=== PATIENT | female | born 1955 | race Caucasian/White ===

== ENCOUNTER → 2020-12-08 11:01 | Outpatient (BNVA) | payer MEDICARE, OTHER, SELFPAY | PROVIDERS: PCP Family Medicine Geriatric Medicine; Visit Provider Hospitalist | DX: J45.40 Moderate persistent asthma, uncomplicated (principal); J40 Bronchitis, not specified as acute or chronic; K21.00 Gastro-esophageal reflux disease with esophagitis, without bleeding | CPT/HCPCS: 99212 ==

== ENCOUNTER → 2021-02-15 15:36 | Outpatient (REF) | payer MEDICARE, SELFPAY | LOC: HO.SL 15:36 | PROVIDERS: Visit Provider Hospitalist | DX: G47.33 Obstructive sleep apnea (adult) (pediatric) (principal) | CPT/HCPCS: 95806 ==

== ENCOUNTER 2021-02-22 13:09 | Outpatient (REF) | payer MEDICARE, SELFPAY ==
--- NOTE | ~2021-02-22 | XR_ITS ---
EXAMINATION: XR CHEST CLINICAL INFORMATION: Bronchitis COMPARISON: None TECHNIQUE: 2 views of the chest were obtained. FINDINGS: The lungs are well expanded. There is no focal consolidation, edema, or effusion. No pneumothorax. The cardiomediastinal silhouette is within normal limits. No acute osseous abnormality. Mild degenerative changes in the spine. XR/XR chest 2V IMPRESSION: Clear lungs.
[2021-02-22 14:17] LABS: MANUAL DIFF FLAG NO
[2021-02-22 14:27] LABS: Basophils Absolute Auto 0.1 X10*3/uL (0.0-0.2); Basophils Percent Auto 0.7 % (0-2); Eosinophils Absolute Auto 0.4 X10*3/uL (0.0-0.4); Eosinophils Percent Auto 3.7 % (0-4); Hematocrit 39.5 % (37.0-47.0); Hemoglobin 12.9 g/dl (12.0-16.0); Imm Gran Abs Auto 0.02 X10*3/uL (0.00-0.03); Imm Gran Pct Auto 0.2 % (0.0-0.4); Lymphocytes Absolute Auto 2.6 X10*3/uL (1.2-4.9); Lymphocytes Percent Auto 25.9 % (20-40); Mean Corpuscular HGB Conc 32.7 g/dl (31.0-35.0); Mean Corpuscular Hemoglobin 30.6 pg (27.0-33.0); Mean Corpuscular Volume 93.8 fL (80.0-98.0); Mean Platelet Volume 9.2 fL (9.4-12.3); Monocytes Absolute Auto 0.8 X10*3/uL (0.1-1.2); Monocytes Percent Auto 7.6 % (2-11); Neutrophils Absolute Auto 6.24 x10*3/uL (2.0-8.3); Neutrophils Percent Auto 61.9 % (45-73); Platelet Count 356 X10*3/uL (160-400); Red Blood Count 4.21 X10*6/uL (4.20-5.50); Red Cell Distribution Width 13.7 % (11.0-16.0); White Blood Count 10.1 X10*3/uL (4.8-10.8)
[2021-02-22 14:38] LABS: D Dimer 308 NG/ML
[2021-02-22 15:00] LABS: Anion Gap 12 (12-20); Blood Urea Nitrogen 17 mg/dL (9-16); Calcium 9.2 mg/dL (8.4-10.2); Carbon Dioxide 27 mmol/L (22-29); Chloride 106 mmol/L (96-108); Estimated Glomerular Filt Rate 47; Glucose Random 114 mg/dL (60-115); Potassium 4.6 mmol/L (3.3-5.1); Sodium 140 mmol/L (135-145)
[2021-02-22 15:14] LABS: Erythrocyte Sedimentation Rate 33 MM/HR (0-20)
[2021-02-24 04:42] LABS: Cyclic Citrullinated Peptide 18 UNITS
[2021-02-24 23:21] LABS: Anti Nuclear Antibody Pattern Nuclear, Speckled; Anti Nuclear Antibody Screen POSITIVE (NEGATIVE)
== END 2021-02-22 13:10 | disposition home or self-care (01) ==
LOC: HO.XRAY 13:09
PROVIDERS: PCP Nurse Practitioner Family; Visit Provider Hospitalist
DX: J45.40 Moderate persistent asthma, uncomplicated (principal); J40 Bronchitis, not specified as acute or chronic; K21.00 Gastro-esophageal reflux disease with esophagitis, without bleeding; R07.9 Chest pain, unspecified; G47.33 Obstructive sleep apnea (adult) (pediatric)
CPT/HCPCS: 36415; 71046; 80048; 82785; 85025; 85379; 85652; 86003; 86038; 86039; 86200; 99212

== ENCOUNTER 2021-02-25 10:51 | Outpatient (REF) | payer MEDICARE, SELFPAY ==
--- NOTE | ~2021-02-25 | CT_ITS ---
EXAMINATION: CT ANGIOGRAM OF THE CHEST WITH AND WITHOUT CONTRAST (CT PULMONARY ANGIOGRAM FOR PE) CLINICAL INFORMATION: Reason for Exam R07.9 - Chest pain, unspecified COMPARISON: Radiograph 02/22/2021 TECHNIQUE: Prior to contrast administration, noncontrast localization images were obtained. Subsequently, multidetector volumetric imaging was performed from the thoracic inlet to below the diaphragms following the administration of 65 mL Omnipaque 350 intravenous contrast. No contrast reaction reported Sagittal, coronal, and MIP oblique sagittal reformatted images were obtained on the CT workstation, uploaded to PACS, and reviewed. This CT examination was performed using dose optimization techniques as appropriate, variously including the following: *Automated exposure control *Adjustment of mA and/or kV according to patient size (this includes techniques or standardized protocols for targeted exams where dose is matched to indication/reason for exam; i.e. extremities or head) *Use of iterative reconstruction technique Total exam dose-length product 178 mGy-cm FINDINGS: QUALITY OF STUDY/CONTRAST BOLUS: Satisfactory. PULMONARY ARTERIES: No central or segmental pulmonary emboli. THORACIC AORTA: No aneurysm or dissection. LUNG: The central airways are patent. There is mild bronchial wall thickening. No dense consolidation. Bilateral subsegmental lower lobe atelectasis. No pulmonary nodule. PLEURA: No pleural effusion or pneumothorax. MEDIASTINUM: Normal heart size. No pericardial effusion. No hilar or mediastinal lymphadenopathy. The right lobe of the thyroid gland appears to be absent. No evidence of septal bowing or right heart strain. CHEST WALL/AXILLA: No axillary or internal mammary lymphadenopathy. OSSEOUS STRUCTURES: No acute or suspicious osseous abnormality. Mild degenerative changes of the spine. UPPER ABDOMEN: Unremarkable. No reflux of contrast into the hepatic veins to suggest elevated right heart pressures. CT/CT angio chest PE protocol IMPRESSION: No pulmonary embolism. No consolidation. Bronchial wall thickening can be seen with a small airways process such as asthma or atypical/viral infection. VTE: negative
[2021-02-25] MEDS: iohexoL 350 MG/ML 100 ML INFUS..BTL 65 ML IV (12:27)
== END 2021-02-25 10:52 | disposition home or self-care (01) ==
LOC: HO.CT 10:51
PROVIDERS: PCP Nurse Practitioner Family; Visit Provider Hospitalist
DX: R07.9 Chest pain, unspecified (principal); R78.89 Finding of other specified substances, not normally found in blood
CPT/HCPCS: 71275; Q9967

== ENCOUNTER → 2021-05-02 12:50 | Outpatient (BNVA) | payer MEDICARE, SELFPAY | PROVIDERS: PCP Nurse Practitioner Family; Visit Provider Hospitalist | DX: J45.40 Moderate persistent asthma, uncomplicated (principal); K21.00 Gastro-esophageal reflux disease with esophagitis, without bleeding; G47.33 Obstructive sleep apnea (adult) (pediatric); R07.9 Chest pain, unspecified | CPT/HCPCS: 99212 ==

== ENCOUNTER 2021-10-03 11:16 | Outpatient (REF) | payer MEDICARE, OTHER, SELFPAY ==
--- NOTE | ~2021-10-03 | XR_ITS ---
EXAMINATION: XR CHEST CLINICAL INFORMATION: J45.40 - Moderate persistent asthma, uncomplicated COMPARISON: Chest radiographs 02/22/2021, CTA chest 02/25/2021 TECHNIQUE: 2 views of the chest were obtained. FINDINGS: The lungs are clear. No airspace consolidation or groundglass opacity or effusion. Heart size normal. The hilar and mediastinal contours and bony structures are similar to prior exam. XR/XR chest 2V IMPRESSION: Unremarkable examination.
[2021-10-03 12:56] LABS: Erythrocyte Sedimentation Rate 34 MM/HR (0-20)
[2021-10-04 22:12] LABS: Immunoglobulin E 1483 kU/L (<OR=114)
[2021-10-05 22:03] LABS: Anti Nuclear Antibody Screen POSITIVE (NEGATIVE)
[2021-10-09 11:15] LABS: Anti DNA DS Antibody 1 IU/mL; Antibody to SS-A Antigen >8.0 POS AI (<1.0 NEG); Antibody to SS-B Antigen <1.0 NEG AI (<1.0 NEG)
== END 2021-10-03 11:17 | disposition home or self-care (01) ==
LOC: HO.LAB 11:16
PROVIDERS: Visit Provider Hospitalist
DX: J45.40 Moderate persistent asthma, uncomplicated (principal); R07.9 Chest pain, unspecified; K21.00 Gastro-esophageal reflux disease with esophagitis, without bleeding; G47.33 Obstructive sleep apnea (adult) (pediatric); R76.8 Other specified abnormal immunological findings in serum; J30.9 Allergic rhinitis, unspecified
CPT/HCPCS: 36415; 71046; 82785; 85652; 86038; 86039; 86225; 86235; 99212

== ENCOUNTER 2021-12-01 11:54 | Outpatient (REF) | payer MEDICARE, OTHER, SELFPAY ==
--- NOTE | ~2021-12-01 | XR_ITS ---
EXAMINATION: XR CHEST 2 VIEWS CLINICAL INFORMATION: Covid-19. COMPARISON: Chest radiographs dated 10/03/2021. TECHNIQUE: Frontal and lateral views of the chest were obtained. FINDINGS: The heart, great vessels, pulmonary vasculature and mediastinum are normal. The lungs show no focal infiltrate, effusion or pneumothorax. There is mild elevation of the right hemidiaphragm. There is no acute osseous abnormality. A small rectangular density superior to the distal right clavicle is likely external to patient. There is multi-level thoracic spondylosis. XR/XR chest 2V IMPRESSION: No active cardiopulmonary disease.
== END 2021-12-01 11:55 | disposition home or self-care (01) ==
LOC: HO.XRAY 11:54
PROVIDERS: Visit Provider Hospitalist
DX: U07.1 COVID-19 (principal)
CPT/HCPCS: 71046

== ENCOUNTER → 2021-12-02 09:39 | Outpatient (BNVA) | payer MEDICARE, OTHER, SELFPAY | PROVIDERS: PCP Nurse Practitioner Family; Visit Provider Hospitalist | DX: M35.00 Sjogren syndrome, unspecified (principal); R76.8 Other specified abnormal immunological findings in serum; J44.9 Chronic obstructive pulmonary disease, unspecified; J45.40 Moderate persistent asthma, uncomplicated; K21.00 Gastro-esophageal reflux disease with esophagitis, without bleeding; R07.9 Chest pain, unspecified; G47.33 Obstructive sleep apnea (adult) (pediatric); J30.9 Allergic rhinitis, unspecified; U07.1 COVID-19 | CPT/HCPCS: 99212 ==

== ENCOUNTER 2022-02-16 11:05 | Outpatient (REF) | payer MEDICARE, OTHER, SELFPAY ==
--- NOTE | ~2022-02-16 | XR_ITS ---
EXAMINATION: XR CHEST CLINICAL INFORMATION: Bronchitis COMPARISON: Previous chest x-ray most recent November 2021 TECHNIQUE: 2 views of the chest were obtained. FINDINGS: No significant abnormality is noted involving the heart, lungs, mediastinum, or soft tissues. There are degenerative changes of the spine. XR/XR chest 2V IMPRESSION: No evidence for acute disease in the chest.
[2022-02-16 13:06] LABS: Basophils Percent Auto 0.2 % (0-2); Eosinophils Percent Auto 0.1 % (0-4); Hematocrit 31.1 % (37.0-47.0); Hemoglobin 9.9 g/dl (12.0-16.0); Imm Gran Abs Auto 0.16 X10*3/uL (0.00-0.03); Imm Gran Pct Auto 0.8 % (0.0-0.4); Lymphocytes Absolute Auto 0.9 X10*3/uL (1.2-4.9); Lymphocytes Percent Auto 4.9 % (20-40); MANUAL DIFF FLAG SCAN; Mean Corpuscular HGB Conc 31.8 g/dl (31.0-35.0); Mean Corpuscular Hemoglobin 30.5 pg (27.0-33.0); Mean Corpuscular Volume 95.7 fL (80.0-98.0); Mean Platelet Volume 9.1 fL (9.4-12.3); Monocytes Absolute Auto 0.7 X10*3/uL (0.1-1.2); Monocytes Percent Auto 3.7 % (2-11); Neutrophils Absolute Auto 17.2 x10*3/uL (2.0-8.3); Neutrophils Percent Auto 90.3 % (45-73); Platelet Count 374 X10*3/uL (160-400); Red Blood Count 3.25 X10*6/uL (4.20-5.50); Red Cell Distribution Width 17.5 % (11.0-16.0); SCAN SMEAR FLAG 1
[2022-02-16 13:14] LABS: D Dimer High Sensitivity 560 NG/ML
[2022-02-16 13:25] LABS: Estimated Average Glucose 126 mg/dL
[2022-02-16 13:40] LABS: SLIDE REVIEW VERIFIED
[2022-02-16 13:51] LABS: Alanine Aminotransferase 41 U/L (0-31); Albumin Level 3.6 g/dL (3.5-5.0); Alkaline Phosphatase 74 U/L (39-117); Anion Gap 18 (12-20); Aspartate Amino Transferase 23 U/L (5-31); Bilirubin Total 0.3 mg/dL (0.0-1.0); Blood Urea Nitrogen 21 mg/dL (9-16); C Reactive Protein 10.03 mg/dL (< or = 0.50); Calcium 9.1 mg/dL (8.4-10.2); Carbon Dioxide 19 mmol/L (22-29); Chloride 107 mmol/L (96-108); Estimated Glomerular Filt Rate 47; Glucose Random 112 mg/dL (60-115); Iron 25 mcg/dL (30-160); Lactate Dehydrogenase 292 U/L (122-220); Lipase 153 U/L (8-78); Percent Iron Saturation 9 % (15-50); Potassium 5.2 mmol/L (3.3-5.1); Sodium 139 mmol/L (135-145); Total Iron Binding Capacity 293 mcg/dL (228-428); Unsaturated Iron Binding 268 ug/dL
[2022-02-16 14:15] LABS: Ferritin 382 ng/mL (10-250); Thyroid Stimulating Hormone 0.44 uIU/mL (0.32-4.0)
[2022-02-16 14:18] LABS: Appearance Urine Cloudy; Color Urine Dark Yellow; Glucose Urine UA Negative (Negative); Leukocyte Esterase Urine Small (1+) (Negative); Nitrite Urine Negative (Negative); Specific Gravity - Urine 1.025 (1.005-1.025); UMIC TRIGGER UA YES; Urine Blood Negative (Negative); Urine Ketones Trace mg/dL (Negative); Urine Protein Trace mg/dL (Neg-Trace)
[2022-02-16 14:43] LABS: Bacteria Urine None Seen (None Seen); Calcium Oxalate Crystals Urine Present; Hyaline Casts Urine 0-2 /LPF (0-2); RBC Urine 0-2 /HPF (0-2); WBC Urine 0-5 /HPF (0-5)
[2022-02-16 15:19] LABS: Folate 8.8 ng/mL (> or = 4.0); Vitamin B12 517 pg/mL (200-900)
[2022-02-16 15:24] LABS: Creatinine Urine 218.83 mg/dL; Protein/Creatinine Ratio, Ur 0.18 (<0.2); Total Protein Urine Random 39 mg/dL (<12)
[2022-02-16 16:01] LABS: Erythrocyte Sedimentation Rate 98 MM/HR (0-20)
[2022-02-17 04:58] LABS: HBS Num1 0.74 mIU/mL (0-7.99); HBc Num1 0.12 S/CO (0.00-0.79); HIV AB/AG Nonreactive (Nonreactive); HIV Num 1 0.09 S/CO (0.00-0.99); Hepatitis B Core Antibody Nonreactive (Nonreactive); Hepatitis B Surface Antigen Negative (Negative); ~HepC Num1 0.07 S/CO (0.00-0.79); ~Hepatitis A Antibody IgM Nonreactive (Nonreactive); ~Hepatitis B Surface Antibody NONREACTIVE (Nonreactive); ~Hepatitis C Antibody Nonreactive (Nonreactive)
[2022-02-17 18:07] LABS: Complement C3 182 mg/dL (83-193)
[2022-02-18 14:33] LABS: Transferrin 216 mg/dL (188-341)
[2022-02-19 03:17] LABS: TS Negative Control Passed; TS Panel A 0; TS Panel B 0; TS Positive Control Passed; TSpotTB Negative (Negative)
[2022-02-20 14:23] LABS: Immunoglobulin G Subclass 1 958 mg/dL (382-929); Immunoglobulin G Subclass 2 240 mg/dL (241-700); Immunoglobulin G Subclass 3 17 mg/dL (22-178); Immunoglobulin G Subclass 4 76.6 mg/dL (4-86); Immunoglobulin G Total 1416 mg/dL (600-1540)
[2022-02-20 21:57] LABS: Myeloperoxidase Antibody <1.0 AI; Proteinase 3 PR3 Antibodies <1.0 AI; SM/Ribonucleoprotein Ab <1.0 NEG AI (<1.0 NEG); Scleroderma 70 Antibody <1.0 NEG AI (<1.0 NEG); Smith Protein <1.0 NEG AI (<1.0 NEG)
[2022-02-20 22:11] LABS: Anti-Centromere B Antibodies <1.0 NEG AI (<1.0 NEG); Cardiolipin IgG Ab <2.0 GPL-U/mL; Cardiolipin IgM Ab <2.0 MPL-U/mL
[2022-02-20 22:32] LABS: PTT (LAC) Screen 39 sec (<=40)
[2022-02-21 12:48] LABS: IgA 314 mg/dL (70-320); IgG 1414 mg/dL (600-1540); IgM 58 mg/dL (50-300)
[2022-02-21 14:02] LABS: Mitochondrial Antibodies NEGATIVE (NEGATIVE)
[2022-02-21 18:11] LABS: Prot Elec - Alpha1 0.5 g/dL (0.2-0.3); Prot Elec - Alpha2 1.1 g/dL (0.5-0.9); Prot Elec - Beta 1 0.5 g/dL (0.4-0.6); Prot Elec - Beta 2 0.4 g/dL (0.2-0.5); Prot Elec - Gamma 1.3 g/dL (0.8-1.7); Prot Elec - Total Protein 6.8 g/dL (6.1-8.1)
[2022-02-21 21:33] LABS: Beta-2 Glycoprotein IgA <2.0 U/mL (<20.0); Beta-2 Glycoprotein IgG <2.0 U/mL (<20.0); Beta-2 Glycoprotein IgM <2.0 U/mL (<20.0)
[2022-02-22 14:12] LABS: DNAds, Crithidia Antibody Negative (Negative)
[2022-02-23 04:36] LABS: Angiotensin Converting Enzyme 22 U/L (9-67)
[2022-02-23 16:21] LABS: Liver Kidney Microsomal Ab <=20.0 U (<=20.0)
[2022-02-23 16:55] LABS: Smooth Muscle Antibody <20 U (<20)
[2022-02-27 17:32] LABS: EJ Autoantibodies NOT DETECTED (NOT DETECTED); JO-1 Antibody <1.0 NEG AI (<1.0 NEGATIVE); MI 2 Autoantibodies NOT DETECTED (NOT DETECTED); OJ Autoantibodies NOT DETECTED (NOT DETECTED); PL 12 Autoantibodies NOT DETECTED (NOT DETECTED); PL 7 Autoantibodies NOT DETECTED (NOT DETECTED)
[2022-02-28 08:34] LABS: Cryoglobulin, Qual NONE DETECTED
== END 2022-02-16 11:06 | disposition home or self-care (01) ==
LOC: HO.XRAY 11:05
PROVIDERS: Absent Provider Hospitalist; Visit Provider Student in an Organized Health Care Education/Training Program
DX: Z11.7 Encounter for testing for latent tuberculosis infection (principal); Z11.59 Encounter for screening for other viral diseases; Z11.4 Encounter for screening for human immunodeficiency virus [HIV]; J84.9 Interstitial pulmonary disease, unspecified; R07.81 Pleurodynia; D64.9 Anemia, unspecified; G72.9 Myopathy, unspecified; M35.00 Sjogren syndrome, unspecified; R06.02 Shortness of breath; R76.8 Other specified abnormal immunological findings in serum; R73.9 Hyperglycemia, unspecified; K86.1 Other chronic pancreatitis; J40 Bronchitis, not specified as acute or chronic; J45.40 Moderate persistent asthma, uncomplicated; K21.00 Gastro-esophageal reflux disease with esophagitis, without bleeding; R07.9 Chest pain, unspecified; G47.33 Obstructive sleep apnea (adult) (pediatric); J30.9 Allergic rhinitis, unspecified; Z72.89 Other problems related to lifestyle
CPT/HCPCS: 36415; 71046; 80053; 81001; 82085; 82164; 82550; 82595; 82607; 82728; 82746; 82784; 83036; 83516; 83520; 83540; 83615; 83690; 84156; 84165; 84182; 84443; 84466; 85025; 85379; 85597; 85613; 85652; 85730; 86015; 86021; 86038; 86140; 86146; 86147; 86160; 86235; 86255; 86256; 86334; 86376; 86481; 86704; 86706; 86709; 86803; 87340; 87389; 94618; 99202; 99212

== ENCOUNTER 2022-02-17 11:01 | Outpatient (REF) | payer MEDICARE, OTHER, SELFPAY ==
--- NOTE | ~2022-02-17 | CT_ITS ---
EXAMINATION: CT ANGIOGRAM OF THE CHEST WITH AND WITHOUT CONTRAST (CT PULMONARY ANGIOGRAM FOR PE) CLINICAL INFORMATION: Reason for Exam R07.81 - Pleurodynia COMPARISON: Previous chest x-ray from yesterday and chest CTA February 2021 TECHNIQUE: Prior to contrast administration, noncontrast localization images were obtained. Subsequently, multidetector volumetric imaging was performed from the thoracic inlet to below the diaphragms following the administration of 65 mL Omnipaque 350 intravenous contrast. No contrast reaction reported Sagittal, coronal, and MIP oblique sagittal reformatted images were obtained on the CT workstation, uploaded to PACS, and reviewed. This CT examination was performed using dose optimization techniques as appropriate, variously including the following: *Automated exposure control *Adjustment of mA and/or kV according to patient size (this includes techniques or standardized protocols for targeted exams where dose is matched to indication/reason for exam; i.e. extremities or head) *Use of iterative reconstruction technique Total exam dose-length product 169 mGy-cm FINDINGS: QUALITY OF STUDY/CONTRAST BOLUS: Satisfactory. PULMONARY ARTERIES: No central or segmental pulmonary emboli. THORACIC AORTA: No aneurysm or dissection. LUNG: No focal consolidation, nodules or masses. PLEURA: No pleural effusion or pneumothorax. MEDIASTINUM: Normal heart size. No pericardial effusion. No hilar or mediastinal lymphadenopathy. No evidence of septal bowing or right heart strain. The right lobe of the thyroid gland is not seen and may been removed. CHEST WALL/AXILLA: No axillary or internal mammary lymphadenopathy. OSSEOUS STRUCTURES: No acute or suspicious osseous abnormality. Degenerative changes of the spine. UPPER ABDOMEN: Unremarkable. No reflux of contrast into the hepatic veins to suggest elevated right heart pressures. CT/CT angio chest PE protocol IMPRESSION: No evidence of pulmonary embolism VTE: negative
[2022-02-17] MEDS: iohexoL 350 MG/ML 100 ML INFUS..BTL IV (12:06)
== END 2022-02-17 11:02 | disposition home or self-care (01) ==
LOC: HO.CT 11:01
PROVIDERS: Visit Provider Hospitalist
DX: R07.81 Pleurodynia (principal)
CPT/HCPCS: 71275; Q9967

== ENCOUNTER → 2022-02-20 14:33 | Outpatient (REF) | payer MEDICARE, OTHER, SELFPAY ==
--- NOTE | 2022-02-20 14:36 | CA_ITS ---
Transthoracic Echocardiogram Patient (Last, First, Middle): Lisette Zepeda, Gender: Female Date of : 1955 Age: 66 Procedure Date: 02/20/2022 Procedure Type: Transthoracic Echocardiogram Location: OP Height: 162.56 cm Weight: 90.72 kg BSA: 1.96 m2 Heart Rate: 79 bpm BP: 108 / 64 mmHg Heat Transfer Technician: SB Referring MD: Ezio Carroll MD Symptoms: R06.02 - Shortness of breath Study Quality: Adequate ECG Rhythm: Sinus Conclusions: - The left ventricular systolic function is normal. The calculated ejection fraction is 62% by biplane method. - Possible rheumatic mitral appearance, but no significant stenosis or regurgitation. Findings Left Ventricle Normal left ventricular cavity size. There is normal left ventricular wall thickness. The left ventricular systolic function is normal. The calculated ejection fraction is 62% by biplane method. There is no evidence of regional wall motion abnormalities. LV peak GLS -18.7%. Right Ventricle Normal right ventricular cavity size and systolic function. Atria Both atria are normal in size. Aortic Valve There is a normal trileaflet aortic valve. There is no aortic valve stenosis. There is no aortic valve regurgitation. Mitral Valve There is mild anterior mitral leaflet thickening. There is trace mitral valve regurgitation. There is no mitral valve stenosis. Minimally increased gradients across mitral valve. Pulmonic Valve There is trace pulmonic valve regurgitation. Tricuspid Valve There is mild tricuspid valve regurgitation. There is no evidence of pulmonary hypertension. Great Vessels The asc aorta is normal in size. Venous The inferior vena cava is normal in size and collapses greater than 50% with inspiration. Pericardium/Pleural There is no evidence of pericardial effusion. Prior Study Comparison No prior study available for comparison. Measurements 2D Linear Measurements IVSd: 0.84 0.6-0.9/0.6-1.0 cm LVIDd: 4.75 3.9-5.3/4.2-5.9 cm LVIDd Index: 2.42 2.4-3.2/2.2-3.1 cm/m2 LVIDs: 3.07 2.0-3.6 cm LVPWd: 0.87 0.7-1.1 cm LA Diam: 3.60 2.7-3.8/3.0-4.0 cm LAIDs Index: 1.84 1.5-2.3 cm/m2 LV Mass: 169.30 67-162/88-224 g LV Mass Index: 86.38 43-95/49-115 g/m2 LVOT Diam: 2.10 3.0+(-)1.3 cm 2D Systolic Function EF 4C: 54.80 >55% EF 2C: 67.30 >55% EF BiP: 62.40 >55% Mitral Valve MV VTI: 0.34 MV Pk De: 1.37 MV Mn De: 0.76 MV Pk Grad: 8.00 MV Mn Grad: 3.00 MV Pk E: 0.96 MV PK A: 1.08 MV Decel Time: 234.00 E/A: 0.90 E'Lateral: 7.83 E'Medial: 8.49 E/E' Med: 11.30 E/E' Lat: 12.30 PHT: 69.00 MVA PHT: 3.19 MVA Continuity: 2.49 Decel Concho: 4.10 Aortic Valve AoV Pk De: 1.75 AoV Mn De: 1.14 AoV VTI: 0.34 AoV Pk Grad: 12.00 Aov Mn Grad: 6.00 WAYLON Cont.VTI: 2.52 LVOT LVOT Pk De: 1.26 LVOT Mn De: 0.87 LVOT VTI: 0.25 LVOT Pk Grad: 6.00 LVOT Mn Grad: 3.00 LVOT Diam: 2.10 LVOT Area: 3.46 Diastolic Function MV Pk E: 0.96 MV Pk A: 1.08 E/A: 0.90 E'Medial: 8.49 E/E' Med: 11.30 E' Laterial: 7.83 E/E' Lat: 12.30 Right Ventricle TAPSE (mm): 26.30 TVS' De: 14.90 Tricuspid Valve TR Pk De: 2.30 TR Pk Grad: 21.00 RA Press: 3.00 RVSP: 24.00 Great Vessels Aorta Sinus of Valsalva: 3.00 2.0-3.5 cm Ao Asc: 3.10 2.1-3.4 cm Pulmonary Veins Pulm Vein S/D 1.50 Pulmonary Valve PV Pk De: 1.05 Peak PV Grad: 4.00 Updated in Other Vendor System with Status of Final Santos Arreola MD electronically signed on 02/20/2022 4:05:06 PM with status of Final
== END ==
LOC: HO.CARD 14:33
PROVIDERS: Visit Provider Student in an Organized Health Care Education/Training Program
DX: R06.02 Shortness of breath (principal); G72.9 Myopathy, unspecified; R76.8 Other specified abnormal immunological findings in serum; J84.9 Interstitial pulmonary disease, unspecified; M35.00 Sjogren syndrome, unspecified
CPT/HCPCS: 93306; 93356

== ENCOUNTER → 2022-03-02 09:46 | Outpatient (BNVA) | payer MEDICARE, OTHER, SELFPAY | PROVIDERS: PCP Nurse Practitioner Family; Visit Provider Hospitalist | DX: J45.40 Moderate persistent asthma, uncomplicated (principal); J84.9 Interstitial pulmonary disease, unspecified; R76.8 Other specified abnormal immunological findings in serum; J30.9 Allergic rhinitis, unspecified; R07.9 Chest pain, unspecified; M35.00 Sjogren syndrome, unspecified; K21.00 Gastro-esophageal reflux disease with esophagitis, without bleeding; G47.33 Obstructive sleep apnea (adult) (pediatric); R07.81 Pleurodynia | CPT/HCPCS: 99212 ==

== ENCOUNTER 2022-03-03 12:34 | Outpatient (REF) | payer MEDICARE, OTHER, SELFPAY ==
--- NOTE | ~2022-03-03 | MR_ITS ---
EXAMINATION: MR HUMERUS WITHOUT AND WITH CONTRAST, LEFT MR HUMERUS WITHOUT AND WITH CONTRAST, RIGHT CLINICAL INFORMATION: Myopathy. COMPARISON: None TECHNIQUE: MRI in a high-field magnet without and with contrast. 10 mL Gadavist. FINDINGS: LEFT HUMERUS: There is inhomogeneous fat saturation on the axial sequences, limiting evaluation. In the visualized musculature of the humerus, there is no evidence of significant edema. There is apparent mild atrophy of the musculature along the medial aspect of the proximal/mid humerus. No focal muscle tear is seen. No obvious abnormal/suspicious enhancement is identified. Question edema in the deltoid muscle and the muscles of the shoulder girdle, as seen on the sagittal and coronal STIR images. The subscapularis tendon grossly appears intact. Limited visualization of the proximal long head biceps tendon. Marrow signal of the humerus is within normal limits. No evidence of fracture or significant stress injury. Normal articulation of the left shoulder joint. No significant joint effusion is seen. There is subcentimeter left axillary lymph nodes. RIGHT HUMERUS: There is inhomogeneous fat saturation on the axial sequences, limiting evaluation. In the visualized musculature of the humerus, there appears to be mild edema in the anterior musculature of the humerus, and the deltoid muscle and muscles of the shoulder girdle, as seen on the sagittal and coronal STIR sequence. Correlation with the axial sequences limited due to inhomogeneous fat saturation. There is mild atrophy of the muscles of the medial aspect of the midhumerus. No focal muscle tear is seen. No obvious abnormal/suspicious enhancement is identified, evaluation limited by inhomogeneous fat saturation. Limited evaluation of the deltoid muscle and the muscles of the shoulder girdle due to inhomogeneous fat saturation. The visualized portion of the proximal long head biceps tendon is intact. No evidence of significant edema or suspicious marrow signal changes in the visualized humerus. No fracture seen. Articulation of the shoulder joint is maintained. Question small joint effusion. There are subcentimeter axillary lymph nodes. MR/MR humerus LT wo/w con IMPRESSION: 1. Inhomogeneous fat saturation in the axial sequences of bilateral shoulders limits evaluation. Evaluation is limited in the provided sequences. 2. In the right humerus, question increased T2 signal/edema in the anterior musculature of the humerus and the deltoid muscle and muscles of the shoulder girdle, as seen on the sagittal and coronal sequences. Correlation with the axial sequences is limited due to inhomogeneous fat saturation. These findings could represent myositis. 3. In the left humerus, question edema in the deltoid muscle and muscles of the shoulder girdle. Suboptimal axial imaging limits evaluation. This raises a possibility of myositis in this region. 4. Correlate with patient's blood work. Repeat/follow-up MRI for reassessment, with attention to technique and obtaining STIR sequences, as clinically warranted. 5. Additional findings and details as above.
== END 2022-03-03 12:35 | disposition home or self-care (01) ==
LOC: HO.MRI 12:34
PROVIDERS: Visit Provider Student in an Organized Health Care Education/Training Program
DX: G72.9 Myopathy, unspecified (principal)
CPT/HCPCS: 73220; A9585

== ENCOUNTER → 2022-03-10 07:28 | Outpatient (BNVA) | payer MEDICARE, OTHER, SELFPAY | PROVIDERS: PCP Nurse Practitioner Family; Visit Provider Student in an Organized Health Care Education/Training Program | DX: E04.1 Nontoxic single thyroid nodule (principal); I77.6 Arteritis, unspecified | CPT/HCPCS: 99212 ==

== ENCOUNTER → 2022-03-14 14:10 | Outpatient (BNVA) | payer MEDICARE, OTHER, SELFPAY | PROVIDERS: PCP Nurse Practitioner Family; Visit Provider Surgery | DX: M62.81 Muscle weakness (generalized) (principal) | CPT/HCPCS: 99202 ==

== ENCOUNTER 2022-03-20 09:13 | Outpatient (REF) | payer MEDICARE, OTHER, SELFPAY ==
[2022-03-20 10:14] LABS: Retic HGB Equivalent 35.2 pg (30.0-35.0); Reticulocyte Percent 3.6 % (0.5-1.8); Reticulocytes Absolute 0.126 X10*6/uL (0.026-0.095)
[2022-03-20 10:48] LABS: Alanine Aminotransferase 27 U/L (0-31); Albumin Level 3.6 g/dL (3.5-5.0); Alkaline Phosphatase 75 U/L (39-117); Anion Gap 18 (12-20); Aspartate Amino Transferase 18 U/L (5-31); Bilirubin Direct 0.2 mg/dL (0.0-0.5); Bilirubin Total 0.4 mg/dL (0.0-1.0); Blood Urea Nitrogen 22 mg/dL (9-16); Calcium 10.1 mg/dL (8.4-10.2); Carbon Dioxide 21 mmol/L (22-29); Chloride 103 mmol/L (96-108); Cholesterol 218 mg/dL; Estimated Glomerular Filt Rate 43; Glucose Fasting 105 mg/dL (60-99); HDL Cholesterol 46 mg/dL; Iron 40 mcg/dL (30-160); LDL Cholesterol Calculated 129 mg/dl; Lipase 57 U/L (8-78); Percent Iron Saturation 15 % (15-50); Potassium 5.3 mmol/L (3.3-5.1); Sodium 137 mmol/L (135-145); Total Iron Binding Capacity 262 mcg/dL (228-428); Total Protein 7.6 g/dL (6.5-8.0); Triglycerides 218 mg/dL; Unsaturated Iron Binding 222 ug/dL
[2022-03-20 11:10] LABS: Erythrocyte Sedimentation Rate 98 MM/HR (0-20)
[2022-03-20 12:06] LABS: MANUAL DIFF FLAG NO
[2022-03-20 12:11] LABS: Basophils Absolute Auto 0.1 X10*3/uL (0.0-0.2); Basophils Percent Auto 0.4 % (0-2); Eosinophils Absolute Auto 0.5 X10*3/uL (0.0-0.4); Eosinophils Percent Auto 2.7 % (0-4); Hematocrit 35.3 % (37.0-47.0); Hemoglobin 10.7 g/dl (12.0-16.0); Imm Gran Abs Auto 0.16 X10*3/uL (0.00-0.03); Imm Gran Pct Auto 0.8 % (0.0-0.4); Lymphocytes Absolute Auto 2.4 X10*3/uL (1.2-4.9); Lymphocytes Percent Auto 12.7 % (20-40); Mean Corpuscular HGB Conc 30.3 g/dl (31.0-35.0); Mean Corpuscular Hemoglobin 30.9 pg (27.0-33.0); Mean Platelet Volume 8.8 fL (9.4-12.3); Monocytes Absolute Auto 1.2 X10*3/uL (0.1-1.2); Monocytes Percent Auto 6.4 % (2-11); Neutrophils Absolute Auto 14.8 x10*3/uL (2.0-8.3); Platelet Count 628 X10*3/uL (160-400); Red Blood Count 3.46 X10*6/uL (4.20-5.50); Red Cell Distribution Width 16.8 % (11.0-16.0); White Blood Count 19.3 X10*3/uL (4.8-10.8)
== END 2022-03-20 09:14 | disposition home or self-care (01) ==
LOC: HO.LAB 09:13
PROVIDERS: Absent Provider Nurse Practitioner Family; PCP Nurse Practitioner Family; Visit Provider Hospitalist
DX: J84.9 Interstitial pulmonary disease, unspecified (principal); D64.9 Anemia, unspecified
CPT/HCPCS: 36415; 80053; 80061; 80076; 82248; 83540; 83690; 85025; 85045; 85652

== ENCOUNTER 2022-03-21 09:31 | Day surgery (SDC) | payer MEDICARE, OTHER, SELFPAY ==
--- NOTE | 2022-03-20 09:08 | P.CONAN_ITS ---
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) Mononeuritis of lower limb, unspecified (Acute) Muscle weakness (Acute) Vasculitis (Acute) Thyroid nodule (Acute) Numbness of both lower extremities (Acute) Pleuritic chest pain (Acute) Autoimmune pancreatitis (Acute) Hyperglycemia (Acute) Screening for viral disease (Acute) Shortness of breath (Acute) Myopathy (Acute) ILD (interstitial lung disease) (Acute) Anemia (Acute) Sjogren's disease (Acute) COVID-19 (Acute) Chronic allergic rhinitis (Acute) AUDRA positive (Acute) Blood D-dimer assay positive (Acute) Chest pain (Acute) GERD (gastroesophageal reflux disease) (Acute) Bronchitis (Acute) Asthma (Acute) AMY (obstructive sleep apnea) (Acute) Past Medical History Medical History Asthma Blood D-dimer assay positive Bronchitis Chest pain GERD (gastroesophageal reflux disease) Muscle weakness AMY (obstructive sleep apnea) Prediabetes Sjogren's disease Family History Family History Other Family history of connective tissue disease Lupus Multiple sclerosis Rheumatoid arthritis Surgical History Surgical History Hx of appendectomy Hx of cholecystectomy Hx of colonoscopy S/P ankle joint replacement Social History Social History Household Members: Spouse Alcohol intake: current Alcohol intake frequency: holidays/special occasions only Alcohol type: wine Patient Tobacco Use Status: Never used Tobacco Use of substances other than those prescribed or required for medical reasons: No Are you DNR?: No Advance Directives: No Advance Directives Information Provided: Yes How much weight loss: 24-33 pounds Current occupational status: retired 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 Meds Allergies Allergy/AdvReac Type Severity Reaction Status Date / Time No Known Allergies Allergy Verified 03/14/22 14:21 Home Medications Medication Instructions Recorded Confirmed Last Taken Type amlodipine 5 mg-olmesartan 40 mg 1 tab PO DAILY 12/08/20 03/14/22 03/21/22 History tablet desloratadine 5 mg tablet 5 mg PO DAILY 12/08/20 03/14/22 Unknown History dexlansoprazole 60 mg 60 mg PO DAILY 12/08/20 03/14/22 Unknown History capsule,biphase delayed release (Dexilant) lansoprazole 30 mg capsule,delayed 30 mg PO DAILY 12/08/20 03/14/22 Unknown History release montelukast 10 mg tablet 10 mg PO DAILY 12/08/20 03/14/22 Unknown History carboxymethylcellulose sodium 0.5 1 drp ophthalmic (eye) TID 05/02/21 03/14/22 Unknown History % eye drops (Refresh Tears) atorvastatin 40 mg tablet 40 mg PO DAILY 02/16/22 03/14/22 Unknown History budesonide-formoterol HFA 160 inhalation Q12H 02/16/22 03/14/22 Unknown History mcg-4.5 mcg/actuation aerosol inhaler (Symbicort) cyanocobalamin-methylcobalamin 600 1 tab sublingual DAILY 02/16/22 03/14/22 Unknown History mcg-600 mcg sublingual tablet (Neurin-SL) ergocalciferol (vitamin D2) 1,250 1,250 mcg PO QWEEK 02/16/22 03/14/22 Unknown History mcg (50,000 unit) capsule pantoprazole 40 mg tablet,delayed 40 mg PO DAILY 02/16/22 03/14/22 Unknown History release rosuvastatin 20 mg tablet 20 mg PO BEDTIME 02/16/22 03/14/22 Unknown History metformin 500 mg tablet 500 mg PO DAILY 03/10/22 03/14/22 Unknown History Exam Exam Date and Time: March 20, 2022 0908 Pertinent Lab Results Pertinent Lab Results: Laboratory Tests 02/16/22 02/16/22 12:58 12:58 WBC 19.0 H Hgb 9.9 L D Hct 31.1 L D Plt Count 374 Sodium 139 Potassium 5.2 H Chloride 107 Carbon Dioxide 19 L BUN 21 H Creatinine 1.15 Narrative Narrative: ECHO 01/2022 Conclusions: - The left ventricular systolic function is normal.? The ? calculated ejection fraction is 62% by biplane method. ? - Possible rheumatic mitral appearance, but no significant ? ? ? stenosis or regurgitation. ?? Assessment and Plan Assessment Anesthesia Assessment: Chart Reviewed Documented by User: Dale Kate MD 03/21/22 12:32 [facility] Past Medical History Medical History Asthma Blood D-dimer assay positive Bronchitis Chest pain GERD (gastroesophageal reflux disease) Muscle weakness AMY (obstructive sleep apnea) Prediabetes Sjogren's disease Family History Family History Other Family history of connective tissue disease Lupus Multiple sclerosis Rheumatoid arthritis Family history of problems with anesthesia: No Surgical History Surgical History Hx of appendectomy Hx of cholecystectomy Hx of colonoscopy S/P ankle joint replacement History of Problems with Anesthesia: No Social History Social History Household Members: Spouse Alcohol intake: current Alcohol intake frequency: holidays/special occasions only Alcohol type: wine Patient Tobacco Use Status: Never used Tobacco Use of substances other than those prescribed or required for medical reasons: No Are you DNR?: No Advance Directives: No Advance Directives Information Provided: Yes How much weight loss: 24-33 pounds Current occupational status: retired 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 Meds Allergies Allergy/AdvReac Type Severity Reaction Status Date / Time No Known Allergies Allergy Verified 03/14/22 14:21 Home Medications Medication Instructions Recorded Confirmed Last Taken Type amlodipine 5 mg-olmesartan 40 mg 1 tab PO DAILY 12/08/20 03/14/22 03/21/22 History tablet desloratadine 5 mg tablet 5 mg PO DAILY 12/08/20 03/14/22 Unknown History dexlansoprazole 60 mg 60 mg PO DAILY 12/08/20 03/14/22 Unknown History capsule,biphase delayed release (Dexilant) lansoprazole 30 mg capsule,delayed 30 mg PO DAILY 12/08/20 03/14/22 Unknown History release montelukast 10 mg tablet 10 mg PO DAILY 12/08/20 03/14/22 Unknown History carboxymethylcellulose sodium 0.5 1 drp ophthalmic (eye) TID 05/02/21 03/14/22 Unknown History % eye drops (Refresh Tears) atorvastatin 40 mg tablet 40 mg PO DAILY 02/16/22 03/14/22 Unknown History budesonide-formoterol HFA 160 inhalation Q12H 02/16/22 03/14/22 Unknown History mcg-4.5 mcg/actuation aerosol inhaler (Symbicort) cyanocobalamin-methylcobalamin 600 1 tab sublingual DAILY 02/16/22 03/14/22 Unknown History mcg-600 mcg sublingual tablet (Neurin-SL) ergocalciferol (vitamin D2) 1,250 1,250 mcg PO QWEEK 02/16/22 03/14/22 Unknown History mcg (50,000 unit) capsule pantoprazole 40 mg tablet,delayed 40 mg PO DAILY 02/16/22 03/14/22 Unknown History release rosuvastatin 20 mg tablet 20 mg PO BEDTIME 02/16/22 03/14/22 Unknown History metformin 500 mg tablet 500 mg PO DAILY 03/10/22 03/14/22 Unknown History Exam Airway Mallampati Class: II TM Dist: >3cm Neck ROM: Full Loose/Missing/Broken Teeth: No Heart: [id number] Lungs: cta b/l Assessment and Plan Assessment Anesthesia Assessment: Anesthesia Plan Discussed Final Anesthetic Review Family History of Problems with Anesthesia: No History of Problems with Anesthesia: No NPO: Yes ASA Class: III Final Preanesthetic Review: No Changes in Pt Med Stat, Meds/Allgs Chart Reviewed, Consent Obtained/Reviewed and Anes Risks/Benef Reviewed Patient Risk: Intermediate Procedure Risk: Intermediate Assessment/Block/Sedation in SS: Assess/Block/Sedation-SS Anesthetic Plan Anesthetic Plan: MAC: and Agree w/ Assess. and Plan Disposition: Standard PACU
[2022-03-21 10:51] VITALS: BMI 33.5
--- NOTE | 2022-03-21 11:02 | ECG_ITS ---
Test Reason : LT ARM PAIN Blood Pressure : / mmHG Vent. Rate : 091 BPM Atrial Rate : 091 BPM P-R Int : 136 ms QRS Dur : 086 ms QT Int : 340 ms P-R-T Axes : 045 032 040 degrees QTc Int : 418 ms Normal sinus rhythm Normal ECG No previous ECGs available Referred By: Dale Kate Electronically Signed By:ELMER RAYMOND MD
--- NOTE | 2022-03-21 11:34 | MHC.SHP ---
Pre-Procedural Eval Section A Date of Service: 03/21/22 The patient is an INPATIENT: No Changes since office visit: No Cold of Flu in the past 2 weeks, No New Medical Problems, No Changes in Medication and No Patient answered all questions The History & Physical has been completed within 30 days and I have reviewed it.: Yes Section B Chief Complaint: Muscle weakness (generalized) Allergies: Allergies Allergy/AdvReac Type Severity Reaction Status Date / Time No Known Allergies Allergy Verified 03/14/22 14:21 Plan I have reviewed the history and physical and performed a pertinent physical examination on my patient. No changes have occurred unless specified.
[2022-03-21 11:45] LABS: Glucose, Whole Blood 97 mg/dL (60-115)
[2022-03-21] MEDS: Lactated Ringers 1,000 ML 100 ML IVCONT (11:48)
--- NOTE | 2022-03-21 13:57 | P.OP_ITS ---
Operative Note Operative Note Date of Service: 03/21/22 Narrative: Preop diagnosis: Progressive muscle weakness Postop diagnosis: The same Procedure: Muscle biopsy, left deltoid under monitored anesthesia care Surgeon: Denzel Mclean MD The patient is a 66-year-old female referred to ms for muscle biopsy because of progressive muscle weakness. The left deltoid muscle had been recommended as the specimen by the holistic pulser. The patient understood the technique of muscle biopsy and was aware of the risks, benefits, and alternatives She was brought to the operating room placed in supine position under monitored anesthesia care. The left arm was abducted. A surgical time-out was done. The patient received cefazolin 2 g IV preoperatively The left shoulder was prepped and draped in the usual sterile fashion. I palpated for the left deltoid muscle. I infiltrated the skin overlying this using lidocaine 1%. I made a short incision on the skin using a blade 15. And this was carried down with electrocautery through the full-thickness of the skin and subcutaneous fat through the fascia. The deltoid muscle fibers were then clearly visualized. I isolated a 1 cm segment. This was divided and was placed in a muscle clamp. I observed for hemostasis. Once hemostasis was confirmed I proceeded to close the fascia Dexon 3-0 interrupted sutures. The subcutaneous layer was reapposed with Dexon 3-0 interrupted sutures. Skin closure was achieved with Dexon 4-0 subcuticular running stitch. The area was infiltrated with Marcaine 0.5% for postop analgesia. Dressings were applied. The procedure was completed. She tolerated procedure well. There were no immediate complications. Estimated blood loss was about 1 cc The patient was transferred to the recovery room with stable vital signs.
[2022-03-21 14:05] VITALS: BP 137/63; PULSE 93; RESP 18; TEMP 37.1; O2SAT 96
[2022-03-21 14:20] VITALS: BP 126/67; PULSE 92; RESP 16; TEMP 37.1; O2SAT 98
== END 2022-03-21 15:06 | disposition home or self-care (01) ==
PROVIDERS: PCP Nurse Practitioner Family; Visit Provider Surgery
PROC: (CPT 20205; principal; 2022-03-21 12:00)
DX: M62.81 Muscle weakness (generalized) (principal); M79.602 Pain in left arm; J45.909 Unspecified asthma, uncomplicated; R73.03 Prediabetes; Z79.84 Long term (current) use of oral hypoglycemic drugs; Z79.899 Other long term (current) drug therapy
CPT/HCPCS: 20205; 82947; 88300; 88305; 88313; 88319; 88348; 93005; J0690; J2250; J2795

== ENCOUNTER 2022-04-05 08:46 | Outpatient (REF) | payer MEDICARE, OTHER, SELFPAY ==
[2022-04-05 09:17] LABS: MANUAL DIFF FLAG NO
[2022-04-05 09:48] LABS: Basophils Percent Auto 0.1 % (0-2); Eosinophils Percent Auto 0.2 % (0-4); Hematocrit 32.8 % (37.0-47.0); Hemoglobin 10.3 g/dl (12.0-16.0); Imm Gran Abs Auto 0.21 X10*3/uL (0.00-0.03); Imm Gran Pct Auto 0.9 % (0.0-0.4); Lymphocytes Absolute Auto 1.9 X10*3/uL (1.2-4.9); Lymphocytes Percent Auto 8.5 % (20-40); Mean Corpuscular HGB Conc 31.4 g/dl (31.0-35.0); Mean Corpuscular Hemoglobin 31.6 pg (27.0-33.0); Mean Corpuscular Volume 100.6 fL (80.0-98.0); Mean Platelet Volume 9.1 fL (9.4-12.3); Monocytes Absolute Auto 1.3 X10*3/uL (0.1-1.2); Monocytes Percent Auto 5.9 % (2-11); Neutrophils Percent Auto 84.4 % (45-73); Platelet Count 464 X10*3/uL (160-400); Red Blood Count 3.26 X10*6/uL (4.20-5.50); Red Cell Distribution Width 16.9 % (11.0-16.0); White Blood Count 22.5 X10*3/uL (4.8-10.8)
[2022-04-05 10:16] LABS: Alanine Aminotransferase 37 U/L (0-31); Albumin Level 3.7 g/dL (3.5-5.0); Alkaline Phosphatase 55 U/L (39-117); Anion Gap 14 (12-20); Aspartate Amino Transferase 14 U/L (5-31); Bilirubin Total 0.3 mg/dL (0.0-1.0); Blood Urea Nitrogen 44 mg/dL (9-16); C Reactive Protein 0.42 mg/dL (< or = 0.50); Calcium 9.2 mg/dL (8.4-10.2); Carbon Dioxide 18 mmol/L (22-29); Chloride 110 mmol/L (96-108); Estimated Glomerular Filt Rate 44; Glucose Random 93 mg/dL (60-115); Lactate Dehydrogenase 351 U/L (122-220); Potassium 5.6 mmol/L (3.3-5.1); Sodium 136 mmol/L (135-145); Total Protein 6.8 g/dL (6.5-8.0)
[2022-04-05 10:31] LABS: Erythrocyte Sedimentation Rate 34 MM/HR (0-20)
[2022-04-05 10:46] LABS: Appearance Urine Clear; Color Urine Yellow; Glucose Urine UA Negative (Negative); Leukocyte Esterase Urine Small (1+) (Negative); Nitrite Urine Negative (Negative); PH 5.5 (5.0-9.0); Specific Gravity - Urine 1.025 (1.005-1.025); UMIC TRIGGER UA YES; Urine Blood Negative (Negative); Urine Ketones Trace mg/dL (Negative); Urine Protein Negative (Neg-Trace)
[2022-04-05 11:01] LABS: Bacteria Urine None Seen (None Seen); Hyaline Casts Urine 0-2 /LPF (0-2); RBC Urine 0-2 /HPF (0-2); Squamous Epithelial Cell Urine 0-2 /HPF (0-2); WBC Urine 0-5 /HPF (0-5)
[2022-04-05 11:13] LABS: Creatinine Urine 78.14 mg/dL; Protein/Creatinine Ratio, Ur 0.17 (<0.2); Total Protein Urine Random 13 mg/dL (<12)
[2022-04-11 05:39] LABS: IgA 310 mg/dL (70-320); IgG 1375 mg/dL (600-1540); IgM 60 mg/dL (50-300)
[2022-04-15 16:38] LABS: TPMT Activity 21
== END 2022-04-05 08:47 | disposition home or self-care (01) ==
LOC: HO.LAB 08:46
PROVIDERS: PCP Nurse Practitioner Family; Visit Provider Student in an Organized Health Care Education/Training Program
DX: Z13.89 Encounter for screening for other disorder (principal)
CPT/HCPCS: 36415; 80053; 81001; 82085; 82550; 82657; 82784; 83615; 84156; 85025; 85652; 86140; 99212

== ENCOUNTER → 2022-04-06 09:10 | Outpatient (BNVA) | payer MEDICARE, OTHER, SELFPAY | PROVIDERS: PCP Nurse Practitioner Family; Visit Provider Surgery | DX: M62.81 Muscle weakness (generalized) (principal) | CPT/HCPCS: 99212 ==

== ENCOUNTER 2022-04-07 12:29 | Inpatient (IN) | payer MEDICARE, OTHER, SELFPAY ==
--- NOTE | 2022-04-07 | ECG_ITS ---
Test Reason : cp Blood Pressure : / mmHG Vent. Rate : 107 BPM Atrial Rate : 000 BPM P-R Int : 000 ms QRS Dur : 092 ms QT Int : 282 ms P-R-T Axes : 000 051 026 degrees QTc Int : 376 ms Atrial fibrillation with rapid ventricular response Abnormal ECG When compared with ECG of 21-MAR-2022 11:32, Atrial fibrillation has replaced Sinus rhythm Referred By: Santa Barillas Electronically Signed By:Sam Hill
--- OUTSIDE RECORDS SUMMARY | 2022-04-07 12:31 | XMS_ITS | Continuity of Care Document ---
:1955 Author Organization [facility] Adult Address [address] [place] [phone]- Care Team Providers Name Role Phone Ezio Kinney NP Primary Care Physician Encounter [facility] [place] Date(s): 02/23/22 - 03/25/22 [facility] [address] [place] [phone]- Allergies, Adverse Reactions, Alerts No Known Allergies Medications Albuterol 0.5% Inhalation Solution Refills 0, Maintenance, 10/13/16 10:30:06 Start Date: 10/13/16 Status: Orderedaspirin 325 mg oral tablet 325 mg, By Mouth, Daily, Refills 0, Maintenance, 12/10/17 6:49:24 EDT Start Date: 12/10/17 Status: Orderedaspirin 325 mg oral tablet 325 mg, By Mouth, Daily, # 30 tablet, Refills 0, Tot. Refills 0, Maintenance, 12/10/17 6:53:52 EDT, Print Requisition Start Date: 12/10/17 Stop Date: 01/09/18 Status: OrderedAzor 5 mg-40 mg oral tablet 1 tablet, By Mouth, Daily, # 30 tablet, 0 Refills, Maintenance, 10/13/16 10:29:24, Tablet Start Date: 10/13/16 Status: OrderedClarinex = 5 mg, By Mouth, Daily, 0 Refills, Maintenance, 10/13/16 10:29:43 Start Date: 10/13/16 Status: OrderedColace sodium 100 mg oral capsule 100 mg, 1, capsule, By Mouth, 2 times a day, Refills 0, Maintenance, 12/10/17 6:49:27 EDT Start Date: 12/10/17 Status: OrderedColace sodium 100 mg oral capsule 100 mg, 1, capsule, By Mouth, 2 times a day, # 60 capsule, Refills 0, Tot. Refills 0, Maintenance, 12/10/17 6:54:26 EDT, Print Requisition Start Date: 12/10/17 Stop Date: 01/09/18 Status: OrderedHYDROmorphone 2 mg oral tablet = 2 mg, By Mouth, Every 4 hours, PRN Pain , Moderate, 0 Refills, Maintenance, 12/10/17 6:49:29 EDT, Tablet Start Date: 12/10/17 Status: OrderedHYDROmorphone 4 mg oral tablet = 4 mg, By Mouth, Every 4 hours, PRN Pain , Moderate, 0 Refills, Maintenance, 12/10/17 6:49:31 EDT, Tablet Start Date: 12/10/17 Status: OrderedMilk of Magnesia Liquid 30 mL, By Mouth, Daily, PRN Constipation, 0 Refills, Maintenance, 12/10/17 6:49:32 EDT, Suspension Start Date: 12/10/17 Status: OrderedoxyCODONE 10 mg oral tablet, extended release 10 mg, By Mouth, Every 12 hours, Refills 0, Tot. Refills 0, Maintenance, 12/10/17 6:49:35 EDT Start Date: 12/10/17 Status: OrderedoxyCODONE 10 mg oral tablet, extended release 10 mg, By Mouth, Every 12 hours, # 14 tablet, Refills 0, Tot. Refills 0, Maintenance, 12/10/17 6:54:41 EDT, Print Requisition Start Date: 12/10/17 Stop Date: 12/17/17 Status: Orderedpantoprazole 40 mg oral delayed release tablet 1 tablet = 40 mg, By Mouth, Daily, # 30 tablet, 0 Refills, Maintenance, 12/07/17 6:15:41 EDT, EC Tablet Start Date: 12/07/17 Status: OrderedSenna By Mouth, 0 Refills, Maintenance, 12/07/17 6:18:45 EDT Start Date: 12/07/17 Status: OrderedSingulair By Mouth, Daily, 0 Refills, Maintenance, 10/13/16 10:29:50 Start Date: 10/13/16 Status: OrderedTylenol 325 mg oral tablet 975 mg, By Mouth, Every 8 hours, PRN, Refills 0, Maintenance, Pain , Mild, 12/10/17 6:49:09 EDT Start Date: 12/10/17 Status: OrderedUnisom = 25 mg, By Mouth, Daily, 0 Refills, Maintenance, 12/07/17 6:17:31 EDT Start Date: 12/07/17 Status: Ordered Problem List Condition Confirmation Course Effective Dates Status Health Stat us Informant Nodular goiter Confirmed Active Social History Social History Type Response Smoking Status Never smoker; Tobacco user i n household: No entered on: 10/13/16 Sex Patient Care team information Care Team PersonnelName: Elliot BEYER, Pau Position: [facility] RN Member Role: Primary Care Nurse Name: Felix Rebollar MD Position: [facility] Physician -Physician Practices Member Role: Lifetime Consulting Physician Name: Ezio Kinney NP Position: Reference Physician Member Role: PCP Address: Address: [address] [place] [phone]- Care Team Related PersonsName: SARAHY NICOLE Address: home [address] [place] [address]
--- OUTSIDE RECORDS SUMMARY | 2022-04-07 12:31 | XMS_ITS | Continuity of Care Document ---
:1955 Author Organization [facility] Address [address] [place] [phone]- Care Team Providers Name Role Phone Nirmal BURGESS, Ezio Primary Care Physician Encounter 02/23/22 - 03/02/22 [facility] [address] [address]- Attending Physician: [facility] , Self Referral Admitting Physician: [facility] , Self Referral Referring Physician: [facility] , Self Referral Allergies, Adverse Reactions, Alerts No Known Allergies [...] Stat us Informant Nodular goiter Confirmed Active Results Radiology Reports Exam Date Time Procedure Performing Provider Status 02/23/22 1:23 PM MM Digital Mammo Screening Reva Mayberry; Au th (Verified) Notes:(MM Digital Mammo Screening) Reason For Exam: Z12.31 ROUTINE SCREENING RESULT: MM Digital Mammo Screening PROCEDURE: MM Digital Mammo Screening INDICATION: Screening for breast cancer. No known palpable abnormalities. COMPARISON: BBWC and LIU dating back to 08/13/2018. TECHNIQUE: Full-field digital CC and MLO 3D tomosynthesis images of both breasts were acquired. Computer-aided detection (CAD) was utilized in the interpretation of this study. DENSITY: The breast tissue contains scattered areas of fibroglandular density. FINDINGS: The left breast demonstrates a tiny 1 view asymmetry in the inferior subareolar breast on MLO projection seen on 2-D capture and 3-D synthesized views, and MLO tomosynthesis image 28/71. 3-D spot MLO and full 90 degree 3-D view recommended with ultrasound follow. No suspicious findings are seen in the right breast. IMPRESSION: Additional imaging recommended. We will recall the patient. RECOMMENDATION: Diagnostic 3D tomosynthesis of the left breast with scheduled ultrasound BI-RADS: 0 Incomplete - Need Additional Imaging Evaluation. Lay letter mailed to patient WSN: [id number] Ordering Physician: Brenda, Self Referral Dictated By: Kaya Osorio MD, I Dictated Date/Time: 02/23/22 3:52 pm Reviewed By: Kaya Osorio MD, I Signed By: Kaya Osorio MD, I Signed Date/Time: 02/23/22 3:52 pm Transcribed By: [employer]NA [employer] Service Manager Date/Time: 02/23/22 3:48 pm Birads: Social History Social History Type Response Smoking Status Never smoker; Tobacco user i n household: No entered on: 10/13/16 Sex MG Breast Screening SPowerscribe , [facility] S: TRANSCRIKaya Ramos MD, I: VERIFY Event Display: Result: Authored Date: [id number] PROCEDURE: MM Digital Mammo Screening INDICATION: Screening for breast cancer. No known palpable abnormalities. COMPARISON: BBWC and LUI dating back to 08/13/2018. TECHNIQUE: Full-field digital CC and MLO 3D tomosynthesis images of both breasts were acquired. Computer-aided detection (CAD) was utilized in the interpretation of this study. DENSITY: The breast tissue contains scattered areas of fibroglandular density. FINDINGS: The left breast demonstrates a tiny 1 view asymmetry in the inferior subareolar breast on MLO projection seen on 2-D capture and 3-D synthesized views, and MLO tomosynthesis image 28/71. 3-D spot MLO and full 90 degree 3-D view recommended with ultrasound follow. No suspicious findings are seen in the right breast. IMPRESSION: Additional imaging recommended. We will recall the patient. RECOMMENDATION: Diagnostic 3D tomosynthesis of the left breast with scheduled ultrasound BI-RADS: 0 Incomplete - Need Additional Imaging Evaluation. Lay letter mailed to patient WSN: [id number] Ordering Physician: Brenda, Ramin Referral Dictated By: Kaya Osorio MD, I Dictated Date/Time: 02/23/22 3:52 pm Reviewed By: Kaya Osorio MD, I Signed By: Kaya Osorio MD, I Signed Date/Time: 02/23/22 3:52 pm Transcribed By: SELENA [employer] Service Manager Date/Time: 02/23/22 3:48 pm Birads: Patient Care team information Care Team PersonnelName: Pau Zarate RN Position: [facility] RN Member Role: Primary Care Nurse Name: Felix Rebollar MD Position: [facility] Physician -Physician Practices Member Role: Lifetime Consulting Physician Name: Ezio Kinney NP Position: Reference Physician Member Role: PCP Address: Address: [address] [place] [phone]- Care Team Related PersonsName: COREYDAVIDSONSARAHY Address: home [address] [place] [place] [id number]
--- OUTSIDE RECORDS SUMMARY | 2022-04-07 12:31 | XMS_ITS | Continuity of Care Document ---
:1955 Author Organization [facility] Address [address] [place] [phone]- Care Team Providers Name Role Phone Nirmal BURGESS, Ezio Primary Care Physician Encounter [facility] [place] Date(s): 02/20/22 - 03/22/22 [facility] [address] [place] [id number] Allergies, Adverse Reactions, Alerts No Known Allergies [...] Care Team PersonnelName: Elliot BEYER, Pau Position: [facility] RN Member Role: Primary Care Nurse Name: Felix Rebollar MD Position: [facility] Physician -Physician Practices Member Role: Lifetime Consulting Physician Name: Ezio Kinney NP Position: Reference Physician Member Role: PCP Address: Address: [address] [place] [phone]- Care Team Related PersonsName: SARAHY NICOLE Address: home [address] [place] [address]
[2022-04-07 12:40] VITALS: BP 134/60; PULSE 62; RESP 18; TEMP 36.5; O2SAT 97
[2022-04-07 13:08] LABS: COVID-19 Test Negative (Negative); IDNOW Serial# 16C4AD1C
--- NOTE | 2022-04-07 13:24 | PM.IMHP ---
History of Present Illness Date of Service: 04/07/22 Attending physician on admission: Connor Yepez Chief Complaint: Vasculitis in need of iv steroids Pt is a 66-year-old female with a PMH significant for insulin-dependent diabetes mellitus, history of afib on Eliquis, vasculitis, HTN, asthma, peripheral neuropathy, and history of generalized muscle weakness who is admitted to the hospital directly from home for IV steroid treatment for vasculitis. Pt has had numerous medical issues for the past 3-4 months since a COVID infection: bronchitis, pancreatitis, paroxysmal afib, and persistent muscle weakness. Muscle biopsy from 03/14/22 found evidence for vasculitis. Pt has 2-3 loose stools since yesterday, but no acute complaints: no F/C, N/V. Denies chest pain/pressure, SOB, palpitations. No abdominal pain. Pt has numerous chronic complaints, including numbness of right foot, numbness of left thumb and first two fingers, lightheadedness and dizziness x3-4 months, easy bruising since being on Eliquis. Pt will be admitted to the hospital for IV steroid treatment of vasculitis. Review of Systems Review of Systems: Right foot numbness Left thumb and first two finger numbness 2-3 loose stools x2 days Lightheadedness and dizziness x3-4 months No chest pain/pressure No SOB Yes all other systems are reviewed and are negative [facility] Medical History Asthma Blood D-dimer assay positive Bronchitis Chest pain GERD (gastroesophageal reflux disease) Muscle weakness AMY (obstructive sleep apnea) Prediabetes Sjogren's disease Family History Other Family history of connective tissue disease Lupus Multiple sclerosis Rheumatoid arthritis Pertinent family history: Dad: lung and kidney issues; Raynaud's Brother: kidney problems Surgical History Hx of appendectomy Hx of cholecystectomy Hx of colonoscopy S/P ankle joint replacement Social History Household Members: Spouse Alcohol intake: current Alcohol intake frequency: holidays/special occasions only Alcohol type: wine Patient Tobacco Use Status: Never used Tobacco Use of substances other than those prescribed or required for medical reasons: No Have you been hit, kicked, punched, or otherwise hurt by someone within the past year? If so, by whom?: No Do you feel safe in your current relationship?: Yes Is there a partner from a previous relationship who is making you feel unsafe now?: No Are you made to feel afraid or neglected: No Advance Directives: No Advance Directives Information Provided: No Do you have thoughts of harming others: None Do you have a plan to hurt others: No Plan Recently lost weight without trying: Yes How much weight loss: 34pounds or more Eating poorly because of decreased appetite: Yes Nutrition screen score: 7 Nutrition Risks: No Nutritional Risk Patient : No : No Poor oral hygiene: No Current occupational status: retired 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 Meds Allergies Allergy/AdvReac Type Severity Reaction Status Date / Time No Known Allergies Allergy Verified 04/06/22 09:19 Active Medications: Current Medications Pharmacy Consult (Consult Rx Perform Med Rec) 1 each MISCELLANE ONCE PRN PRN Reason: Consult order Home Medications Medication Instructions Recorded Confirmed Last Taken Type amlodipine 5 mg-olmesartan 40 mg 1 tab PO DAILY 12/08/20 04/07/22 04/07/22 History tablet desloratadine 5 mg tablet 5 mg PO DAILY 12/08/20 04/07/22 04/07/22 History montelukast 10 mg tablet 10 mg PO DAILY 12/08/20 04/07/22 04/07/22 History budesonide-formoterol HFA 160 2 puff inhalation Q12H 02/16/22 04/07/22 04/07/22 History mcg-4.5 mcg/actuation aerosol inhaler (Symbicort) cyanocobalamin-methylcobalamin 600 1 tab sublingual DAILY 02/16/22 04/07/22 04/07/22 History mcg-600 mcg sublingual tablet (Neurin-SL) ergocalciferol (vitamin D2) 1,250 1,250 mcg PO CERDA 02/16/22 04/07/22 04/02/22 History mcg (50,000 unit) capsule pantoprazole 40 mg tablet,delayed 40 mg PO BID 02/16/22 04/07/22 04/07/22 History release rosuvastatin 20 mg tablet 20 mg PO BEDTIME 1004/07/22 04/06/22 History gabapentin 300 mg capsule 300 mg PO TID 04/05/22 04/07/22 04/07/22 History apixaban 5 mg tablet (Eliquis) 5 mg PO BID 04/07/22 04/07/22 04/07/22 History codeine 10 mg-guaifenesin 100 mg/5 10 ml PO Q6H PRN cough 04/07/22 04/07/22 04/07/22 History mL oral liquid fluticasone propionate 50 1 spray intranasal DAILY 04/07/22 04/07/22 04/07/22 History mcg/actuation nasal spray,suspension metformin 500 mg tablet,extended 500 tab PO QAM 04/07/22 04/07/22 04/07/22 History release 24 hr methylprednisolone 4 mg tablet 36 mg PO DAILY 04/07/22 04/07/22 04/07/22 History (Medrol) metoprolol succinate 50 mg 50 mg PO DAILY 04/07/22 04/07/22 04/07/22 History tablet,extended release 24 hr sulfamethoxazole 800 1 tab PO MOWEFR 04/07/22 04/07/22 04/07/22 History mg-trimethoprim 160 mg tablet Physical Exam Vital Signs and Narrative: Vital Signs: Last Vital Signs Temp 97.7 F 04/07/22 12:40 Pulse 62 04/07/22 12:40 Resp 18 04/07/22 12:40 BP 134/60 04/07/22 12:40 Pulse Ox 97 04/07/22 12:40 O2 Del Method 04/07/22 12:40 Constitutional: Alert, in no acute distress. Mental Status: Oriented to person, place and time. Eyes: Pupils are equal, round, and reactive to light. Ear, Nose, and Throat: Oropharynx clear, mucous membranes moist. Ears and nose without deformities. Trachea midline. Respiratory: Clear to auscultation bilaterally. No wheezing, rales, or rhonchi. Cardiovascular: S1, S2 regular. No murmurs, rubs, or gallops. Gastrointestinal: Abdomen soft, non-tender, non-distended. Normal bowel sounds. Neurologic: Cranial nerves II-XI are grossly intact. Moves all extremities spontaneously. Right foot and left thumb and first two fingers diminished sensation Skin: Bruising on left dorsal aspect of hand, and left and right forearm. Musculoskeletal: 3/5 upper and lower limb strength bilaterally. Extremities: No edema. Psychiatric: Normal mood and affect. 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 # small vessel vasculitis, mononeuritis multiplex -- Solu-Medrol 1g IV x3 days # insulin-dependent diabetes -- hold home meds -- ssi, lantus # HTN -- continue home meds # paroxysmal AFib -- continue Eliquis, metoprolol # asthma -- continue home maintenance inhalers -- consider duoneb if needed # HLD -- continue home meds Full code Attending: Dr. eYpez DVT Prophylaxis: on Eliquis Pt will require a hospital stay of at least two overnights for IV steroid treatment for vasculitis. Time Spent With Patient Time: Total time managing care of this patient today ____ minutes. Quality Stroke Does the patient have a stroke diagnosis?: No VTE Prior VTE?: No VTE Risk Level:: Medical - moderate - high VTE Device Contraindication: Treatment Not Indicated VTE Drug Contraindication: N/A - Med Ordered
[2022-04-07 13:36] VITALS: BMI 33.8
[2022-04-07 13:56] LABS: Hemoglobin 10.2 g/dl (12.0-16.0); Mean Corpuscular HGB Conc 30.9 g/dl (31.0-35.0); Mean Corpuscular Volume 100.3 fL (80.0-98.0); Mean Platelet Volume 8.9 fL (9.4-12.3); Platelet Count 424 X10*3/uL (160-400); Red Blood Count 3.29 X10*6/uL (4.20-5.50); Red Cell Distribution Width 16.9 % (11.0-16.0); White Blood Count 19.5 X10*3/uL (4.8-10.8)
--- NOTE | 2022-04-07 14:02 | PHA.MEDREC ---
Pharmacy Consult ? Medication Reconciliation Pharmacy has completed the medication reconciliation. Spoke to patient about home medication use and she had a list from her last hospital visit last week. States she takes all medications according to that list so I compiled her medication reconciliation based on that.
--- NOTE | 2022-04-07 14:21 | PM.EVENT ---
Event Note Date of Service: 04/07/22 Event Note: Patient was sent from the rheumatology office due to numbness or lower extremities-patient was recently diagnosed with small-vessel vasculitis with the mononeuritis multiplex: Patient will need IV steroids pulse doses and also happened to be diabetic so need monitoring closely in the inpatient setting. Physical exam: Please see H&P note. Labs reviewed: WBC count is 19 range, potassium 6.8 Assessment plan: small-vessel vasculitis with the mononeuritis multiplex Started on IV steroids Diabetes: Monitor closely fingersticks, added sliding scale coverage. Hyperkalemia: Multifactorial-possibly related to use of Bactrim, ibuprofen- Low-potassium diet, given insulin with dextrose, bicarb, lokalema and albuterol,added ca gluconate -moniter bmp closely moniter on tele patient is full code Time Spent With Patient Time: Total time managing care of this patient today ____ minutes.
[2022-04-07 14:37] LABS: Blood Urea Nitrogen 47 mg/dL (9-16); Calcium 9.4 mg/dL (8.4-10.2); Creatinine Clr Calc Pharmacy 44.8; Estimated Glomerular Filt Rate 41; Glucose Random 119 mg/dL (60-115)
[2022-04-07 14:39] LABS: Glucose, Whole Blood 117 mg/dL (60-115)
--- NOTE | 2022-04-07 14:45 | MHC.CLN ---
NUTRITION CONSULT FOR SIGNIFICANT WEIGHT LOSS. WEIGHT LOSS X 6 MONTHS=-12.3%. WEIGHT LOSS RESULTING FROM MULTIPLE ILLNESSES INCLUDING COVID AND PANCREATITIS. REPORTS THAT ATE VERY LITTLE X ONE MONTH DUE TO PANCREATITIS. HAS RESUMED EATING DIABETIC DIET. WOULD LIKE GLUCERNA SUPPLEMENT FEELS HUNGRY SOMETIMES. GLUCERNA BID PROVIDES ADDITIONAL 474 KCALS, 20 G PROTEIN. BMI=33.8 AND PATIENT APPEARS WELL NOURISHED. SEE NUTRITION ASSESSMENT 04/07/22.
[2022-04-07 14:48] LABS: Estimated Average Glucose 108 mg/dL; Hemoglobin A1c % 5.4 %
[2022-04-07 14:50] VITALS: BMI 33.8
[2022-04-07 14:52] LABS: Anion Gap 15 (12-20); Carbon Dioxide 21 mmol/L (22-29); Chloride 108 mmol/L (96-108); Potassium 6.8 mmol/L (3.3-5.1); Sodium 137 mmol/L (135-145)
[2022-04-07] MEDS: Gabapentin 300 MG CAPSULE PO ×2 (15:13→21:18)
[2022-04-07 15:43] VITALS: BP 134/63; PULSE 59; RESP 19; TEMP 36.4; O2SAT 99
[2022-04-07] MEDS: Albuterol/Iprat 2.5/0.5MG 3 ML AMPUL.NEB INHALE (16:25)
[2022-04-07 16:30] VITALS: PULSE 70; RESP 18; O2SAT 98
[2022-04-07 16:35] LABS: Glucose, Whole Blood 165 mg/dL (60-115)
[2022-04-07] MEDS: Insulin Lispro 100 UNIT/ML 3 ML VIAL SUBCUT (16:36)
[2022-04-07] MEDS: Omeprazole 20 MG CAPSULE.DR PO (16:39)
[2022-04-07] MEDS: Sodium Zirconium Cyclosilicate 10 GM POWD.PACK PO (16:39)
[2022-04-07] MEDS: Insulin Regular, Human 100 UNIT/ML 3 ML VIAL IVPUSH (16:51)
[2022-04-07] MEDS: Dextrose 50 % 25 GM/50 ML SYRINGE IVPUSH (16:51)
[2022-04-07] MEDS: Calcium Gluconate/NaCl,Iso-Osm 1 GM/50 ML PLAST..BAG IV (16:59)
[2022-04-07] MEDS: methylPREDNISolone Sod Succ 1,000 MG in 0.9 % Sodium Chloride 50 ML 66 MG IV (17:53)
[2022-04-07 18:06] LABS: CDiff Gene PCR NEGATIVE (Negative)
[2022-04-07 18:16] LABS: Leukocytes Stool Qualitative NEGATIVE (NEGATIVE)
[2022-04-07 19:34] VITALS: BP 134/58; PULSE 61; RESP 18; TEMP 36.3; O2SAT 97
[2022-04-07 19:44] LABS: Anion Gap 14 (12-20); Blood Urea Nitrogen 47 mg/dL (9-16); Calcium 9.4 mg/dL (8.4-10.2); Carbon Dioxide 22 mmol/L (22-29); Chloride 107 mmol/L (96-108); Creatinine Clr Calc Pharmacy 42.5; Estimated Glomerular Filt Rate 38; Glucose Random 146 mg/dL (60-115); Potassium 5.8 mmol/L (3.3-5.1); Sodium 137 mmol/L (135-145)
[2022-04-07] MEDS: Apixaban 5 MG TABLET PO (21:18)
[2022-04-07] MEDS: Sodium Bicarbonate 650 MG TABLET PO (21:18)
[2022-04-07] MEDS: Atorvastatin Calcium 80 MG TABLET PO (21:18)
[2022-04-07] MEDS: Azelastine HCl Nasal 137 MCG/Spray 30 ML 2 SPRAY NOSTRIL-B (21:25)
--- NOTE | 2022-04-07 23:35 | ECG_ITS ---
Test Reason : CHEST PAIN Blood Pressure : / mmHG Vent. Rate : 122 BPM Atrial Rate : 000 BPM P-R Int : 000 ms QRS Dur : 090 ms QT Int : 312 ms P-R-T Axes : 000 048 018 degrees QTc Int : 444 ms Atrial fibrillation with rapid ventricular response Abnormal ECG When compared with ECG of 07-APR-2022 23:29, No significant change was found Referred By: Santa [place]illas Electronically Signed By:Sam Hill
[2022-04-08] MEDS: Metoprolol Tartrate 5 MG/5 ML VIAL IVPUSH (01:41)
--- NOTE | 2022-04-08 02:53 | PC.NURSE ---
Pt transferred to Report IMC with belongings, report given to PEPITO Merchant.
[2022-04-08] MEDS: dilTIAZem HCL 50 MG/10 ML VIAL 10 MG IVPUSH (03:07)
[2022-04-08 03:53] VITALS: BP 122/79; PULSE 103; RESP 18; TEMP 36.2; O2SAT 97
[2022-04-08] MEDS: Omeprazole 20 MG CAPSULE.DR PO ×2 (06:50→16:13)
--- NOTE | 2022-04-08 07:01 | PM.EVENT ---
Event Note Date of Service: 04/08/22 Event Note: pt developed A fib with RVR with HR in the 120s. not responded to lopressor. Given cardizem IV, transferred to IMC for cardizem push Time Spent With Patient Time: Total time managing care of this patient today ____ minutes.
[2022-04-08 07:22] LABS: Glucose, Whole Blood 159 mg/dL (60-115)
[2022-04-08 07:57] VITALS: BP 134/67; PULSE 110; RESP 20; TEMP 37.2; O2SAT 98
[2022-04-08] MEDS: Insulin Lispro 100 UNIT/ML 3 ML VIAL SUBCUT ×3 (08:03→20:43)
[2022-04-08] MEDS: Loratadine 10 MG TABLET PO (08:05)
[2022-04-08] MEDS: Ferrous Sulfate 324 MG TABLET.DR PO (08:05)
[2022-04-08] MEDS: Apixaban 5 MG TABLET PO ×2 (08:05→20:43)
[2022-04-08] MEDS: Sodium Bicarbonate 650 MG TABLET PO ×2 (08:05→20:43)
[2022-04-08] MEDS: Montelukast Sodium 10 MG TABLET PO (08:05)
[2022-04-08] MEDS: Gabapentin 300 MG CAPSULE PO ×3 (08:05→20:43)
[2022-04-08] MEDS: Azelastine HCl Nasal 137 MCG/Spray 30 ML 2 SPRAY NOSTRIL-B ×2 (08:08→20:46)
[2022-04-08] MEDS: Metoprolol Succinate ER 25 MG TAB.ER.24H 75 MG PO (08:11)
[2022-04-08 08:15] LABS: Anion Gap 17 (12-20); Blood Urea Nitrogen 41 mg/dL (9-16); Calcium 9.3 mg/dL (8.4-10.2); Carbon Dioxide 19 mmol/L (22-29); Chloride 108 mmol/L (96-108); Creatinine Clr Calc Pharmacy 54.5; Estimated Glomerular Filt Rate 51; Glucose Random 167 mg/dL (60-115); Potassium 5.5 mmol/L (3.3-5.1); Sodium 138 mmol/L (135-145)
[2022-04-08 11:01] LABS: Glucose, Whole Blood 144 mg/dL (60-115)
[2022-04-08 11:19] LABS: Adenovirus F 40/41 Not Detected (Not Detect.); Astrovirus Not Detected (Not Detect.); Campylobacter Not Detected (Not Detect.); Cryptosporidium Not Detected (Not Detect.); Cyclospora cayetanensis Not Detected (Not Detect.); E. coli EAEC Not Detected (Not Detect.); E. coli EPEC Not Detected (Not Detect.); E. coli ETEC Not Detected (Not Detect.); E. coli STEC Not Detected (Not Detect.); Entamoeba histolytica Not Detected (Not Detect.); Giardia lamblia Not Detected (Not Detect.); Norovirus GI/GII Not Detected (Not Detect.); Plesiomonas shigelloides Not Detected (Not Detect.); Rotavirus A Not Detected (Not Detect.); Salmonella Not Detected (Not Detect.); Sapovirus Not Detected (Not Detect.); Shigella sp./EIEC Not Detected (Not Detect.); Vibrio Not Detected (Not Detect.); Vibrio Cholerae Not Detected (Not Detect.); Yersinia enterocolitica Not Detected (Not Detect.)
--- NOTE | 2022-04-08 11:33 | MHC.CM.PN ---
IMM DELIVERED 04/08/22 AND PLACED IN CHART, EMR REVIEWED AND PT WILL REMAIN INPT TO COMPLETE 3 DOSES OF IV SOLUMEDROL, 2ND DOSE SCHEDULED FOR TODAY, CM MET W/PT WHO REPORTS SHE LIVES W/HER , HAS A WALKER AT HOME THAT SHE HAS BEEN USING D/T NUMBNESS, PT HAS NO HOME SERVICES [place] A HOME AND HELPS TAKE CARE OF HER 82YO MOTHER, NO [facility] SERVICES INDICATED AT THIS TIME. PT OBSERVED AMBULATING IN ROOM W/NO DIFFICULTY. PT VERIFIES PCP IS SANTINO SABILLON, PFIZER X3 AND FLU SHOT THIS SEASON/YR, PT EDUCATED PN AND COMPLETED A HCP NAMING HER SARAHY NICOLE HER [facility] [phone] AND HER SISTER TREV ZULUAGA [phone] HER ALTERNATE, PT PROVIDED W/EDUCATIONAL HANDOUT, ORIGINAL AND TWO COPIES, COPY UPLOADED TO [facility] AND PLACED IN CHART W/PT PERMISSION. D/C PLAN: D/C HOME NO SERVICES W/ FOR TRANSPORT.
--- NOTE | 2022-04-08 11:38 | P.PNIM_ITS ---
Subjective Subjective Date of Service: 04/08/22 Interval History: afib with rvr, vaculitis Review of Systems Patient's numbness and weakness similar to yesterday Heart rate is elevated seems somewhat anxious too Physical Exam Vital Signs: Vital Signs: Last Vital Signs Temp 98.9 F 04/08/22 07:57 Pulse 110 H 04/08/22 07:57 Resp 20 04/08/22 07:57 BP 134/67 04/08/22 07:57 Pulse Ox 98 04/08/22 07:57 O2 Del Method 04/08/22 07:57 BMI result Body Mass Index 33.8 Appearance: Alert.? Oriented X3.? not in distress.? cvs: rrr, [id number] . res: clear to auscultation ,no rhonchii or wheezing abd: no rebound or guarding ,nt, bs present. ext pulses present , no cyanosis. neuro: axo3 , neuro finding weakness/numbness unchaged from yesterday. Objective Data Active Medications Acetaminophen (Acetaminophen 325 Mg Tablet) 650 mg PO Q6H PRN PRN Reason: Pain, Mild (Pain Scale 1-3) Apixaban (Apixaban 5 Mg Tablet) 5 mg PO BID [facility] Last Admin: 04/08/22 08:05 Dose: 5 mg Documented By: DUSTY Atorvastatin Calcium (Atorvastatin Calcium 80 Mg Tablet) 80 mg PO BEDTIME [facility] Last Admin: 04/07/22 21:18 Dose: 80 mg Documented By: CAROLINAORALJignesh Azelastine HCl (Azelastine Hcl Nasal 137 Mcg/[place] 30 Ml) 2 spray NOSTRIL-B BID [facility] Last Admin: 04/08/22 08:08 Dose: 2 spray Documented By: DUSTY Dextrose (Dextrose 50 % 25 Gm/50 Ml Syringe) 25 gm IVPUSH Q15M PRN; Protocol PRN Reason: per Hypoglycemia Standing Ord. Ergocalciferol (Ergocalciferol (Vitamin D2) 1,250 Mcg Capsule) 1,250 mcg PO Lorenzo@0900 [facility] Ferrous Sulfate (Ferrous Sulfate 324 Mg Tablet.) 324 mg PO DAILY [facility] Last Admin: 04/08/22 08:05 Dose: 324 mg Documented By: DUSTY Fluticasone Propionate (Fluticasone Propionate Nasal 16 Gm [place]) 1 spray NOSTRIL-B DAILY [facility] Fluticasone/Vilanterol (Fluticasone/Vilanterol 200/25 Blst.W.Dev) 1 puff INHALE RDAILY [facility] Last Admin: 04/08/22 11:04 Dose: Not Given Documented By: AMADOR Non-Admin Reason: med not avail/pharm called Gabapentin (Gabapentin 300 Mg Capsule) 300 mg PO TID [facility] Last Admin: 04/08/22 08:05 Dose: 300 mg Documented By: DUSTY Glucose (Glucose Gel 15 Gm Gel..Gram.) 15 gm PO Q15M PRN; Protocol PRN Reason: per Hypoglycemia Standing Ord. Guaifenesin/Codeine Phosphate (Guaifen/Codeine Sf 200/20/10ml 10 Ml Liquid) 10 ml PO Q6H PRN PRN Reason: cough Methylprednisolone Sodium Succinate 1,000 mg/ Sodium Chloride 66 mls @ 66 mls/hr IV Q24H [facility] Insulin Human Lispro (Insulin Lispro 100 Unit/Ml 3 Ml Vial) 0 unit SUBCUT QIDACHS [facility]; Protocol Last Admin: 04/08/22 08:03 Dose: 2 unit Documented By: DUSTY Levalbuterol HCl (Levalbuterol Hcl 1.25 Mg/0.5 Ml Vial.Neb) 1.25 mg INHALE Q6H PRN PRN Reason: shortness of breath or wheezing Loratadine (Loratadine 10 Mg Tablet) 10 mg PO DAILY [facility] Last Admin: 04/08/22 08:05 Dose: 10 mg Documented By: DUSTY Metoprolol Succinate (Metoprolol Succinate Er 25 Mg Tab.Er.24h) 75 mg PO DAILY [facility]; Protocol Last Admin: 04/08/22 08:11 Dose: 75 mg Documented By: DUSTY Metoprolol Tartrate (Metoprolol Tartrate 25 Mg Tablet) 25 mg PO QID [facility]; Protocol Montelukast Sodium (Montelukast Sodium 10 Mg Tablet) 10 mg PO DAILY [facility] Last Admin: 04/08/22 08:05 Dose: 10 mg Documented By: DUSTY Omeprazole (Omeprazole 20 Mg Capsule.) 20 mg PO BID@0630,1630 [facility] Last Admin: 04/08/22 06:50 Dose: 20 mg Documented By: LEX Pharmacy Consult (Consult Rx Perform Med Rec) 1 each MISCELLANE ONCE PRN PRN Reason: Consult order Sodium Bicarbonate (Sodium Bicarbonate 650 Mg Tablet) 650 mg PO BID [facility] Last Admin: 04/08/22 08:05 Dose: 650 mg Documented By: DUSTY Labs CBC & Chem 7: 04/07/22 13:40 04/08/22 07:16 Labs: Laboratory Results - last 24 hr 04/07/22 04/07/22 04/07/22 12:16 13:40 13:40 MCV 100.3 H MCH 31.0 MCHC 30.9 L RDW 16.9 H Plt Count 424 H MPV 8.9 L Absolute Nucleated RBC 0.000 Nucleated RBC % (auto) 0.0 Anion Gap 15 Estim Creat Clear Calc 44.8 Estimated GFR 41 POC Glucose Random Glucose 119 H Estimat Average Glucose Hemoglobin A1c % Calcium 9.4 Stool Leukocytes, Qual Stl C. cayetanensis PCR Stool Rotavirus A PCR Stl Adenov F 40 PCR Stool Astrovirus (PCR) Stool Campylobacter PCR Stool Cryptosporidium PCR Stl Sh Tox Pr E STEC PCR Stool E coli O157 PCR Stl Enterotoxigenic E PCR Stool EPEC (PCR) Stool EAEC (PCR) Stl E. histolytica PCR Stool Giardia Lamblia PCR Stl P. shigelloides PCR Stool Salmonella PCR Stool Sapovirus (PCR) Stl Shigella/EIEC PCR St Y.enterocolitica PCR Stool Vibrio (PCR) Stl Vibrio cholerae PCR Stl Norovirus GI/GII PCR C. difficile Tox B Gene COVID-19 ([facility]) Negative COVID-19 Clin Com See Note 04/07/22 04/07/22 04/07/22 13:40 14:36 16:31 MCV MCH MCHC RDW Plt Count MPV Absolute Nucleated RBC Nucleated RBC % (auto) Anion Gap Estim Creat Clear Calc Estimated GFR POC Glucose 117 H 165 H Random Glucose Estimat Average Glucose 108 Hemoglobin A1c % 5.4 Calcium Stool Leukocytes, Qual Stl C. cayetanensis PCR Stool Rotavirus A PCR Stl Adenov F / PCR Stool Astrovirus (PCR) Stool Campylobacter PCR Stool Cryptosporidium PCR Stl Sh Tox Pr E STEC PCR Stool E coli O157 PCR Stl Enterotoxigenic E PCR Stool EPEC (PCR) Stool EAEC (PCR) Stl E. histolytica PCR Stool Giardia Lamblia PCR Stl P. shigelloides PCR Stool Salmonella PCR Stool Sapovirus (PCR) Stl Shigella/EIEC PCR St Y.enterocolitica PCR Stool Vibrio (PCR) Stl Vibrio cholerae PCR Stl Norovirus GI/GII PCR C. difficile Tox B Gene COVID-19 ([facility]) COVID-19 Clin Com 04/07/22 04/07/22 04/07/22 16:47 16:47 16:47 MCV MCH MCHC RDW Plt Count MPV Absolute Nucleated RBC Nucleated RBC % (auto) Anion Gap Estim Creat Clear Calc Estimated GFR POC Glucose Random Glucose Estimat Average Glucose Hemoglobin A1c % Calcium Stool Leukocytes, Qual NEGATIVE Stl C. cayetanensis PCR Not Detected Stool Rotavirus A PCR Not Detected Stl Adenov F 40/41 PCR Not Detected Stool Astrovirus (PCR) Not Detected Stool Campylobacter PCR Not Detected Stool Cryptosporidium PCR Not Detected Stl Sh Tox Pr E STEC PCR Not Detected Stool E coli O157 PCR Not applicable Stl Enterotoxigenic E PCR Not Detected Stool EPEC (PCR) Not Detected Stool EAEC (PCR) Not Detected Stl E. histolytica PCR Not Detected Stool Giardia Lamblia PCR Not Detected Stl P. shigelloides PCR Not Detected Stool Salmonella PCR Not Detected Stool Sapovirus (PCR) Not Detected Stl Shigella/EIEC PCR Not Detected St Y.enterocolitica PCR Not Detected Stool Vibrio (PCR) Not Detected Stl Vibrio cholerae PCR Not Detected Stl Norovirus GI/GII PCR Not Detected C. difficile Tox B Gene NEGATIVE COVID-19 ([facility]) COVID-19 Clin Com 04/07/22 04/08/22 04/08/22 19:02 07:16 07:17 MCV MCH MCHC RDW Plt Count MPV Absolute Nucleated RBC Nucleated RBC % (auto) Anion Gap 14 17 Estim Creat Clear Calc 42.5 54.5 Estimated GFR 38 51 POC Glucose 159 H Random Glucose 146 H 167 H Estimat Average Glucose Hemoglobin A1c % Calcium 9.4 9.3 Stool Leukocytes, Qual Stl C. cayetanensis PCR Stool Rotavirus A PCR Stl Adenov F 40/41 PCR Stool Astrovirus (PCR) Stool Campylobacter PCR Stool Cryptosporidium PCR Stl Sh Tox Pr E STEC PCR Stool E coli O157 PCR Stl Enterotoxigenic E PCR Stool EPEC (PCR) Stool EAEC (PCR) Stl E. histolytica PCR Stool Giardia Lamblia PCR Stl P. shigelloides PCR Stool Salmonella PCR Stool Sapovirus (PCR) Stl Shigella/EIEC PCR St Y.enterocolitica PCR Stool Vibrio (PCR) Stl Vibrio cholerae PCR Stl Norovirus GI/GII PCR C. difficile Tox B Gene COVID-19 ([facility]) COVID-19 Clin Com 04/08/22 10:58 MCV MCH MCHC RDW Plt Count MPV Absolute Nucleated RBC Nucleated RBC % (auto) Anion Gap Estim Creat Clear Calc Estimated GFR POC Glucose 144 H Random Glucose Estimat Average Glucose Hemoglobin A1c % Calcium Stool Leukocytes, Qual Stl C. cayetanensis PCR Stool Rotavirus A PCR Stl Adenov F 40/41 PCR Stool Astrovirus (PCR) Stool Campylobacter PCR Stool Cryptosporidium PCR Stl Sh Tox Pr E STEC PCR Stool E coli O157 PCR Stl Enterotoxigenic E PCR Stool EPEC (PCR) Stool EAEC (PCR) Stl E. histolytica PCR Stool Giardia Lamblia PCR Stl P. shigelloides PCR Stool Salmonella PCR Stool Sapovirus (PCR) Stl Shigella/EIEC PCR St Y.enterocolitica PCR Stool Vibrio (PCR) Stl Vibrio cholerae PCR Stl Norovirus GI/GII PCR C. 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 # small vessel vasculitis, mononeuritis multiplex -- Solu-Medrol 1g IV -2/3 days,tylenol for pain # insulin-dependent diabetes-controlled. -- hold home meds -- ssi, lantus # HTN -- continue home meds ? # paroxysmal AFib -- continue Eliquis, metoprolol # asthma -- continue home maintenance inhalers -- consider duoneb if needed # HLD -- continue home meds Leucocytosis : seems improving,possible reactive due to steriods no fevers ,asymptomatic Hyperkalemia : Possibly related to Bactrim. Bactrim stopped Yesterday received insulin/dextrose, calcium gluconate, albuterol, Lokelma. Hyperkalemia improving, added another dose of Lokelma today inpatient need - IV steroid treatment for vasculitis. Time Spent With Patient Time: Total time managing care of this patient today ____ minutes. Quality Stroke Does the patient have a stroke diagnosis?: No VTE Prior VTE?: No VTE Risk Level:: Medical - moderate - high VTE Device Contraindication: Treatment Not Indicated VTE Drug Contraindication: N/A - Med Ordered
[2022-04-08] MEDS: Fluticasone Propionate Nasal 16 GM SPRAY 1 SPRAY NOSTRIL-B (12:22)
[2022-04-08] MEDS: Sodium Zirconium Cyclosilicate 5 GM POWD.PACK PO (12:24)
[2022-04-08] MEDS: Metoprolol Tartrate 25 MG TABLET PO ×3 (12:24→20:43)
[2022-04-08] MEDS: Acetaminophen 325 MG TABLET 650 MG PO (12:26)
[2022-04-08] MEDS: methylPREDNISolone Sod Succ 1,000 MG in 0.9 % Sodium Chloride 50 ML 66 MG IV (15:32)
[2022-04-08 15:57] VITALS: BP 113/58; PULSE 86; RESP 16; TEMP 36.4; O2SAT 96
[2022-04-08 16:06] LABS: Glucose, Whole Blood 199 mg/dL (60-115)
[2022-04-08] MEDS: Morphine Sulfate 2 MG/ML CARTRIDGE IVPUSH (16:14)
[2022-04-08 18:58] VITALS: BP 102/56; PULSE 91; RESP 16; TEMP 36.2; O2SAT 95
[2022-04-08 20:40] LABS: Glucose, Whole Blood 188 mg/dL (60-115)
[2022-04-08] MEDS: Atorvastatin Calcium 80 MG TABLET PO (20:43)
[2022-04-08] MEDS: ALPRAZolam 0.5 MG TABLET PO (21:09)
[2022-04-09 04:00] VITALS: BP 122/80; PULSE 77; RESP 18; TEMP 36.9; O2SAT 98
[2022-04-09] MEDS: Omeprazole 20 MG CAPSULE.DR PO ×2 (06:00→16:07)
[2022-04-09 07:28] LABS: Glucose, Whole Blood 166 mg/dL (60-115)
[2022-04-09] MEDS: Insulin Lispro 100 UNIT/ML 3 ML VIAL SUBCUT ×4 (07:45→20:57)
[2022-04-09] MEDS: Azelastine HCl Nasal 137 MCG/Spray 30 ML 2 SPRAY NOSTRIL-B ×2 (07:45→21:04)
[2022-04-09] MEDS: Fluticasone Propionate Nasal 16 GM SPRAY 1 SPRAY NOSTRIL-B (07:46)
[2022-04-09] MEDS: Sodium Bicarbonate 650 MG TABLET PO ×2 (07:47→20:57)
[2022-04-09] MEDS: Ferrous Sulfate 324 MG TABLET.DR PO (07:47)
[2022-04-09] MEDS: Loratadine 10 MG TABLET PO (07:47)
[2022-04-09] MEDS: Ergocalciferol (Vitamin D2) 1,250 MCG CAPSULE 1250 MCG PO (07:47)
[2022-04-09] MEDS: Montelukast Sodium 10 MG TABLET PO (07:47)
[2022-04-09] MEDS: Apixaban 5 MG TABLET PO ×2 (07:47→20:57)
[2022-04-09] MEDS: Gabapentin 300 MG CAPSULE PO ×3 (07:47→20:56)
[2022-04-09] MEDS: Metoprolol Tartrate 25 MG TABLET PO (07:47)
[2022-04-09] MEDS: Acetaminophen 325 MG TABLET 650 MG PO (07:51)
[2022-04-09 07:57] VITALS: BP 136/80; PULSE 73; RESP 18; O2SAT 98
[2022-04-09 08:00] VITALS: PULSE 97; RESP 16; O2SAT 98
[2022-04-09] MEDS: Fluticasone/Vilanterol 200/25 BLST.W.DEV 1 PUFF INHALE (08:00)
[2022-04-09 08:26] VITALS: TEMP 37.1
[2022-04-09 08:58] LABS: Anion Gap 16 (12-20); Blood Urea Nitrogen 49 mg/dL (9-16); Carbon Dioxide 22 mmol/L (22-29); Chloride 103 mmol/L (96-108); Creatinine Clr Calc Pharmacy 46.6; Estimated Glomerular Filt Rate 43; Glucose Random 146 mg/dL (60-115); Potassium 4.7 mmol/L (3.3-5.1); Sodium 136 mmol/L (135-145)
[2022-04-09 11:09] LABS: Glucose, Whole Blood 167 mg/dL (60-115)
[2022-04-09] MEDS: Metoprolol Tartrate 50 MG TABLET PO ×2 (11:43→20:57)
--- NOTE | 2022-04-09 13:07 | HO.PM.IMPN ---
Subjective Subjective Date of Service: 04/09/22 Interval History: afib with rvr, vaculitis Review of Systems numbness/pain slightly improivng today Tachycardia also improving, denies any chest pain or shortness of breath or abdominal pain or fever or chills Physical Exam Vital Signs: Vital Signs: Last Vital Signs Temp 98.7 F 04/09/22 08:26 Pulse 97 04/09/22 08:00 Resp 16 04/09/22 08:00 BP 136/80 04/09/22 07:57 Pulse Ox 98 04/09/22 07:57 O2 Del Method 04/09/22 07:57 BMI result Body Mass Index 33.8 Appearance: Alert.? Oriented X3.? not in distress.? cvs: rrr, [id number] . res: clear to auscultation ,no rhonchii or wheezing abd: no rebound or guarding ,nt, bs present. ext pulses present , no cyanosis. neuro: axo3 , neuro finding weakness/numbness (as per patient slightly improvin) Objective Data Active Medications Acetaminophen (Acetaminophen 325 Mg Tablet) 650 mg PO Q6H PRN PRN Reason: Pain, Mild (Pain Scale 1-3) Last Admin: 04/09/22 07:51 Dose: 650 mg Documented By: DUSTY Apixaban (Apixaban 5 Mg Tablet) 5 mg PO BID [facility] Last Admin: 04/09/22 07:47 Dose: 5 mg Documented By: DUSTY Atorvastatin Calcium (Atorvastatin Calcium 80 Mg Tablet) 80 mg PO BEDTIME [facility] Last Admin: 04/08/22 20:43 Dose: 80 mg Documented By: MARK Azelastine HCl (Azelastine Hcl Nasal 137 Mcg/[place] 30 Ml) 2 spray NOSTRIL-B BID [facility] Last Admin: 04/09/22 07:45 Dose: 2 spray Documented By: DUSTY Dextrose (Dextrose 50 % 25 Gm/50 Ml Syringe) 25 gm IVPUSH Q15M PRN; Protocol PRN Reason: per Hypoglycemia Standing Ord. Ergocalciferol (Ergocalciferol (Vitamin D2) 1,250 Mcg Capsule) 1,250 mcg PO Lorenzo@0900 [facility] Last Admin: 04/09/22 07:47 Dose: 1,250 mcg Documented By: DUSTY Ferrous Sulfate (Ferrous Sulfate 324 Mg Tablet.) 324 mg PO DAILY [facility] Last Admin: 04/09/22 07:47 Dose: 324 mg Documented By: DUSTY Fluticasone Propionate (Fluticasone Propionate Nasal 16 Gm [place]) 1 spray NOSTRIL-B DAILY [facility] Last Admin: 04/09/22 07:46 Dose: 1 spray Documented By: DUSTY Fluticasone/Vilanterol (Fluticasone/Vilanterol 200/25 Blst.W.Dev) 1 puff INHALE RDAILY [facility] Last Admin: 04/09/22 08:00 Dose: 1 puff Documented By: AMADOR Gabapentin (Gabapentin 300 Mg Capsule) 300 mg PO TID [facility] Last Admin: 04/09/22 07:47 Dose: 300 mg Documented By: DUSTY Glucose (Glucose Gel 15 Gm Gel..Gram.) 15 gm PO Q15M PRN; Protocol PRN Reason: per Hypoglycemia Standing Ord. Guaifenesin/Codeine Phosphate (Guaifen/Codeine Sf 200/20/10ml 10 Ml Liquid) 10 ml PO Q6H PRN PRN Reason: cough Methylprednisolone Sodium Succinate 1,000 mg/ Sodium Chloride 66 mls @ 66 mls/hr IV Q24H [facility] Last Infusion: 04/08/22 17:54 Dose: 0 mls/hr Documented By: DUSTY Insulin Human Lispro (Insulin Lispro 100 Unit/Ml 3 Ml Vial) 0 unit SUBCUT QIDACHS [facility]; Protocol Last Admin: 04/09/22 11:23 Dose: 2 unit Documented By: DUSTY Levalbuterol HCl (Levalbuterol Hcl 1.25 Mg/0.5 Ml Vial.Neb) 1.25 mg INHALE Q6H PRN PRN Reason: shortness of breath or wheezing Loratadine (Loratadine 10 Mg Tablet) 10 mg PO DAILY [facility] Last Admin: 04/09/22 07:47 Dose: 10 mg Documented By: DUSTY Metoprolol Tartrate (Metoprolol Tartrate 50 Mg Tablet) 50 mg PO BID [facility]; Protocol Last Admin: 04/09/22 11:43 Dose: 50 mg Documented By: DUSTY Montelukast Sodium (Montelukast Sodium 10 Mg Tablet) 10 mg PO DAILY [facility] Last Admin: 04/09/22 07:47 Dose: 10 mg Documented By: DUSTY Morphine Sulfate (Morphine Sulfate 2 Mg/Ml Cartridge) 2 mg IVPUSH Q3H PRN; Protocol PRN Reason: Pain, Mild (Pain Scale 1-3) Last Admin: 04/08/22 16:14 Dose: 2 mg Documented By: DUSTY Omeprazole (Omeprazole 20 Mg Capsule.) 20 mg PO BID@0630,1630 [facility] Last Admin: 04/09/22 06:00 Dose: 20 mg Documented By: ANTOIC Pharmacy Consult (Consult Rx Perform Med Rec) 1 each MISCELLANE ONCE PRN PRN Reason: Consult order Sodium Bicarbonate (Sodium Bicarbonate 650 Mg Tablet) 650 mg PO BID [facility] Last Admin: 04/09/22 07:47 Dose: 650 mg Documented By: DUSTY Labs CBC & Chem 7: 04/07/22 13:40 04/09/22 08:35 Labs: Laboratory Results - last 24 hr 04/08/22 04/08/22 04/09/22 16:02 19:01 07:24 Anion Gap Estim Creat Clear Calc Estimated GFR POC Glucose 199 H 188 H 166 H Random Glucose Calcium 04/09/22 04/09/22 08:35 11:00 Anion Gap 16 Estim Creat Clear Calc 46.6 Estimated GFR 43 POC Glucose 167 H Random Glucose 146 H Calcium 9.0 Assessment and Plan (1) 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 # small vessel vasculitis, mononeuritis multiplex -- Solu-Medrol 1g IV -2/3 days,tylenol for pain # insulin-dependent diabetes-controlled. -- hold home meds -- ssi, lantus # HTN -- continue home meds ? # paroxysmal AFib -- continue Eliquis, metoprolol # asthma -- continue home maintenance inhalers -- consider duoneb if needed # HLD -- continue home meds Leucocytosis : seems improving,possible reactive due to steriods no fevers ,asymptomatic Hyperkalemia : Possibly related to Bactrim. Bactrim stopped improved with loklemhi inpatient need - IV steroid treatment for vasculitis. Time Spent With Patient Time: Total time managing care of this patient today ____ minutes. Quality Stroke Does the patient have a stroke diagnosis?: No VTE Prior VTE?: No VTE Risk Level:: Medical - moderate - high VTE Device Contraindication: Treatment Not Indicated VTE Drug Contraindication: N/A - Med Ordered
[2022-04-09 16:00] VITALS: BP 114/63; PULSE 89; RESP 17; TEMP 36.1; O2SAT 96
[2022-04-09] MEDS: methylPREDNISolone Sod Succ 1,000 MG in 0.9 % Sodium Chloride 50 ML 66 MG IV (16:06)
[2022-04-09 16:34] LABS: Glucose, Whole Blood 184 mg/dL (60-115)
[2022-04-09 20:00] VITALS: BP 111/57; PULSE 90; RESP 20; TEMP 36.6; O2SAT 95
[2022-04-09] MEDS: Atorvastatin Calcium 80 MG TABLET PO (20:56)
[2022-04-09] MEDS: ALPRAZolam 0.5 MG TABLET PO (21:04)
[2022-04-09 21:42] LABS: Glucose, Whole Blood 234 mg/dL (60-115)
[2022-04-10 04:00] VITALS: BP 118/60; PULSE 95; RESP 18; TEMP 36.4; O2SAT 98
[2022-04-10] MEDS: Omeprazole 20 MG CAPSULE.DR PO (05:44)
[2022-04-10 08:00] VITALS: BP 130/69; PULSE 93; RESP 18; TEMP 36.9; O2SAT 96
[2022-04-10] MEDS: Gabapentin 300 MG CAPSULE PO (08:01)
[2022-04-10] MEDS: Metoprolol Tartrate 50 MG TABLET PO (08:01)
[2022-04-10] MEDS: Ferrous Sulfate 324 MG TABLET.DR PO (08:01)
[2022-04-10] MEDS: Montelukast Sodium 10 MG TABLET PO (08:01)
[2022-04-10] MEDS: Loratadine 10 MG TABLET PO (08:02)
[2022-04-10] MEDS: Apixaban 5 MG TABLET PO (08:02)
[2022-04-10] MEDS: Sodium Bicarbonate 650 MG TABLET PO (08:02)
[2022-04-10] MEDS: Fluticasone Propionate Nasal 16 GM SPRAY 1 SPRAY NOSTRIL-B (08:02)
[2022-04-10] MEDS: Azelastine HCl Nasal 137 MCG/Spray 30 ML 2 SPRAY NOSTRIL-B (08:02)
[2022-04-10] MEDS: Fluticasone/Vilanterol 200/25 BLST.W.DEV 1 PUFF INHALE (08:03)
[2022-04-10 08:04] VITALS: PULSE 78; RESP 16; O2SAT 98
[2022-04-10 08:10] LABS: Glucose, Whole Blood 167 mg/dL (60-115)
[2022-04-10] MEDS: Insulin Lispro 100 UNIT/ML 3 ML VIAL SUBCUT ×2 (08:14→12:20)
[2022-04-10] MEDS: Acetaminophen 325 MG TABLET 650 MG PO (08:14)
--- NOTE | 2022-04-10 10:09 | PM.DS ---
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 Pt has had numerous medical issues for the past 3-4 months since a COVID infection: bronchitis, pancreatitis, paroxysmal afib, and persistent muscle weakness. Muscle biopsy from 03/14/22 found evidence for vasculitis. Pt has 2-3 loose stools since yesterday, but no acute complaints: no F/C, N/V. Denies chest pain/pressure, SOB, palpitations. No abdominal pain. Pt has numerous chronic complaints, including numbness of right foot, numbness of left thumb and first two fingers, lightheadedness and dizziness x3-4 months, easy bruising since being on Eliquis. Pt will be admitted to the hospital for IV steroid treatment of vasculitis. hospital course: Patient was admitted for possible vasculitis and mononeuritis multiplex-for pulse steroid ivx3 days-patient has only little response. Discussed with the patient's spanish language lecturer planned to use outpatient management with possible use of immunosuppressants. Leukocytosis improving, asymptomatic-monitor CBC out patiently hyperkalemia: possible related to bactrim -seems improved with lokelma and discontinuing bactrim ,d/w rheumatology -no plan to start bactrim. in addition omlesartan also on hold until monitor electrolytes out patiently with renal function outpatient ,consider nephrology eval outpatient before starting TANVI/ARB. Above management discussed with patient's spanish language lecturer in detail length as well as patient. Above management discussed with the patient in detail length, she understand and in agreement with the plan, time spent 50 minute Time Spent with Patient Time attestation: Total time managing care of this patient today ____ minutes. Discharge coordination time: Greater than 30 minutes Quality: Safe Use of Opioids Does Pt have an Active Cancer Diagnosis on the Problem List?: No Quality: Stroke Does the patient have a stroke diagnosis?: No Physical Exam Vital Signs: Vital Signs: Last Vital Signs Temp 98.4 F 04/10/22 08:00 Pulse 78 04/10/22 08:04 Resp 16 04/10/22 08:04 BP 130/69 04/10/22 08:00 Pulse Ox 96 04/10/22 08:00 O2 Del Method 04/10/22 08:00 BMI result Body Mass Index 33.8 ?Appearance: Alert.? Oriented X3.? not in distress.? cvs: rrr, [id number] . res: clear to auscultation ,no rhonchii or wheezing abd: no rebound or guarding ,nt, bs present. ext pulses present , no cyanosis. neuro: axo3 , neuro finding weakness/numbness (as per patient slightly improvin) DS: Data Data Completed and Pending Labs on day of discharge: Laboratory Results - last 24 hr 04/09/22 04/09/22 04/09/22 11:00 16:27 21:39 POC Glucose 167 H 184 H 234 H 04/10/22 08:01 POC Glucose 167 H ? 04/09/22 04/09/22 ? 08:35 11:00 Anion Gap ?16 ? Estim Creat Clear Calc ?46.6 ? Estimated GFR ?43 ? POC Glucose ? ?167 H Random Glucose ?146 H ? Calcium ?9.0 ? Discharge Plan Discharge Anticipated Discharge Date/Time: 04/10/22 09:50 Patient Disposition: Home, Self-Care Discharge Diagnosis: vasculitis/mononeuritis multiplex Referrals: Physician,Unknown J [Primary Care Provider] - 1 Week Discharge Medications: New amlodipine [Norvasc] 10 mg tablet 10 mg PO DAILY Qty: 30 0RF Continued Trelegy Ellipta 200-62.5-25 mcg blister with device 1 ea PO DAILY Qty: 60 3RF metoprolol succinate 50 mg tablet extended release 24 hr 50 mg PO DAILY Eliquis 5 mg tablet 5 mg PO BID methylprednisolone [Medrol] 4 mg tablet 36 mg PO DAILY codeine-guaifenesin 10-100 mg/5 mL liquid 10 ml PO Q6H PRN (Reason: cough) fluticasone propionate 50 mcg/actuation spray,suspension 1 spray intranasal DAILY metformin 500 mg tablet extended release 24 hr 500 tab PO QAM ferrous sulfate 325 mg (65 mg iron) tablet 325 mg PO DAILY 30 Days Qty: 30 2RF Rx Instructions: take with breakfast desloratadine 5 mg tablet 5 mg PO DAILY montelukast 10 mg tablet 10 mg PO DAILY gabapentin 300 mg capsule 300 mg PO TID azelastine 137 mcg (0.1 %) aerosol,spray 2 spray intranasal BID 30 Days Qty: 30 6RF Rx Instructions: administer into each nostril levalbuterol HCl [Xopenex] 1.25 mg/3 mL solution for nebulization 1.25 mg inhalation Q6H PRN (Reason: shortness of breath or wheezing) 30 Days Qty: 360 8RF budesonide-formoterol [Symbicort] 160-4.5 mcg/actuation HFA aerosol inhaler 2 puff inhalation Q12H Rx Instructions: rinse mouth with water after use. do not swallow. rosuvastatin 20 mg tablet 20 mg PO BEDTIME ergocalciferol (vitamin D2) 1,250 mcg (50,000 unit) capsule 1,250 mcg PO CERDA Neurin-SL 600-600 mcg tablet, sublingual 1 tab sublingual DAILY pantoprazole 40 mg tablet,delayed release (DR/EC) 40 mg PO BID Discontinued sulfamethoxazole-trimethoprim 800-160 mg tablet 1 tab PO MOWEFR amlodipine-olmesartan 5-40 mg tablet 1 tab PO DAILY Discharge Orders: Discharge Order (Routine); Ordered 04/10/22 Ordered By: Connor Yepez Diet: Advance to usual diet Activity on Discharge: As tolerated Stand Alone Forms: Patient Portal Discharge page Care Plan Goals: Patient was admitted for possible vasculitis and mononeuritis multiplex-for pulse steroid ivx3 days-patient has only little response. Discussed with the patient's spanish language lecturer planned to use outpatient management with possible use of immunosuppressants. Leukocytosis improving, asymptomatic-monitor CBC out patiently hyperkalemia: possible related to bactrim -seems improved with lokelma and discontinuing bactrim ,d/w rheumatology -no plan to start bactrim. in addition omlesartan also on hold until monitor electrolytes out patiently with renal function outpatient ,consider nephrology eval outpatient before starting TANVI/ARB. Above management discussed with patient's spanish language lecturer in detail length as well as patient. Health Concerns: As above. Plan of Treatment: As above. Assessment: As above.
--- NOTE | 2022-04-10 10:21 | MHC.CM.PN ---
pt dcd home no skilled services ordered by
[2022-04-10 12:12] VITALS: BP 99/78; PULSE 99; RESP 18; TEMP 36.4; O2SAT 98
[2022-04-10 12:18] LABS: Glucose, Whole Blood 161 mg/dL (60-115)
[2022-04-10 12:28] VITALS: BP 104/68
== END 2022-04-10 14:57 | disposition home or self-care (01) | DRG 74 ==
LOC: HO.S3 12:29 → HO.IMC 04-08 03:36
PROVIDERS: Admitting Provider Internal Medicine; PCP Nurse Practitioner Family; Visit Provider Internal Medicine
DX: G58.7 Mononeuritis multiplex (principal); M35.00 Sjogren syndrome, unspecified; T36.8X5A Adverse effect of other systemic antibiotics, initial encounter; T39.315A Adverse effect of propionic acid derivatives, initial encounter; E11.9 Type 2 diabetes mellitus without complications; I48.0 Paroxysmal atrial fibrillation; I77.6 Arteritis, unspecified; T38.0X5A Adverse effect of glucocorticoids and synthetic analogues, initial encounter; D72.829 Elevated white blood cell count, unspecified; E87.5 Hyperkalemia; Z20.822 Contact with and (suspected) exposure to COVID-19; Z79.01 Long term (current) use of anticoagulants; Z79.51 Long term (current) use of inhaled steroids; Z79.84 Long term (current) use of oral hypoglycemic drugs; Z79.899 Other long term (current) drug therapy
CPT/HCPCS: 36415; 80048; 80053; 81001; 82085; 82550; 82657; 82784; 82947; 83036; 83615; 84156; 85025; 85027; 85652; 86140; 87493; 87507; 87635; 89055; 93005; 94640; 99212; J0610; J2270; J2930

== ENCOUNTER → 2022-04-10 14:18 | Outpatient (BNVA) | payer MEDICARE, OTHER, SELFPAY | PROVIDERS: Visit Provider Nurse Practitioner Family | DX: K86.1 Other chronic pancreatitis (principal); R10.10 Upper abdominal pain, unspecified | CPT/HCPCS: 99202; 99212 ==

== ENCOUNTER 2022-04-12 13:24 | Outpatient (REF) | payer MEDICARE, OTHER, SELFPAY | END 2022-04-12 13:25 | disposition home or self-care (01) | LOC: HO.HMGCX 13:24 | PROVIDERS: Visit Provider Student in an Organized Health Care Education/Training Program | DX: E04.1 Nontoxic single thyroid nodule (principal) | CPT/HCPCS: 76536 ==

== ENCOUNTER 2022-04-13 09:35 | Outpatient (REF) | payer MEDICARE, OTHER, SELFPAY ==
--- NOTE | ~2022-04-13 | US_ITS ---
EXAMINATION: US ABDOMEN COMPLETE CLINICAL INFORMATION: Unspecified abdominal pain. COMPARISON: None TECHNIQUE: Real-time imaging of the abdominal viscera. FINDINGS: PANCREAS: Visualized portions unremarkable. ABDOMINAL AORTA: Visualized portions unremarkable. INFERIOR VENA CAVA: Visualized portions unremarkable. LIVER: Unremarkable. GALLBLADDER: Status post cholecystectomy. COMMON BILE DUCT: 0.9 cm. RIGHT KIDNEY: 9.6 cm. Unremarkable. LEFT KIDNEY: 8.6 cm. Unremarkable. SPLEEN: 6.6 cm. Unremarkable. FREE FLUID: None. US/US abdomen complete IMPRESSION: Unremarkable abdominal ultrasound in a patient status post cholecystectomy.
[2022-04-21 17:29] LABS: Pancreatic Elastase-1 >500 mcg/g
== END 2022-04-13 09:36 | disposition home or self-care (01) ==
LOC: HO.US 09:35
PROVIDERS: Visit Provider Nurse Practitioner Family
DX: R10.9 Unspecified abdominal pain (principal); K85.90 Acute pancreatitis without necrosis or infection, unspecified
CPT/HCPCS: 76700; 82656

== ENCOUNTER 2022-04-25 10:49 | Outpatient (REF) | payer MEDICARE, OTHER, SELFPAY ==
[2022-04-25 11:09] LABS: MANUAL DIFF FLAG NO
[2022-04-25 11:47] LABS: Basophils Percent Auto 0.1 % (0-2); Eosinophils Absolute Auto 0.1 X10*3/uL (0.0-0.4); Eosinophils Percent Auto 0.6 % (0-4); Hematocrit 32.8 % (37.0-47.0); Hemoglobin 10.3 g/dl (12.0-16.0); Imm Gran Abs Auto 0.18 X10*3/uL (0.00-0.03); Lymphocytes Absolute Auto 0.8 X10*3/uL (1.2-4.9); Lymphocytes Percent Auto 8.5 % (20-40); Mean Corpuscular HGB Conc 31.4 g/dl (31.0-35.0); Mean Corpuscular Hemoglobin 31.7 pg (27.0-33.0); Mean Corpuscular Volume 100.9 fL (80.0-98.0); Mean Platelet Volume 9.6 fL (9.4-12.3); Monocytes Absolute Auto 0.7 X10*3/uL (0.1-1.2); Monocytes Percent Auto 7.8 % (2-11); Neutrophils Absolute Auto 7.3 x10*3/uL (2.0-8.3); Platelet Count 207 X10*3/uL (160-400); Red Blood Count 3.25 X10*6/uL (4.20-5.50); Red Cell Distribution Width 16.4 % (11.0-16.0)
[2022-04-25 12:32] LABS: Alanine Aminotransferase 66 U/L (0-31); Albumin Level 3.9 g/dL (3.5-5.0); Alkaline Phosphatase 61 U/L (39-117); Anion Gap 15 (12-20); Aspartate Amino Transferase 17 U/L (5-31); Bilirubin Total 0.5 mg/dL (0.0-1.0); Blood Urea Nitrogen 30 mg/dL (9-16); Calcium 9.4 mg/dL (8.4-10.2); Carbon Dioxide 26 mmol/L (22-29); Chloride 105 mmol/L (96-108); Estimated Glomerular Filt Rate 54; Glucose Random 106 mg/dL (60-115); Potassium 4.5 mmol/L (3.3-5.1); Sodium 141 mmol/L (135-145); Total Protein 6.2 g/dL (6.5-8.0)
== END 2022-04-25 10:50 | disposition home or self-care (01) ==
LOC: HO.LAB 10:49
PROVIDERS: PCP Nurse Practitioner Family; Visit Provider Student in an Organized Health Care Education/Training Program
DX: I77.6 Arteritis, unspecified (principal)
CPT/HCPCS: 36415; 80053; 82955; 85025

== ENCOUNTER → 2022-04-27 08:52 | Outpatient (BNVA) | payer MEDICARE, OTHER, SELFPAY | PROVIDERS: PCP Nurse Practitioner Family; Visit Provider Student in an Organized Health Care Education/Training Program | DX: I77.6 Arteritis, unspecified (principal); E04.1 Nontoxic single thyroid nodule; E87.5 Hyperkalemia; G61.89 Other inflammatory polyneuropathies; I48.19 Other persistent atrial fibrillation; Z79.01 Long term (current) use of anticoagulants; Z79.899 Other long term (current) drug therapy | CPT/HCPCS: 99212 ==

== ENCOUNTER 2022-05-11 09:26 | Outpatient (REF) | payer MEDICARE, OTHER, SELFPAY ==
[2022-05-11 10:21] LABS: Urine Cytology See Pathology rpt
[2022-05-11 10:30] LABS: Appearance Urine Clear; Color Urine Yellow; Glucose Urine UA Negative (Negative); Leukocyte Esterase Urine Small (1+) (Negative); Nitrite Urine Negative (Negative); Specific Gravity - Urine 1.015 (1.005-1.025); UMIC TRIGGER UA YES; Urine Blood Negative (Negative); Urine Ketones Negative (Negative); Urine Protein 30 (1+) mg/dL (Neg-Trace)
[2022-05-11 10:34] LABS: Bacteria Urine None Seen (None Seen); Hyaline Casts Urine 0-2 /LPF (0-2); RBC Urine 0-2 /HPF (0-2); Squamous Epithelial Cell Urine 0-2 /HPF (0-2)
[2022-05-11 10:48] LABS: Basophils Percent Auto 0.2 % (0-2); Eosinophils Percent Auto 0.2 % (0-4); Hematocrit 33.6 % (37.0-47.0); Hemoglobin 10.4 g/dl (12.0-16.0); Imm Gran Abs Auto 0.33 X10*3/uL (0.00-0.03); Imm Gran Pct Auto 1.4 % (0.0-0.4); Lymphocytes Absolute Auto 1.3 X10*3/uL (1.2-4.9); Lymphocytes Percent Auto 5.7 % (20-40); MANUAL DIFF FLAG SCAN; Mean Corpuscular Volume 100.3 fL (80.0-98.0); Monocytes Percent Auto 4.1 % (2-11); Neutrophils Absolute Auto 20.5 x10*3/uL (2.0-8.3); Neutrophils Percent Auto 88.4 % (45-73); Platelet Count 304 X10*3/uL (160-400); Red Blood Count 3.35 X10*6/uL (4.20-5.50); Red Cell Distribution Width 15.6 % (11.0-16.0); SCAN SMEAR FLAG 1; White Blood Count 23.2 X10*3/uL (4.8-10.8)
[2022-05-11 11:02] LABS: Erythrocyte Sedimentation Rate 38 MM/HR (0-20)
[2022-05-11 11:19] LABS: Alanine Aminotransferase 27 U/L (0-31); Albumin Level 3.5 g/dL (3.5-5.0); Alkaline Phosphatase 57 U/L (39-117); Anion Gap 14 (12-20); Aspartate Amino Transferase 13 U/L (5-31); Bilirubin Total 0.6 mg/dL (0.0-1.0); Blood Urea Nitrogen 28 mg/dL (9-16); C Reactive Protein 5.74 mg/dL (< or = 0.50); Calcium 9.1 mg/dL (8.4-10.2); Carbon Dioxide 22 mmol/L (22-29); Chloride 107 mmol/L (96-108); Estimated Glomerular Filt Rate 51; Glucose Random 154 mg/dL (60-115); Potassium 4.1 mmol/L (3.3-5.1); Sodium 139 mmol/L (135-145); Total Protein 5.8 g/dL (6.5-8.0)
[2022-05-11 11:31] LABS: SLIDE REVIEW VERIFIED
[2022-05-11 11:41] LABS: Vitamin B12 495 pg/mL (200-900)
== END 2022-05-11 09:27 | disposition home or self-care (01) ==
LOC: HO.LAB 09:26
PROVIDERS: PCP Nurse Practitioner Family; Visit Provider Student in an Organized Health Care Education/Training Program
DX: Z79.899 Other long term (current) drug therapy (principal)
CPT/HCPCS: 36415; 80053; 81001; 82607; 85025; 85652; 86140; 88112

== ENCOUNTER 2022-05-12 11:07 | Emergency (ER) | payer MEDICARE, OTHER, SELFPAY ==
[2022-05-12 11:26] VITALS: BP 120/66; PULSE 99; RESP 17; TEMP 36.6; O2SAT 94; BMI 34.9
--- NOTE | 2022-05-12 11:56 | ED_ITS ---
HPI - Arrhythmia/Palpitations General Chief Complaint: Arrhythmia/Palpitations <TAWANDA Elliott Last Filed: 05/12/22 15:55> Stated Complaint: Sent from oncology <TAWANDA Elliott - Last Filed: 05/12/22 15:55> Time Seen by Provider: 05/12/22 11:56 <TAWANDA Elliott - Last Filed: 05/12/22 15:55> Source: patient, RN notes reviewed and old records reviewed <TAWANDA Elliott Last Filed: 05/12/22 15:55> Mode of arrival: ambulatory <TAWANDA Elliott Last Filed: 05/12/22 15:55> Limitations: no limitations <TAWANDA Elliott Last Filed: 05/12/22 15:55> History of Present Illness HPI narrative: 66-year-old female with a history of ILD, Sjogren's disease, AMY, asthma, autoimmune pancreatitis, diabetes, paroxysmal AFib with recent diagnosis of vasculitis who received 1 dose of Cytoxan 1 month ago and due for 2nd dose today presents to the ER for evaluation of mild tachycardia, rapid AFib of 101. she was sent from the Oncology office for which she was was to get her 2nd dose of Cytoxan today. She was premedicated with steroids, Benadryl, Zofran before the 2nd dose was also be given today. She was found to be tachycardic to a rate of 101 in rapid AFib. She is currently on anticoagulation and metoprolol for rate control that was started during a recent admission to [facility]. She took her Toprol 50 mg this morning and has not missed any doses. She has not sen a Re[facility]ational [facility] yet, has an appointment here on 06/21. She was sent to the ER for further evaluation. Cytoxan dose was not given. <TAWANDA Elliott Last Filed: 05/12/22 15:55> MD complaint: rapid heart beat <TAWANDA Elliott Last Filed: 05/12/22 15:55> Onset (ago): unknown <TAWANDA Elliott Last Filed: 05/12/22 15:55> Duration: intermittent <TAWANDA Elliott Last Filed: 05/12/22 15:55> Severity: mild <TAWANDA Elliott - Last Filed: 05/12/22 15:55> Arrhythmia history: atrial fibrillation <TAWANDA Elliott - Last Filed: 05/12/22 15:55> Associated symptoms: other (fatigue) <TAWANDA Elliott - Last Filed: 05/12/22 15:55> Treatments prior to arrival: beta-jacek <TAWANDA Elliott - Last Filed: 05/12/22 15:55> Related Data Home Medications: Home Medications Medication Instructions Recorded Confirmed desloratadine 5 mg tablet 5 mg PO DAILY 12/08/20 04/27/22 montelukast 10 mg tablet 10 mg PO DAILY 12/08/20 04/27/22 budesonide-formoterol HFA 160 2 puff inhalation Q12H 02/16/22 04/27/22 mcg-4.5 mcg/actuation aerosol inhaler (Symbicort) cyanocobalamin-methylcobalamin 600 1 tab sublingual DAILY 02/16/22 04/27/22 mcg-600 mcg sublingual tablet (Neurin-SL) ergocalciferol (vitamin D2) 1,250 1,250 mcg PO CERDA 02/16/22 04/27/22 mcg (50,000 unit) capsule pantoprazole 40 mg tablet,delayed 40 mg PO BID 02/16/22 04/27/22 release rosuvastatin 20 mg tablet 20 mg PO BEDTIME 02/16/22 04/27/22 gabapentin 300 mg capsule 300 mg PO TID 04/05/22 04/27/22 apixaban 5 mg tablet (Eliquis) 5 mg PO BID 04/07/22 04/27/22 codeine 10 mg-guaifenesin 100 mg/5 10 ml PO Q6H PRN cough 04/07/22 04/27/22 mL oral liquid fluticasone propionate 50 1 spray intranasal DAILY 04/07/22 04/27/22 mcg/actuation nasal spray,suspension metformin 500 mg tablet,extended 500 tab PO QAM 04/07/22 04/27/22 release 24 hr methylprednisolone 4 mg tablet 36 mg PO DAILY 04/07/22 04/27/22 (Medrol) metoprolol succinate 50 mg 50 mg PO DAILY 04/07/22 04/27/22 tablet,extended release 24 hr fluticasone fur. 200 mcg-umeclid 1 ea inhalation DAILY 04/14/22 04/27/22 62.5 mcg-vilant 25 mcg inhalat.powder (Trelegy Ellipta) Previous Rx's Medication Instructions Recorded azelastine 137 mcg (0.1 %) nasal 2 spray intranasal BID 30 days #30 10/03/21 spray aerosol mL levalbuterol HCl 1.25 mg/3 mL 1.25 mg (3 mL) inhalation Q6H PRN 12/02/21 solution for nebulization (Xopenex) shortness of breath or wheezing 30 days #360 mL ferrous sulfate 325 mg (65 mg 325 mg PO DAILY 30 days #30 tabs 03/01/22 iron) tablet cyclophosphamide 200 mg/mL 1 g (5 mL) IV DAILY 1 day #5 mL 04/11/22 intravenous solution ondansetron HCl 8 mg tablet 8 mg PO Q8-12H PRN nausea and 04/13/22 vomiting #40 tabs dapsone 100 mg tablet 100 mg PO DAILY #90 tabs 04/28/22 amlodipine 10 mg tablet (Norvasc) 10 mg PO DAILY #30 tabs 05/11/22 digoxin 125 mcg (0.125 mg) tablet 125 mcg PO DAILY #30 tabs 05/12/22 (Lanoxin) furosemide 20 mg tablet (Lasix) 20 mg PO QAM #30 tabs 05/12/22 <TAWANDA Elliott - Last Filed: 05/12/22 15:55> Allergies/Adverse Reactions: Allergies Allergy/AdvReac Type Severity Reaction Status Date / Time No Known Allergies Allergy Verified 04/27/22 09:10 <TAWANDA Elliott - Last Filed: 05/12/22 15:55> Review of Systems Review of Systems: Yes all other systems are reviewed and are negative <TAWANDA Elliott - Last Filed: 05/12/22 15:55> [facility] Past Medical History Medical History: Medical History Asthma Blood D-dimer assay positive Bronchitis Chest pain GERD (gastroesophageal reflux disease) Muscle weakness AMY (obstructive sleep apnea) Prediabetes Sjogren's disease <TAWANDA Elliott - Last Filed: 05/12/22 15:55> Surgical History: Surgical History Hx of appendectomy Hx of cholecystectomy Hx of colonoscopy S/P ankle joint replacement <TAWANDA Elliott - Last Filed: 05/12/22 15:55> Family History Family History: Family History Other Family history of connective tissue disease Lupus Multiple sclerosis Rheumatoid arthritis <TAWANDA Elliott - Last Filed: 05/12/22 15:55> Social History Social History: Social History Household Members: Spouse Alcohol intake: current Alcohol intake frequency: does not drink Alcohol type: wine Patient Tobacco Use Status: Never used Tobacco Smoked in Last 30 Days: No Use of substances other than those prescribed or required for medical reasons: No Advance Directives: No Advance Directives Information Provided: Yes service: No Current occupational status: retired 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 <TAWANDA Elliott - Last Filed: 05/12/22 15:55> Physical Exam Vital Signs: Vital Signs: Last Vital Signs Temp 98.0 F 05/12/22 14:03 Pulse 100 05/12/22 14:03 Resp 15 05/12/22 14:03 BP 97/61 05/12/22 14:03 Pulse Ox 93 05/12/22 14:03 O2 Del Method 05/12/22 14:03 BMI result Body Mass Index 34.9 <TAWANDA Elliott - Last Filed: 05/12/22 15:55> Vital Signs: Last Vital Signs Temp 98.0 F 05/12/22 14:03 Pulse 100 05/12/22 14:03 Resp 15 05/12/22 14:03 BP 97/61 05/12/22 14:03 Pulse Ox 93 05/12/22 14:03 O2 Del Method 05/12/22 14:03 BMI result Body Mass Index 34.9 <Urbano Ferrell MD - Last Filed: 05/12/22 16:27> Appearance: Alert. Oriented X3. No acute distress. Eyes: Pupils equal, round and reactive to light. ENT: Pharynx normal. Neck: Normal inspection. Neck supple. no JVD CVS: irregularly irregular, rate tachycardic low 100s. No murmur. Pulses normal. Respiratory: No respiratory distress. Breath sounds normal. Abdomen: Obese, soft and nontender. +BS x4 Skin: Skin warm and dry. Normal skin color. Normal skin turgor. No rashes. Extremities: No lower extremity edema. Neuro: Oriented X 3. No motor deficit. No sensory deficit. <TAWANDA Elliott - Last Filed: 05/12/22 15:55> Course Course Course Narrative: 58-year-old female with complex medical history including vasculitis on Cytoxan, AFib on Eliquis and metoprolol who presents to the ER for evaluation of elevated heart rate. She states her heart rates are always in the 90s to low 100s. She has chronic exertional dyspnea when she walks upstairs only, no exertional dyspnea when walking flat. She denies any orthopnea, chest pain, difficulty breathing. Intermittent palpitations that are chronic. She is on intermittent Lasix 20 mg per day as needed for lower extremity swelling. She has not taken the last 2 days because she has not had any swelling. She denies any fevers, muscle aches, body aches. She does have increased fatigue and generally not feeling well the last couple of days. She continues on high-dose steroids per her hospital admissions officer. Will monitor on telemetry here. Check EKG, troponin, BNP and basic lab workup. She appears well, nontoxic. Will given extra dose of oral metoprolol and see how her heart rate and blood pressure tolerates. <TAWANDA Elliott - Last Filed: 05/12/22 15:55> Medications Administered Discontinued Medications Generic Name Dose Route Start Last Admin Trade Name Freq PRN Reason Stop Dose Admin Metoprolol Tartrate 25 mg 05/12/22 12:31 05/12/22 12:39 Metoprolol Tartrate 25 Mg Tablet PO 05/12/22 12:32 25 mg ONCE ONE Administration Protocol <TAWANDA Elliott - Last Filed: 05/12/22 15:55> Medications Administered Discontinued Medications Generic Name Dose Route Start Last Admin Trade Name Freq PRN Reason Stop Dose Admin Metoprolol Tartrate 25 mg 05/12/22 12:31 05/12/22 12:39 Metoprolol Tartrate 25 Mg Tablet PO 05/12/22 12:32 25 mg ONCE ONE Administration Protocol <Urbano Ferrell MD - Last Filed: 05/12/22 16:27> Medical Decision Making Differential Diagnosis Differential Diagnoses: The differential diagnosis associated with the presentation includes <TAWANDA Elliott - Last Filed: 05/12/22 15:55> rapid AFib comp decompensated heart failure, adverse effect of Cytoxan, dehydration, viral syndrome <TAWANDA Elliott - Last Filed: 05/12/22 15:55> Admission/Observation Consideration of admission/observation: Escalation of care including admission/observation considered <TAWANDA Elliott Last Filed: 05/12/22 15:55> considered admission for rapid AFib, however this seems to be her baseline with stable heart rates and blood pressures. She is minimally symptom atic, it again at her baseline. She has no evidence of volume overload, no orthopnea, JVD or exertional dyspnea beyond her baseline. 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 Caruso from Cardiology who is recommending adding digoxin 0.125 mg per day, encouraging Lasix every day rather than p.r.n. and having her follow-up in the office with Cardiology sooner than June. He will attempt to try to get her in sooner. Plan was discussed with patient who is in agreement. Case was discussed with patient's hospital admissions officer Dr. Kirby who is in agreement patient can be discharged home. <TAWANDA Elliott - Last Filed: 05/12/22 15:55> Lab Data MDM Lab Attestation statement: I reviewed the patient's lab results. <TAWANDA Elliott Last Filed: 05/12/22 15:55> Leukocytosis which is chronic in nature. Stable anemia. Normal renal function. Elevated BNP 500 with no baseline although patient does not appear to be in acute decompensated heart failure. <TAWANDA Elliott Last Filed: 05/12/22 15:55> Result Diagrams: 05/12/22 12:07 05/12/22 12:07 <TAWANDA Elliott - Last Filed: 05/12/22 15:55> Labs: Lab Results 05/12/22 05/12/22 05/12/22 Range/Units 12:07 12:07 12:07 WBC 24.9 H (4.8-10.8) X10*3/uL RBC 3.17 L (4.20-5.50) X10*6/uL Hgb 9.8 L (12.0-16.0) g/dl Hct 31.5 L (37.0-47.0) % MCV 99.4 H (80.0-98.0) fL MCH 30.9 (27.0-33.0) pg MCHC 31.1 (31.0-35.0) g/dl RDW 15.7 (11.0-16.0) % Plt Count 284 (160-400) X10*3/uL MPV 8.7 L (9.4-12.3) fL Immature Gran % (Auto) Cancelled Neut % (Auto) Cancelled Lymph % (Auto) Cancelled Ellis % (Auto) Cancelled Eos % (Auto) Cancelled Baso % (Auto) Cancelled Lymph # (Auto) Cancelled Ellis # (Auto) Cancelled Eos # (Auto) Cancelled Baso # (Auto) Cancelled Abs Immat Gran (auto) Cancelled Absolute Neuts (auto) Cancelled Absolute Nucleated RBC 0.000 (0.0-0.012) X10*3/uL Nucleated RBC % (auto) 0.0 (0.0-0.2) /100WBC Neutrophils % (Manual) 91 H (45-73) % Band Neutrophils % 4 (3-5) % Lymphocytes % (Manual) 5 L (20-40) % Abs Neuts (Manual) 23.7 H (2.0-8.3) X10*3/uL Lymphocytes # (Manual) 1.2 (1.2-4.9) X10*3/uL Toxic Vacuolation PRESENT Platelet Estimate NORMAL (NORMAL) Plt Morphology Comment NORMAL RBC Morphology NOTED Polychromasia 1+ (0-2) /OIF Macrocytosis 1+ (5-14) /OIF Spherocytes 1+ (0-2) /OIF Sodium 138 (135-145) mmol/L Potassium 4.7 (3.3-5.1) mmol/L Chloride 108 (96-108) mmol/L Carbon Dioxide 22 (22-29) mmol/L Anion Gap 13 (12-20) BUN 29 H (9-16) mg/dL Creatinine 0.94 (0.5-1.4) mg/dL Estim Creat Clear Calc 63.0 Estimated GFR 59 Random Glucose 171 H (60-115) mg/dL Calcium 8.8 (8.4-10.2) mg/dL Magnesium 2.0 (1.6-2.6) mg/dL Total Bilirubin 0.4 (0.0-1.0) mg/dL Direct Bilirubin 0.2 (0.0-0.5) mg/dL AST 13 (5-31) U/L ALT 27 (0-31) U/L Alkaline Phosphatase 55 (39-117) U/L Total Creatine Kinase 15 L (26-140) U/L Troponin I High Sens 3.5 (<3.5-17.0) ng/L B-Natriuretic Peptide (<100) pg/mL Total Protein 6.0 L (6.5-8.0) g/dL Albumin 3.4 L (3.5-5.0) g/dL 05/12/22 Range/Units 12:07 WBC (4.8-10.8) X10*3/uL RBC (4.20-5.50) X10*6/uL Hgb (12.0-16.0) g/dl Hct (37.0-47.0) % MCV (80.0-98.0) fL MCH (27.0-33.0) pg MCHC (31.0-35.0) g/dl RDW (11.0-16.0) % Plt Count (160-400) X10*3/uL MPV (9.4-12.3) fL Immature Gran % (Auto) Neut % (Auto) Lymph % (Auto) Ellis % (Auto) Eos % (Auto) Baso % (Auto) Lymph # (Auto) Ellis # (Auto) Eos # (Auto) Baso # (Auto) Abs Immat Gran (auto) Absolute Neuts (auto) Absolute Nucleated RBC (0.0-0.012) X10*3/uL Nucleated RBC % (auto) (0.0-0.2) /100WBC Neutrophils % (Manual) (45-73) % Band Neutrophils % (3-5) % Lymphocytes % (Manual) (20-40) % Abs Neuts (Manual) (2.0-8.3) X10*3/uL Lymphocytes # (Manual) (1.2-4.9) X10*3/uL Toxic Vacuolation Platelet Estimate (NORMAL) Plt Morphology Comment RBC Morphology Polychromasia /OIF Macrocytosis /OIF Spherocytes /OIF Sodium (135-145) mmol/L Potassium (3.3-5.1) mmol/L Chloride (96-108) mmol/L Carbon Dioxide (22-29) mmol/L Anion Gap (12-20) BUN (9-16) mg/dL Creatinine (0.5-1.4) mg/dL Estim Creat Clear Calc Estimated GFR Random Glucose (60-115) mg/dL Calcium (8.4-10.2) mg/dL Magnesium (1.6-2.6) mg/dL Total Bilirubin (0.0-1.0) mg/dL Direct Bilirubin (0.0-0.5) mg/dL AST (5-31) U/L ALT (0-31) U/L Alkaline Phosphatase (39-117) U/L Total Creatine Kinase (26-140) U/L Troponin I High Sens (<3.5-17.0) ng/L B-Natriuretic Peptide 530 H (<100) pg/mL Total Protein (6.5-8.0) g/dL Albumin (3.5-5.0) g/dL <TAWANDA Elliott - Last Filed: 05/12/22 15:55> Lab Results 05/12/22 05/12/22 05/12/22 Range/Units 12:07 12:07 12:07 WBC 24.9 H (4.8-10.8) X10*3/uL RBC 3.17 L (4.20-5.50) X10*6/uL Hgb 9.8 L (12.0-16.0) g/dl Hct 31.5 L (37.0-47.0) % MCV 99.4 H (80.0-98.0) fL MCH 30.9 (27.0-33.0) pg MCHC 31.1 (31.0-35.0) g/dl RDW 15.7 (11.0-16.0) % Plt Count 284 (160-400) X10*3/uL MPV 8.7 L (9.4-12.3) fL Immature Gran % (Auto) Cancelled Neut % (Auto) Cancelled Lymph % (Auto) Cancelled Ellis % (Auto) Cancelled Eos % (Auto) Cancelled Baso % (Auto) Cancelled Lymph # (Auto) Cancelled Ellis # (Auto) Cancelled Eos # (Auto) Cancelled Baso # (Auto) Cancelled Abs Immat Gran (auto) Cancelled Absolute Neuts (auto) Cancelled Absolute Nucleated RBC 0.000 (0.0-0.012) X10*3/uL Nucleated RBC % (auto) 0.0 (0.0-0.2) /100WBC Neutrophils % (Manual) 91 H (45-73) % Band Neutrophils % 4 (3-5) % Lymphocytes % (Manual) 5 L (20-40) % Abs Neuts (Manual) 23.7 H (2.0-8.3) X10*3/uL Lymphocytes # (Manual) 1.2 (1.2-4.9) X10*3/uL Toxic Vacuolation PRESENT Platelet Estimate NORMAL (NORMAL) Plt Morphology Comment NORMAL RBC Morphology NOTED Polychromasia 1+ (0-2) /OIF Macrocytosis 1+ (5-14) /OIF Spherocytes 1+ (0-2) /OIF Sodium 138 (135-145) mmol/L Potassium 4.7 (3.3-5.1) mmol/L Chloride 108 (96-108) mmol/L Carbon Dioxide 22 (22-29) mmol/L Anion Gap 13 (12-20) BUN 29 H (9-16) mg/dL Creatinine 0.94 (0.5-1.4) mg/dL Estim Creat Clear Calc 63.0 Estimated GFR 59 Random Glucose 171 H (60-115) mg/dL Calcium 8.8 (8.4-10.2) mg/dL Magnesium 2.0 (1.6-2.6) mg/dL Total Bilirubin 0.4 (0.0-1.0) mg/dL Direct Bilirubin 0.2 (0.0-0.5) mg/dL AST 13 (5-31) U/L ALT 27 (0-31) U/L Alkaline Phosphatase 55 (39-117) U/L Total Creatine Kinase 15 L (26-140) U/L Troponin I High Sens 3.5 (<3.5-17.0) ng/L B-Natriuretic Peptide (<100) pg/mL Total Protein 6.0 L (6.5-8.0) g/dL Albumin 3.4 L (3.5-5.0) g/dL 05/12/22 Range/Units 12:07 WBC (4.8-10.8) X10*3/uL RBC (4.20-5.50) X10*6/uL Hgb (12.0-16.0) g/dl Hct (37.0-47.0) % MCV (80.0-98.0) fL MCH (27.0-33.0) pg MCHC (31.0-35.0) g/dl RDW (11.0-16.0) % Plt Count (160-400) X10*3/uL MPV (9.4-12.3) fL Immature Gran % (Auto) Neut % (Auto) Lymph % (Auto) Ellis % (Auto) Eos % (Auto) Baso % (Auto) Lymph # (Auto) Ellis # (Auto) Eos # (Auto) Baso # (Auto) Abs Immat Gran (auto) Absolute Neuts (auto) Absolute Nucleated RBC (0.0-0.012) X10*3/uL Nucleated RBC % (auto) (0.0-0.2) /100WBC Neutrophils % (Manual) (45-73) % Band Neutrophils % (3-5) % Lymphocytes % (Manual) (20-40) % Abs Neuts (Manual) (2.0-8.3) X10*3/uL Lymphocytes # (Manual) (1.2-4.9) X10*3/uL Toxic Vacuolation Platelet Estimate (NORMAL) Plt Morphology Comment RBC Morphology Polychromasia /OIF Macrocytosis /OIF Spherocytes /OIF Sodium (135-145) mmol/L Potassium (3.3-5.1) mmol/L Chloride (96-108) mmol/L Carbon Dioxide (22-29) mmol/L Anion Gap (12-20) BUN (9-16) mg/dL Creatinine (0.5-1.4) mg/dL Estim Creat Clear Calc Estimated GFR Random Glucose (60-115) mg/dL Calcium (8.4-10.2) mg/dL Magnesium (1.6-2.6) mg/dL Total Bilirubin (0.0-1.0) mg/dL Direct Bilirubin (0.0-0.5) mg/dL AST (5-31) U/L ALT (0-31) U/L Alkaline Phosphatase (39-117) U/L Total Creatine Kinase (26-140) U/L Troponin I High Sens (<3.5-17.0) ng/L B-Natriuretic Peptide 530 H (<100) pg/mL Total Protein (6.5-8.0) g/dL Albumin (3.5-5.0) g/dL <Urbano Ferrell MD - Last Filed: 05/12/22 16:27> Independent Interpretation I performed an independent interpretation of an: EKG <TAWANDA Elliott - Last Filed: 05/12/22 15:55> Interpretation: EKG with atrial fibrillation, heart rate 101, normal QTC, no ST segment elevations or depressions. <TAWANDA Elliott - Last Filed: 05/12/22 15:55> External Record Review External record reviewed: Office record, Outpatient record, Prior outpatient labs and Prior o utpatient radiology <TAWANDA Elliott - Last Filed: 05/12/22 15:55> attempting to get records from [facility] <TAWANDA Elliott - Last Filed: 05/12/22 15:55> Chronic Conditions Patient?s care impacted by: Hypertension and Other (afib, autoimmune disease) <TAWANDA Elliott - Last Filed: 05/12/22 15:55> Attestation Attending Attestation: I personally reviewed PA/resident/nurse practitioner note. I reviewed a all results and treatment plan. I agree with the assessment and plan. I agree with disposition <Urbano Ferrell MD - Last Filed: 05/12/22 16:27> Critical Care Time Critical Care Time Critical Care Time: Yes <TAWANDA Elliott Last Filed: 05/12/22 15:55> Total Critical Care Time: 39 <TAWANDA Elliott Last Filed: 05/12/22 15:55> Attestation: I have personally provided critical care time exclusive of time spent on separately billable procedures. Time includes review of lab data, radiology results, discussion with consultants, and monitoring for potential decompensation. Intervention performed as documented. <TAWANDA Elliott Last Filed: 05/12/22 15:55> Discharge Plan Discharge Clinical Impression: Atrial fibrillation <TAWANDA Elliott Last Filed: 05/12/22 15:55> Patient Disposition: Home, Self-Care <TAWANDA Elliott Last Filed: 05/12/22 15:55> Instructions: A-fib (Atrial Fibrillation) (DC) <TAWANDA Elliott - Last Filed: 05/12/22 15:55> Additional Instructions: Cardiology is recommending you start a new medication called digoxin. Take this once per day. Continue your previously prescribed metoprolol and all other medications as previously prescribed. Recommend taking your Lasix every day. Stick to a low-salt diet. Follow-up with your oncologist and hospital admissions officer. If you develop any new or worsening symptoms like worsening shortness of breath with exertion, lower extremity swelling, chest pain or shortness of breath, when to come back to the ER for further evaluation. <TAWANDA Elliott Last Filed: 05/12/22 15:55> Prescriptions: New digoxin [Lanoxin] 125 mcg (0.125 mg) tablet 125 mcg PO DAILY Qty: 30 0RF furosemide [Lasix] 20 mg tablet 20 mg PO QAM Qty: 30 0RF No Action cyclophosphamide 200 mg/mL solution 1 g IV DAILY 1 Days Qty: 5 0RF Rx Instructions: cyclophosphamide 0.75 g/m2 IV every 30 days ondansetron HCl 8 mg tablet 8 mg PO Q8-12H PRN (Reason: nausea and vomiting) Qty: 40 1RF dapsone 100 mg tablet 100 mg PO DAILY Qty: 90 0RF amlodipine [Norvasc] 10 mg tablet 10 mg PO DAILY Qty: 30 1RF metoprolol succinate 50 mg tablet extended release 24 hr 50 mg PO DAILY Eliquis 5 mg tablet 5 mg PO BID methylprednisolone [Medrol] 4 mg tablet 36 mg PO DAILY codeine-guaifenesin 10-100 mg/5 mL liquid 10 ml PO Q6H PRN (Reason: cough) fluticasone propionate 50 mcg/actuation spray,suspension 1 spray intranasal DAILY metformin 500 mg tablet extended release 24 hr 500 tab PO QAM Trelegy Ellipta 200-62.5-25 mcg blister with device 1 ea inhalation DAILY ferrous sulfate 325 mg (65 mg iron) tablet 325 mg PO DAILY 30 Days Qty: 30 2RF Rx Instructions: take with breakfast desloratadine 5 mg tablet 5 mg PO DAILY montelukast 10 mg tablet 10 mg PO DAILY gabapentin 300 mg capsule 300 mg PO TID azelastine 137 mcg (0.1 %) aerosol,spray 2 spray intranasal BID 30 Days Qty: 30 6RF Rx Instructions: administer into each nostril levalbuterol HCl [Xopenex] 1.25 mg/3 mL solution for nebulization 1.25 mg inhalation Q6H PRN (Reason: shortness of breath or wheezing) 30 Days Qty: 360 8RF budesonide-formoterol [Symbicort] 160-4.5 mcg/actuation HFA aerosol inhaler 2 puff inhalation Q12H Rx Instructions: rinse mouth with water after use. do not swallow. rosuvastatin 20 mg tablet 20 mg PO BEDTIME ergocalciferol (vitamin D2) 1,250 mcg (50,000 unit) capsule 1,250 mcg PO CERDA Neurin-SL 600-600 mcg tablet, sublingual 1 tab sublingual DAILY pantoprazole 40 mg tablet,delayed release (DR/EC) 40 mg PO BID <TAWANDA Elliott - Last Filed: 05/12/22 15:55> Referrals: [facility] [place] Group] ( Rapid atrial fibrillation) <TAWANDA Elliott - Last Filed: 05/12/22 15:55> Interventions: ED Discharge Assessment Last Done: 05/12/22 15:56 <TAWANDA Elliott - Last Filed: 05/12/22 15:55> Discharge Date/Time: 05/12/22 15:57 <TAWANDA Elliott - Last Filed: 05/12/22 15:55>
[2022-05-12 12:03] VITALS: BP 111/65; PULSE 94; RESP 14; O2SAT 94
[2022-05-12 12:15] LABS: Hematocrit 31.5 % (37.0-47.0); Hemoglobin 9.8 g/dl (12.0-16.0); Mean Corpuscular HGB Conc 31.1 g/dl (31.0-35.0); Mean Corpuscular Hemoglobin 30.9 pg (27.0-33.0); Mean Corpuscular Volume 99.4 fL (80.0-98.0); Mean Platelet Volume 8.7 fL (9.4-12.3); Platelet Count 284 X10*3/uL (160-400); Red Blood Count 3.17 X10*6/uL (4.20-5.50); Red Cell Distribution Width 15.7 % (11.0-16.0)
[2022-05-12 12:16] LABS: WBC ABN SCTR FOR CBC 1; White Blood Count 24.9 X10*3/uL (4.8-10.8)
[2022-05-12] MEDS: Metoprolol Tartrate 25 MG TABLET PO (12:39)
[2022-05-12 12:51] LABS: B Type Natriuretic Peptide 530 pg/mL (<100); Band Neutrophils Percent 4 % (3-5); Lymphocytes Absolute Manual 1.2 X10*3/uL (1.2-4.9); Lymphocytes Percent Manual 5 % (20-40); Neutrophils Absolute Manual 23.7 X10*3/uL (2.0-8.3); Neutrophils Percent Manual 91 % (45-73)
[2022-05-12 12:53] LABS: Alanine Aminotransferase 27 U/L (0-31); Albumin Level 3.4 g/dL (3.5-5.0); Alkaline Phosphatase 55 U/L (39-117); Anion Gap 13 (12-20); Aspartate Amino Transferase 13 U/L (5-31); Bilirubin Direct 0.2 mg/dL (0.0-0.5); Bilirubin Total 0.4 mg/dL (0.0-1.0); Blood Urea Nitrogen 29 mg/dL (9-16); Calcium 8.8 mg/dL (8.4-10.2); Carbon Dioxide 22 mmol/L (22-29); Chloride 108 mmol/L (96-108); Estimated Glomerular Filt Rate 59; Glucose Random 171 mg/dL (60-115); Macrocytosis 1+ (5-14) /OIF; Potassium 4.7 mmol/L (3.3-5.1); RBC Morphology NOTED; Sodium 138 mmol/L (135-145); Spherocytes 1+ (0-2) /OIF
[2022-05-12 12:54] LABS: Platelet Estimate NORMAL (NORMAL); Platelet Morphology Comment NORMAL; Polychromasia 1+ (0-2) /OIF; Toxic Vacuolation PRESENT
[2022-05-12 12:55] LABS: Troponin-I High Sensitivity 3.5 ng/L (<3.5-17.0)
[2022-05-12 14:03] VITALS: BP 97/61; PULSE 100; RESP 15; TEMP 36.7; O2SAT 93
== END 2022-05-12 15:57 | disposition home or self-care (01) ==
PROVIDERS: Physician Assistant; Emergency Provider Emergency Medicine; PCP Nurse Practitioner Family
DX: I48.91 Unspecified atrial fibrillation (principal); R00.0 Tachycardia, unspecified; G47.33 Obstructive sleep apnea (adult) (pediatric); J84.9 Interstitial pulmonary disease, unspecified; J45.909 Unspecified asthma, uncomplicated; R06.02 Shortness of breath; K85.90 Acute pancreatitis without necrosis or infection, unspecified; E11.9 Type 2 diabetes mellitus without complications; M35.0B Sjogren syndrome with vasculitis; Z79.01 Long term (current) use of anticoagulants; Z79.899 Other long term (current) drug therapy; Z79.52 Long term (current) use of systemic steroids; D89.89 Other specified disorders involving the immune mechanism, not elsewhere classified; I10 Essential (primary) hypertension
CPT/HCPCS: 36415; 80048; 80076; 82550; 83735; 83880; 84484; 85007; 85027; 99284

== ENCOUNTER 2022-05-24 09:08 | Outpatient (REF) | payer MEDICARE, OTHER, SELFPAY ==
[2022-05-24 09:22] LABS: MANUAL DIFF FLAG NO
[2022-05-24 10:02] LABS: Basophils Percent Auto 0.1 % (0-2); Eosinophils Absolute Auto 0.1 X10*3/uL (0.0-0.4); Eosinophils Percent Auto 0.4 % (0-4); Hematocrit 34.3 % (37.0-47.0); Hemoglobin 10.3 g/dl (12.0-16.0); Imm Gran Abs Auto 0.06 X10*3/uL (0.00-0.03); Imm Gran Pct Auto 0.5 % (0.0-0.4); Lymphocytes Absolute Auto 1.1 X10*3/uL (1.2-4.9); Lymphocytes Percent Auto 8.8 % (20-40); Mean Corpuscular Hemoglobin 30.6 pg (27.0-33.0); Mean Corpuscular Volume 101.8 fL (80.0-98.0); Mean Platelet Volume 9.3 fL (9.4-12.3); Monocytes Absolute Auto 0.7 X10*3/uL (0.1-1.2); Monocytes Percent Auto 5.5 % (2-11); Neutrophils Absolute Auto 10.2 x10*3/uL (2.0-8.3); Neutrophils Percent Auto 84.7 % (45-73); Platelet Count 287 X10*3/uL (160-400); Red Blood Count 3.37 X10*6/uL (4.20-5.50); Red Cell Distribution Width 16.3 % (11.0-16.0); White Blood Count 12.1 X10*3/uL (4.8-10.8)
[2022-05-24 10:25] LABS: Alanine Aminotransferase 31 U/L (0-31); Albumin Level 3.6 g/dL (3.5-5.0); Alkaline Phosphatase 60 U/L (39-117); Anion Gap 16 (12-20); Aspartate Amino Transferase 12 U/L (5-31); Blood Urea Nitrogen 29 mg/dL (9-16); Calcium 9.3 mg/dL (8.4-10.2); Carbon Dioxide 26 mmol/L (22-29); Chloride 103 mmol/L (96-108); Estimated Glomerular Filt Rate 50; Glucose Random 93 mg/dL (60-115); Potassium 4.5 mmol/L (3.3-5.1); Sodium 140 mmol/L (135-145)
== END 2022-05-24 09:09 | disposition home or self-care (01) ==
LOC: HO.LAB 09:08
PROVIDERS: Student in an Organized Health Care Education/Training Program; Absent Provider Nurse Practitioner Family; PCP Nurse Practitioner Family; Visit Provider Hospitalist
DX: I77.6 Arteritis, unspecified (principal)
CPT/HCPCS: 36415; 80053; 85025

== ENCOUNTER → 2022-05-26 10:42 | Outpatient (BNVA) | payer MEDICARE, OTHER, SELFPAY | PROVIDERS: PCP Nurse Practitioner Family; Visit Provider Hospitalist | DX: J84.9 Interstitial pulmonary disease, unspecified (principal); J45.40 Moderate persistent asthma, uncomplicated; R76.8 Other specified abnormal immunological findings in serum; K21.00 Gastro-esophageal reflux disease with esophagitis, without bleeding; R07.9 Chest pain, unspecified; G47.33 Obstructive sleep apnea (adult) (pediatric); J30.9 Allergic rhinitis, unspecified; Z79.899 Other long term (current) drug therapy | CPT/HCPCS: 99212 ==

== ENCOUNTER 2022-05-29 09:54 | Outpatient (REF) | payer MEDICARE, OTHER, SELFPAY ==
--- NOTE | ~2022-05-29 | US_ITS ---
EXAMINATION: ULTRASOUND-GUIDED RIGHT THYROID BIOPSY CLINICAL INFORMATION: Heterogeneous 2 nodules in the lower pole left thyroid lobe. COMPARISON: None TECHNIQUE: Following explaining ultrasound-guided fine-needle aspiration biopsy of lower pole left thyroid gland nodules procedure, benefits and risk, a written consent was obtained. Patient was placed supine on ultrasound stretcher with head extended. Preliminary ultrasound imaging was performed and an nodules identified which were mentioned on the previous ultrasound. Skin markers were placed on the lower left neck. The area was cleaned and draped in usual sterile manner. 1% lidocaine was administered puncture site. Under sterile ultrasound guidance a 22-gauge needle attached to syringe was initially advanced in the medial nodule lower pole left gland followed by lateral nodule lower pole left gland. Four (4) passes were performed on the midpole nodule and 3 passes on the lower pole lateral nodule. After confirming thyroid tissue on immediate slight evaluation by the pathologist, the biopsy was terminated. Complete hemostasis achieved at puncture site. Sterile Band-Aid applied postprocedure. Patient tolerated procedure extremely well. FINDINGS: On preliminary ultrasound imaging there is heterogeneous appearing 4 nodules seen in the lower pole left lobe. Only 3 nodules were seen on the previous exam, only two were mentioned. The left thyroid lobe is slightly heterogeneous as well. Ultrasound guided 4 fine-needle aspirations of the medial nodule and 3 fine-needle aspirations of lateral nodule lower pole left thyroid gland were performed. Postprocedure there is no bleeding or soft tissue swelling visualized. US/US guided fine needle asp IMPRESSION: Successful ultrasound-guided left thyroid gland nodule biopsy was performed as described above.
[2022-05-29] MEDS: Lidocaine HCl 1 % MPF 5 ML VIAL SUBCUT (11:45)
== END 2022-05-29 09:55 | disposition home or self-care (01) ==
LOC: HO.US 09:54
PROVIDERS: PCP Nurse Practitioner Family; Visit Provider Student in an Organized Health Care Education/Training Program
DX: E04.1 Nontoxic single thyroid nodule (principal)
CPT/HCPCS: 10005; 88172; 88173; 88305

== ENCOUNTER 2022-06-19 10:02 | Outpatient (REF) | payer MEDICARE, OTHER, SELFPAY ==
[2022-06-19 10:28] LABS: MANUAL DIFF FLAG NO
[2022-06-19 12:07] LABS: Basophils Absolute Auto 0.1 X10*3/uL (0.0-0.2); Basophils Percent Auto 0.4 % (0-2); Eosinophils Absolute Auto 0.1 X10*3/uL (0.0-0.4); Eosinophils Percent Auto 0.4 % (0-4); Hemoglobin 8.5 g/dl (12.0-16.0); Imm Gran Abs Auto 0.34 X10*3/uL (0.00-0.03); Imm Gran Pct Auto 1.7 % (0.0-0.4); Lymphocytes Absolute Auto 2.3 X10*3/uL (1.2-4.9); Lymphocytes Percent Auto 11.8 % (20-40); Mean Corpuscular HGB Conc 29.3 g/dl (31.0-35.0); Mean Corpuscular Hemoglobin 32.8 pg (27.0-33.0); Mean Platelet Volume 8.8 fL (9.4-12.3); Monocytes Absolute Auto 1.4 X10*3/uL (0.1-1.2); Monocytes Percent Auto 7.3 % (2-11); NRBC Pct Auto 0.3 /100WBC (0.0-0.2); Neutrophils Absolute Auto 15.3 x10*3/uL (2.0-8.3); Neutrophils Percent Auto 78.4 % (45-73); Platelet Count 474 X10*3/uL (160-400); Red Blood Count 2.59 X10*6/uL (4.20-5.50); Red Cell Distribution Width 21.4 % (11.0-16.0); White Blood Count 19.5 X10*3/uL (4.8-10.8)
[2022-06-19 13:03] LABS: Erythrocyte Sedimentation Rate 51 MM/HR (0-20)
[2022-06-19 13:08] LABS: Alanine Aminotransferase 31 U/L (0-31); Albumin Level 3.5 g/dL (3.5-5.0); Alkaline Phosphatase 72 U/L (39-117); Anion Gap 14 (12-20); Aspartate Amino Transferase 18 U/L (5-31); Bilirubin Total 0.6 mg/dL (0.0-1.0); Blood Urea Nitrogen 20 mg/dL (9-16); C Reactive Protein 3.44 mg/dL (< or = 0.50); Calcium 8.9 mg/dL (8.4-10.2); Carbon Dioxide 24 mmol/L (22-29); Chloride 110 mmol/L (96-108); Estimated Glomerular Filt Rate 58; Glucose Random 108 mg/dL (60-115); Potassium 4.5 mmol/L (3.3-5.1); Sodium 143 mmol/L (135-145); Total Protein 6.1 g/dL (6.5-8.0)
== END 2022-06-19 10:03 | disposition home or self-care (01) ==
LOC: HO.LAB 10:02
PROVIDERS: PCP Nurse Practitioner Family; Visit Provider Student in an Organized Health Care Education/Training Program
DX: I77.6 Arteritis, unspecified (principal)
CPT/HCPCS: 36415; 80053; 85025; 85652; 86140

== ENCOUNTER → 2022-06-21 10:37 | Outpatient (BNVA) | payer MEDICARE, OTHER, SELFPAY | PROVIDERS: PCP Nurse Practitioner Family; Referring Provider Student in an Organized Health Care Education/Training Program; Visit Provider Internal Medicine | DX: I48.19 Other persistent atrial fibrillation (principal) | CPT/HCPCS: 93005; 93242; 99202 ==

== ENCOUNTER → 2022-06-21 11:31 | Outpatient (REF) | payer MEDICARE, OTHER, SELFPAY ==
--- NOTE | 2022-06-21 11:36 | HM_ITS ---
conclusion: 1. Patient was monitored for total period of 3 days 2. Baseline was atrial fibrillation with average heart of 78 beats per minute with adequate rate control with maximum heart rate of 128 beats per minute 3. No significant other arrhythmias noted 4. No significant pauses greater than 3 seconds noted 5. Patient activated a marker 5 times which correlated with underlying atrial fibrillation MTDD
== END ==
LOC: HO.CARD 11:31
PROVIDERS: PCP Nurse Practitioner Family; Visit Provider Internal Medicine
DX: Z13.89 Encounter for screening for other disorder (principal)
CPT/HCPCS: 93242; 99202

== ENCOUNTER 2022-06-22 07:11 | Outpatient (REF) | payer MEDICARE, OTHER, SELFPAY ==
[2022-06-22 09:06] LABS: Basophils Percent Auto 0.2 % (0-2); Eosinophils Absolute Auto 0.1 X10*3/uL (0.0-0.4); Eosinophils Percent Auto 0.3 % (0-4); Hematocrit 29.2 % (37.0-47.0); Hemoglobin 8.7 g/dl (12.0-16.0); Imm Gran Abs Auto 0.23 X10*3/uL (0.00-0.03); Imm Gran Pct Auto 1.1 % (0.0-0.4); Immature Retic Fraction 33.9 % (3.0-15.9); Lymphocytes Absolute Auto 1.8 X10*3/uL (1.2-4.9); MANUAL DIFF FLAG SCAN; Mean Corpuscular HGB Conc 29.8 g/dl (31.0-35.0); Mean Corpuscular Hemoglobin 32.7 pg (27.0-33.0); Mean Corpuscular Volume 109.8 fL (80.0-98.0); Mean Platelet Volume 8.5 fL (9.4-12.3); Monocytes Absolute Auto 1.6 X10*3/uL (0.1-1.2); Monocytes Percent Auto 7.8 % (2-11); NRBC Pct Auto 0.1 /100WBC (0.0-0.2); Neutrophils Absolute Auto 16.4 x10*3/uL (2.0-8.3); Neutrophils Percent Auto 81.6 % (45-73); Platelet Count 430 X10*3/uL (160-400); Red Blood Count 2.66 X10*6/uL (4.20-5.50); Red Cell Distribution Width 21.2 % (11.0-16.0); Reticulocyte Percent 10.8 % (0.5-1.8); Reticulocytes Absolute 0.288 X10*6/uL (0.026-0.095); SCAN SMEAR FLAG 1; White Blood Count 20.1 X10*3/uL (4.8-10.8)
[2022-06-22 09:34] LABS: SLIDE REVIEW VERIFIED
[2022-06-22 09:41] LABS: Alanine Aminotransferase 43 U/L (0-31); Albumin Level 3.6 g/dL (3.5-5.0); Alkaline Phosphatase 70 U/L (39-117); Anion Gap 11 (12-20); Aspartate Amino Transferase 24 U/L (5-31); Bilirubin Direct 0.2 mg/dL (0.0-0.5); Bilirubin Total 0.6 mg/dL (0.0-1.0); Blood Urea Nitrogen 19 mg/dL (9-16); C Reactive Protein 2.31 mg/dL (< or = 0.50); Calcium 9.1 mg/dL (8.4-10.2); Carbon Dioxide 27 mmol/L (22-29); Chloride 107 mmol/L (96-108); Estimated Glomerular Filt Rate 58; Glucose Random 107 mg/dL (60-115); Iron 99 mcg/dL (30-160); Lactate Dehydrogenase 396 U/L (122-220); Percent Iron Saturation 33 % (15-50); Potassium 4.2 mmol/L (3.3-5.1); Sodium 141 mmol/L (135-145); Total Iron Binding Capacity 296 mcg/dL (228-428); Total Protein 6.3 g/dL (6.5-8.0); Unsaturated Iron Binding 197 ug/dL
[2022-06-22 09:51] LABS: Erythrocyte Sedimentation Rate 44 MM/HR (0-20)
[2022-06-22 09:58] LABS: Ferritin 267 ng/mL (10-250); Folate 11.4 ng/mL (> or = 4.0); Vitamin B12 943 pg/mL (200-900)
[2022-06-24 14:33] LABS: Haptoglobin 49 mg/dL (43-212); Transferrin 256 mg/dL (188-341)
== END 2022-06-22 07:12 | disposition home or self-care (01) ==
LOC: HO.LAB 07:11
PROVIDERS: PCP Nurse Practitioner Family; Visit Provider Student in an Organized Health Care Education/Training Program
DX: I77.6 Arteritis, unspecified (principal); I48.19 Other persistent atrial fibrillation; I10 Essential (primary) hypertension; E78.5 Hyperlipidemia, unspecified; D53.1 Other megaloblastic anemias, not elsewhere classified; E04.1 Nontoxic single thyroid nodule; E87.5 Hyperkalemia; G61.89 Other inflammatory polyneuropathies; Z79.899 Other long term (current) drug therapy
CPT/HCPCS: 36415; 80053; 82248; 82550; 82607; 82728; 82746; 83010; 83540; 83615; 84466; 85025; 85045; 85652; 86140; 99212

== ENCOUNTER 2022-07-10 10:24 | Outpatient (REF) | payer MEDICARE, OTHER, SELFPAY ==
[2022-07-10 10:44] LABS: MANUAL DIFF FLAG NO
[2022-07-10 11:43] LABS: Urine Cytology See Pathology rpt
[2022-07-10 11:52] LABS: Appearance Urine Cloudy; Color Urine Dark Yellow; Glucose Urine UA Negative (Negative); Leukocyte Esterase Urine Small (1+) (Negative); Nitrite Urine Negative (Negative); PH 5.5 (5.0-9.0); Specific Gravity - Urine >= 1.030 (1.005-1.025); UMIC TRIGGER UA YES; Urine Blood Trace (Negative); Urine Ketones Trace mg/dL (Negative); Urine Protein 30 (1+) mg/dL (Neg-Trace)
[2022-07-10 12:14] LABS: Bacteria Urine 1+ (None Seen); Squamous Epithelial Cell Urine >20 /HPF (0-2)
[2022-07-10 12:15] LABS: Basophils Absolute Auto 0.1 X10*3/uL (0.0-0.2); Basophils Percent Auto 0.6 % (0-2); Eosinophils Absolute Auto 0.1 X10*3/uL (0.0-0.4); Hemoglobin 11.1 g/dl (12.0-16.0); Imm Gran Abs Auto 0.12 X10*3/uL (0.00-0.03); Imm Gran Pct Auto 1.1 % (0.0-0.4); Immature Retic Fraction 15.7 % (3.0-15.9); Lymphocytes Absolute Auto 1.4 X10*3/uL (1.2-4.9); Lymphocytes Percent Auto 13.1 % (20-40); Mean Corpuscular HGB Conc 30.8 g/dl (31.0-35.0); Mean Corpuscular Hemoglobin 32.9 pg (27.0-33.0); Mean Corpuscular Volume 106.8 fL (80.0-98.0); Mean Platelet Volume 8.8 fL (9.4-12.3); Monocytes Absolute Auto 1.1 X10*3/uL (0.1-1.2); Monocytes Percent Auto 9.9 % (2-11); Neutrophils Absolute Auto 8.1 x10*3/uL (2.0-8.3); Neutrophils Percent Auto 74.3 % (45-73); Platelet Count 411 X10*3/uL (160-400); Red Blood Count 3.37 X10*6/uL (4.20-5.50); Red Cell Distribution Width 16.3 % (11.0-16.0); Retic HGB Equivalent 33.9 pg (30.0-35.0); Reticulocyte Percent 3.1 % (0.5-1.8); Reticulocytes Absolute 0.105 X10*6/uL (0.026-0.095); White Blood Count 10.9 X10*3/uL (4.8-10.8)
[2022-07-10 12:55] LABS: Alanine Aminotransferase 32 U/L (0-31); Albumin Level 3.8 g/dL (3.5-5.0); Alkaline Phosphatase 65 U/L (39-117); Anion Gap 15 (12-20); Aspartate Amino Transferase 23 U/L (5-31); Bilirubin Total 0.4 mg/dL (0.0-1.0); Blood Urea Nitrogen 17 mg/dL (9-16); C Reactive Protein 9.09 mg/dL (< or = 0.50); Calcium 9.2 mg/dL (8.4-10.2); Carbon Dioxide 23 mmol/L (22-29); Chloride 105 mmol/L (96-108); Estimated Glomerular Filt Rate 60; Glucose Random 109 mg/dL (60-115); Potassium 3.8 mmol/L (3.3-5.1); Sodium 139 mmol/L (135-145); Total Protein 6.4 g/dL (6.5-8.0)
[2022-07-11 13:28] LABS: Immunoglobulin G Subclass 1 604 mg/dL (382-929); Immunoglobulin G Subclass 2 143 mg/dL (241-700); Immunoglobulin G Subclass 3 12 mg/dL (22-178); Immunoglobulin G Total 893 mg/dL (600-1540)
[2022-07-11 18:13] LABS: Immunoglobulin E 157 kU/L (<OR=114)
[2022-07-12 14:39] LABS: IgA 252 mg/dL (70-320); IgG 923 mg/dL (600-1540); IgM 31 mg/dL (50-300)
== END 2022-07-10 10:25 | disposition home or self-care (01) ==
LOC: HO.LAB 10:24
PROVIDERS: Hospitalist; PCP Nurse Practitioner Family; Visit Provider Student in an Organized Health Care Education/Training Program
DX: I77.6 Arteritis, unspecified (principal); D58.9 Hereditary hemolytic anemia, unspecified; Z79.899 Other long term (current) drug therapy
CPT/HCPCS: 36415; 80053; 81001; 82784; 82785; 85025; 85045; 86140; 88112

== ENCOUNTER → 2022-07-17 07:50 | Outpatient (BNVA) | payer MEDICARE, OTHER, SELFPAY | PROVIDERS: PCP Nurse Practitioner Family; Visit Provider Psychiatry & Neurology Neurology | DX: G61.89 Other inflammatory polyneuropathies (principal); G58.7 Mononeuritis multiplex; G89.29 Other chronic pain; R51.9 Headache, unspecified; G47.33 Obstructive sleep apnea (adult) (pediatric); I77.6 Arteritis, unspecified | CPT/HCPCS: 99202 ==

== ENCOUNTER 2022-07-20 09:52 | Outpatient (REF) | payer MEDICARE, OTHER, SELFPAY | END 2022-07-20 09:53 | disposition home or self-care (01) | LOC: HO.MDS 09:52 | PROVIDERS: Visit Provider Student in an Organized Health Care Education/Training Program | DX: I77.6 Arteritis, unspecified (principal); M30.0 Polyarteritis nodosa; G61.89 Other inflammatory polyneuropathies | CPT/HCPCS: 96365; 96366; J1569 ==

== ENCOUNTER 2022-07-21 09:34 | Outpatient (REF) | payer MEDICARE, OTHER, SELFPAY | END 2022-07-21 09:35 | disposition home or self-care (01) | LOC: HO.MDS 09:34 | PROVIDERS: Visit Provider Student in an Organized Health Care Education/Training Program | DX: I77.6 Arteritis, unspecified (principal); G58.7 Mononeuritis multiplex; G62.9 Polyneuropathy, unspecified; G62.89 Other specified polyneuropathies; M30.0 Polyarteritis nodosa; G61.89 Other inflammatory polyneuropathies | CPT/HCPCS: 96365; 96366; J1569 ==

== ENCOUNTER 2022-08-21 10:23 | Outpatient (REF) | payer MEDICARE, OTHER, SELFPAY ==
[2022-08-21 10:53] LABS: MANUAL DIFF FLAG NO
[2022-08-21 12:28] LABS: Basophils Absolute Auto 0.1 X10*3/uL (0.0-0.2); Basophils Percent Auto 0.5 % (0-2); Eosinophils Absolute Auto 0.1 X10*3/uL (0.0-0.4); Eosinophils Percent Auto 0.7 % (0-4); Hematocrit 36.6 % (37.0-47.0); Hemoglobin 11.6 g/dl (12.0-16.0); Imm Gran Abs Auto 0.06 X10*3/uL (0.00-0.03); Imm Gran Pct Auto 0.5 % (0.0-0.4); Lymphocytes Absolute Auto 1.5 X10*3/uL (1.2-4.9); Lymphocytes Percent Auto 12.7 % (20-40); Mean Corpuscular HGB Conc 31.7 g/dl (31.0-35.0); Mean Corpuscular Hemoglobin 32.2 pg (27.0-33.0); Mean Corpuscular Volume 101.7 fL (80.0-98.0); Mean Platelet Volume 8.8 fL (9.4-12.3); Monocytes Absolute Auto 0.9 X10*3/uL (0.1-1.2); Monocytes Percent Auto 7.5 % (2-11); Neutrophils Absolute Auto 9.4 x10*3/uL (2.0-8.3); Neutrophils Percent Auto 78.1 % (45-73); Platelet Count 456 X10*3/uL (160-400); Red Cell Distribution Width 16.8 % (11.0-16.0); White Blood Count 12.1 X10*3/uL (4.8-10.8)
[2022-08-21 12:32] LABS: Basophils Absolute Auto 0.1 X10*3/uL (0.0-0.2); Basophils Percent Auto 0.4 % (0-2); Eosinophils Absolute Auto 0.1 X10*3/uL (0.0-0.4); Eosinophils Percent Auto 0.6 % (0-4); Hematocrit 36.5 % (37.0-47.0); Hemoglobin 11.4 g/dl (12.0-16.0); Imm Gran Abs Auto 0.05 X10*3/uL (0.00-0.03); Imm Gran Pct Auto 0.4 % (0.0-0.4); Lymphocytes Absolute Auto 1.6 X10*3/uL (1.2-4.9); Lymphocytes Percent Auto 12.6 % (20-40); Mean Corpuscular HGB Conc 31.2 g/dl (31.0-35.0); Mean Corpuscular Hemoglobin 31.8 pg (27.0-33.0); Mean Platelet Volume 8.9 fL (9.4-12.3); Monocytes Percent Auto 8.1 % (2-11); Neutrophils Absolute Auto 9.8 x10*3/uL (2.0-8.3); Neutrophils Percent Auto 77.9 % (45-73); Platelet Count 447 X10*3/uL (160-400); Red Blood Count 3.58 X10*6/uL (4.20-5.50); Red Cell Distribution Width 16.6 % (11.0-16.0); White Blood Count 12.6 X10*3/uL (4.8-10.8)
[2022-08-21 12:56] LABS: Digoxin 0.6 ng/mL (0.8-2.0)
[2022-08-21 13:15] LABS: Alanine Aminotransferase 15 U/L (0-31); Albumin Level 3.6 g/dL (3.5-5.0); Alkaline Phosphatase 61 U/L (39-117); Anion Gap 13 (12-20); Aspartate Amino Transferase 16 U/L (5-31); Bilirubin Total 0.6 mg/dL (0.0-1.0); Blood Urea Nitrogen 14 mg/dL (9-16); Calcium 9.5 mg/dL (8.4-10.2); Carbon Dioxide 25 mmol/L (22-29); Chloride 108 mmol/L (96-108); Estimated Glomerular Filt Rate 56; Glucose Random 115 mg/dL (60-115); Potassium 4.2 mmol/L (3.3-5.1); Sodium 142 mmol/L (135-145); Total Protein 6.9 g/dL (6.5-8.0)
[2022-08-21 13:19] LABS: Erythrocyte Sedimentation Rate 74 MM/HR (0-20)
== END 2022-08-21 10:24 | disposition home or self-care (01) ==
LOC: HO.LAB 10:23
PROVIDERS: Hospitalist; Internal Medicine; PCP Nurse Practitioner Family; Visit Provider Student in an Organized Health Care Education/Training Program
DX: J84.9 Interstitial pulmonary disease, unspecified (principal); I77.6 Arteritis, unspecified; D64.9 Anemia, unspecified; I48.19 Other persistent atrial fibrillation; Z79.899 Other long term (current) drug therapy
CPT/HCPCS: 36415; 80053; 80162; 85025; 85652

== ENCOUNTER 2022-08-22 11:39 | Outpatient (REF) | payer MEDICARE, OTHER, SELFPAY ==
--- NOTE | ~2022-08-22 | XR_ITS ---
EXAMINATION: XR CHEST CLINICAL INFORMATION: Pleurodynia COMPARISON: None available. TECHNIQUE: 2 views of the chest were obtained. FINDINGS: Lungs are well-expanded and clear of acute process. Heart size and pulmonary vascularity is normal. There is moderate spondylosis mid and lower dorsal spine. No aggressive lytic or sclerotic process XR/XR chest 2V IMPRESSION: 1. No acute cardiopulmonary process seen. 2. Moderate spondylosis mid and lower dorsal spine.
== END 2022-08-22 11:40 | disposition home or self-care (01) ==
LOC: HO.XRAY 11:39
PROVIDERS: PCP Nurse Practitioner Family; Visit Provider Hospitalist
DX: R07.81 Pleurodynia (principal)
CPT/HCPCS: 71046

== ENCOUNTER → 2022-08-25 08:05 | Outpatient (BNVA) | payer MEDICARE, OTHER, SELFPAY | PROVIDERS: PCP Nurse Practitioner Family; Visit Provider Student in an Organized Health Care Education/Training Program | DX: J84.9 Interstitial pulmonary disease, unspecified (principal); J45.40 Moderate persistent asthma, uncomplicated; J30.9 Allergic rhinitis, unspecified; G47.33 Obstructive sleep apnea (adult) (pediatric); R76.8 Other specified abnormal immunological findings in serum; R07.9 Chest pain, unspecified; K21.00 Gastro-esophageal reflux disease with esophagitis, without bleeding; I77.6 Arteritis, unspecified; D58.9 Hereditary hemolytic anemia, unspecified; G61.89 Other inflammatory polyneuropathies; Z79.899 Other long term (current) drug therapy; Z79.52 Long term (current) use of systemic steroids | CPT/HCPCS: 99212 ==

== ENCOUNTER → 2022-08-28 11:23 | Outpatient (REF) | payer MEDICARE, OTHER, SELFPAY | LOC: HO.SL 11:23 | PROVIDERS: PCP Nurse Practitioner Family; Visit Provider Psychiatry & Neurology Neurology | DX: Z13.89 Encounter for screening for other disorder (principal) ==

== ENCOUNTER 2022-08-30 12:48 | Outpatient (REF) | payer MEDICARE, OTHER, SELFPAY ==
--- NOTE | ~2022-08-30 | MM_ITS ---
EXAMINATION: BONE DENSITOMETRY CLINICAL INDICATION: Long-term, current, use of systemic steroids. COMPARISON: None (current study represents initial baseline exam). TECHNIQUE: Using a [employer] DXA System (software version: 13.1) manufactured by [employer], dual-energy x-ray absorptiometry was performed of the lumbar spine and left hip. The images are of good technical quality. Summary results are attached. FINDINGS: AP SPINE L1-L4: BMD 1.432 g/cm2, Z-score 3.0, T-score 2.1, normal. LEFT FEMUR, NECK: BMD 0.964 g/cm2, Z-score 0.6, T-score -0.5, normal. LEFT FEMUR, TOTAL: BMD 1.002 g/cm2, Z-score 0.8, T-score 0.0, normal. IDENTIFIED RISK FACTORS: Rheumatoid arthritis, low calcium intake, history of fracture (adult), glucocorticoids (chronic), menopause, left oophorectomy. HISTORY OF FRACTURE: Ankle. MEDICATIONS: Vitamin D. MM/XR DEXA axial skeleton IMPRESSION: 1. DIAGNOSIS: Normal bone density based on the lowest T-score value of -0.5 in the femoral neck applying World Health Organization criteria. 2. 10-YEAR FRACTURE RISK PREDICTION, FRAX: According to the guidelines, FRAX calculation should only be performed on patients in the osteopenia bone density category. Therefore, FRAX was not performed on this patient. 3. Treatment Recommendations: NOF guidelines recommend consideration for treatment in postmenopausal women and men age 50 and older presenting with the following: -A hip or vertebral (clinical or morphometric) fracture. -T-score less than or equal to -2.5 at the femoral neck or spine after appropriate evaluation to exclude secondary causes. -Low bone mass at the hip or spine and a 10-year fracture probability by FRAX of greater than or equal to 3% for hip fracture or greater than or equal to 20% for major osteoporotic fracture based on the [place] adapted WHO algorithm. 4. Other Recommendations: All treatment decisions require clinical judgment and consideration of individual patient factors, including patient preferences, comorbidities, previous drug use, risk factors not captured in the FRAX model (e.g. frailty, falls, vitamin D deficiency, increased bone turnover, interval significant decline in bone density) and possible under or overestimation of fracture risk by FRAX. FUTURE SCAN RECOMMENDATION: People with diagnosed cases of osteoporosis or at high risk for fracture should have regular bone mineral density tests. For patients eligible for Medicare, routine testing is allowed once every 2 years. The testing frequency can be increased to one year for patients who have rapidly progressing disease, those who are receiving or discontinuing medical therapy to restore bone mass, or have additional risk factors.
== END 2022-08-30 12:49 | disposition home or self-care (01) ==
LOC: HO.MAMMO 12:48
PROVIDERS: PCP Nurse Practitioner Family; Visit Provider Student in an Organized Health Care Education/Training Program
DX: Z13.820 Encounter for screening for osteoporosis (principal); Z78.0 Asymptomatic menopausal state; Z79.52 Long term (current) use of systemic steroids
CPT/HCPCS: 77080

== ENCOUNTER 2022-09-04 08:44 | Outpatient (REF) | payer MEDICARE, OTHER, SELFPAY | END 2022-09-04 08:45 | disposition home or self-care (01) | LOC: HO.MDS 08:44 | PROVIDERS: Visit Provider Student in an Organized Health Care Education/Training Program | DX: I77.6 Arteritis, unspecified (principal); M30.0 Polyarteritis nodosa; G61.89 Other inflammatory polyneuropathies | CPT/HCPCS: 96365; 96366; 96375; J1200; J1569; J2930 ==

== ENCOUNTER 2022-09-05 08:31 | Outpatient (REF) | payer MEDICARE, OTHER, SELFPAY | END 2022-09-05 08:32 | disposition home or self-care (01) | LOC: HO.MDS 08:31 | PROVIDERS: Visit Provider Student in an Organized Health Care Education/Training Program | DX: I77.6 Arteritis, unspecified (principal); M30.0 Polyarteritis nodosa; G61.89 Other inflammatory polyneuropathies | CPT/HCPCS: 96365; 96366; 96372; 96375; J1200; J1569; J2930 ==

== ENCOUNTER 2022-09-07 08:58 | Outpatient (REF) | payer MEDICARE, OTHER, SELFPAY ==
--- NOTE | ~2022-09-07 | CT_ITS ---
EXAMINATION: CT ANGIOGRAM ABDOMEN AND PELVIS CLINICAL INFORMATION: Polyarteritis nodosa. COMPARISON: None available. TECHNIQUE: Multiple axial images were obtained through the abdomen and pelvis following the administration of 80 mL of Omnipaque 350 intravenous contrast 3D POSTPROCESSIN-D MIP images were processed from the initial data set by the computer engineering technologist on the technologist workstation under concurrent physician supervision. This CT examination was performed using dose optimization techniques as appropriate, variously including the following: *Automated exposure control *Adjustment of mA and/or kV according to patient size (this includes techniques or standardized protocols for targeted exams where dose is matched to indication/reason for exam; i.e. extremities or head) *Use of iterative reconstruction technique DLP: 336 mGy-cm FINDINGS: The lower thoracic aorta and abdominal aorta are normal in caliber. There is minimal infrarenal atherosclerotic disease. Mild stenosis of the celiac origin. Mild atherosclerosis of the SMA origin. The SHAYLEE is patent. 2 right renal arteries are patent with mild ostial disease. 2 left renal arteries are patent with mild ostial disease. There is no evidence of polyarteritis nodosa by CT angiography. The liver is unremarkable. Cholecystectomy. No pancreatic mass or ductal dilatation. No biliary ductal dilatation. The spleen appears normal. No adrenal mass. Symmetric nephrograms without suspicious mass or hydronephrosis. The urinary bladder is unremarkable. The uterus and adnexa are unremarkable. The small bowel is normal in caliber. Mild sigmoid diverticulosis. No significant abdominal wall hernia. No enlarged lymph nodes. Degenerative changes in the spine. CT/CT angio abdomen pelvis IMPRESSION: No CT angiographic evidence of polyarteritis nodosa. Specifically, no evidence of aneurysmal disease involving the visceral or renal arteries. Please note that conventional digital subtraction angiography has better spatial resolution then CT angiography. Fleischner guidelines were followed.
[2022-09-07] MEDS: iohexoL 350 MG/ML 100 ML INFUS..BTL 80 ML IV (10:02)
== END 2022-09-07 08:59 | disposition home or self-care (01) ==
LOC: HO.CT 08:58
PROVIDERS: PCP Nurse Practitioner Family; Visit Provider Student in an Organized Health Care Education/Training Program
DX: M30.0 Polyarteritis nodosa (principal)
CPT/HCPCS: 74174; Q9967

== ENCOUNTER → 2022-09-19 10:48 | Outpatient (REF) | payer MEDICARE, OTHER, SELFPAY | LOC: HO.SL 10:48 | PROVIDERS: PCP Nurse Practitioner Family; Visit Provider Psychiatry & Neurology Neurology | DX: G47.33 Obstructive sleep apnea (adult) (pediatric) (principal); R06.83 Snoring | CPT/HCPCS: 95806 ==

== ENCOUNTER → 2022-09-27 15:13 | Outpatient (BNVA) | payer MEDICARE, SELFPAY | PROVIDERS: PCP Nurse Practitioner Family; Visit Provider Psychiatry & Neurology Neurology | DX: G47.33 Obstructive sleep apnea (adult) (pediatric) (principal); G61.89 Other inflammatory polyneuropathies; G58.7 Mononeuritis multiplex; I77.6 Arteritis, unspecified; G89.29 Other chronic pain; R51.9 Headache, unspecified | CPT/HCPCS: 99212 ==

== ENCOUNTER → 2022-09-28 10:24 | Outpatient (BNVA) | payer MEDICARE, SELFPAY | PROVIDERS: PCP Nurse Practitioner Family; Referring Provider Nurse Practitioner Family; Visit Provider Internal Medicine | DX: I48.19 Other persistent atrial fibrillation (principal) | CPT/HCPCS: 36415; 80053; 85025; 85652; 86140; 99212 ==

== ENCOUNTER 2022-09-28 11:09 | Outpatient (REF) | payer MEDICARE, SELFPAY ==
[2022-09-28 11:26] LABS: MANUAL DIFF FLAG NO
[2022-09-28 11:54] LABS: Basophils Percent Auto 0.3 % (0-2); Eosinophils Absolute Auto 0.1 X10*3/uL (0.0-0.4); Eosinophils Percent Auto 0.6 % (0-4); Hematocrit 31.5 % (37.0-47.0); Hemoglobin 9.9 g/dl (12.0-16.0); Imm Gran Abs Auto 0.05 X10*3/uL (0.00-0.03); Imm Gran Pct Auto 0.5 % (0.0-0.4); Lymphocytes Absolute Auto 1.1 X10*3/uL (1.2-4.9); Lymphocytes Percent Auto 10.5 % (20-40); Mean Corpuscular HGB Conc 31.4 g/dl (31.0-35.0); Mean Corpuscular Hemoglobin 31.3 pg (27.0-33.0); Mean Corpuscular Volume 99.7 fL (80.0-98.0); Mean Platelet Volume 8.5 fL (9.4-12.3); Monocytes Absolute Auto 0.9 X10*3/uL (0.1-1.2); Monocytes Percent Auto 8.5 % (2-11); Neutrophils Absolute Auto 8.7 x10*3/uL (2.0-8.3); Neutrophils Percent Auto 79.6 % (45-73); Platelet Count 468 X10*3/uL (160-400); Red Blood Count 3.16 X10*6/uL (4.20-5.50); Red Cell Distribution Width 18.9 % (11.0-16.0); White Blood Count 10.9 X10*3/uL (4.8-10.8)
[2022-09-28 12:01] LABS: Alanine Aminotransferase 12 U/L (0-31); Albumin Level 3.5 g/dL (3.5-5.0); Alkaline Phosphatase 66 U/L (39-117); Anion Gap 10 (12-20); Aspartate Amino Transferase 15 U/L (5-31); Bilirubin Total 0.4 mg/dL (0.0-1.0); Blood Urea Nitrogen 12 mg/dL (9-16); Calcium 9.3 mg/dL (8.4-10.2); Carbon Dioxide 26 mmol/L (22-29); Chloride 108 mmol/L (96-108); Estimated Glomerular Filt Rate 57; Glucose Random 94 mg/dL (60-115); Potassium 4.3 mmol/L (3.3-5.1); Sodium 140 mmol/L (135-145); Total Protein 7.2 g/dL (6.5-8.0)
[2022-09-28 12:54] LABS: Erythrocyte Sedimentation Rate 109 MM/HR (0-20)
== END 2022-09-28 11:10 | disposition home or self-care (01) ==
LOC: HO.LAB 11:09
PROVIDERS: Visit Provider Student in an Organized Health Care Education/Training Program
DX: Z13.89 Encounter for screening for other disorder (principal)
CPT/HCPCS: 36415; 80053; 85025; 85652; 86140

== ENCOUNTER 2022-10-02 10:00 | Outpatient (RCR) | payer MEDICARE, OTHER, SELFPAY | END 2022-10-02 14:16 | disposition home or self-care (01) | LOC: HO.PTCHIC 10:00 | PROVIDERS: Visit Provider Physician Assistant Surgical | DX: G62.9 Polyneuropathy, unspecified (principal) | CPT/HCPCS: 97110; 97112; 97161; 97530 ==

== ENCOUNTER 2022-10-04 08:09 | Outpatient (REF) | payer MEDICARE, OTHER, SELFPAY | END 2022-10-04 08:10 | disposition home or self-care (01) | LOC: HO.MDS 08:09 | PROVIDERS: Visit Provider Student in an Organized Health Care Education/Training Program | DX: I77.6 Arteritis, unspecified (principal); G61.89 Other inflammatory polyneuropathies | CPT/HCPCS: 96365; 96366; 96375; J1200; J1569; J2930 ==

== ENCOUNTER 2022-10-05 07:50 | Outpatient (REF) | payer MEDICARE, OTHER, SELFPAY | END 2022-10-05 07:51 | disposition home or self-care (01) | LOC: HO.MDS 07:50 | PROVIDERS: Visit Provider Student in an Organized Health Care Education/Training Program | DX: G61.89 Other inflammatory polyneuropathies (principal); I77.6 Arteritis, unspecified | CPT/HCPCS: 96365; 96366; 96375; J1200; J1569 ==

== ENCOUNTER 2022-11-20 10:19 | Outpatient (REF) | payer MEDICARE, OTHER, SELFPAY ==
--- NOTE | ~2022-11-20 | XR_ITS ---
EXAMINATION: XR CHEST CLINICAL INFORMATION: Abnormal findings on diagnostic imaging of other specified body COMPARISON: Chest radiograph from 08/22/2022 TECHNIQUE: 2 views of the chest were obtained. FINDINGS: Chronic interstitial lung markings. No pneumothorax. Trachea is midline. Cardiac mediastinal silhouette is stable. Aorta demonstrates mild tortuosity. Stable elevation of the right hemidiaphragm. No large pleural effusion. Multilevel degenerative changes of the thoracolumbar spine with slight dextrocurvature of the lower thoracic spine. Soft tissues are unremarkable. Calcific tendinosis of the left supraspinatus tendon. XR/XR chest 2V IMPRESSION: No acute cardiopulmonary process.
[2022-11-20 10:43] LABS: MANUAL DIFF FLAG NO
[2022-11-20 11:41] LABS: Urine Cytology See Pathology rpt
[2022-11-20 11:50] LABS: Basophils Absolute Auto 0.1 X10*3/uL (0.0-0.2); Basophils Percent Auto 0.4 % (0-2); Eosinophils Absolute Auto 0.4 X10*3/uL (0.0-0.4); Eosinophils Percent Auto 3.1 % (0-4); Hematocrit 32.7 % (37.0-47.0); Hemoglobin 9.9 g/dl (12.0-16.0); Imm Gran Abs Auto 0.04 X10*3/uL (0.00-0.03); Imm Gran Pct Auto 0.3 % (0.0-0.4); Mean Corpuscular HGB Conc 30.3 g/dl (31.0-35.0); Mean Corpuscular Hemoglobin 30.1 pg (27.0-33.0); Mean Corpuscular Volume 99.4 fL (80.0-98.0); Mean Platelet Volume 8.8 fL (9.4-12.3); Monocytes Absolute Auto 0.9 X10*3/uL (0.1-1.2); Monocytes Percent Auto 6.7 % (2-11); Neutrophils Absolute Auto 10.4 x10*3/uL (2.0-8.3); Neutrophils Percent Auto 81.5 % (45-73); Platelet Count 353 X10*3/uL (160-400); Red Blood Count 3.29 X10*6/uL (4.20-5.50); Red Cell Distribution Width 17.6 % (11.0-16.0); White Blood Count 12.8 X10*3/uL (4.8-10.8)
[2022-11-20 11:51] LABS: Appearance Urine Clear; Color Urine Yellow; Glucose Urine UA Negative (Negative); Leukocyte Esterase Urine Trace (Negative); Nitrite Urine Negative (Negative); PH 5.5 (5.0-9.0); UMIC TRIGGER UA YES; Urine Blood Small (1+) (Negative); Urine Ketones Negative (Negative); Urine Protein Negative (Neg-Trace)
[2022-11-20 11:58] LABS: Bacteria Urine Trace (None Seen); Hyaline Casts Urine 0-2 /LPF (0-2); WBC Urine 0-5 /HPF (0-5)
[2022-11-20 12:47] LABS: Erythrocyte Sedimentation Rate 94 MM/HR (0-20)
[2022-11-20 12:57] LABS: Alanine Aminotransferase 18 U/L (0-31); Albumin Level 3.3 g/dL (3.5-5.0); Alkaline Phosphatase 60 U/L (39-117); Anion Gap 16 (12-20); Aspartate Amino Transferase 15 U/L (5-31); Bilirubin Total 0.3 mg/dL (0.0-1.0); Blood Urea Nitrogen 13 mg/dL (9-16); C Reactive Protein 5.27 mg/dL (< or = 0.50); Calcium 9.4 mg/dL (8.4-10.2); Carbon Dioxide 21 mmol/L (22-29); Chloride 108 mmol/L (96-108); Estimated Glomerular Filt Rate 51; Glucose Random 113 mg/dL (60-115); Potassium 4.5 mmol/L (3.3-5.1); Sodium 140 mmol/L (135-145); Total Protein 7.5 g/dL (6.5-8.0)
== END 2022-11-20 10:20 | disposition home or self-care (01) ==
LOC: HO.LAB 10:19
PROVIDERS: Absent Provider Hospitalist; PCP Nurse Practitioner Family; Visit Provider Student in an Organized Health Care Education/Training Program
DX: I77.6 Arteritis, unspecified (principal); R93.89 Abnormal findings on diagnostic imaging of other specified body structures
CPT/HCPCS: 36415; 71046; 80053; 81001; 85025; 85652; 86140; 88112

== ENCOUNTER 2022-11-22 12:38 | Outpatient (AMB) | payer MEDICARE, OTHER, SELFPAY ==
[2022-11-22 12:43] VITALS: BP 112/64; PULSE 60; TEMP 36.3; O2SAT 97; BMI 31.4
--- NOTE | 2022-11-22 12:43 | MHC.OFFVIS ---
Intake Vital Signs 11/22/22 12:43 Height 5 ft 4 in Weight 182 lb 12.211 oz BMI 31.4 BP 112/64 Blood Pressure Location Rt brachial Position Sitting Pulse 60 Temp 97.4 F Temp Source Skin Pulse Oximetry (%) 97 Intake Visit Reasons: Vasculitis Intake Note: Pt seen today for follow up. Reports dizziness [employer] Builder Required: No Accompanied by: Self / Same As Patient Allergies No Known Allergies Allergy (Verified 11/22/22 12:46) Medication List - Last Reconciled 11/22/22 by Ezio Carroll MD amitriptyline 10 mg PO BEDTIME amlodipine (Norvasc) 10 mg PO DAILY apixaban (Eliquis) 5 mg PO BID 30 days blood pressure monitor (Blood Pressure Kit) Check and record BP at least 2 times weekly cholecalciferol (vitamin D3) (Maximum D3) 325 mcg PO QWEEK digoxin (Lanoxin) 125 mcg PO DAILY ergocalciferol (vitamin D2) 1,250 mcg PO CERDA fenofibrate 50 mg PO DAILY 30 days fluticasone propionate 110 mcg/actuation (Flovent HFA) 2 puffs inhalation BID 30 days gabapentin 1 cap qam 1 cap qnoon and 2 caps bedtime orally 3 times a day; levalbuterol HCl (Xopenex) 1.25 mg (3 mL) inhalation Q6H PRN 30 days levalbuterol tartrate 45 mcg/actuation (Xopenex HFA) 2 puffs PO Q6H PRN 30 days methylprednisolone (Medrol) Take 8 tabs by mouth once daily with breakfast for 2 weeks then reduce by 1 tab every 2 weeks until off metoprolol succinate ER 50 mg PO DAILY 30 days mycophenolate mofetil 1,000 mg PO BID nebulizers As directed pantoprazole 40 mg PO BID HPI HPI Comments History of Present Illness Details 67-year-old female returns for management vasculitis. Patient received 3 rounds of IVIG. After the initial infusion she felt some improvement in her neuropathy symptoms in her legs but it did not last. Overall after 3 infusions she does not feel any improvement in her neuropathy symptoms of her legs. Patient was taking CellCept 2 tabs twice daily until last month. She then increased it to 3 tabs twice daily and could not tolerate it due to GI upset. So she discontinued CellCept altogether. About a month ago patient started having a rash on her back that is raised but not itchy or painful. She continues to have electric shock-like sensation going up and down her lower extremities worse on the right foot. Continues to have numbness in her feet. More recently she developed pain swelling of both ankles. She was admitted to the hospital a few weeks ago due to abdominal pain. She was told she has a UTI and was prescribed antibiotics. She was also found to have significantly low hemoglobin at 7 and she received 2 units of PRBC. She also received 1 dose of IV Solu-Medrol for shortness of breath. Three weeks ago she was evaluated by a installation technician outside of [place] and was prescribed prednisolone. Her hair has almost grown back completely. Initial history:This is a 66-year-old female with a past medical history asthma, dyslipidemia, hypertension presents for evaluation of multiple complaints. Patient stated that more than 30 years ago she was diagnosed with an undefined autoimmune rheumatic disease and was given hydroxychloroquine for about 1-2 years which helped her symptoms of diffuse joint pain. Since then she has not been seen by a call center dispatcher. Patient stated she got COVID in October of this year and was sick at home with fever and body aches for about 10 days and did not need to go to the hospital. On December 02 she had bronchitis and Dr. Jean Baptiste prescribed her a prednisone course with some improvement. On December 21 she had diffuse body pain affecting all her body including neck shoulders and all her joints. December 22 she went to the emergency room in [place] with fevers, body aches, vomiting. she was prescribed Antivert and Pepcid and discharged home. However at home she continued to have vomiting and diffuse body pains, intermittent fevers. She was readmitted. Her lipase was elevated but her CT abdomen did not show pancreatic abnormalities. While hospitalized she also developed severe painful necrotizing skin lesions on her hands. Lesions were initially red then they became larger with pus, then they ruptured and be formed a black necrotic scabs. she was told this was vasculitis and she was treated with high doses of IV Solu-Medrol and antibiotics. It was suspected that she had Monkey Pox however she was tested after discharge for Monkey pox and testing was negative. She was readmitted two more times with the same symptoms of generalized weakness, body aches, fevers and migraines. [facility] Medical History Asthma Blood D-dimer assay positive Bronchitis Chest pain GERD (gastroesophageal reflux disease) Hx of migraines Muscle weakness AMY (obstructive sleep apnea) Prediabetes Sjogren's disease Snoring Surgical History Hx of appendectomy Hx of cholecystectomy Hx of colonoscopy S/P ankle joint replacement Family History Other Family history of connective tissue disease Lupus Multiple sclerosis Rheumatoid arthritis Social History Household Members: Spouse Housing: House Alcohol intake: current Alcohol intake frequency: does not drink Patient Tobacco Use Status: Never used Tobacco e-Cigarette/Vaping Use: Never Used service: No Current occupational status: retired 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 Review of Systems Const Reports fatigue and Reports weakness Eyes Reports blurry vision Card Reports dyspnea Resp Reports cough and Reports dyspnea Musc Reports arthralgias, Reports joint swelling and Reports stiffness Skin/Breast Reports rash Neuro Reports Sensory deficit (Neuro), Reports paresthesias and Reports weakness Endo Reports fatigue Physical Exam Vital Signs: Last Vital Signs Temp 97.4 F 11/22/22 12:43 Pulse 60 11/22/22 12:43 BP 112/64 11/22/22 12:43 Pulse Ox 97 11/22/22 12:43 BMI result Body Mass Index 31.4 Const Other: Melendez facies resolving General: cooperative and comfortable Nutritional Appearance: obese Orientation/consciousness: patient oriented x3 Limitations: ambulation with cane HEENT Head: Yes normocephalic and Yes atraumatic Mouth: moist mucous membranes Resp Effort & Inspection: normal respiratory effort and able to speak in complete sentences Auscultation: clear to auscultation bilaterally Cardio Rhythm: abnormal rhythm irregularly irregular GI Inspection: No distended Palpation (GI): Soft to palpation and nontender Skin Other: Head alopecia almost resolved Diffuse raised skin rash on her upper back Neuro General: patient oriented x3 Sensory Exam: Sensory deficit (Neuro) Extrem Other: bilateral upper and lower extremity proximal muscle strength 5/5 grossly bilaterally today. Sensory exam similar to last visit: abnormal peripheral sensation both lower extremities worse on the right, patient reports' electric shock-like sensation on palpation of her ankles and feet. Today patient can determine her toe position in both feet No wrist or foot drop bilaterally Bilateral ankle synovitis worse on the right Few tender MTPs bilaterally Results Reviewed Results Reviewed: Labs 02/09/2022? WBC 12.2? Hemoglobin 9.8? Platelet 504? Sed rate 116 Urinalysis all negative with no hematuria pyuria or proteinuria except for scanty calcium oxalate crystals CMPMR/MR humerus RT wo/w con IMPRESSION: 1. Inhomogeneous fat saturation in the axial sequences of bilateral shoulders limits evaluation. Evaluation is limited in the provided sequences. ? 2. In the right humerus, question increased T2 signal/edema in the anterior musculature of the humerus and the deltoid muscle and muscles of the shoulder girdle, as seen on the sagittal and coronal sequences. Correlation with the axial sequences is limited due to inhomogeneous fat saturation. These findings could represent myositis. ? 3. In the left humerus, question edema in the deltoid muscle and muscles of the shoulder girdle. Suboptimal axial imaging limits evaluation. This raises a possibility of myositis in this region. ? 4. Correlate with patient's blood work. Repeat/follow-up MRI for reassessment, with attention to technique and obtaining STIR sequences, as clinically warranted. Albumin 3.2 globulin normal Creatinine 1.02 AST/ALT normal? GFR 53 Labs on 09/2021? CRP 20.1 (0-0.5) Lipase to [address] head 12/2021 Impression no acute intracranial abnormality CT abdomen 01/2022? Findings the lungs bases are clear, without pleural effusion or consolidation.? The heart is normal in size without pericardial effusion.? Aorta normal in caliber.? Scattered atherosclerotic calcifications of the aorta.? Liver demonstrate diffuse fatty infiltration.? Spleen bilateral adrenal glands, pancreas and kidneys demonstrate normal contrast-enhanced CT appearance.? The opacified loops of bowel show no evidence of obstruction.? The appendix is not identified.? Sigmoid diverticulosis without acute diverticulitis.? No mesenteric inflammatory changes. 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 Patient has multiple manifestations that are consistent with small-vessel vasculitis including necrotizing skin lesions, deltoid muscle biopsy showing vasculitis, severe asymmetrical peripheral neuropathy (on EMG/NCS) of her lower extremities. CT chest showed findings suggestive of ILD/pneumonitis, however there is a chance this might be post COVID. Labs showed significantly elevated inflammatory markers and positive anti Ro in high titers. Comprehensive serology otherwise is unrevealing. 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 Patient was admitted at [facility] and received high-dose steroids for about 10 days, she had a PET scan 7 days into her admission on high dose steroids which was unrevealing, no signs of large vessel vasculitis. All her symptoms of generalized fatigue, shortness of breath, achiness, improved except for her neuropathy. 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 [place] [facility] [place] pulse steroids 1 g X 3 days 04/07/2022 First dose of cyclophosphamide (0.75 g/m2) was 04/14/2022. Second dose was on 05/22/2022 and dose was increased to 1 g/m2 (due to normalization of kidney function and adequate WBC kaiden), 3rd dose was on 06/21/22 (0.75 g/m2) Cyclophosphamide was discontinued, patient completed 3 doses for induction and had developed hair loss. Her hair is growing back. Patient was switched to CellCept 07/13 Which was partially effective but patient could not tolerate 1500 mg Twice daily due to GI upset so she self discontinued it 10/13 IVIG was started 07/13 primarily for her neurological symptoms, patient received 3 doses without improvement. Will DC IVIG Upon evaluation today patient is rash on her back is coming back, it is raised she also has developed inflammatory arthritis affecting both ankles. Inflammatory markers are quite elevated. She will need a different DMARD. For now restart Medrol taper at 32 mg. Will discuss case with Dr. 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 Panel 2 Months I77.6 - Arteritis, unspecified C Reactive Protein 2 Months I77.6 - Arteritis, unspecified Protein Creatinine Ratio, Ur 2 Months I77.6 - Arteritis, unspecified Complete Blood Count Auto Diff 2 Months I77.6 - Arteritis, unspecified Erythrocyte Sedimentation Rate 2 Months I77.6 - Arteritis, unspecified UA w Microscopic 2 Months I77.6 - Arteritis, unspecified Medications: New methylprednisolone (Medrol) Take 8 tabs by mouth once daily with breakfast for 2 weeks then reduce by 1 tab every 2 weeks until off 504 tabs 0RF Coding Level of Care Code Est Pt Level 5 (29263) Diagnoses Vasculitis I77.6 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
== END 2022-11-22 14:04 | disposition home or self-care (01) ==
PROVIDERS: PCP Nurse Practitioner Family; Visit Provider Student in an Organized Health Care Education/Training Program
DX: I77.6 Arteritis, unspecified (principal); Z79.52 Long term (current) use of systemic steroids
CPT/HCPCS: 99215

== ENCOUNTER → 2022-11-22 12:38 | Outpatient (BNVA) | payer MEDICARE, OTHER, SELFPAY | PROVIDERS: PCP Nurse Practitioner Family; Visit Provider Student in an Organized Health Care Education/Training Program | DX: I77.6 Arteritis, unspecified (principal); Z79.52 Long term (current) use of systemic steroids | CPT/HCPCS: 99212 ==

== ENCOUNTER 2022-11-27 09:59 | Outpatient (AMB) | payer MEDICARE, OTHER, SELFPAY ==
--- NOTE | 2022-11-27 10:14 | MHC.OFFVIS ---
Intake Vital Signs 11/27/22 10:15 Height 5 ft 4 in Weight 182 lb BMI 31.2 BP 132/60 Blood Pressure Location Rt brachial Position Sitting Pulse 69 Pulse Source Pulse Oximeter Pulse Oximetry (%) 97 Oxygen Delivery Method Room Air Intake Visit Reasons: cough Health Claims Examiner Required: No Allergies No Known Allergies Allergy (Verified 11/27/22 10:17) HPI HPI Comments History of Present Illness Details The patient is a 67-year-old woman with a known history of asthma and AMY. The patient has been complaining worsening shortness of breath and cough for the last several weeks. However, more recently he started developing a productive cough with yellow phlegm. She feels like the phlegm is difficult to expectorate. She had been in [place] for some time with her mother and while she was there her respiratory status was worse and ended up in the prednisone. Also, she ran out of her Trelegy inhaler and she was not able to refill it and she has been off it now for 2 months. Therefore she has been using her nebulizer therapy with albuterol and also her ProAir more regularly. The patient also struggling with her CPAP. She cannot tolerate the elevated pressures. She is also developing epistaxis with her nasal pillow mask. Patient is no longer getting supplies from her [employer] company. therefore, she is now consider inactive in not getting any supplies for many [employer] company. The patient needs to be set up again with a [employer] company in the only way to do that is to repeat her sleep study in order to demonstrating again that she has sleep apnea and therefore get active again. In the meantime she has not been tolerating the fractures. For that reason she has been having significant headaches in the morning and also complaining of daytime drowsiness with an elevated [place] score 14/24. Therefore, repeating the sleep study will be crucial in order for her to start her CPAP therapy again. The patient follow-up after her sleep study. In addition to that I will give her some antibiotics for the bronchitis that she is experiencing. 02/16/2022 the patient is here for a pulmonary follow-up visit. She was in [place] and was very sick. Initially developed a rash suggesting of vasculitis. although, initially was thought to be monkey pox. The patient during the hospitalization also was diagnosed with pancreatitis. She was given IV antibiotics and also given IV steroids. the patient also has been complaining of worsening cough productive in nature. The cough has continued. Today she was evaluated by Rheumatology. The patient has significant complaints on a constitutional review of systems. It is likely that she has a flare up of her connective tissue disease that is affecting multiple organ systems. She is currently on a small dose of methylprednisolone that is helping maintain the vasculitis flare up at [place]. Although she continues to very symptomatic. She is very short of breath. We did taken for 6 minute walk test. The patient did not desaturate but she was very weak. She took multiple rest even after 50 ft. She was using a walker. Her pulse ox was 98% throughout the ambulation. She also complains of pleuritic chest pain. We had her undergoing blood work. She just traveled from [place]. Her D-dimer is positive significantly elevated. Therefore in view of her risk for thromboembolic disease I will go ahead and order a CTA at this time. The patient has a full blood work panel order from Rheumatology. Will be awaiting the results of that in addition to awaiting the results of her CT scan. 03/02/2022 the patient is here for pulmonary follow-up visit. She continues to have multiple complaints. Does have some shortness of breath and cough. Her D-dimer had been elevated and she did undergo a CTA. I did review the CTA images with the patient. No evidence of any pulmonary emboli. However, she did have some areas of ground-glass and interstitial changes primarily at the bases. This consistent with pneumonitis. She may also have a component of atelectasis. She does have significant dry crackles specially on the right base consistent with her interstitial lung disease from her underlying connective tissue disease. She has been on Medrol but not been enough to maintain her symptoms under control or decreasing inflammatory changes of her lungs. We did review her other labs demonstrating a significantly elevated sedimentation rate an ESR. Her ANCA levels were negative. She does have underlying vasculitis appreciated on her skin. However, no biopsy was done at the time. She will be following up closely with Rheumatology. An extensive blood work panel has been requested. In the meantime will go ahead and start her on mycophenolate in order to treat her underlying interstitial lung disease appreciated on her CT scan. I am hopeful that she also gets relief from this inflammatory process. 05/26/2022 the patient is here for a pulmonary follow-up visit. The patient continues to have multiple complaints. She had been admitted to [facility] which she was evaluated by Rheumatology. Again, it is very clear that she has a diagnosis of vasculitis. Although clear connective tissue disease has not been identified. 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 She was started on cyclophosphamide and she is off the CellCept. She continues to have significant weakness and neuropathy like symptoms. Breathing appears to be okay at this time. Denies any significant shortness of breath or chest discomfort. The patient denies any productive mucus or wheezing. From a cardiac standpoint the patient did have an episodes of atrial fibrillation prior to receiving her cyclophosphamide infusion therefore she had been admitted to the hospital. She was placed on Eliquis and rate controlling agents. Now she is waiting for cardiology follow-up. 11/27/2022 the patient is here for a pulmonary follow-up visit. The patient had been doing well after the treatment with cyclophosphamide for the vasculitis but now appears to have been returning. She was switched over to will high doses of IVIG. Although she may have had an adverse reaction. She ultimately developed significant anemia requiring 2 units of blood. She is still monitoring closely her hemoglobin. She did follow-up with Hematology. The patient was placed on additional steroids based on the fact that her sedimentation rate is above 100. She continues to have shortness of breath. She denies any hemoptysis. Although her major complaint is that she is having significant visual loss. Therefore, will request the ophthalmology examination urgently to assess for any acute changes. Patient will receive Solu-Medrol today to help decrease any inflammatory changes. She is awaiting the approval for rituximab in order to start that. In the meantime she continues with her CPAP therapy and she continues with respiratory medicines. She did have a chest x-ray which I personally reviewed. No evidence of any ground-glass opacities or any acute changes. Her exam is reassuring without any significant crackles. [facility] Medical History Asthma Blood D-dimer assay positive Bronchitis Chest pain GERD (gastroesophageal reflux disease) Hx of migraines Muscle weakness AMY (obstructive sleep apnea) Prediabetes Sjogren's disease Snoring Surgical History Hx of appendectomy Hx of cholecystectomy Hx of colonoscopy S/P ankle joint replacement Family History Other Family history of connective tissue disease Lupus Multiple sclerosis Rheumatoid arthritis Social History Household Members: Spouse Housing: House Alcohol intake: current Alcohol intake frequency: does not drink Patient Tobacco Use Status: Never used Tobacco e-Cigarette/Vaping Use: Never Used service: No Current occupational status: retired 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 Review of Systems Const Reports fatigue and Reports weakness Eyes Reports change in vision and Reports loss of vision ENT Reports epistaxis Card Reports palpitations and Reports dyspnea on exertion Resp Reports cough, Denies hemoptysis and Reports dyspnea on exertion Musc Reports myalgias Skin/Breast Reports alopecia Neuro Reports loss of vision, Reports Sensory deficit (Neuro) and Reports weakness Endo Reports fatigue and Reports palpitations Physical Exam Vital Signs: Last Vital Signs Pulse 69 11/27/22 10:15 BP 132/60 11/27/22 10:15 Pulse Ox 97 11/27/22 10:15 Oxygen Delivery Method Room Air 11/27/22 10:15 BMI result Body Mass Index 31.2 Const General: comfortable and alert HEENT Head: Yes atraumatic and Yes other (alopecia) Neck Neck: Yes normal visual inspection, Yes full ROM and Yes no lymphadenopathy Chest Chest palpation & inspection: normal inspection of the chest Resp Auscultation: no rales and diminished lung sounds Cardio Rate: regular rate Rhythm: regular rhythm Heart sounds: S1 normal heart sound present and S2 normal heart sound present GI Palpation (GI): Soft to palpation and nontender Auscultation: normal bowel sounds Skin General skin exam: rashes and/or lesions noted Neuro Sensory Exam: Sensory deficit (Neuro) Office Meds methylprednisolone sod suc(PF) Performing Provider: Christophe Jean Baptiste MD Administered by: Magaly Travis LPN on 11/27/22 10:56 Dose Route Admin Location Lot Number Expiration Date NDC Permastone Mechanic 125 mg IM L buttock [id number] 01/20/25 4606-5416-21 [employer] Assessment & Plan Assessment & Plan (1) ILD (interstitial lung disease): Code(s): J84.9 - Interstitial pulmonary disease, unspecified (2) AUDRA positive: Code(s): R76.8 - Other specified abnormal immunological findings in serum (3) Asthma: Code(s): J45.909 - Unspecified asthma, uncomplicated Qualifiers: Asthma complication type: uncomplicated Asthma persistence: persistent Asthma severity: moderate Qualified Code(s): J45.40 - Moderate persistent asthma, uncomplicated (4) GERD (gastroesophageal reflux disease): Code(s): K21.9 - Gastro-esophageal reflux disease without esophagitis Qualifiers: Esophagitis bleeding: without hemorrhage Esophagitis presence: with esophagitis Qualified Code(s): K21.00 - Gastro-esophageal reflux disease with esophagitis, without bleeding (5) Chest pain: Code(s): R07.9 - Chest pain, unspecified (6) AMY (obstructive sleep apnea): Code(s): G47.33 - Obstructive sleep apnea (adult) (pediatric) (7) Chronic allergic rhinitis: Code(s): J30.9 - Allergic rhinitis, unspecified (8) Vasculitis: Code(s): I77.6 - Arteritis, unspecified Plan continue APAP 6-11 Flovent (stopped the LABA due to the Afib) Xopenex as needed continue prednisone Solumedrol x 1 today Fluticasone nasal spray Astelin nasal spray No rugs/hypoallergenic covers Urgent eye exam follow-up in 3-4 months Orders: Orders AMB Methylprednisolone Injection Today J45.909 - Unspecified asthma, uncomplicated Referrals Ophthalmology Referral H54.7 - Unspecified visual loss, I77.6 - Arteritis, unspecified Medications: New codeine-guaifenesin 10-100 mg/5 mL 10 mL PO Q6H 10 days PRN 300 mL 0RF cough Coding Level of Care Code Est Pt Level 5 (63978) Diagnoses ILD (interstitial lung disease) J84.9 AUDRA positive R76.8 Asthma J45.40 Asthma complication type: uncomplicated Asthma persistence: persistent Asthma severity: moderate GERD (gastroesophageal reflux disease) K21.00 Esophagitis bleeding: without hemorrhage Esophagitis presence: with esophagitis Chest pain R07.9 AMY (obstructive sleep apnea) G47.33 Chronic allergic rhinitis J30.9 Vasculitis I77.6 Time Spent (min) 45
[2022-11-27 10:15] VITALS: BP 132/60; PULSE 69; O2SAT 97; BMI 31.2
== END 2022-11-27 10:55 | disposition home or self-care (01) ==
PROVIDERS: PCP Nurse Practitioner Family; Visit Provider Hospitalist
DX: J84.9 Interstitial pulmonary disease, unspecified (principal); J45.40 Moderate persistent asthma, uncomplicated; G47.33 Obstructive sleep apnea (adult) (pediatric); J30.9 Allergic rhinitis, unspecified; R76.8 Other specified abnormal immunological findings in serum; K21.00 Gastro-esophageal reflux disease with esophagitis, without bleeding; R07.9 Chest pain, unspecified; I77.6 Arteritis, unspecified
CPT/HCPCS: 99215

== ENCOUNTER → 2022-11-27 09:59 | Outpatient (BNVA) | payer MEDICARE, OTHER, SELFPAY | PROVIDERS: PCP Nurse Practitioner Family; Visit Provider Hospitalist | DX: J84.9 Interstitial pulmonary disease, unspecified (principal); J45.40 Moderate persistent asthma, uncomplicated; J30.9 Allergic rhinitis, unspecified; G47.33 Obstructive sleep apnea (adult) (pediatric); R07.9 Chest pain, unspecified; K21.00 Gastro-esophageal reflux disease with esophagitis, without bleeding; I77.6 Arteritis, unspecified | CPT/HCPCS: 96372; 99212; J2930 ==

== ENCOUNTER 2022-12-04 13:02 | Outpatient (AMB) | payer MEDICARE, OTHER, SELFPAY ==
--- NOTE | 2022-12-04 13:20 | A.OFFPC_ITS ---
Vital Signs 12/04/22 13:22 Height 5 ft 4 in Weight 183 lb 7 oz BMI 31.5 BP 126/64 Blood Pressure Location Lt brachial Position Sitting Respiration 12 Pulse 60 Pulse Source Pulse Oximeter Temp 98.3 F Temp Source Temporal Artery Scan Pulse Oximetry (%) 98 Oxygen Delivery Method Room Air Intake Visit Reasons: f/u health maintenance Intake Note: Patient states that she needs some refills on Fenofibrate, Amlodipine, Metoprolol, Eliquis and Digoxin. Blood pressure machine needs to be sent over to [facility] due to pharmacy being unable o fill. Patient would also like a new Glucose meter sent to [facility] as well. Patient states that she will be on Chemo again soon on 12/18/22. Patient also states that she has to receive 2 pints of blood last time she had hospital visit a month ago in [place]. Patient states that she has been loosing her sight in both eyes. Group Social Worker Required: No Accompanied by: Self / Same As Patient Allergies No Known Allergies Allergy (Verified 12/04/22 13:42) Medication List - Last Reconciled 12/04/22 by Ezio Kinney CNP amitriptyline 10 mg PO BEDTIME PRN amlodipine (Norvasc) 10 mg PO DAILY apixaban (Eliquis) 5 mg PO BID 30 days blood pressure monitor (Blood Pressure Kit) Check and record BP at least 2 times weekly budesonide-formoterol 160-4.5 mcg/actuation (Symbicort) inhalation Q12H cholecalciferol (vitamin D3) (Maximum D3) 325 mcg PO QWEEK codeine-guaifenesin 10-100 mg/5 mL 10 mL PO Q6H PRN 10 days desloratadine 5 mg PO DAILY digoxin (Lanoxin) 125 mcg PO DAILY ergocalciferol (vitamin D2) 1,250 mcg PO CERDA fenofibrate 50 mg PO DAILY 30 days fluticasone propionate 110 mcg/actuation (Flovent HFA) 2 puffs inhalation BID 30 days gabapentin 1 cap qam 1 cap qnoon and 2 caps bedtime orally 3 times a day; lansoprazole 30 mg PO DAILY levalbuterol HCl (Xopenex) 1.25 mg (3 mL) inhalation Q6H PRN 30 days levalbuterol tartrate 45 mcg/actuation (Xopenex HFA) 2 puffs PO Q6H PRN 30 days methylprednisolone (Medrol) Take 8 tabs by mouth once daily with breakfast for 2 weeks then reduce by 1 tab every 2 weeks until off metoprolol succinate ER 50 mg PO DAILY 30 days montelukast 10 mg PO DAILY nebulizers As directed pantoprazole 40 mg PO BID rituximab-pvvr 1,000 mg (100 mL) IV Q14D 5 doses Tobacco use date assessed: 07/07/22 Fall risk assessment: 1 Fall in past year Last assessed Fall Risk: 12/04/22 Dental Screening Dental Screen Date: 12/04/22 Did you have a dental visit in the last 12 months?: Yes Did you have a dental problem in the last 6 months where you did not have access to dental care?: No Was dental information given to patient?: Patient has dentist HPI HPI Comments History of Present Illness Details 67-year-old female presents for health maintenance follow-up. She has history of hypertension, diabetes, hyperlipidemia, AFib, and vasculitis. She stopped taking metformin and rosuvastatin several months ago. She notes she has been taking fenofibrates as prescribed. She states she was visiting [place] 3 weeks ago; her hemoglobin was 7.5, she received 2 units of blood. She had blood work done on 11/20/2022. Her H&H was 9.9/32.7, MCV 99.4. She had normal iron studies on 07/13/2022. She reports deterioration of vision of both eyes. 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 Surgery was recommended and patient states she will consider surgery after chemo treatment. She notes she was given a new prescription glasses which she will brain picker soon. She is followed by Rheumatology for vasculitis. She is currently on Medrol. She states she will start Rituximab chemo treatment on 12/10/2022. She is followed by Cardiology and on Eliquis. [facility] Medical History Asthma Blood D-dimer assay positive Bronchitis Chest pain GERD (gastroesophageal reflux disease) Hx of migraines Muscle weakness AMY (obstructive sleep apnea) Prediabetes Sjogren's disease Snoring Surgical History Hx of appendectomy Hx of cholecystectomy Hx of colonoscopy S/P ankle joint replacement Family History Mother Alzheimer disease Other Family history of connective tissue disease Lupus Multiple sclerosis Rheumatoid arthritis Social History Household Members: Spouse Housing: House Alcohol intake: current Alcohol intake frequency: does not drink Patient Tobacco Use Status: Never used Tobacco e-Cigarette/Vaping Use: Never Used service: No Current occupational status: 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 Cognitive needs: No Hearing needs: No Vision needs: Yes Review of Systems Const Details: Const Denies chills, Denies fatigue, Denies fever(s), Denies headache(s) and Denies weakness ENT Reports as per HPI Card Denies chest pain, Denies lightheadedness, Denies dyspnea and Denies other (Palpitations) Resp Denies cough, Denies dyspnea, Denies wheezing and Denies other ( shortness of breath) GI Denies abdominal pain, Denies melena, Denies hematochezia, Denies change in bowel habits, Denies dyspepsia and Denies nausea Denies hematuria and Denies dysuria Musc Denies abnormal gait, Denies myalgias, Denies arthralgias, Denies numbness and Denies tingling Skin/Breast Denies rash, Denies unusual bruising and Denies wounds Neuro Denies abnormal gait, Denies dizziness, Denies headache(s), Denies memory loss, Denies numbness, Denies Sensory deficit (Neuro), Denies tingling and Denies weakness Psych Denies anxiety, Denies depression, Denies memory loss Endo Denies cold intolerance, Denies fatigue, Denies heat intolerance, Denies polydipsia and Denies polyuria Aller/Immun Denies wheezing Physical exam (Primary Care) Vital Signs: Last Vital Signs Temp 98.3 F 12/04/22 13:22 Pulse 60 12/04/22 13:22 Resp 12 12/04/22 13:22 BP 126/64 12/04/22 13:22 Pulse Ox 98 12/04/22 13:22 Oxygen Delivery Method Room Air 12/04/22 13:22 BMI result Body Mass Index 31.5 Tobacco/Smoking Status: Tobacco use Status Tobacco use date assessed 07/07/22 12/04/22 13:31 Patient Tobacco Use Status Never used Tobacco 12/04/22 13:31 e-Cigarette/Vaping Use Never Used 12/04/22 13:31 Const Other: General: no acute distress and well developed Nutritional Appearance: well nourished Orientation/consciousness: patient oriented x3 [facility] Head: Yes normocephalic and Yes atraumatic Eyes General: appearance normal, both eyes and all related structures Pupils: Equal, round and reactive pupils present EOM: EOMs intact bilaterally Resp Effort & Inspection: normal respiratory effort Auscultation: clear to auscultation bilaterally Cardio Rate: regular rate Rhythm: regular rhythm Heart sounds: S1 normal heart sound present, S2 normal heart sound present, no gallops, no murmurs and no rubs GI Palpation (GI): No Abdominal aortic bruit present, Soft to palpation, nontender, No hepatosplenomegaly present and No Rebound tenderness present Auscultation: normal bowel sounds General: Yes no CVA tenderness Back/Spine/Pelvis Back: no CVA tenderness Cervical Spine: cervical ROM normal and No Cervical spine tenderness Thoracic/Lumbar Spine: thoraco-lumbar ROM normal, No pain with thoraco-lumbar ROM, No thoracic spinal tenderness and No lumbar spinal tenderness Extrem General: Yes normal to inspection, No edema and No calf tenderness Skin General: warm and dry. Normal skin color. Normal skin turgor Lesions: no lesions Rashes: no rashes Trauma: no lacerations or abrasions Wounds: no wounds Nails: normal Neuro General: patient oriented x3, gait normal and no focal neuro deficit Cranial nerves: Yes Equal, round and reactive pupils present Cognition (Neuro): normal cognition Gait exam (Neuro): Normal gait present Sensory Exam: No Sensory deficit (Neuro) Psych Appearance: grossly normal Affect: normal affect Attitude: cooperative Thought process: Normal thought process present Results AMB Hemoglobin A1c 2 AMB Hemoglobin A1c 5.7 % Last Edit by Ember Eisenberg MA on 12/04/22 13:44 Results Reviewed Results Reviewed: Laboratory Last Values Hgb A1c (Clinic) 5.7 % (4.0-6.0) 12/04/22 13:43 Assessment and Plan Assessment & Plan (1) Anemia: Code(s): D64.9 - Anemia, unspecified Plan: She states she was visiting [place] 3 weeks ago; her hemoglobin was 7.5, she received 2 units of blood. She had blood work done on 11/20/2022. Her H&H was 9.9/32.7, MCV 99.4. She had normal iron studies on 07/13/2022 Will recheck CBC and iron studies. Will check retic count and vitamin B12 and folate level Advised to get blood work done no later than this week Will review results and make changes to her care plan if warranted Follow-up in 3 months or return sooner with symptoms or concerns Verbalized understanding and agreed with treatment plan. (2) Hyperlipidemia: Code(s): E78.5 - Hyperlipidemia, unspecified Plan: She was on rosuvastatin which she stopped taking several months ago. She notes she has been taking fenofibrates as prescribed. Will check lipid levels. Lipid panel ordered. Advised to fast for at least 10-12 hours and get blood work done no soon as possible. Advised to limit foods high in saturated fat and avoid foods high in trans fat Routine exercise encouraged Follow-up in 3 months Verbalized understanding and agreed with treatment plan. (3) Diabetes: Code(s): E11.9 - Type 2 diabetes mellitus without complications Plan: She was on metformin which she stopped taking several months ago. Her A1c today is 5.7%, within goal of less than 7.0%. Previous A1c was 4.5%. ADA diet and routine exercise encouraged Glucometer, test strips, and lancets ordered for blood glucose testing and monitoring Follow-up in 3 months or return sooner with concerns or symptoms Verbalized understanding and agreed with treatment plan. (4) Hypertension: Code(s): I10 - Essential (primary) hypertension Plan: Her blood pressure is controlled, 126/64, within goal of less than 130/80 Continue with current antihypertensives treatment regimen Low-sodium diet encouraged Blood pressure cuff/monitor ordered for home blood pressure check and monitoring Follow-up in 3 months or return sooner with concerns or symptoms Verbalized understanding and agreed with treatment plan. (5) Vision loss: Code(s): H54.7 - Unspecified visual loss Plan: She reports deterioration of vision of both eyes. 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 Surgery was recommended and patient states she will consider surgery after chemo treatment. She notes she was given a new prescription glasses which she will brain picker soon. Follow-up with Ophthalmology as planned. (6) Vasculitis: Code(s): I77.6 - Arteritis, unspecified Plan: Follow up with Rheumatology as planned Orders: Orders Vitamin B12 and Folate Today D64.9 - Anemia, unspecified Ferritin Today D64.9 - Anemia, unspecified IRON PROFILE Today D64.9 - Anemia, unspecified Lipid Panel Today E78.5 - Hyperlipidemia, unspecified Complete Blood Count no Diff Today D64.9 - Anemia, unspecified Reticulocyte Count Today D64.9 - Anemia, unspecified Medications: New blood sugar diagnostic (FreeStyle Lite Strips) As directed TID 100 ea 4RF blood-glucose meter (FreeStyle Lite Meter kit) As directed 1 ea 0RF lancets (Terra-Gen Power UltraSoft 2 Lancet) As directed TID 100 ea 4RF miscellaneous medical supply 1 large BP cuff/monitor 1 ea 0RF Refilled amlodipine (Norvasc) 10 mg PO DAILY 30 tabs 3RF apixaban (Eliquis) 5 mg PO BID 30 days 60 tabs 4RF fenofibrate 50 mg PO DAILY 30 days 30 caps 3RF blood pressure monitor (Blood Pressure Kit) Check and record BP at least 2 times weekly 1 ea 0RF metoprolol succinate ER 50 mg PO DAILY 30 tabs 3RF 30 days digoxin (Lanoxin) 125 mcg PO DAILY 30 tabs 0RF Coding Level of Care Code Est Pt Level 4 (88666) Diagnoses Anemia D64.9 Hyperlipidemia E78.5 Diabetes E11.9 Hypertension I10 Vision loss H54.7 Vasculitis I77.6
[2022-12-04 13:22] VITALS: BP 126/64; PULSE 60; RESP 12; TEMP 36.8; O2SAT 98; BMI 31.5
== END 2022-12-04 14:12 | disposition home or self-care (01) ==
PROVIDERS: PCP Nurse Practitioner Family; Visit Provider Nurse Practitioner Family
DX: E11.9 Type 2 diabetes mellitus without complications (principal); I10 Essential (primary) hypertension; I77.6 Arteritis, unspecified; D64.9 Anemia, unspecified; E78.5 Hyperlipidemia, unspecified; H54.7 Unspecified visual loss
CPT/HCPCS: 99214

== ENCOUNTER 2022-12-12 09:30 | Outpatient (REF) | payer MEDICARE, OTHER, SELFPAY ==
[2022-12-12 10:07] LABS: Hematocrit 41.2 % (37.0-47.0); Hemoglobin 12.7 g/dl (12.0-16.0); Immature Retic Fraction 5.7 % (3.0-15.9); Mean Corpuscular HGB Conc 30.8 g/dl (31.0-35.0); Mean Corpuscular Volume 97.4 fL (80.0-98.0); Mean Platelet Volume 8.6 fL (9.4-12.3); Platelet Count 317 X10*3/uL (160-400); Red Blood Count 4.23 X10*6/uL (4.20-5.50); Red Cell Distribution Width 17.3 % (11.0-16.0); Reticulocyte Percent 2.2 % (0.5-1.8); Reticulocytes Absolute 0.094 X10*6/uL (0.026-0.095); White Blood Count 17.4 X10*3/uL (4.8-10.8)
[2022-12-12 10:54] LABS: Cholesterol 197 mg/dL (<200); HDL Cholesterol 69 mg/dL (>40); Iron 125 mcg/dL (30-160); LDL Cholesterol Calculated 112 mg/dL (<100); Percent Iron Saturation 39 % (15-50); Total Iron Binding Capacity 319 mcg/dL (228-428); Triglycerides 80 mg/dL (<150); Unsaturated Iron Binding 194 ug/dL
[2022-12-12 11:03] LABS: Ferritin 286 ng/mL (10-250)
[2022-12-12 11:13] LABS: Folate 9.5 ng/mL (> or = 4.0); Vitamin B12 307 pg/mL (200-900)
== END 2022-12-12 09:31 | disposition home or self-care (01) ==
LOC: HO.LAB 09:30
PROVIDERS: PCP Nurse Practitioner Family; Visit Provider Nurse Practitioner Family
DX: D64.9 Anemia, unspecified (principal); E78.5 Hyperlipidemia, unspecified
CPT/HCPCS: 36415; 80061; 82607; 82728; 82746; 83540; 85027; 85045

== ENCOUNTER 2022-12-20 10:14 | Outpatient (AMB) | payer MEDICARE, SELFPAY ==
[2022-12-20 10:17] VITALS: BP 138/70; PULSE 89; O2SAT 97; BMI 31.7
--- NOTE | 2022-12-20 10:17 | MHC.OFFVIS ---
Intake Vital Signs 12/20/22 10:17 Height 5 ft 4 in Weight 184 lb 8 oz BMI 31.7 BP 138/70 Blood Pressure Location Rt brachial Position Sitting Pulse 89 Pulse Source Pulse Oximeter Pulse Oximetry (%) 97 Oxygen Delivery Method Room Air Intake Visit Reasons: follow up- confirmed Intake Note: Pt presents as a f/u. 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 Required: No Accompanied by: Spouse Allergies No Known Allergies Allergy (Verified 12/20/22 10:21) Medication List - Last Reconciled 12/20/22 by Farzana Clark MD alpha lipoic acid 600 mg PO DAILY amitriptyline 10 mg PO BEDTIME PRN amlodipine (Norvasc) 10 mg PO DAILY apixaban (Eliquis) 5 mg PO BID 30 days blood pressure monitor (Blood Pressure Kit) Check and record BP at least 2 times weekly blood sugar diagnostic (FreeStyle Lite Strips) As directed TID blood-glucose meter (FreeStyle Lite Meter kit) As directed budesonide-formoterol 160-4.5 mcg/actuation (Symbicort) inhalation Q12H cholecalciferol (vitamin D3) (Maximum D3) 325 mcg PO QWEEK codeine-guaifenesin 10-100 mg/5 mL 10 mL PO Q6H PRN 10 days desloratadine 5 mg PO DAILY digoxin (Lanoxin) 125 mcg PO DAILY ergocalciferol (vitamin D2) 1,250 mcg PO CERDA fenofibrate 50 mg PO DAILY 30 days fluticasone propionate 110 mcg/actuation (Flovent HFA) 2 puffs inhalation BID 30 days gabapentin 1 cap qam 1 cap qnoon and 3 caps bedtime orally 3 times a day; lancets (OneTouch UltraSoft 2 Lancet) As directed TID lansoprazole 30 mg PO DAILY levalbuterol HCl (Xopenex) 1.25 mg (3 mL) inhalation Q6H PRN 30 days levalbuterol tartrate 45 mcg/actuation (Xopenex HFA) 2 puffs PO Q6H PRN 30 days methylprednisolone (Medrol) Take 8 tabs by mouth once daily with breakfast for 2 weeks then reduce by 1 tab every 2 weeks until off. 5 tabs metoprolol succinate ER 50 mg PO DAILY 30 days miscellaneous medical supply 1 large BP cuff/monitor montelukast 10 mg PO DAILY nebulizers As directed pantoprazole 40 mg PO BID rituximab-pvvr 1,000 mg (100 mL) IV Q14D 5 doses HPI HPI Comments History of Present Illness Details 67-year-old female presents for health maintenance follow-up.4 weeks ago she was in [place] and was very anemic. she needed transfusion. when she came back her Certified [employer] Dr Carroll started on prednisone, felt better and started on rituximab 2 days ago . she has been feeling better since then .Iv Ig was stopped.she feels her neuropathy has worsened. No pain, she calls it as numbness , shooting, tingling more in her legs when she is resting. she is still waiting for her new CPAP. She has history of hypertension, diabetes, hyperlipidemia, AFib, and vasculitis. She stopped taking metformin and rosuvastatin several months ago. She notes she has been taking fenofibrates as prescribed. She states she was visiting [place] 3 weeks ago; her hemoglobin was 7.5, she received 2 units of blood. She had blood work done on 11/20/2022. Her H&H was 9.9/32.7, MCV 99.4. She had normal iron studies on 07/13/2022. she also has cataracts which matured and needs surgery. She is followed by Cardiology and on Eli[facility]. [facility] Medical History Asthma Blood D-dimer assay positive Bronchitis Chest pain GERD (gastroesophageal reflux disease) Hx of migraines Muscle weakness AMY (obstructive sleep apnea) Prediabetes Sjogren's disease Snoring Surgical History Hx of appendectomy Hx of cholecystectomy Hx of colonoscopy S/P ankle joint replacement Family History Mother Alzheimer disease Other Family history of connective tissue disease Lupus Multiple sclerosis Rheumatoid arthritis Social History Household Members: Spouse Housing: House Alcohol intake: current Alcohol intake frequency: does not drink Patient Tobacco Use Status: Never used Tobacco e-Cigarette/Vaping Use: Never Used service: No Current occupational status: retired 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 Cognitive needs: No Hearing needs: No Vision needs: Yes Physical Exam Vital Signs: Last Vital Signs Pulse 89 12/20/22 10:17 BP 138/70 12/20/22 10:17 Pulse Ox 97 12/20/22 10:17 Oxygen Delivery Method Room Air 12/20/22 10:17 BMI result Body Mass Index 31.7 Const General: cooperative and healthy appearing Nutritional Appearance: obese Orientation/consciousness: patient oriented x3 Limitations: physical limitations HEENT Head: Yes normal to inspection and Yes normocephalic Face and sinus: Yes normal facial exam and Yes face symmetric Eyes Pupils: Equal, round and reactive pupils present Neuro Other: Decreased light touch pin prick - Left Le starts below knee with increased severity distally Right LE- decreased PP and light touch - from ankle downwards Left UE- patchy decreased PP and light touch General: patient oriented x3, tone normal and moves all extremities Cranial nerves: Yes Equal, round and reactive pupils present, Yes Bilaterally intact EOM present, Yes Nystagmus not present, Yes Normal facial strength present, Yes Midline tongue present, Yes Symmetric palate elevation present and Yes Ability to bilaterally elevate shoulders present Cognition (Neuro): normal cognition Gait exam (Neuro): Antalgic gait present Motor exam (neuro): 5/5 motor strength present throughout Deep tendon reflexes (DTR's): Right triceps reflex intensity grade: 2+, Left triceps reflex intensity grade: 2+, Rt Biceps (C5, C6): 2+, Left biceps reflex intensity grade: 2+, Right brachioradialis reflex intensity grade: 2+, Left brachioradialis reflex intensity grade: 2+, Right patellar reflex intensity grade: 0, Left patellar reflex intensity grade: 0, Right ankle reflex intensity grade: 0 and Left ankle reflex intensity grade: 0 Coordination: [id number] test normal Psych Appearance: grossly normal Assessment & Plan Assessment & Plan (1) Peripheral neuropathy: Code(s): G62.9 - Polyneuropathy, unspecified Qualifiers: Peripheral neuropathy type: inflammatory polyneuropathy, other Qualified Code(s): G61.89 - Other inflammatory polyneuropathies (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 Medications: New alpha lipoic acid 600 mg PO DAILY 30 caps 6RF sertraline 25 mg PO DAILY 30 tabs 3RF Changed From methylprednisolone (Medrol) Take 8 tabs by mouth once daily with breakfast for 2 weeks then reduce by 1 tab every 2 weeks until off 504 tabs 0RF To methylprednisolone (Medrol) Take 8 tabs by mouth once daily with breakfast for 2 weeks then reduce by 1 tab every 2 weeks until off. 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
== END 2022-12-20 10:49 | disposition home or self-care (01) ==
PROVIDERS: PCP Nurse Practitioner Family; Visit Provider Psychiatry & Neurology Neurology
DX: G61.89 Other inflammatory polyneuropathies (principal); G58.7 Mononeuritis multiplex; I77.6 Arteritis, unspecified; R51.9 Headache, unspecified; G89.29 Other chronic pain; G47.33 Obstructive sleep apnea (adult) (pediatric)
CPT/HCPCS: 99214

== ENCOUNTER → 2022-12-20 10:14 | Outpatient (BNVA) | payer MEDICARE, OTHER, SELFPAY | PROVIDERS: PCP Nurse Practitioner Family; Visit Provider Psychiatry & Neurology Neurology | DX: I77.6 Arteritis, unspecified (principal); G58.7 Mononeuritis multiplex; G61.89 Other inflammatory polyneuropathies; R51.9 Headache, unspecified; G89.29 Other chronic pain; G47.33 Obstructive sleep apnea (adult) (pediatric); R06.83 Snoring | CPT/HCPCS: 99212 ==

== ENCOUNTER 2023-02-14 10:59 | Outpatient (REF) | payer MEDICARE, OTHER, SELFPAY ==
--- NOTE | ~2023-02-14 | MR_ITS ---
EXAMINATION: MR LUMBAR SPINE WITHOUT CONTRAST CLINICAL INFORMATION: 67-year-old with radiculopathy, lumbar region. COMPARISON: None available. TECHNIQUE: MRI of the lumbar spine was obtained using routine sequences without contrast. FINDINGS: CORONAL ALIGNMENT: Slight lower lumbar levocurvature, minimally convex to the left at L3-L4. SAGITTAL ALIGNMENT: Normal. LUMBOSACRAL JUNCTION: Normal. VERTEBRAL BODIES: Vertebral body heights are well maintained. DISC SPACES AND ENDPLATES: Severe disc space height loss at L4-L5 noted with Schmorl's nodes, disc desiccation and mild spondylosis. Mild disc volume loss at L5-S1 posteriorly with disc desiccation and a Schmorl's node along the inferior endplate of L5. Lepz-nr-ypaydozy disc space height loss at L3-L4 with tiny Schmorl's nodes, disc desiccation and minor spondylosis. There is zgmszclg-db-uxnnxa intervertebral disc space height loss at L2-L3 with disc desiccation and qohu-ej-kxvnigss spondylosis. Awaq-tb-ogpbbxkq disc space height loss at L1-L2 with disc desiccation and hgys-bf-cdbqnuig spondylosis with Schmorl's node along the inferior endplate of L1 on the left. SPINAL CANAL: Multilevel prominent dorsal fat pads are seen throughout the lumbar canal with a mild degree of lumbar epidural lipomatosis. BONE MARROW: No significant marrow-replacing process or bone marrow edema. Type II degenerative marrow signal changes are noted along the endplates at L4-L5 and to a lesser degree at L1-L2. CONUS MEDULLARIS: Terminates at L1-L2. Morphology and signal is normal. INTRADURAL NERVE ROOTS: Within normal limits. L5-S1: Shallow broad-based central disc protrusion with a tiny central annular fissure noted with mild indentation of the ventral thecal sac. Moderate bilateral facet arthropathy noted with bilateral facet joint effusions and a 2.4 mm subligamentous synovial cyst along the medial left facet joint. Mild ligamentum flavum thickening also noted with no significant central canal stenosis. There is bilateral subarticular recess stenosis, with encroachment on the traversing S1 nerve roots bilaterally. Minor foraminal narrowing is noted on the left without exiting neural impingement. Possible 2 mm synovial cyst along the anterosuperior aspect of the left facet joint which may be contacting the exiting left L5 nerve root sleeve. L4-L5: Probable partially calcified broad-based central to left subarticular disc herniation superimposed on concentric disc bulge and endplate spurring with flattening of the ventral dural sac centrally and asymmetric to the left of midline. Ligamentum flavum thickening is noted with moderate bilateral facet arthropathy and a prominent dorsal fat pad, with moderate central spinal canal stenosis. There is moderate right and severe left subarticular recess stenosis, with impingement on the traversing L5 nerve roots, left more than right. Jitq-gw-xsvxwljp bilateral neural foraminal stenosis is noted without definite neural impingement. L3-L4: Diffuse disc bulging is noted with qboy-ib-tuvvkltx facet arthropathy left more than right and ligamentum flavum thickening with a prominent dorsal fat pad. There is moderate central spinal canal stenosis with xygf-kq-osfsovam narrowing of the subarticular zones bilaterally. Moderate left and mild right-sided neural foraminal stenosis noted, with encroachment on the exiting left L3 nerve root. L2-L3: Bilateral subarticular to foraminal disc protrusions are noted, left more than right with a superimposed small central extruded disc herniation with mild cephalad migration and moderate flattening of the ventral dural sac with a prominent dorsal fat pad. Ligamentum flavum thickening and ddis-uh-dkzyzmdv facet arthrosis, left more than right noted with moderate central spinal canal stenosis and crowding of the intradural nerve roots. Crowding of the subarticular zones, left more than right with possible encroachment on the traversing left L3 nerve root. Mild foraminal narrowing is noted on the left without neural impingement. L1-L2: Small posterolateral foraminal disc protrusions bilaterally without neural impingement or central canal stenosis. Mild facet arthrosis on the right and uuop-mz-hhezfrat on the left with ligamentum flavum thickening. Slight narrowing of the left subarticular recess noted. No significant neural foraminal stenosis. T12-L1: Normal annular contour. Mild facet arthropathy noted on the left with mild ligamentum flavum thickening without canal or foraminal stenosis. PARAVERTEBRAL AND INCLUDED EXTRASPINAL SOFT TISSUES: The visualized paravertebral soft tissues and included retroperitoneal structures are unremarkable within the limitations of the exam. MR/MR lumbar spine wo con IMPRESSION: 1. Slight lower lumbar levocurvature, minimally convex to the left at L3-L4. 2. Multilevel DDD and spondylosis, with multilevel disc bulging and disc herniations as described above superimposed on prominent dorsal fat pads with multilevel bilateral facet arthropathy and ligamentum flavum thickening. 3. Moderate multilevel central spinal canal stenosis at L4-L5, L3-L4 and L2-L3 with bilateral subarticular recess stenosis at L5-S1, L4-L5 and to a lesser degree at L3-L4 and L2-L3 as detailed above, moderate left and mild right-sided neural foraminal stenosis at L3-L4 with ktyu-iy-syyphhra bilateral neural foraminal stenosis at L4-L5 and mild left-sided neural foraminal stenosis at L2-L3.
[2023-02-14 11:19] LABS: MANUAL DIFF FLAG NO
[2023-02-14 11:57] LABS: Basophils Absolute Auto 0.1 X10*3/uL (0.0-0.2); Basophils Percent Auto 0.7 % (0-2); Eosinophils Absolute Auto 0.3 X10*3/uL (0.0-0.4); Eosinophils Percent Auto 2.3 % (0-4); Hematocrit 39.7 % (37.0-47.0); Hemoglobin 12.6 g/dl (12.0-16.0); Imm Gran Abs Auto 0.07 X10*3/uL (0.00-0.03); Imm Gran Pct Auto 0.6 % (0.0-0.4); Lymphocytes Absolute Auto 1.7 X10*3/uL (1.2-4.9); Lymphocytes Percent Auto 13.7 % (20-40); Mean Corpuscular HGB Conc 31.7 g/dl (31.0-35.0); Mean Corpuscular Volume 97.5 fL (80.0-98.0); Mean Platelet Volume 8.9 fL (9.4-12.3); Monocytes Absolute Auto 1.2 X10*3/uL (0.1-1.2); Monocytes Percent Auto 9.5 % (2-11); Neutrophils Absolute Auto 9.2 x10*3/uL (2.0-8.3); Neutrophils Percent Auto 73.2 % (45-73); Platelet Count 405 X10*3/uL (160-400); Red Blood Count 4.07 X10*6/uL (4.20-5.50); Red Cell Distribution Width 16.6 % (11.0-16.0); White Blood Count 12.6 X10*3/uL (4.8-10.8)
[2023-02-14 12:24] LABS: Appearance Urine Clear; Color Urine Yellow; Glucose Urine UA Negative (Negative); Leukocyte Esterase Urine Moderate (2+) (Negative); Nitrite Urine Negative (Negative); PH 5.5 (5.0-9.0); UMIC TRIGGER UA YES; Urine Blood Small (1+) (Negative); Urine Ketones Trace mg/dL (Negative); Urine Protein Negative (Neg-Trace)
[2023-02-14 12:26] LABS: Bacteria Urine Trace (None Seen); Hyaline Casts Urine 0-2 /LPF (0-2); WBC Urine 21-50 /HPF (0-5)
[2023-02-14 12:51] LABS: Erythrocyte Sedimentation Rate 38 MM/HR (0-20)
[2023-02-14 12:53] LABS: Alanine Aminotransferase 14 U/L (0-31); Albumin Level 3.8 g/dL (3.5-5.0); Alkaline Phosphatase 66 U/L (39-117); Anion Gap 12 (12-20); Aspartate Amino Transferase 17 U/L (5-31); Bilirubin Total 0.5 mg/dL (0.0-1.0); Blood Urea Nitrogen 18 mg/dL (9-16); C Reactive Protein 3.24 mg/dL (< or = 0.50); Carbon Dioxide 25 mmol/L (22-29); Chloride 107 mmol/L (96-108); Estimated Glomerular Filt Rate 57; Glucose Random 84 mg/dL (60-115); Potassium 4.3 mmol/L (3.3-5.1); Sodium 140 mmol/L (135-145); Total Protein 7.1 g/dL (6.5-8.0)
[2023-02-14 12:59] LABS: Creatinine Urine 128.65 mg/dL; Protein/Creatinine Ratio, Ur 0.09 (<0.2); Total Protein Urine Random 12 mg/dL (<12)
== END 2023-02-14 11:00 | disposition home or self-care (01) ==
LOC: HO.MRI 10:59
PROVIDERS: PCP Nurse Practitioner Family; Visit Provider Student in an Organized Health Care Education/Training Program
DX: M54.16 Radiculopathy, lumbar region (principal); I77.6 Arteritis, unspecified
CPT/HCPCS: 36415; 72148; 80053; 81001; 82570; 84156; 85025; 85652; 86140

== ENCOUNTER 2023-02-20 09:39 | Outpatient (AMB) | payer MEDICARE, OTHER, SELFPAY ==
[2023-02-20 09:53] VITALS: BP 126/60; PULSE 92; TEMP 36.2; O2SAT 98; BMI 33.4
--- NOTE | 2023-02-20 09:53 | MHC.OFFVIS ---
Intake Vital Signs 02/20/23 09:53 Height 5 ft 4 in Weight 194 lb 7.163 oz BMI 33.4 BP 126/60 Blood Pressure Location Rt brachial Position Sitting Pulse 92 Pulse Source Pulse Oximeter Temp 97.2 F Temp Source Skin Pulse Oximetry (%) 98 Intake Visit Reasons: vasculitis/40 minutes Intake Note: Pt last seen 11/22/22, presents today for follow up and test results.. 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: No Accompanied by: Self / Same As Patient Allergies No Known Allergies Allergy (Verified 02/20/23 09:55) Medication List - Last Reconciled 02/20/23 by Ezio Carroll MD alpha lipoic acid 600 mg PO DAILY amlodipine (Norvasc) 10 mg PO DAILY apixaban (Eliquis) 5 mg PO BID 30 days atorvastatin 40 mg PO DAILY blood pressure monitor (Blood Pressure Kit) Check and record BP at least 2 times weekly blood sugar diagnostic (FreeStyle Lite Strips) As directed TID blood-glucose meter (FreeStyle Lite Meter kit) As directed budesonide-formoterol 160-4.5 mcg/actuation (Symbicort) inhalation Q12H cholecalciferol (vitamin D3) (Maximum D3) 325 mcg PO QWEEK codeine-guaifenesin 10-100 mg/5 mL 10 mL PO Q6H PRN 10 days desloratadine 5 mg PO DAILY ergocalciferol (vitamin D2) 1,250 mcg PO CERDA fenofibrate 50 mg PO DAILY 30 days fluticasone propionate 110 mcg/actuation (Flovent HFA) 2 puffs inhalation BID 30 days gabapentin 1 cap qam 1 cap qnoon and 3 caps bedtime orally 3 times a day; lancets (OneTouch UltraSoft 2 Lancet) As directed TID lansoprazole 30 mg PO DAILY levalbuterol HCl (Xopenex) 1.25 mg (3 mL) inhalation Q6H PRN 30 days levalbuterol tartrate 45 mcg/actuation (Xopenex HFA) 2 puffs PO Q6H PRN 30 days metoprolol succinate ER 50 mg PO DAILY 30 days metoprolol succinate ER 25 mg PO DAILY miscellaneous medical supply 1 large BP cuff/monitor montelukast 10 mg PO DAILY nebulizers As directed pantoprazole 40 mg PO BID rituximab-pvvr 1,000 mg (100 mL) IV Q14D 5 doses sertraline 25 mg PO DAILY HPI HPI Comments History of Present Illness Details 67-year-old female returns for management vasculitis. She completed rituximab infusions in early December. Infusions were uneventful. She states that she feels about the same overall. She completed the Medrol taper a week ago. Since stopping Medrol she started having pain and swelling in her right ankle. She denies any rashes. She continues to have electric shock sensation in both legs, worse on the right. States that she is having tingling and numbness in both index fingers. States that she is generally more active. States that she gets 1-2 days of a 101 fever per month. Improved with Tylenol. She denies any skin rashes. Mentions her eyesight was blurry and she went to an eye doctor, was told she has cataracts and surgery was suggested. Patient would like to postpone cataract surgery. Initial history:This is a 66-year-old female with a past medical history asthma, dyslipidemia, hypertension presents for evaluation of multiple complaints. Patient stated that more than 30 years ago she was diagnosed with an undefined autoimmune rheumatic disease and was given hydroxychloroquine for about 1-2 years which helped her symptoms of diffuse joint pain. Since then she has not been seen by a yard general car supervisor. Patient stated she got COVID in October of this year and was sick at home with fever and body aches for about 10 days and did not need to go to the hospital. On December 02 she had bronchitis and Dr. Jean Baptiste prescribed her a prednisone course with some improvement. On December 21 she had diffuse body pain affecting all her body including neck shoulders and all her joints. December 22 she went to the emergency room in [place] with fevers, body aches, vomiting. she was prescribed Antivert and Pepcid and discharged home. However at home she continued to have vomiting and diffuse body pains, intermittent fevers. She was readmitted. Her lipase was elevated but her CT abdomen did not show pancreatic abnormalities. While hospitalized she also developed severe painful necrotizing skin lesions on her hands. Lesions were initially red then they became larger with pus, then they ruptured and be formed a black necrotic scabs. she was told this was vasculitis and she was treated with high doses of IV Solu-Medrol and antibiotics. It was suspected that she had Monkey Pox however she was tested after discharge for Monkey pox and testing was negative. She was readmitted two more times with the same symptoms of generalized weakness, body aches, fevers and migraines. [facility] Medical History (Updated 02/20/23 @ 11:01 by Ezio Carroll MD) Cataract Snoring Hx of migraines Prediabetes Muscle weakness Sjogren's disease Blood D-dimer assay positive Chest pain GERD (gastroesophageal reflux disease) Bronchitis Asthma AMY (obstructive sleep apnea) Surgical History Hx of colonoscopy Hx of cholecystectomy Hx of appendectomy S/P ankle joint replacement Family History Mother Alzheimer disease Other Family history of connective tissue disease Lupus Multiple sclerosis Rheumatoid arthritis Social History Household Members: Spouse Housing: House Alcohol intake: current Alcohol intake frequency: does not drink Patient Tobacco Use Status: Never used Tobacco e-Cigarette/Vaping Use: Never Used service: No Current occupational status: retired 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 Cognitive needs: No Hearing needs: No Vision needs: Yes Review of Systems Const Reports fatigue and Reports fever(s) Resp Reports cough Musc Reports arthralgias, Reports joint swelling, Reports numbness and Reports stiffness Neuro Reports numbness, Reports Sensory deficit (Neuro) and Reports paresthesias Endo Reports fatigue Physical Exam Vital Signs: Last Vital Signs Temp 97.2 F 02/20/23 09:53 Pulse 92 02/20/23 09:53 BP 126/60 02/20/23 09:53 Pulse Ox 98 02/20/23 09:53 BMI result Body Mass Index 33.4 Const Other: Melendez facies resolving General: cooperative and comfortable Nutritional Appearance: obese Orientation/consciousness: patient oriented x3 Limitations: ambulation with cane HEENT Head: Yes normocephalic and Yes atraumatic Mouth: moist mucous membranes Resp Effort & Inspection: normal respiratory effort and able to speak in complete sentences Auscultation: clear to auscultation bilaterally Cardio Rhythm: abnormal rhythm irregularly irregular GI Inspection: No distended Palpation (GI): Soft to palpation and nontender Skin Other: Head alopecia resolved No rashes today Neuro General: patient oriented x3 Sensory Exam: Sensory deficit (Neuro) Extrem Other: bilateral upper and lower extremity proximal muscle strength 5/5 grossly bilaterally today. Sensory exam similar to last visit: abnormal peripheral sensation both lower extremities worse on the right, patient reports' electric shock-like sensation on palpation of her ankles and feet. patient can determine her toe position in both feet No wrist or foot drop bilaterally Right ankle synovitis No MTP tenderness Positive Tinel sign bilaterally Results Reviewed Results Reviewed: Labs 02/09/2022? WBC 12.2? Hemoglobin 9.8? Platelet 504? Sed rate 116 Urinalysis all negative with no hematuria pyuria or proteinuria except for scanty calcium oxalate crystals CMPMR/MR humerus RT wo/w con IMPRESSION: 1. Inhomogeneous fat saturation in the axial sequences of bilateral shoulders limits evaluation. Evaluation is limited in the provided sequences. ? 2. In the right humerus, question increased T2 signal/edema in the anterior musculature of the humerus and the deltoid muscle and muscles of the shoulder girdle, as seen on the sagittal and coronal sequences. Correlation with the axial sequences is limited due to inhomogeneous fat saturation. These findings could represent myositis. ? 3. In the left humerus, question edema in the deltoid muscle and muscles of the shoulder girdle. Suboptimal axial imaging limits evaluation. This raises a possibility of myositis in this region. ? 4. Correlate with patient's blood work. Repeat/follow-up MRI for reassessment, with attention to technique and obtaining STIR sequences, as clinically warranted. Albumin 3.2 globulin normal Creatinine 1.02 AST/ALT normal? GFR 53 Labs on 09/2021? CRP 20.1 (0-0.5) Lipase to [address] CT head 12/2021 Impression no acute intracranial abnormality CT abdomen 01/2022? Findings the lungs bases are clear, without pleural effusion or consolidation.? The heart is normal in size without pericardial effusion.? Aorta normal in caliber.? Scattered atherosclerotic calcifications of the aorta.? Liver demonstrate diffuse fatty infiltration.? Spleen bilateral adrenal glands, pancreas and kidneys demonstrate normal contrast-enhanced CT appearance.? The opacified loops of bowel show no evidence of obstruction.? The appendix is not identified.? Sigmoid diverticulosis without acute diverticulitis.? No mesenteric inflammatory changes. Impression no acute abdominal pelvic inflammatory process Thyroid ultrasound 02/03/2022 Impression status post right hemithyroidectomy Left thyroid vascular heterogenous solid nodule getting TIRAD-3 larger than 2 point cm, FNA recommended IMPRESSION: 1. Slight lower lumbar levocurvature, minimally convex to the left at L3-L4. 2. Multilevel DDD and spondylosis, with multilevel disc bulging and disc herniations as described above superimposed on prominent dorsal fat pads with multilevel bilateral facet arthropathy and ligamentum flavum thickening. 3. Moderate multilevel central spinal canal stenosis at L4-L5, L3-L4 and L2-L3 with bilateral subarticular recess stenosis at L5-S1, L4-L5 and to a lesser degree at L3-L4 and L2-L3 as detailed above, moderate left and mild right-sided neural foraminal stenosis at L3-L4 with [id number] bilateral neural foraminal stenosis at L4-L5 and mild left-sided neural foraminal stenosis at L2-L3. 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 Patient has multiple manifestations that are consistent with small-vessel vasculitis including necrotizing skin lesions, deltoid muscle biopsy showing vasculitis, severe asymmetrical peripheral neuropathy (on EMG/NCS) of her lower extremities. CT chest showed findings suggestive of ILD/pneumonitis, however there is a chance this might be post COVID. Labs showed significantly elevated inflammatory markers and positive anti Ro in high titers. Comprehensive serology otherwise is unrevealing. 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 Patient was admitted at [facility] and received high-dose steroids for about 10 days, she had a PET scan 7 days into her admission on high dose steroids which was unrevealing, no signs of large vessel vasculitis. All her symptoms of generalized fatigue, shortness of breath, achiness, improved except for her neuropathy. 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 Patient was admitted that [facility] and received pulse steroids 1 g X 3 days 04/07/2022 First dose of cyclophosphamide (0.75 g/m2) was 04/14/2022. Second dose was on 05/22/2022 and dose was increased to 1 g/m2 (due to normalization of kidney function and adequate WBC kaiden), 3rd dose was on 06/21/22 (0.75 g/m2) Cyclophosphamide was discontinued, patient completed 3 doses for induction and had developed hair loss. Her hair is growing back. Patient was switched to CellCept 07/13 Which was partially effective but patient could not tolerate 1500 mg Twice daily due to GI upset so she self discontinued it 10/13 IVIG was started 07/13 primarily for her neurological symptoms, patient received 3 monthly doses without improvement. After discussion with Dr. Forrest, the decision was made to switch her to rituximab infusions. She completed rituximab infusions in December 2022. Upon evaluation today patient is doing well except for mild right ankle synovitis which started after Medrol was discontinued a week ago. Her inflammatory markers are much improved but remain elevated Patient might need Medrol maintenance therapy. Increase Medrol to 8 mg daily for 2 weeks then remain on 4 mg daily Labs before next visit in 2 months Advised patient to make a follow-up appointment with Dr. Forrest. 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 I advised patient that she can get cataract surgery when she is ready Plan I spent 56 minutes reviewing patient's chart, evaluating patient, ordering diagnostic workup, counseling patient and documenting in the chart Orders: Orders Complete Blood Count Auto Diff 2 Months I77.6 - Arteritis, unspecified UA w Microscopic 2 Months I77.6 - Arteritis, unspecified Protein Creatinine Ratio, Ur 2 Months I77.6 - Arteritis, unspecified Comprehensive Met. Panel 2 Months I77.6 - Arteritis, unspecified C Reactive Protein 2 Months I77.6 - Arteritis, unspecified Erythrocyte Sedimentation Rate 2 Months I77.6 - Arteritis, unspecified Hemoglobin A1c 2 Months E11.9 - Type 2 diabetes mellitus without complications Immunoglobulins,IgG IgA IgM 2 Months I77.6 - Arteritis, unspecified Urine Cytology 2 Months I77.6 - Arteritis, unspecified Medications: New methylprednisolone (Medrol) Take 2 tabs daily for 1 week then stay on 1 tab daily 90 tabs 1RF Changed From gabapentin 1 cap qam 1 cap qnoon and 3 caps bedtime orally 3 times a day; 160 caps 6RF To gabapentin 1 cap qam 2 caps qhs 270 caps 1RF Coding Level of Care Code Est Pt Level 5 (44878) Diagnoses Vasculitis I77.6 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
== END 2023-02-20 10:48 | disposition home or self-care (01) ==
PROVIDERS: PCP Nurse Practitioner Family; Visit Provider Student in an Organized Health Care Education/Training Program
DX: I77.6 Arteritis, unspecified (principal); Z79.52 Long term (current) use of systemic steroids
CPT/HCPCS: 99215

== ENCOUNTER → 2023-02-20 09:39 | Outpatient (BNVA) | payer MEDICARE, OTHER, SELFPAY | PROVIDERS: PCP Nurse Practitioner Family; Visit Provider Student in an Organized Health Care Education/Training Program | DX: I77.6 Arteritis, unspecified (principal); Z79.52 Long term (current) use of systemic steroids | CPT/HCPCS: 99212 ==

== ENCOUNTER 2023-02-26 09:24 | Outpatient (AMB) | payer MEDICARE, SELFPAY ==
[2023-02-26 09:40] VITALS: BP 110/60; PULSE 83; O2SAT 94; BMI 32.6
--- NOTE | 2023-02-26 09:40 | MHC.OFFVIS ---
Intake Vital Signs 02/26/23 09:40 Height 5 ft 4 in Weight 190 lb BMI 32.6 BP 110/60 Blood Pressure Location Lt brachial Position Sitting Pulse 83 Pulse Source Pulse Oximeter Pulse Oximetry (%) 94 Oxygen Delivery Method Room Air Intake Visit Reasons: cough Mounter Saxophones Required: No Allergies No Known Allergies Allergy (Verified 02/26/23 09:42) HPI HPI Comments History of Present Illness Details The patient is a 67-year-old woman with a known history of asthma and AMY. The patient has been complaining worsening shortness of breath and cough for the last several weeks. However, more recently he started developing a productive cough with yellow phlegm. She feels like the phlegm is difficult to expectorate. She had been in [place] for some time with her mother and while she was there her respiratory status was worse and ended up in the prednisone. Also, she ran out of her Trelegy inhaler and she was not able to refill it and she has been off it now for 2 months. Therefore she has been using her nebulizer therapy with albuterol and also her ProAir more regularly. The patient also struggling with her CPAP. She cannot tolerate the elevated pressures. She is also developing epistaxis with her nasal pillow mask. Patient is no longer getting supplies from her [employer] company. therefore, she is now consider inactive in not getting any supplies for many [employer] company. The patient needs to be set up again with a [employer] company in the only way to do that is to repeat her sleep study in order to demonstrating again that she has sleep apnea and therefore get active again. In the meantime she has not been tolerating the fractures. For that reason she has been having significant headaches in the morning and also complaining of daytime drowsiness with an elevated Gl[place] score 14/24. Therefore, repeating the sleep study will be crucial in order for her to start her CPAP therapy again. The patient follow-up after her sleep study. In addition to that I will give her some antibiotics for the bronchitis that she is experiencing. 02/16/2022 the patient is here for a pulmonary follow-up visit. She was in [place] and was very sick. Initially developed a rash suggesting of vasculitis. although, initially was thought to be monkey pox. The patient during the hospitalization also was diagnosed with pancreatitis. She was given IV antibiotics and also given IV steroids. the patient also has been complaining of worsening cough productive in nature. The cough has continued. Today she was evaluated by Rheumatology. The patient has significant complaints on a constitutional review of systems. It is likely that she has a flare up of her connective tissue disease that is affecting multiple organ systems. She is currently on a small dose of methylprednisolone that is helping maintain the vasculitis flare up at [place]. Although she continues to very symptomatic. She is very short of breath. We did taken for 6 minute walk test. The patient did not desaturate but she was very weak. She took multiple rest even after 50 ft. She was using a walker. Her pulse ox was 98% throughout the ambulation. She also complains of pleuritic chest pain. We had her undergoing blood work. She just traveled from [place]. Her D-dimer is positive significantly elevated. Therefore in view of her risk for thromboembolic disease I will go ahead and order a CTA at this time. The patient has a full blood work panel order from Rheumatology. Will be awaiting the results of that in addition to awaiting the results of her CT scan. 03/02/2022 the patient is here for pulmonary follow-up visit. She continues to have multiple complaints. Does have some shortness of breath and cough. Her D-dimer had been elevated and she did undergo a CTA. I did review the CTA images with the patient. No evidence of any pulmonary emboli. However, she did have some areas of ground-glass and interstitial changes primarily at the bases. This consistent with pneumonitis. She may also have a component of atelectasis. She does have significant dry crackles specially on the right base consistent with her interstitial lung disease from her underlying connective tissue disease. She has been on Medrol but not been enough to maintain her symptoms under control or decreasing inflammatory changes of her lungs. We did review her other labs demonstrating a significantly elevated sedimentation rate an ESR. Her ANCA levels were negative. She does have underlying vasculitis appreciated on her skin. However, no biopsy was done at the time. She will be following up closely with Rheumatology. An extensive blood work panel has been requested. In the meantime will go ahead and start her on mycophenolate in order to treat her underlying interstitial lung disease appreciated on her CT scan. I am hopeful that she also gets relief from this inflammatory process. 05/26/2022 the patient is here for a pulmonary follow-up visit. The patient continues to have multiple complaints. She had been admitted to [facility] which she was evaluated by Rheumatology. Again, it is very clear that she has a diagnosis of vasculitis. Although clear connective tissue disease has not been identified. The patient therefore was referred back to her precision farming specialist. She was started on cyclophosphamide and she is off the CellCept. She continues to have significant weakness and neuropathy like symptoms. Breathing appears to be okay at this time. Denies any significant shortness of breath or chest discomfort. The patient denies any productive mucus or wheezing. From a cardiac standpoint the patient did have an episodes of atrial fibrillation prior to receiving her cyclophosphamide infusion therefore she had been admitted to the hospital. She was placed on Eliquis and rate controlling agents. Now she is waiting for cardiology follow-up. 11/27/2022 the patient is here for a pulmonary follow-up visit. The patient had been doing well after the treatment with cyclophosphamide for the vasculitis but now appears to have been returning. She was switched over to will high doses of IVIG. Although she may have had an adverse reaction. She ultimately developed significant anemia requiring 2 units of blood. She is still monitoring closely her hemoglobin. She did follow-up with Hematology. The patient was placed on additional steroids based on the fact that her sedimentation rate is above 100. She continues to have shortness of breath. She denies any hemoptysis. Although her major complaint is that she is having significant visual loss. Therefore, will request the ophthalmology examination urgently to assess for any acute changes. Patient will receive Solu-Medrol today to help decrease any inflammatory changes. She is awaiting the approval for rituximab in order to start that. In the meantime she continues with her CPAP therapy and she continues with respiratory medicines. She did have a chest x-ray which I personally reviewed. No evidence of any ground-glass opacities or any acute changes. Her exam is reassuring without any significant crackles. 03/08/2023 the patient is here for a pulmonary follow-up visit. The patient is feeling much better since starting the rituximab. She has tolerated the therapy in this been very effective decreasing him from a shunt. Still having significant issues with her balance and strongly weakness likely due to the high-dose steroids and also having issues with cataracts all related to the steroids. The patient now was restarted on a small dose of prednisone since she still becomes symptomatic when she is completely off it. Therefore, now she is taking 4 mg and she is tolerating that well. She is using her respiratory therapy as prescribed which is reassuring. Denies any significant wheezing at this time. We did provide her a form for odilia based on the fact that she is having respiratory issues and now having physical limitations requiring a cane. She did have an issue with a bloody nose. We did talk about stopping the fluticasone. She does have an ulceration in the right turbinate. She will try Bactroban for few days. She can also try saline gel. She will increase that he needed a on her CPAP to make sure that that does not bother. In the CPAP therapy continues to be affecting beneficial. As long she is not having any bleeding from the nose she did use it. If her nose starts bleeding again specially on the Eliquis she may need to be seen by ENT or urgent care for cautery of that lesion on the right turbinate. [facility] Medical History (Updated 02/20/23 @ 11:01 by Ezio Carroll MD) Cataract Snoring Hx of migraines Prediabetes Muscle weakness Sjogren's disease Blood D-dimer assay positive Chest pain GERD (gastroesophageal reflux disease) Bronchitis Asthma AMY (obstructive sleep apnea) Surgical History Hx of colonoscopy Hx of cholecystectomy Hx of appendectomy S/P ankle joint replacement Family History Mother Alzheimer disease Other Family history of connective tissue disease Lupus Multiple sclerosis Rheumatoid arthritis Social History Household Members: Spouse Housing: House Alcohol intake: current Alcohol intake frequency: does not drink Patient Tobacco Use Status: Never used Tobacco e-Cigarette/Vaping Use: Never Used service: No Current occupational status: retired 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 Cognitive needs: No Hearing needs: No Vision needs: Yes Review of Systems Const Reports fatigue and Denies fever(s) Eyes Reports blurry vision ENT Reports epistaxis Card Reports dyspnea on exertion Resp Reports cough and Reports dyspnea on exertion GI Reports no additional complaints Musc Reports arthralgias, Reports joint swelling, Reports numbness and Reports stiffness Skin/Breast Denies rash Neuro Reports numbness, Reports Sensory deficit (Neuro) and Reports paresthesias Endo Reports fatigue Physical Exam Vital Signs: Last Vital Signs Pulse 83 02/26/23 09:40 BP 110/60 02/26/23 09:40 Pulse Ox 94 02/26/23 09:40 Oxygen Delivery Method Room Air 02/26/23 09:40 BMI result Body Mass Index 32.6 Const General: comfortable and alert HEENT Head: Yes atraumatic and Yes other (alopecia) Neck Neck: Yes normal visual inspection, Yes full ROM and Yes no lymphadenopathy Chest Chest palpation & inspection: normal inspection of the chest Resp Auscultation: no rales and diminished lung sounds Cardio Rate: regular rate Rhythm: regular rhythm Heart sounds: S1 normal heart sound present and S2 normal heart sound present GI Palpation (GI): Soft to palpation and nontender Auscultation: normal bowel sounds Skin General skin exam: rashes and/or lesions noted Neuro Sensory Exam: Sensory deficit (Neuro) Assessment & Plan Assessment & Plan (1) ILD (interstitial lung disease): Code(s): J84.9 - Interstitial pulmonary disease, unspecified (2) AUDRA positive: Code(s): R76.8 - Other specified abnormal immunological findings in serum (3) Asthma: Code(s): J45.909 - Unspecified asthma, uncomplicated Qualifiers: Asthma severity: moderate Asthma persistence: persistent Asthma complication type: uncomplicated Qualified Code(s): J45.40 - Moderate persistent asthma, uncomplicated (4) GERD (gastroesophageal reflux disease): Code(s): K21.9 - Gastro-esophageal reflux disease without esophagitis Qualifiers: Esophagitis presence: with esophagitis Esophagitis bleeding: without hemorrhage Qualified Code(s): K21.00 - Gastro-esophageal reflux disease with esophagitis, without bleeding (5) AMY (obstructive sleep apnea): Code(s): G47.33 - Obstructive sleep apnea (adult) (pediatric) (6) Chronic allergic rhinitis: Code(s): J30.9 - Allergic rhinitis, unspecified (7) Vasculitis: Code(s): I77.6 - Arteritis, unspecified Plan continue APAP 6-11 as long as she is not having recurrent epistaxis Flovent (stopped the LABA due to the Afib) Xopenex as needed continue prednisone 4mg daily as per rheumatology stop Fluticasone nasal spray continue Astelin nasal spray start saline gel Bactroban x 5-7 days No rugs/hypoallergenic covers follow-up in 4-6 months Medications: New mupirocin 2% 1 appl topical TID 7 days 22 grams 0RF Coding Level of Care Code Est Pt Level 4 (64948) Diagnoses ILD (interstitial lung disease) J84.9 AUDRA positive R76.8 Moderate persistent asthma without complication J45.40 Asthma severity: moderate Asthma persistence: persistent Asthma complication type: uncomplicated Gastroesophageal reflux disease with esophagitis without hemorrhage K21.00 Esophagitis presence: with esophagitis Esophagitis bleeding: without hemorrhage AMY (obstructive sleep apnea) G47.33 Chronic allergic rhinitis J30.9 Vasculitis I77.6 Time Spent (min) 17
== END 2023-02-26 10:02 | disposition home or self-care (01) ==
PROVIDERS: PCP Nurse Practitioner Family; Visit Provider Hospitalist
DX: J84.9 Interstitial pulmonary disease, unspecified (principal); R76.8 Other specified abnormal immunological findings in serum; J45.40 Moderate persistent asthma, uncomplicated; K21.00 Gastro-esophageal reflux disease with esophagitis, without bleeding; G47.33 Obstructive sleep apnea (adult) (pediatric); J30.9 Allergic rhinitis, unspecified; I77.6 Arteritis, unspecified
CPT/HCPCS: 99214

== ENCOUNTER → 2023-02-26 09:24 | Outpatient (BNVA) | payer MEDICARE, OTHER, SELFPAY | PROVIDERS: PCP Nurse Practitioner Family; Visit Provider Hospitalist | DX: J84.9 Interstitial pulmonary disease, unspecified (principal); J45.40 Moderate persistent asthma, uncomplicated; J30.9 Allergic rhinitis, unspecified; R76.8 Other specified abnormal immunological findings in serum; G47.33 Obstructive sleep apnea (adult) (pediatric); K21.00 Gastro-esophageal reflux disease with esophagitis, without bleeding; I77.6 Arteritis, unspecified | CPT/HCPCS: 99212 ==

== ENCOUNTER 2023-04-27 09:37 | Outpatient (REF) | payer MEDICARE, SELFPAY ==
[2023-05-01 17:04] LABS: IgA 220 mg/dL (70-320); IgG 1037 mg/dL (600-1540); IgM 15 mg/dL (50-300)
== END 2023-04-27 09:38 | disposition home or self-care (01) ==
LOC: HO.LAB 09:37
PROVIDERS: PCP Nurse Practitioner Family; Visit Provider Student in an Organized Health Care Education/Training Program
DX: I77.6 Arteritis, unspecified (principal); E11.9 Type 2 diabetes mellitus without complications
CPT/HCPCS: 36415; 80053; 81001; 82570; 82784; 83036; 84156; 85025; 85652; 86140; 88112

== ENCOUNTER 2023-04-30 10:08 | Outpatient (AMB) | payer MEDICARE, OTHER, SELFPAY ==
[2023-04-30 10:11] VITALS: BP 116/72; PULSE 90; BMI 34.3
--- NOTE | 2023-04-30 10:11 | MHC.OFFVIS ---
Intake Vital Signs 04/30/23 10:11 Height 5 ft 4 in Weight 199 lb 11.821 oz BMI 34.3 BP 116/72 Blood Pressure Location Rt brachial Position Sitting Pulse 90 Pulse Source Pulse Oximeter Intake Visit Reasons: vasculitis/40 minutes plz Intake Note: Pt last seen 02/20/23 presents today for follow up and test results. Research And Evaluation Analyst Required: No Accompanied by: Self / Same As Patient Allergies No Known Allergies Allergy (Verified 04/30/23 10:16) Medication List - Last Reconciled 04/30/23 by Ezio Carroll MD alpha lipoic acid 600 mg PO DAILY amlodipine (Norvasc) 10 mg PO DAILY apixaban (Eliquis) 5 mg PO BID 30 days atorvastatin 40 mg PO DAILY blood pressure monitor (Blood Pressure Kit) Check and record BP at least 2 times weekly blood sugar diagnostic (FreeStyle Lite Strips) As directed TID blood-glucose meter (FreeStyle Lite Meter kit) As directed budesonide-formoterol 160-4.5 mcg/actuation (Symbicort) inhalation Q12H cholecalciferol (vitamin D3) (Maximum D3) 325 mcg PO QWEEK codeine-guaifenesin 10-100 mg/5 mL 10 mL PO Q6H PRN 10 days desloratadine 5 mg PO DAILY ergocalciferol (vitamin D2) 1,250 mcg PO CERDA fenofibrate 50 mg PO DAILY 30 days fluticasone propionate 110 mcg/actuation (Flovent HFA) 2 puffs inhalation BID 30 days gabapentin 1 cap qam 2 caps qhs lancets (OneTouch UltraSoft 2 Lancet) As directed TID lansoprazole 30 mg PO DAILY levalbuterol HCl (Xopenex) 1.25 mg (3 mL) inhalation Q6H PRN 30 days levalbuterol tartrate 45 mcg/actuation (Xopenex HFA) 2 puffs PO Q6H PRN 30 days metoprolol succinate ER 50 mg PO DAILY 30 days metoprolol succinate ER 25 mg PO DAILY miscellaneous medical supply 1 large BP cuff/monitor montelukast 10 mg PO DAILY mupirocin 2% 1 appl topical TID 7 days nebulizers As directed pantoprazole 40 mg PO BID rituximab-pvvr 1,000 mg (100 mL) IV Q14D 5 doses sertraline 25 mg PO DAILY HPI HPI Comments History of Present Illness Details 67-year-old female returns for management vasculitis. She completed rituximab infusions in early December. Infusions were uneventful. She states that she feels fairly well overall. Had not had any significant weakness or fatigue. No skin rashes. No cough or shortness of breath. She states that the neuropathic symptoms in both her feet are unchanged. On Medrol 4 mg daily. She states that she will go to [place] for cataract surgery towards the end of April Initial history:This is a 66-year-old female with a past medical history asthma, dyslipidemia, hypertension presents for evaluation of multiple complaints. Patient stated that more than 30 years ago she was diagnosed with an undefined autoimmune rheumatic disease and was given hydroxychloroquine for about 1-2 years which helped her symptoms of diffuse joint pain. Since then she has not been seen by a saw tailer. Patient stated she got COVID in October of this year and was sick at home with fever and body aches for about 10 days and did not need to go to the hospital. On December 02 she had bronchitis and Dr. Jean Baptiste prescribed her a prednisone course with some improvement. On December 21 she had diffuse body pain affecting all her body including neck shoulders and all her joints. December 22 she went to the emergency room in [place] with fevers, body aches, vomiting. she was prescribed Antivert and Pepcid and discharged home. However at home she continued to have vomiting and diffuse body pains, intermittent fevers. She was readmitted. Her lipase was elevated but her CT abdomen did not show pancreatic abnormalities. While hospitalized she also developed severe painful necrotizing skin lesions on her hands. Lesions were initially red then they became larger with pus, then they ruptured and be formed a black necrotic scabs. she was told this was vasculitis and she was treated with high doses of IV Solu-Medrol and antibiotics. It was suspected that she had Monkey Pox however she was tested after discharge for Monkey pox and testing was negative. She was readmitted two more times with the same symptoms of generalized weakness, body aches, fevers and migraines. [facility] Medical History Cataract Snoring Hx of migraines Prediabetes Muscle weakness Sjogren's disease Blood D-dimer assay positive Chest pain GERD (gastroesophageal reflux disease) Bronchitis Asthma AMY (obstructive sleep apnea) Surgical History Hx of colonoscopy Hx of cholecystectomy Hx of appendectomy S/P ankle joint replacement Family History Mother Alzheimer disease Other Family history of connective tissue disease Lupus Multiple sclerosis Rheumatoid arthritis Social History Household Members: Spouse Housing: House Alcohol intake: current Alcohol intake frequency: does not drink Patient Tobacco Use Status: Never used Tobacco e-Cigarette/Vaping Use: Never Used service: No Current occupational status: retired 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 Cognitive needs: No Hearing needs: No Vision needs: Yes Review of Systems Musc Reports arthralgias, Reports numbness and Reports stiffness Neuro Reports numbness, Reports Sensory deficit (Neuro) and Reports paresthesias Physical Exam Vital Signs: Last Vital Signs Pulse 90 04/30/23 10:11 BP 116/72 04/30/23 10:11 BMI result Body Mass Index 34.3 Const General: cooperative and comfortable Nutritional Appearance: obese Orientation/consciousness: patient oriented x3 Limitations: ambulation with cane HEENT Head: Yes normocephalic and Yes atraumatic Mouth: moist mucous membranes Resp Effort & Inspection: normal respiratory effort and able to speak in complete sentences Auscultation: clear to auscultation bilaterally Cardio Rhythm: abnormal rhythm irregularly irregular GI Inspection: No distended Palpation (GI): Soft to palpation and nontender Skin Other: Head alopecia resolved No rashes today Neuro General: patient oriented x3 Sensory Exam: Sensory deficit (Neuro) Extrem Other: bilateral upper and lower extremity proximal muscle strength 5/5 grossly bilaterally today. Sensory exam similar to last visit: abnormal peripheral sensation both lower extremities worse on the right, patient reports' electric shock-like sensation on palpation of her ankles and feet. patient can determine her toe position in both feet No wrist or foot drop bilaterally No MTP tenderness Results Reviewed Results Reviewed: Labs 02/09/2022? WBC 12.2? Hemoglobin 9.8? Platelet 504? Sed rate 116 Urinalysis all negative with no hematuria pyuria or proteinuria except for scanty calcium oxalate crystals CMPMR/MR humerus RT wo/w con IMPRESSION: 1. Inhomogeneous fat saturation in the axial sequences of bilateral shoulders limits evaluation. Evaluation is limited in the provided sequences. ? 2. In the right humerus, question increased T2 signal/edema in the anterior musculature of the humerus and the deltoid muscle and muscles of the shoulder girdle, as seen on the sagittal and coronal sequences. Correlation with the axial sequences is limited due to inhomogeneous fat saturation. These findings could represent myositis. ? 3. In the left humerus, question edema in the deltoid muscle and muscles of the shoulder girdle. Suboptimal axial imaging limits evaluation. This raises a possibility of myositis in this region. ? 4. Correlate with patient's blood work. Repeat/follow-up MRI for reassessment, with attention to technique and obtaining STIR sequences, as clinically warranted. Albumin 3.2 globulin normal Creatinine 1.02 AST/ALT normal? GFR 53 Labs on 09/2021? CRP 20.1 (0-0.5) Lipase to 220 CT head 12/2021 Impression no acute intracranial abnormality CT abdomen 01/2022? Findings the lungs bases are clear, without pleural effusion or consolidation.? The heart is normal in size without pericardial effusion.? Aorta normal in caliber.? Scattered atherosclerotic calcifications of the aorta.? Liver demonstrate diffuse fatty infiltration.? Spleen bilateral adrenal glands, pancreas and kidneys demonstrate normal contrast-enhanced CT appearance.? The opacified loops of bowel show no evidence of obstruction.? The appendix is not identified.? Sigmoid diverticulosis without acute diverticulitis.? No mesenteric inflammatory changes. Impression no acute abdominal pelvic inflammatory process Thyroid ultrasound 02/03/2022 Impression status post right hemithyroidectomy Left thyroid vascular heterogenous solid nodule getting TIRAD-3 larger than 2 point cm, FNA recommended IMPRESSION: 1. Slight lower lumbar levocurvature, minimally convex to the left at L3-L4. 2. Multilevel DDD and spondylosis, with multilevel disc bulging and disc herniations as described above superimposed on prominent dorsal fat pads with multilevel bilateral facet arthropathy and ligamentum flavum thickening. 3. Moderate multilevel central spinal canal stenosis at L4-L5, L3-L4 and L2-L3 with bilateral subarticular recess stenosis at L5-S1, L4-L5 and to a lesser degree at L3-L4 and L2-L3 as detailed above, moderate left and mild right-sided neural foraminal stenosis at L3-L4 with [id number] bilateral neural foraminal stenosis at L4-L5 and mild left-sided neural foraminal stenosis at L2-L3. 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 Patient has multiple manifestations that are consistent with small-vessel vasculitis including necrotizing skin lesions, deltoid muscle biopsy showing vasculitis, severe asymmetrical peripheral neuropathy (on EMG/NCS) of her lower extremities. CT chest showed findings suggestive of ILD/pneumonitis, however there is a chance this might be post COVID. Labs showed significantly elevated inflammatory markers and positive anti Ro in high titers. Comprehensive serology otherwise is unrevealing. 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 Patient was admitted at [facility] and received high-dose steroids for about 10 days, she had a PET scan 7 days into her admission on high dose steroids which was unrevealing, no signs of large vessel vasculitis. All her symptoms of generalized fatigue, shortness of breath, achiness, improved except for her neuropathy. 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 [place] [facility] [place] received pulse steroids 1 g X 3 days 04/07/2022 First dose of cyclophosphamide (0.75 g/m2) was 04/14/2022. Second dose was on 05/22/2022 and dose was increased to 1 g/m2 (due to normalization of kidney function and adequate WBC kaiden), 3rd dose was on 06/21/22 (0.75 g/m2) Cyclophosphamide was discontinued, patient completed 3 doses for induction and had developed hair loss. Her hair is growing back. Patient was switched to CellCept 07/13 Which was partially effective but patient could not tolerate 1500 mg Twice daily due to GI upset so she self discontinued it 6/23 IVIG was started 07/13 primarily for her neurological symptoms, patient received 3 monthly doses without improvement. After discussion with Dr. Forrest, the decision was made to switch her to rituximab infusions. She completed rituximab infusions in December 2022. She is doing quite well today. There is no synovitis or rashes on exam. General condition is improved with less fatigue. Her peripheral neuropathy symptoms remain unchanged. Her inflammatory markers are much improved. I believe patient should remain on Medrol 4 mg daily for the time being Will plan to do rituximab infusion 2 months from now. Can do it earlier if needed Labs before next visit in 2 months She has a follow-up appointment with Dr. 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 She is going to [place] towards the end of April for cataract surgery (3) On rituximab therapy: Code(s): Z79.620 - intermodal customer service (current) use of immunosuppressive biologic Plan: For PCP prophylaxis. Patient had hyperkalemia with Bactrim, hemolytic anemia with dapsone and significant GI upset with atovaquone Plan I spent 47 minutes reviewing patient's chart, evaluating patient, ordering diagnostic workup, counseling patient and documenting in the chart Orders: Orders Protein Creatinine Ratio, Ur 2 Months I77.6 - Arteritis, unspecified Complete Blood Count Auto Diff 2 Months I77.6 - Arteritis, unspecified C Reactive Protein 2 Months I77.6 - Arteritis, unspecified Comprehensive Met. 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
== END 2023-04-30 10:46 | disposition home or self-care (01) ==
PROVIDERS: PCP Nurse Practitioner Family; Visit Provider Student in an Organized Health Care Education/Training Program
DX: I77.6 Arteritis, unspecified (principal); L95.9 Vasculitis limited to the skin, unspecified; Z79.52 Long term (current) use of systemic steroids; Z79.620 Long term (current) use of immunosuppressive biologic
CPT/HCPCS: 99215

== ENCOUNTER → 2023-04-30 10:08 | Outpatient (BNVA) | payer MEDICARE, OTHER, SELFPAY | PROVIDERS: PCP Nurse Practitioner Family; Visit Provider Student in an Organized Health Care Education/Training Program | DX: I77.6 Arteritis, unspecified (principal); Z79.52 Long term (current) use of systemic steroids; Z79.620 Long term (current) use of immunosuppressive biologic | CPT/HCPCS: 99212 ==

== ENCOUNTER 2023-07-04 10:20 | Outpatient (REF) | payer MEDICARE, OTHER, SELFPAY ==
[2023-07-04 10:47] LABS: MANUAL DIFF FLAG NO
[2023-07-04 11:46] LABS: Appearance Urine Clear; Color Urine Yellow; Glucose Urine UA Negative (Negative); Leukocyte Esterase Urine Moderate (2+) (Negative); Nitrite Urine Negative (Negative); UMIC TRIGGER UA YES; Urine Blood Small (1+) (Negative); Urine Ketones Negative (Negative); Urine Protein Negative (Neg-Trace)
[2023-07-04 11:48] LABS: Basophils Percent Auto 0.4 % (0-2); Eosinophils Absolute Auto 0.4 X10*3/uL (0.0-0.4); Hematocrit 39.3 % (37.0-47.0); Hemoglobin 12.7 g/dl (12.0-16.0); Imm Gran Abs Auto 0.03 X10*3/uL (0.00-0.03); Imm Gran Pct Auto 0.4 % (0.0-0.4); Lymphocytes Absolute Auto 1.1 X10*3/uL (1.2-4.9); Lymphocytes Percent Auto 14.9 % (20-40); Mean Corpuscular HGB Conc 32.3 g/dl (31.0-35.0); Mean Corpuscular Hemoglobin 29.9 pg (27.0-33.0); Mean Corpuscular Volume 92.5 fL (80.0-98.0); Mean Platelet Volume 9.3 fL (9.4-12.3); Monocytes Absolute Auto 0.9 X10*3/uL (0.1-1.2); Neutrophils Absolute Auto 4.7 x10*3/uL (2.0-8.3); Neutrophils Percent Auto 65.3 % (45-73); Platelet Count 297 X10*3/uL (160-400); Red Blood Count 4.25 X10*6/uL (4.20-5.50); Red Cell Distribution Width 15.1 % (11.0-16.0); White Blood Count 7.2 X10*3/uL (4.8-10.8)
[2023-07-04 11:53] LABS: Bacteria Urine 3+ (None Seen); Hyaline Casts Urine 0-2 /LPF (0-2); WBC Urine 21-50 /HPF (0-5)
[2023-07-04 12:29] LABS: Erythrocyte Sedimentation Rate 26 MM/HR (0-20)
[2023-07-04 12:37] LABS: HBS Num1 0.58 mIU/mL (0-7.99); HBc Num1 0.05 S/CO (0.00-0.79); Hepatitis A Antibody IgM 0.34 Index (0-0.79); Hepatitis B Core Antibody Nonreactive (Nonreactive); Hepatitis B Surface Antigen Negative (Negative); ~HepC Num1 0.06 S/CO (0.00-0.79); ~Hepatitis A Antibody IgM Nonreactive (Nonreactive); ~Hepatitis B Surface Antibody NONREACTIVE (Nonreactive); ~Hepatitis C Antibody Nonreactive (Nonreactive)
[2023-07-04 12:50] LABS: Sodium 143 mmol/L (135-145)
[2023-07-04 12:51] LABS: Alanine Aminotransferase 18 U/L (0-31); Albumin Level 3.8 g/dL (3.5-5.0); Alkaline Phosphatase 83 U/L (39-117); Anion Gap 12 (12-20); Aspartate Amino Transferase 16 U/L (5-31); Bilirubin Total 0.7 mg/dL (0.0-1.0); Blood Urea Nitrogen 16 mg/dL (9-16); C Reactive Protein 1.34 mg/dL (< or = 0.50); Calcium 9.6 mg/dL (8.4-10.2); Carbon Dioxide 24 mmol/L (22-29); Chloride 111 mmol/L (96-108); Estimated Glomerular Filt Rate > 60; Glucose Random 117 mg/dL (60-115); Potassium 4.1 mmol/L (3.3-5.1); Total Protein 6.8 g/dL (6.5-8.0)
[2023-07-04 13:23] LABS: Creatinine Urine 80.01 mg/dL; Protein/Creatinine Ratio, Ur 0.11 (<0.2); Total Protein Urine Random 9 mg/dL (<12)
[2023-07-07 07:48] LABS: TS Negative Control Passed; TS Panel A 1; TS Panel B 1; TS Positive Control Passed; TSpotTB Negative (Negative)
== END 2023-07-04 10:21 | disposition home or self-care (01) ==
LOC: HO.LAB 10:20
PROVIDERS: PCP Nurse Practitioner Family; Visit Provider Student in an Organized Health Care Education/Training Program
DX: Z11.7 Encounter for testing for latent tuberculosis infection (principal); Z11.59 Encounter for screening for other viral diseases; I77.6 Arteritis, unspecified; Z72.89 Other problems related to lifestyle
CPT/HCPCS: 36415; 80053; 81001; 82570; 84156; 85025; 85652; 86140; 86481; 86704; 86706; 86709; 86803; 87340

== ENCOUNTER 2023-07-05 10:53 | Outpatient (AMB) | payer MEDICARE, OTHER, SELFPAY ==
[2023-07-05 10:58] VITALS: BP 142/76; PULSE 90; O2SAT 98; BMI 35.9
--- NOTE | 2023-07-05 10:58 | MHC.OFFVIS ---
Intake Vital Signs 07/05/23 10:58 Height 5 ft 4 in Weight 208 lb 15.971 oz BMI 35.9 BP 142/76 H Blood Pressure Location Rt brachial Position Sitting Pulse 90 Pulse Source Pulse Oximeter Pulse Oximetry (%) 98 Oxygen Delivery Method Room Air Intake Visit Reasons: Vasculitis/40 min plz Intake Note: Patient last seen 04/30/23 presents today for follow up and test results. Still has blurry vision Tier Lift Operator Required: No Accompanied by: Niece Allergies No Known Allergies Allergy (Verified 07/05/23 11:02) Medication List - Last Reconciled 07/05/23 by Ezio Carrlol MD alpha lipoic acid 600 mg PO DAILY amlodipine (Norvasc) 10 mg PO DAILY apixaban (Eliquis) 5 mg PO BID 30 days atorvastatin 40 mg PO DAILY blood pressure monitor (Blood Pressure Kit) Check and record BP at least 2 times weekly blood sugar diagnostic (FreeStyle Lite Strips) As directed TID blood-glucose meter (FreeStyle Lite Meter kit) As directed budesonide-formoterol 160-4.5 mcg/actuation (Symbicort) inhalation Q12H cholecalciferol (vitamin D3) (Maximum D3) 325 mcg PO QWEEK codeine-guaifenesin 10-100 mg/5 mL 10 mL PO Q6H PRN 10 days desloratadine 5 mg PO DAILY ergocalciferol (vitamin D2) 1,250 mcg PO CERDA fenofibrate 50 mg PO DAILY 30 days fluticasone propionate 110 mcg/actuation (Flovent HFA) 2 puffs inhalation BID 30 days gabapentin 1 cap qam 2 caps qhs lancets (OneTouch UltraSoft 2 Lancet) As directed TID lansoprazole 30 mg PO DAILY levalbuterol HCl (Xopenex) 1.25 mg (3 mL) inhalation Q6H PRN 30 days levalbuterol tartrate 45 mcg/actuation (Xopenex HFA) 2 puffs PO Q6H PRN 30 days methylprednisolone (Medrol) 4 mg PO DAILY metoprolol succinate ER 50 mg PO DAILY 30 days metoprolol succinate ER 25 mg PO DAILY miscellaneous medical supply 1 large BP cuff/monitor montelukast 10 mg PO DAILY mupirocin 2% 1 appl topical TID 7 days nebulizers As directed pantoprazole 40 mg PO BID rituximab-pvvr 1,000 mg (100 mL) IV Q14D sertraline 25 mg PO DAILY [Wrist splint Wear nightly and as much as possible throughout the day] HPI HPI Comments History of Present Illness Details 67-year-old female returns for management vasculitis. She states that she is doing fairly well overall. She self discontinued her Medrol 3 weeks ago. Has not had any skin rashes. She gets easy bruising. She did not get cataract surgery as planned as [place] had to [place] she gets some shortness of breath and cough with activity. Continues to have electric shock-like sensations in both legs. Worse on the right. She has noticed bilateral upper extremity numbness, she states that she used to have carpal tunnel syndrome in the past. Initial history:This is a 66-year-old female with a past medical history asthma, dyslipidemia, hypertension presents for evaluation of multiple complaints. Patient stated that more than 30 years ago she was diagnosed with an undefined autoimmune rheumatic disease and was given hydroxychloroquine for about 1-2 years which helped her symptoms of diffuse joint pain. Since then she has not been seen by a stallion manager. Patient stated she got COVID in October of this year and was sick at home with fever and body aches for about 10 days and did not need to go to the hospital. On December 02 she had bronchitis and Dr. Jean Baptiste prescribed her a prednisone course with some improvement. On December 21 she had diffuse body pain affecting all her body including neck shoulders and all her joints. December 22 she went to the emergency room in [place] with fevers, body aches, vomiting. she was prescribed Antivert and Pepcid and discharged home. However at home she continued to have vomiting and diffuse body pains, intermittent fevers. She was readmitted. Her lipase was elevated but her CT abdomen did not show pancreatic abnormalities. While hospitalized she also developed severe painful necrotizing skin lesions on her hands. Lesions were initially red then they became larger with pus, then they ruptured and be formed a black necrotic scabs. she was told this was vasculitis and she was treated with high doses of IV Solu-Medrol and antibiotics. It was suspected that she had Monkey Pox however she was tested after discharge for Monkey pox and testing was negative. She was readmitted two more times with the same symptoms of generalized weakness, body aches, fevers and migraines. [facility] Medical History Cataract Snoring Hx of migraines Prediabetes Muscle weakness Sjogren's disease Blood D-dimer assay positive Chest pain GERD (gastroesophageal reflux disease) Bronchitis Asthma AMY (obstructive sleep apnea) Surgical History Hx of colonoscopy Hx of cholecystectomy Hx of appendectomy S/P ankle joint replacement Family History Mother Alzheimer disease Other Family history of connective tissue disease Lupus Multiple sclerosis Rheumatoid arthritis Social History Household Members: Spouse Housing: House Alcohol intake: current Alcohol intake frequency: does not drink Patient Tobacco Use Status: Never used Tobacco e-Cigarette/Vaping Use: Never Used service: No Current occupational status: retired 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 Cognitive needs: No Hearing needs: No Vision needs: Yes Review of Systems Musc Reports arthralgias and Reports numbness Neuro Reports numbness, Reports Sensory deficit (Neuro) and Reports paresthesias Physical Exam Vital Signs: Last Vital Signs Pulse 90 07/05/23 10:58 BP 142/76 H 07/05/23 10:58 Pulse Ox 98 07/05/23 10:58 Oxygen Delivery Method Room Air 07/05/23 10:58 BMI result Body Mass Index 35.9 Const General: cooperative and comfortable Nutritional Appearance: obese Orientation/consciousness: patient oriented x3 Limitations: ambulation with cane HEENT Head: Yes normocephalic and Yes atraumatic Mouth: moist mucous membranes Resp Effort & Inspection: normal respiratory effort and able to speak in complete sentences Auscultation: clear to auscultation bilaterally Cardio Rhythm: abnormal rhythm irregularly irregular GI Inspection: No distended Palpation (GI): Soft to palpation and nontender Skin Other: Small circular rashes on forearms, likely superficial bruises in trauma areas Neuro General: patient oriented x3 Sensory Exam: Sensory deficit (Neuro) Extrem Other: bilateral upper and lower extremity proximal muscle strength 5/5 grossly bilaterally today. Sensory exam similar to last visit: abnormal peripheral sensation both lower extremities worse on the right, patient reports' electric shock-like sensation on palpation of her ankles and feet. patient can determine her toe position in both feet No wrist or foot drop bilaterally, normal dorsiflexion and plantar flexion both feet bilaterally Bilateral positive Tinel sign No MTP tenderness Results Reviewed Results Reviewed: Labs 02/09/2022? WBC 12.2? Hemoglobin 9.8? Platelet 504? Sed rate 116 Urinalysis all negative with no hematuria pyuria or proteinuria except for scanty calcium oxalate crystals CMPMR/MR humerus RT wo/w con IMPRESSION: 1. Inhomogeneous fat saturation in the axial sequences of bilateral shoulders limits evaluation. Evaluation is limited in the provided sequences. ? 2. In the right humerus, question increased T2 signal/edema in the anterior musculature of the humerus and the deltoid muscle and muscles of the shoulder girdle, as seen on the sagittal and coronal sequences. Correlation with the axial sequences is limited due to inhomogeneous fat saturation. These findings could represent myositis. ? 3. In the left humerus, question edema in the deltoid muscle and muscles of the shoulder girdle. Suboptimal axial imaging limits evaluation. This raises a possibility of myositis in this region. ? 4. Correlate with patient's blood work. Repeat/follow-up MRI for reassessment, with attention to technique and obtaining STIR sequences, as clinically warranted. Albumin 3.2 globulin normal Creatinine 1.02 AST/ALT normal? GFR 53 Labs on 09/2021? CRP 20.1 (0-0.5) Lipase to [address] CT head 12/2021 Impression no acute intracranial abnormality CT abdomen 01/2022? Findings the lungs bases are clear, without pleural effusion or consolidation.? The heart is normal in size without pericardial effusion.? Aorta normal in caliber.? Scattered atherosclerotic calcifications of the aorta.? Liver demonstrate diffuse fatty infiltration.? Spleen bilateral adrenal glands, pancreas and kidneys demonstrate normal contrast-enhanced CT appearance.? The opacified loops of bowel show no evidence of obstruction.? The appendix is not identified.? Sigmoid diverticulosis without acute diverticulitis.? No mesenteric inflammatory changes. Impression no acute abdominal pelvic inflammatory process Thyroid ultrasound 02/03/2022 Impression status post right hemithyroidectomy Left thyroid vascular heterogenous solid nodule getting TIRAD-3 larger than 2 point cm, FNA recommended IMPRESSION: 1. Slight lower lumbar levocurvature, minimally convex to the left at L3-L4. 2. Multilevel DDD and spondylosis, with multilevel disc bulging and disc herniations as described above superimposed on prominent dorsal fat pads with multilevel bilateral facet arthropathy and ligamentum flavum thickening. 3. Moderate multilevel central spinal canal stenosis at L4-L5, L3-L4 and L2-L3 with bilateral subarticular recess stenosis at L5-S1, L4-L5 and to a lesser degree at L3-L4 and L2-L3 as detailed above, moderate left and mild right-sided neural foraminal stenosis at L3-L4 with [id number] bilateral neural foraminal stenosis at L4-L5 and mild left-sided neural foraminal stenosis at L2-L3. 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 Patient has multiple manifestations that are consistent with small-vessel vasculitis including necrotizing skin lesions, deltoid muscle biopsy showing vasculitis, severe asymmetrical peripheral neuropathy (on EMG/NCS) of her lower extremities. CT chest showed findings suggestive of ILD/pneumonitis, however there is a chance this might be post COVID. Labs showed significantly elevated inflammatory markers and positive anti Ro in high titers. Comprehensive serology otherwise is unrevealing. 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 Patient was admitted at [facility] and received high-dose steroids for about 10 days, she had a PET scan 7 days into her admission on high dose steroids which was unrevealing, no signs of large vessel vasculitis. All her symptoms of generalized fatigue, shortness of breath, achiness, improved except for her neuropathy. 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 [place] [facility] [place] received pulse steroids 1 g X 3 days 04/07/2022 First dose of cyclophosphamide (0.75 g/m2) was 04/14/2022. Second dose was on 05/22/2022 and dose was increased to 1 g/m2 (due to normalization of kidney function and adequate WBC kaiden), 3rd dose was on 06/21/22 (0.75 g/m2) Cyclophosphamide was discontinued, patient completed 3 doses for induction and had developed hair loss. Her hair is growing back. Patient was switched to CellCept 07/13 Which was partially effective but patient could not tolerate 1500 mg Twice daily due to GI upset so she self discontinued it 10/13 IVIG was started 07/13 primarily for her neurological symptoms, patient received 3 monthly doses without improvement. After discussion with Dr. Forrest, the decision was made to switch her to rituximab infusions. She completed rituximab infusions in December 2022. She is doing quite well today. There is no synovitis or rashes on exam. General condition is improved with less fatigue. Her peripheral neuropathy symptoms remain unchanged. Today it is rather consistent with carpal tunnel syndrome. Her inflammatory markers are much improved. Patient self discontinued her Medrol 4 mg 3 weeks ago. Without worsening of symptoms She is due for another rituximab course. 1 g x 2 doses will be scheduled tomorrow. Will monitor patient off Medrol She has a follow-up appointment with Dr. 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 It was supposed to be done in [place], it was postponed and patient had returned to the [place] She will reschedule it (3) On rituximab therapy: Code(s): Z79.620 - terminal superintendent (current) use of immunosuppressive biologic Plan: For PCP prophylaxis. Patient had hyperkalemia with Bactrim, hemolytic anemia with dapsone and significant GI upset with atovaquone (4) Numbness and tingling of both upper extremities: Code(s): R20.0 - Anesthesia of skin; R20.2 - Paresthesia of skin Plan: Is more consistent today with carpal tunnel syndrome. Will check bilateral upper extremity EMG. Wrist splints ordered Plan I spent 47 minutes reviewing patient's chart, evaluating patient, ordering diagnostic workup, counseling patient and documenting in the chart Orders: Orders NE electromyogram (EMG) Today R20.0 - Anesthesia of skin, R20.2 - Paresthesia of skin C Reactive Protein 3 Months I77.6 - Arteritis, unspecified Erythrocyte Sedimentation Rate 3 Months I77.6 - Arteritis, unspecified Complete Blood Count Auto Diff 3 Months I77.6 - Arteritis, unspecified Comprehensive Met. 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
== END 2023-07-05 11:46 | disposition home or self-care (01) ==
PROVIDERS: PCP Nurse Practitioner Family; Visit Provider Student in an Organized Health Care Education/Training Program
DX: I77.6 Arteritis, unspecified (principal); Z79.52 Long term (current) use of systemic steroids; Z79.620 Long term (current) use of immunosuppressive biologic; R20.0 Anesthesia of skin; R20.2 Paresthesia of skin
CPT/HCPCS: 99215

== ENCOUNTER → 2023-07-05 10:53 | Outpatient (BNVA) | payer MEDICARE, OTHER, SELFPAY | PROVIDERS: PCP Nurse Practitioner Family; Visit Provider Student in an Organized Health Care Education/Training Program | DX: I77.6 Arteritis, unspecified (principal); R20.0 Anesthesia of skin; R20.2 Paresthesia of skin; Z79.52 Long term (current) use of systemic steroids; Z79.620 Long term (current) use of immunosuppressive biologic | CPT/HCPCS: 99212 ==

== ENCOUNTER 2023-07-12 13:33 | Outpatient (REF) | payer MEDICARE, OTHER, SELFPAY ==
--- NOTE | 2023-07-12 13:38 | EMG_ITS ---
Chief complaint: Bilateral hand numbness, left worse than right, mainly 1st to 3rd digits. Per Rheumatology note: History of small vessel vasculitis. Patient had multiple manifestations that are consistent with small-vessel vasculitis including necrotizing skin lesions, deltoid muscle biopsy showing vasculitis, severe asymmetrical peripheral neuropathy (on EMG/NCS) of her lower extremities. EMG of lower extremity done at outside facility, was not available for my review. Reason for referral: Evaluate for neuropathy Referred by: Dr. Carroll Procedure done: Bilateral upper extremities NCS/EMG Precautions and/or limitations: On Eliquis The limb temperature was monitored continuously and remained between 32-36 degrees C during the performance of the NCS. Nerve Conduction Studies Anti Sensory Summary Table ?Stim Site NR Onset (ms) Norm Onset (ms) Peak (ms) Norm Peak (ms) O-P Amp (?V) Norm O-P Amp Site1 Site2 Delta-0 (ms) Dist (cm) De (m/s) Norm De (m/s) Left Median Anti Sensory (2nd Digit) Wrist ? 3.1 4.0 <3.6 11.1 >10 Wrist 2nd Digit 3.1 14.0 45 Right Median Anti Sensory (2nd Digit) Wrist ? 3.0 3.6 <3.6 20.4 >10 Wrist 2nd Digit 3.0 14.0 47 Right Radial Anti Sensory (Thumb) Forearm ? 1.5 1.9 <3.1 25.3 Forearm Thumb 1.5 0.0 Left Ulnar Anti Sensory (5th Digit) Wrist ? 2.4 3.1 <3.7 19.8 >15.0 Wrist 5th Digit 2.4 14.0 58 Right Ulnar Anti Sensory (5th Digit) Wrist ? 1.2 3.0 <3.7 15.3 >15.0 Wrist 5th Digit 1.2 14.0 117 Motor Summary Table ?Stim Site NR Onset (ms) Norm Onset (ms) O-P Amp (mV) Norm O-P Amp iAmp (mV) Amp (1st) (%) Site1 Site2 Delta-0 (ms) Dist (cm) De (m/s) Norm De (m/s) Left Median Motor (Abd Poll Brev) Wrist ? 3.7 <3.9 6.5 >4.5 8.3 100.0 Elbow Wrist 4.2 22.0 52 >45 Elbow ? 7.9 6.5 8.1 100.0 Right Median Motor (Abd Poll Brev) Wrist ? 3.8 <3.9 8.4 >4.5 10.8 100.0 Elbow Wrist 3.8 21.0 55 >45 Elbow ? 7.6 7.5 9.6 89.3 Left Ulnar Motor (Abd Dig Minimi) Wrist ? 2.7 <3.0 5.4 >5 6.8 100.0 B Elbow Wrist 3.0 18.0 60 >45 B Elbow ? 5.7 5.9 7.4 109.3 A Elbow B Elbow 1.3 10.0 77 >45 A Elbow ? 7.0 6.3 7.8 116.7 Right Ulnar Motor (Abd Dig Minimi) Wrist ? 2.6 <3.0 9.7 >5 11.2 100.0 B Elbow Wrist 3.0 17.0 57 >45 B Elbow ? 5.6 7.9 9.4 81.4 A Elbow B Elbow 1.3 10.0 77 >45 A Elbow ? 6.9 8.6 10.3 88.7 Comparison Summary Table ?Stim Site NR Peak (ms) Norm Peak (ms) P-T Amp (?V) Site1 Site2 Delta-P (ms) Norm Delta (ms) Left Median/Radial Dig I Comparison (Digit 1 - 10cm) Median ? 3.5 <2.9 19.4 Median Radial 0.9 Radial ? 2.6 <2.8 16.3 EMG ?Side Muscle Nerve Root Ins Act Fibs Psw Amp Dur Poly Recrt Int Pat Comment Right 1stDorInt Ulnar C8-T1 Nml Nml Nml Nml Nml 0 Nml Complete Right FlexCarRad Median C6-7 Nml Nml Nml Nml Nml 0 Nml Complete Right Biceps Musculocut C5-6 Nml Nml Nml Nml Nml 0 Nml Complete Right Triceps Radial C6-7-8 Nml Nml Nml Nml Nml 0 Nml Complete Right Deltoid Axillary C5-6 Nml Nml Nml Nml Nml 0 Nml Complete Left 1stDorInt Ulnar C8-T1 Nml Nml Nml Nml Nml 0 Nml Complete Left FlexCarRad Median C6-7 Nml Nml Nml Nml Nml 0 Nml Complete Left Biceps Musculocut C5-6 Nml Nml Nml Nml Nml 0 Nml Complete Left Triceps Radial C6-7-8 Nml Nml Nml Nml Nml 0 Nml Complete Left Deltoid Axillary C5-6 Nml Nml Nml Nml Nml 0 Nml Complete FINDINGS: Left median sensory nerve showed prolonged peak latency. Significant interlatency difference between left median and radial sensory nerves. All other nerves tested were within normal. Concentric needle EMG was performed in selected muscles of the bilateral upper extremities. Study did not reveal signs of electric abnormalities as shown in the table below. IMPRESSION: 1. This is an abnormal study. 2. There is electrodiagnostic evidence for left mild median neuropathy at the wrist, consistent with carpal tunnel syndrome. 3. There is no electrodiagnostic evidence for ulnar neuropathy, brachial plexopathy, or cervical radiculopathy. 4. There is no electrodiagnostic evidence for right median neuropathy at the wrist. Thank you for your kind referral. Elva Mc MD, HARSHA Board Certified, [place] [employer] and [employer] (ABPMR) Board Certified, [place] [employer] Electro[employer]ostic [employer] (ABEM) CODIN [id number] x 2 MTDD
== END 2023-07-12 13:34 | disposition home or self-care (01) ==
LOC: HO.NEURO 13:33
PROVIDERS: PCP Nurse Practitioner Family; Visit Provider Student in an Organized Health Care Education/Training Program
DX: R20.0 Anesthesia of skin (principal); R20.2 Paresthesia of skin
CPT/HCPCS: 95886; 95911

== ENCOUNTER → 2023-07-12 13:38 | Outpatient (BNV) | payer MEDICARE, OTHER, SELFPAY | PROVIDERS: PCP Nurse Practitioner Family; Visit Provider Physical Medicine & Rehabilitation | DX: G56.03 Carpal tunnel syndrome, bilateral upper limbs (principal); G56.13 Other lesions of median nerve, bilateral upper limbs | CPT/HCPCS: 95886; 95911 ==

== ENCOUNTER 2023-07-18 07:43 | Outpatient (AMB) | payer MEDICARE, SELFPAY ==
--- NOTE | 2023-07-18 07:48 | A.OFFVIS_ITS ---
Intake Vital Signs 07/18/23 07:49 Height 5 ft 4 in Weight 209 lb BMI 35.9 BP 114/78 Blood Pressure Location Rt brachial Position Sitting Respiration 16 Pulse 100 Pulse Source Pulse Oximeter Pulse Oximetry (%) 94 Oxygen Delivery Method Room Air Intake Visit Reasons: follow up-CONF Intake Note: Pt presents for 6 month follow up for headaches. Mall Manager Required: No Allergies No Known Allergies Allergy (Verified 07/18/23 07:48) Medication List - Last Reconciled 07/18/23 by Farzana Clark MD amlodipine (Norvasc) 5 mg PO DAILY apixaban (Eliquis) 5 mg PO BID 30 days atorvastatin 40 mg PO DAILY blood pressure monitor (Blood Pressure Kit) Check and record BP at least 2 times weekly blood sugar diagnostic (FreeStyle Lite Strips) As directed TID blood-glucose meter (FreeStyle Lite Meter kit) As directed budesonide-formoterol 160-4.5 mcg/actuation (Symbicort) inhalation Q12H cholecalciferol (vitamin D3) (Maximum D3) 325 mcg PO QWEEK codeine-guaifenesin 10-100 mg/5 mL 10 mL PO Q6H PRN 10 days desloratadine 5 mg PO DAILY ergocalciferol (vitamin D2) 1,250 mcg PO CERDA fenofibrate 50 mg PO DAILY 30 days fluticasone propionate 110 mcg/actuation (Flovent HFA) 2 puffs inhalation BID 30 days gabapentin 1 cap qam 2 caps qhs lancets (OneTouch UltraSoft 2 Lancet) As directed TID lansoprazole 30 mg PO DAILY levalbuterol HCl (Xopenex) 1.25 mg (3 mL) inhalation Q6H PRN 30 days levalbuterol tartrate 45 mcg/actuation (Xopenex HFA) 2 puffs PO Q6H PRN 30 days metoprolol succinate ER 50 mg PO DAILY 30 days metoprolol succinate ER 25 mg PO DAILY miscellaneous medical supply 1 large BP cuff/monitor montelukast 10 mg PO DAILY nebulizers As directed pantoprazole 40 mg PO BID rituximab-pvvr 1,000 mg (100 mL) IV Q14D sertraline 25 mg PO DAILY [Wrist splint Wear nightly and as much as possible throughout the day] HPI HPI Comments History of Present Illness Details 67-year-old female presents for follow u p of headaches and migraines, neuropathy. Her migraines have decreased 0-1/month and manageable - 2 Tylenols( 1000mg) and sleeps. she also reports milder frontal headaches and she wakes up almost everyday with mild headache and can last 2 hrs without meds . when severe she takes 2 tylenol. she has 2 CPAPs - one here and one in [place].She is compliant and uses it regularly. she uses gabapentin for her neuropathic symptoms- 100mg qam - qnoon and 600mg qhs she had symptoms in her hands - her recent EMG showed left carpal tunnel- does not want to do surgery she uses a cane when she goes outside her house. No recent falls. She had fall in 2021. she follows up with for vasculitis and is on rituximab. She has history of hypertension, diabetes, hyperlipidemia, AFib, and vasculitis. She notes she has been taking fenofibrates as prescribed. [facility] Medical History Cataract Snoring Hx of migraines Prediabetes Muscle weakness Sjogren's disease Blood D-dimer assay positive Chest pain GERD (gastroesophageal reflux disease) Bronchitis Asthma AMY (obstructive sleep apnea) Surgical History Hx of colonoscopy Hx of cholecystectomy Hx of appendectomy S/P ankle joint replacement Family History Mother Alzheimer disease Other Family history of connective tissue disease Lupus Multiple sclerosis Rheumatoid arthritis Social History Household Members: Spouse Housing: House Alcohol intake: current Alcohol intake frequency: does not drink Patient Tobacco Use Status: Never used Tobacco e-Cigarette/Vaping Use: Never Used service: No Current occupational status: retired 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 Cognitive needs: No Hearing needs: No Vision needs: Yes Review of Systems Neuro Reports Sensory deficit (Neuro) Physical Exam Vital Signs: Last Vital Signs Pulse 100 07/18/23 07:49 Resp 16 07/18/23 07:49 BP 114/78 07/18/23 07:49 Pulse Ox 94 07/18/23 07:49 Oxygen Delivery Method Room Air 07/18/23 07:49 BMI result Body Mass Index 35.9 Const Other: She uses a cane but can walk without a cane - mildly off balance General: cooperative, comfortable and no acute distress Nutritional Appearance: obese Orientation/consciousness: patient oriented x3 HEENT Head: Yes normocephalic and Yes atraumatic Mouth: moist mucous membranes Neuro General: patient oriented x3 Sensory Exam: Sensory deficit (Neuro) Deep tendon reflexes (DTR's): Right triceps reflex intensity grade: 2+, Left triceps reflex intensity grade: 2+, Rt Biceps (C5, C6): 2+, Left biceps reflex intensity grade: 2+, Right brachioradialis reflex intensity grade: 2+, Left brachioradialis reflex intensity grade: 2+, Right patellar reflex intensity grade: 2+, Left patellar reflex intensity grade: 2+, Right ankle reflex intensity grade: 0 and Left ankle reflex intensity grade: 0 Coordination: [id number] test normal Extrem Other: bilateral upper and lower extremity proximal muscle strength 5/5 grossly mary aterally today. Sensory exam similar to last visit: abnormal peripheral sensation both lower extremities worse on the right, patient reports' electric shock-like sensation on palpation of her ankles and feet. 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 wrist splint for CTS. 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
[2023-07-18 07:49] VITALS: BP 114/78; PULSE 100; RESP 16; O2SAT 94; BMI 35.9
== END 2023-07-18 08:26 | disposition home or self-care (01) ==
PROVIDERS: PCP Nurse Practitioner Family; Visit Provider Psychiatry & Neurology Neurology
DX: G61.89 Other inflammatory polyneuropathies (principal); G58.7 Mononeuritis multiplex; I77.6 Arteritis, unspecified; R51.9 Headache, unspecified; G89.29 Other chronic pain; G47.33 Obstructive sleep apnea (adult) (pediatric)
CPT/HCPCS: 99215

== ENCOUNTER → 2023-07-18 07:43 | Outpatient (BNVA) | payer MEDICARE, OTHER, SELFPAY | PROVIDERS: PCP Nurse Practitioner Family; Visit Provider Psychiatry & Neurology Neurology | DX: G43.909 Migraine, unspecified, not intractable, without status migrainosus (principal); G47.33 Obstructive sleep apnea (adult) (pediatric); G61.89 Other inflammatory polyneuropathies; G62.9 Polyneuropathy, unspecified; G58.7 Mononeuritis multiplex; G89.29 Other chronic pain; I77.6 Arteritis, unspecified | CPT/HCPCS: 99212 ==

== ENCOUNTER 2023-10-03 10:12 | Outpatient (REF) | payer MEDICARE, OTHER, SELFPAY ==
[2023-10-03 10:36] LABS: MANUAL DIFF FLAG NO
[2023-10-03 11:04] LABS: Basophils Absolute Auto 0.1 X10*3/uL (0.0-0.2); Basophils Percent Auto 0.9 % (0-2); Eosinophils Absolute Auto 0.3 X10*3/uL (0.0-0.4); Eosinophils Percent Auto 4.1 % (0-4); Hematocrit 35.9 % (37.0-47.0); Hemoglobin 11.7 g/dl (12.0-16.0); Imm Gran Abs Auto 0.02 X10*3/uL (0.00-0.03); Imm Gran Pct Auto 0.3 % (0.0-0.4); Lymphocytes Absolute Auto 1.2 X10*3/uL (1.2-4.9); Lymphocytes Percent Auto 14.8 % (20-40); Mean Corpuscular HGB Conc 32.6 g/dl (31.0-35.0); Mean Corpuscular Hemoglobin 30.7 pg (27.0-33.0); Mean Corpuscular Volume 94.2 fL (80.0-98.0); Mean Platelet Volume 8.9 fL (9.4-12.3); Monocytes Percent Auto 12.6 % (2-11); Neutrophils Absolute Auto 5.3 x10*3/uL (2.0-8.3); Neutrophils Percent Auto 67.3 % (45-73); Platelet Count 307 X10*3/uL (160-400); Red Blood Count 3.81 X10*6/uL (4.20-5.50); Red Cell Distribution Width 13.4 % (11.0-16.0); White Blood Count 7.8 X10*3/uL (4.8-10.8)
[2023-10-03 11:25] LABS: Alanine Aminotransferase 16 U/L (0-31); Albumin Level 3.8 g/dL (3.5-5.0); Alkaline Phosphatase 87 U/L (39-117); Anion Gap 10 (12-20); Aspartate Amino Transferase 18 U/L (5-31); Bilirubin Total 0.5 mg/dL (0.0-1.0); Blood Urea Nitrogen 19 mg/dL (9-16); C Reactive Protein 0.52 mg/dL (< or = 0.50); Calcium 9.6 mg/dL (8.4-10.2); Carbon Dioxide 25 mmol/L (22-29); Chloride 110 mmol/L (96-108); Estimated Glomerular Filt Rate > 60; Glucose Random 90 mg/dL (60-115); Potassium 4.2 mmol/L (3.3-5.1); Sodium 141 mmol/L (135-145); Total Protein 6.6 g/dL (6.5-8.0)
[2023-10-03 11:50] LABS: Erythrocyte Sedimentation Rate 17 MM/HR (0-20)
== END 2023-10-03 10:13 | disposition home or self-care (01) ==
LOC: HO.LAB 10:12
PROVIDERS: Visit Provider Student in an Organized Health Care Education/Training Program
DX: I77.6 Arteritis, unspecified (principal)
CPT/HCPCS: 36415; 80053; 85025; 85652; 86140

== ENCOUNTER 2023-10-08 09:11 | Outpatient (AMB) | payer MEDICARE, OTHER, SELFPAY ==
[2023-10-08 09:30] VITALS: PULSE 86; O2SAT 98; BMI 35.9
--- NOTE | 2023-10-08 09:30 | A.OFFVIS_ITS ---
Vital Signs 10/08/23 09:30 Height 5 ft 4 in Weight 209 lb BMI 35.9 Pulse 86 Pulse Source Pulse Oximeter Pulse Oximetry (%) 98 Oxygen Delivery Method Room Air Intake Visit Reasons: cough: f/u [facility] Required: No Allergies No Known Allergies Allergy (Verified 10/08/23 11:00) HPI Comments Details: The patient is a 68-year-old woman with a known history of asthma and AMY. The patient has been complaining worsening shortness of breath and cough for the last several weeks. However, more recently he started developing a productive cough with yellow phlegm. She feels like the phlegm is difficult to expectorate. She had been in [place] for some time with her mother and while she was there her respiratory status was worse and ended up in the prednisone. Also, she ran out of her Trelegy inhaler and she was not able to refill it and she has been off it now for 2 months. Therefore she has been using her nebulizer therapy with albuterol and also her ProAir more regularly. The patient also struggling with her CPAP. She cannot tolerate the elevated pressures. She is also developing epistaxis with her nasal pillow mask. Patient is no longer getting supplies from her [employer] company. therefore, she is now consider inactive in not getting any supplies for many [employer] company. The patient needs to be set up again with a [employer] company in the only way to do that is to repeat her sleep study in order to demonstrating again that she has sleep apnea and therefore get active again. In the meantime she has not been tolerating the fractures. For that reason she has been having significant headaches in the morning and also complaining of daytime drowsiness with an elevated [place] score 14/24. Therefore, repeating the sleep study will be crucial in order for her to start her CPAP therapy again. The patient follow-up after her sleep study. In addition to that I will give her some antibiotics for the bronchitis that she is experiencing. 02/16/2022 the patient is here for a pulmonary follow-up visit. She was in [place] and was very sick. Initially developed a rash suggesting of vasculitis. although, initially was thought to be monkey pox. The patient during the hospitalization also was diagnosed with pancreatitis. She was given IV antibiotics and also given IV steroids. the patient also has been complaining of worsening cough productive in nature. The cough has continued. Today she was evaluated by Rheumatology. The patient has significant complaints on a constitutional review of systems. It is likely that she has a flare up of her connective tissue disease that is affecting multiple organ systems. She is currently on a small dose of methylprednisolone that is helping maintain the vasculitis flare up at [place]. Although she continues to very symptomatic. She is very short of breath. We did taken for 6 minute walk test. The patient did not desaturate but she was very weak. She took multiple rest even after 50 ft. She was using a walker. Her pulse ox was 98% throughout the ambulation. She also complains of pleuritic chest pain. We had her undergoing blood work. She just traveled from [place]. Her D-dimer is positive significantly elevated. Therefore in view of her risk for thromboembolic disease I will go ahead and order a CTA at this time. The patient has a full blood work panel order from Rheumatology. Will be awaiting the results of that in addition to awaiting the results of her CT scan. 03/02/2022 the patient is here for pulmonary follow-up visit. She continues to have multiple complaints. Does have some shortness of breath and cough. Her D- dimer had been elevated and she did undergo a CTA. I did review the CTA images with the patient. No evidence of any pulmonary emboli. However, she did have some areas of ground-glass and interstitial changes primarily at the bases. This consistent with pneumonitis. She may also have a component of atelectasis. She does have significant dry crackles specially on the right base consistent with her interstitial lung disease from her underlying connective tissue disease. She has been on Medrol but not been enough to maintain her symptoms under control or decreasing inflammatory changes of her lungs. We did review her other labs demonstrating a significantly elevated sedimentation rate an ESR. Her ANCA levels were negative. She does have underlying vasculitis appreciated on her skin. However, no biopsy was done at the time. She will be following up closely with Rheumatology. An extensive blood work panel has been requested. In the meantime will go ahead and start her on mycophenolate in order to treat her underlying interstitial lung disease appreciated on her CT scan. I am hopeful that she also gets relief from this inflammatory process. 05/26/2022 the patient is here for a pulmonary follow-up visit. The patient continues to have multiple complaints. She had been admitted to [facility] was turgor which she was evaluated by Rheumatology. Again, it is very clear that she has a diagnosis of vasculitis. Although clear connective tissue disease has not been identified. The patient therefore was referred back to her policy officer. She was started on cyclophosphamide and she is off the CellCept. She continues to have significant weakness and neuropathy like symptoms. Breathing appears to be okay at this time. Denies any significant shortness of breath or chest discomfort. The patient denies any productive mucus or wheezing. From a cardiac standpoint the patient did have an episodes of atrial fibrillation prior to receiving her cyclophosphamide infusion therefore she had been admitted to the hospital. She was placed on Eliquis and rate controlling agents. Now she is waiting for cardiology follow-up. 11/27/2022 the patient is here for a pulmonary follow-up visit. The patient had been doing well after the treatment with cyclophosphamide for the vasculitis but now appears to have been returning. She was switched over to will high doses of IVIG. Although she may have had an adverse reaction. She ultimately developed significant anemia requiring 2 units of blood. She is still monitoring closely her hemoglobin. She did follow-up with Hematology. The patient was placed on additional steroids based on the fact that her sedimentation rate is above 100. She continues to have shortness of breath. She denies any hemoptysis. Although her major complaint is that she is having significant visual loss. Therefore, will request the ophthalmology examination urgently to assess for any acute changes. Patient will receive Solu-Medrol today to help decrease any inflammatory changes. She is awaiting the approval for rituximab in order to start that. In the meantime she continues with her CPAP therapy and she continues with respiratory medicines. She did have a chest x-ray which I personally reviewed. No evidence of any ground-glass opacities or any acute changes. Her exam is reassuring without any significant crackles. 03/08/2023 the patient is here for a pulmonary follow-up visit. The patient is feeling much better since starting the rituximab. She has tolerated the therapy in this been very effective decreasing him from a shunt. Still having significant issues with her balance and strongly weakness likely due to the high-dose steroids and also having issues with cataracts all related to the steroids. The patient now was restarted on a small dose of prednisone since she still becomes symptomatic when she is completely off it. Therefore, now she is taking 4 mg and she is tolerating that well. She is using her respiratory therapy as prescribed which is reassuring. Denies any significant wheezing at this time. We did provide her a form for odilia based on the fact that she is having respiratory issues and now having physical limitations requiring a cane. She did have an issue with a bloody nose. We did talk about stopping the fluticasone. She does have an ulceration in the right turbinate. She will try Bactroban for few days. She can also try saline gel. She will increase that he needed a on her CPAP to make sure that that does not bother. In the CPAP therapy continues to be affecting beneficial. As long she is not having any bleeding from the nose she did use it. If her nose starts bleeding again specially on the Eliquis she may need to be seen by ENT or urgent care for cautery of that lesion on the right turbinate. 10/08/2023 the patient is here for a pulmonary follow-up visit. From a backs colitis standpoint the patient has been doing well. She did follow-up with Rheumatology in [place] and also Rheumatology here. She has been under rituximab. Although it is extremely expensive because she is only getting 80% covered and she has the other 20% which are thousands of dollars. She is trying to deal with that issue. In the meantime the patient has been having a cough. The cough tends to be persistent primarily in the morning and at nighttime. Typically nonproductive although she can not bring up some phlegm at times. Moderate severity. She has been using her respiratory therapy. The patient has a nebulizer here that is not working effectively. She needs a replacement. Also will request a CPT valve flutter valve to help her with her mucus clearance. The patient does have significant wheezing on examination. We did talk about taking a course of prednisone to help her with her asthma flare-up. She has already on the Trelegy inhaler. The patient also needs to get a function nebulizer. The patient does have immunodeficiency. She does have what appears to be chronic bronchitis. In view of her chronic bronchitis will be reasonable to start her on azithromycin 3 times a week to see if we can decrease her mucus burden decrease the inflammation of the airways. She was start the azithromycin get an EKG to make sure that her QTC is within normal range. [facility] Medical History Allergies Cataract Snoring Hx of migraines Prediabetes Muscle weakness Sjogren's disease Blood D-dimer assay positive Chest pain GERD (gastroesophageal reflux disease) Bronchitis Asthma AMY (obstructive sleep apnea) Surgical History Hx of colonoscopy Hx of cholecystectomy Hx of appendectomy S/P ankle joint replacement Family History Mother Alzheimer disease Other Family history of connective tissue disease Lupus Multiple sclerosis Rheumatoid arthritis Social History Household Members: Spouse Housing: House Alcohol intake: current Alcohol intake frequency: does not drink Patient Tobacco Use Status: Never used Tobacco e-Cigarette/Vaping Use: Never Used service: No Current occupational status: retired 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 Cognitive needs: No Hearing needs: No Vision needs: Yes Review of Systems Const Reports fatigue and Denies fever(s) Eyes Reports blurry vision ENT Denies epistaxis, Reports nasal congestion, Reports nasal discharge and Reports post nasal drip Card Reports dyspnea on exertion Resp Reports cough and Reports dyspnea on exertion GI Reports no additional complaints Musc Reports arthralgias, Reports joint swelling, Reports numbness and Reports stiffness Skin/Breast Denies rash Neuro Reports numbness, Reports Sensory deficit (Neuro) and Reports paresthesias Endo Reports fatigue Physical Exam Vital Signs: Last Vital Signs Pulse 86 10/08/23 09:30 Pulse Ox 98 10/08/23 09:30 Oxygen Delivery Method Room Air 10/08/23 09:30 BMI result Body Mass Index 35.9 Const General: comfortable and alert HEENT Head: Yes atraumatic and Yes other (alopecia) Neck Neck: Yes normal visual inspection, Yes full ROM and Yes no lymphadenopathy Chest Chest palpation & inspection: normal inspection of the chest Resp Effort & Inspection: Actively coughing Quality: actively coughing and prolonged expiratory phase Auscultation: no rales, wheezes and diminished lung sounds Cardio Rate: regular rate Rhythm: regular rhythm Heart sounds: S1 normal heart sound present and S2 normal heart sound present GI Palpation (GI): Soft to palpation and nontender Auscultation: normal bowel sounds Skin General skin exam: rashes and/or lesions noted Neuro Sensory Exam: Sensory deficit (Neuro) Results Reviewed Results Reviewed: personally reviewed CT chest with interstitial changes at the bases Assessment & Plan Assessment & Plan (1) ILD (interstitial lung disease): Code(s): J84.9 - Interstitial pulmonary disease, unspecified Category: Medical (2) AUDRA positive: Code(s): R76.8 - Other specified abnormal immunological findings in serum Category: Medical (3) Asthma: Code(s): J45.909 - Unspecified asthma, uncomplicated Category: Medical Qualifiers: Asthma complication type: uncomplicated Asthma persistence: persistent Asthma severity: moderate Qualified Code(s): J45.40 - Moderate persistent asthma, uncomplicated (4) GERD (gastroesophageal reflux disease): Code(s): K21.9 - Gastro-esophageal reflux disease without esophagitis Category: Medical Qualifiers: Esophagitis bleeding: without hemorrhage Esophagitis presence: with esophagitis Qualified Code(s): K21.00 - Gastro-esophageal reflux disease with esophagitis, without bleeding (5) AMY (obstructive sleep apnea): Code(s): G47.33 - Obstructive sleep apnea (adult) (pediatric) Category: Medical (6) Chronic allergic rhinitis: Code(s): J30.9 - Allergic rhinitis, unspecified Category: Medical (7) Vasculitis: Code(s): I77.6 - Arteritis, unspecified Category: Medical (8) Abnormal chest x-ray: Code(s): R93.89 - Abnormal findings on diagnostic imaging of other specified body structures Category: Medical (9) Allergies: Code(s): T78.40XA - Allergy, unspecified, initial encounter Category: Medical Qualifiers: Encounter type: initial encounter Qualified Code(s): T78.40XA - Allergy, unspecified, initial encounter Plan start prednisone taper start Azithromycin MWF Needs a nebulizer for Xopenex continue APAP 6-11 once cough is better Flovent (stopped the LABA due to the Afib) Xopenex as needed no Flovent due to epistaxis continue Astelin nasal spray saline gel as needed No rugs/hypoallergenic covers CXR, consider CT chest if abnormal Bloodwork follow-up in 3-4 months Orders: Orders XR chest 2V Today R93.89 - Abnormal findings on diagnostic imaging of other specified body structures Resp Allergy Profile Region I Today R91.1 - Solitary pulmonary nodule, T78.40XA - Allergy, unspecified, initial encounter Hypersensitive Pneumonitis Prf Today R91.8 - Other nonspecific abnormal finding of lung field, T78.40XA - Allergy, unspecified, initial encounter Immunoglobulin E Today T78.40XA - Allergy, unspecified, initial encounter Immunoglobulins,IgG IgA IgM Today T78.40XA - Allergy, unspecified, initial encounter Cyclic Citrullinated Peptide Today T78.40XA - Allergy, unspecified, initial encounter Basic Metabolic Panel Today T78.40XA - Allergy, unspecified, initial encounter Medications: New prednisone PO daily; 3 tabs x 5 days, then 2 tabs daily x 5 days, then 1 tab x 5 days to complete. 30 tabs 6RF 15 days azithromycin Take 1 tablet on Sunday/Sunday/Sunday 250 mg PO 3XW 12 tabs 6RF 28 days K21.9 - Gastro-esophageal reflux disease without esophagitis Changed From levalbuterol HCl (Xopenex) 1.25 mg (3 mL) inhalation Q6H 30 days PRN 360 mL 8RF shortness of breath or wheezing J44.9 - Chronic obstructive pulmonary disease, unspecified To levalbuterol HCl 1.25 mg (3 mL) inhalation Q6H 30 days PRN 360 mL 8RF shortness of breath or wheezing J44.9 - Chronic obstructive pulmonary disease, unspecified From levalbuterol HCl 1.25 mg (3 mL) inhalation Q6H 30 days PRN 360 mL 8RF shortness of breath or wheezing J44.9 - Chronic obstructive pulmonary disease, unspecified To levalbuterol HCl 1.25 mg (3 mL) inhalation Q6H 360 mL 8RF 30 days J44.9 - Chronic obstructive pulmonary disease, unspecified Coding Level of Care Code Est Pt Level 5 (83857) Diagnoses ILD (interstitial lung disease) J84.9 AUDRA positive R76.8 Moderate persistent asthma without complication J45.40 Asthma complication type: uncomplicated Asthma persistence: persistent Asthma severity: moderate Gastroesophageal reflux disease with esophagitis without hemorrhage K21.00 Esophagitis bleeding: without hemorrhage Esophagitis presence: with esophagitis AMY (obstructive sleep apnea) G47.33 Chronic allergic rhinitis J30.9 Vasculitis I77.6 Abnormal chest x-ray R93.89 Allergy, initial encounter T78.40XA Encounter type: initial encounter Time Spent (min) 35
== END 2023-10-08 10:01 | disposition home or self-care (01) ==
PROVIDERS: PCP Nurse Practitioner Family; Visit Provider Hospitalist
DX: J84.9 Interstitial pulmonary disease, unspecified (principal); J45.40 Moderate persistent asthma, uncomplicated; G47.33 Obstructive sleep apnea (adult) (pediatric); J30.9 Allergic rhinitis, unspecified; I77.6 Arteritis, unspecified; R93.89 Abnormal findings on diagnostic imaging of other specified body structures
CPT/HCPCS: 99215

== ENCOUNTER 2023-10-08 09:11 | Outpatient (REF) | payer MEDICARE, OTHER, SELFPAY ==
--- NOTE | ~2023-10-08 | XR_ITS ---
EXAMINATION: XR CHEST CLINICAL INFORMATION: Asthma COMPARISON: 11/20/2022 TECHNIQUE: 2 views of the chest were obtained. FINDINGS: No significant abnormality is noted involving the heart, lungs, mediastinum, bony thorax or soft tissues. XR/XR chest 2V IMPRESSION: Unremarkable examination, without interval change.
[2023-10-08 12:22] LABS: Anion Gap 12 (12-20); Blood Urea Nitrogen 17 mg/dL (9-16); Calcium 10.2 mg/dL (8.4-10.2); Carbon Dioxide 27 mmol/L (22-29); Chloride 107 mmol/L (96-108); Estimated Glomerular Filt Rate > 60; Glucose Random 81 mg/dL (60-115); Potassium 4.1 mmol/L (3.3-5.1); Sodium 142 mmol/L (135-145)
[2023-10-09 16:29] LABS: IgA 205 mg/dL (70-320); IgG 896 mg/dL (600-1540); IgM 11 mg/dL (50-300)
[2023-10-10 14:33] LABS: Cyclic Citrullinated Peptide <16 UNITS
[2023-10-10 23:04] LABS: Class Alternaria alternata 0; Class Aspergillus fumigatus 0; Class Bermuda Grass 0; Class Birch 0; Class Cat Dander 0; Class Cladosporium herbarum 0; Class Cockroach 0; Class Common Ragweed 0; Class Cottonwood 0; Class Derm. pterony 2; Class Dermatophagoides farinae 2; Class Dog Dander 0; Class Elm 0; Class Maple Box Elder 0; Class Mountain Cedar 0; Class Mouse Urine Protein 0; Class Mugwort 0/1; Class Oak 0; Class Penicillium crysogenum 0/1; Class Rough Pigweed 0; Class Sheep Sorrel 0; Class Sycamore 0; Class Timothy Grass 0; Class Walnut Tree 0; Class White Ash 0; Class White Mulberry 0; D001 IgE D pteronyssinus 1.71 kU/L; D002 - IgE D farinae 2.11 kU/L; E001 - IgE Cat Dander <0.10 kU/L; E005 - IgE Dog Dander <0.10 kU/L; E072-IgE Mouse Urine <0.10 kU/L; G002 IgE Bermuda Grass <0.10 kU/L; G006 - IgE Timothy Grass <0.10 kU/L; I006-IgE Cockroach, German <0.10 kU/L; Immunoglobulin E 141 kU/L (<OR=114); M001 IgE Penicillium chrysogen 0.12 kU/L; M002 - IgE Cladosporium herbar <0.10 kU/L; M003 - IgE Aspergillus fumigat <0.10 kU/L; M006 - IgE Alternaria alternat <0.10 kU/L; T001 IgE Maple/Box Elder <0.10 kU/L; T003 IgE Common Silver Birch <0.10 kU/L; T006 - IgE Cedar, Mountain <0.10 kU/L; T007 - IgE Oak, White <0.10 kU/L; T008 IgE Elm, American <0.10 kU/L; T010 - IgE Walnut <0.10 kU/L; T011 - IgE Maple Leaf Sycamore <0.10 kU/L; T014 - IgE Cottonwood <0.10 kU/L; T015 - IgE Ash, White <0.10 kU/L; T070 - IgE White Mulberry <0.10 kU/L; W001 - IgE Ragweed, Short <0.10 kU/L; W006 - IgE Mugwort 0.13 kU/L; W014 IgE Pigweed, Common <0.10 kU/L; W018 IgE Sheep Sorrel <0.10 kU/L
[2023-10-19 14:53] LABS: Asperg fumigatus Precip Abs NEGATIVE (NEGATIVE); Micropoly faeni Abs NEGATIVE (NEGATIVE); Pigeon serum Abs NEGATIVE (NEGATIVE); Saccharo pora viridis Abs NEGATIVE (NEGATIVE); Thermo candidus Abs NEGATIVE (NEGATIVE); Thermoa vulgaris #1 NEGATIVE (NEGATIVE)
== END 2023-10-08 09:12 | disposition home or self-care (01) ==
LOC: HO.XRAY 09:11
PROVIDERS: PCP Nurse Practitioner Family; Visit Provider Hospitalist
DX: R91.1 Solitary pulmonary nodule (principal); R91.8 Other nonspecific abnormal finding of lung field; R93.89 Abnormal findings on diagnostic imaging of other specified body structures; T78.40XA Allergy, unspecified, initial encounter; I77.6 Arteritis, unspecified; R20.0 Anesthesia of skin; R50.2 Drug induced fever; Z79.620 Long term (current) use of immunosuppressive biologic; Z79.52 Long term (current) use of systemic steroids; J84.9 Interstitial pulmonary disease, unspecified; R76.8 Other specified abnormal immunological findings in serum; J45.40 Moderate persistent asthma, uncomplicated; K21.00 Gastro-esophageal reflux disease with esophagitis, without bleeding; G47.33 Obstructive sleep apnea (adult) (pediatric); J30.9 Allergic rhinitis, unspecified
CPT/HCPCS: 36415; 71046; 80048; 82784; 82785; 86003; 86200; 86331; 86606; 86609; 99212

== ENCOUNTER 2023-10-08 10:55 | Outpatient (AMB) | payer MEDICARE, OTHER, SELFPAY ==
[2023-10-08 10:56] VITALS: BP 122/84; PULSE 82; O2SAT 96; BMI 35.6
--- NOTE | 2023-10-08 10:56 | A.OFFVIS_ITS ---
Vital Signs 10/08/23 10:56 Height 5 ft 4 in Weight 207 lb 3.752 oz BMI 35.6 BP 122/84 Blood Pressure Location Rt brachial Position Sitting Pulse 82 Pulse Source Pulse Oximeter Pulse Oximetry (%) 96 Oxygen Delivery Method Room Air Intake Visit Reasons: Vasculitis/40 minutes Intake Note: Patient last seen 07/05/23 presents today for follow up and test results. Allergies No Known Allergies Allergy (Verified 10/08/23 11:00) Medication List - Last Reconciled 10/08/23 by Ezio Carroll MD amlodipine (Norvasc) 5 mg PO DAILY apixaban (Eliquis) 5 mg PO BID 30 days atorvastatin 40 mg PO DAILY azelastine-fluticasone 137-50 mcg/spray 1 spray intranasal BID azithromycin 250 mg PO 3XW 28 days blood pressure monitor (Blood Pressure Kit) Check and record BP at least 2 times weekly blood sugar diagnostic (FreeStyle Lite Strips) As directed TID blood-glucose meter (FreeStyle Lite Meter kit) As directed budesonide-formoterol 160-4.5 mcg/actuation (Symbicort) inhalation Q12H cholecalciferol (vitamin D3) (Maximum D3) 325 mcg PO QWEEK codeine-guaifenesin 10-100 mg/5 mL 10 mL PO Q6H PRN 10 days desloratadine 5 mg PO DAILY ergocalciferol (vitamin D2) 1,250 mcg PO CERDA fluticasone propionate 110 mcg/actuation (Flovent HFA) 2 puffs inhalation BID 30 days gabapentin 1 cap qam 2 caps qhs gabapentin mg PO lancets (OneTouch UltraSoft 2 Lancet) As directed TID lansoprazole 30 mg PO DAILY levalbuterol HCl 1.25 mg (3 mL) inhalation Q6H 30 days levalbuterol tartrate 45 mcg/actuation (Xopenex HFA) 2 puffs PO Q6H PRN 30 days metoprolol succinate ER 50 mg PO .AM metoprolol succinate ER 25 mg PO .PM miscellaneous medical supply 1 large BP cuff/monitor montelukast 10 mg PO DAILY nebulizers As directed pantoprazole 40 mg PO BID prednisone PO daily; 3 tabs x 5 days, then 2 tabs daily x 5 days, then 1 tab x 5 days to complete. 15 days rituximab-pvvr 1,000 mg (100 mL) IV Q14D sertraline 25 mg PO DAILY [Wrist splint Wear nightly and as much as possible throughout the day] HPI Comments Details: 68-year-old female returns for management vasculitis. She states that she has been doing reasonably well overall. However over the last month she has been having more achiness in her arms, knees,. She developed a mildly itchy skin rash on her ankles and feet, as well as some swelling and pain in her feet and ankles. She was just evaluated by Dr. Jean Baptiste today and was told that she is likely having flare-up of allergic symptoms including asthma and sinusitis and was prescribed prednisone for 15 days. She prescribed alpha lipoic acid for her neuropathy by Dr. Clark, but was not able to find it at the pharmacy. Initial history:This is a 66-year-old female with a past medical history asthma, dyslipidemia, hypertension presents for evaluation of multiple complaints. Patient stated that more than 30 years ago she was diagnosed with an undefined autoimmune rheumatic disease and was given hydroxychloroquine for about 1-2 years which helped her symptoms of diffuse joint pain. Since then she has not b een seen by a perl software engineer. Patient stated she got COVID in October of this year and was sick at home with fever and body aches for about 10 days and did not need to go to the hospital. On December 02 she had bronchitis and Dr. Jean Baptiste prescribed her a prednisone course with some improvement. On December 21 she had diffuse body pain affecting all her body including neck shoulders and all her joints. December 22 she went to the emergency room in [place] with fevers, body aches, vomiting. she was prescribed Antivert and Pepcid and discharged home. However at home she continued to have vomiting and diffuse body pains, intermittent fevers. She was readmitted. Her lipase was elevated but her CT abdomen did not show pancreatic abnormalities. While hospitalized she also developed severe painful necrotizing skin lesions on her hands. Lesions were initially red then they became larger with pus, then they ruptured and be formed a black necrotic scabs. she was told this was vasculitis and she was treated with high doses of IV Solu-Medrol and antibiotics. It was suspected that she had Monkey Pox however she was tested after discharge for Monkey pox and testing was negative. She was readmitted two more times with the same symptoms of generalized weakness, body aches, fevers and migraines. [facility] Medical History Allergies Cataract Snoring Hx of migraines Prediabetes Muscle weakness Sjogren's disease Blood D-dimer assay positive Chest pain GERD (gastroesophageal reflux disease) Bronchitis Asthma AMY (obstructive sleep apnea) Surgical History Hx of colonoscopy Hx of cholecystectomy Hx of appendectomy S/P ankle joint replacement Family History Mother Alzheimer disease Other Family history of connective tissue disease Lupus Multiple sclerosis Rheumatoid arthritis Social History Household Members: Spouse Housing: House Alcohol intake: current Alcohol intake frequency: does not drink Patient Tobacco Use Status: Never used Tobacco e-Cigarette/Vaping Use: Never Used service: No Current occupational status: retired 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 Cognitive needs: No Hearing needs: No Vision needs: Yes Female Reproductive History Menstrual Total pregnancies: 0 Review of Systems Musc Reports arthralgias Skin/Breast Reports rash Neuro Reports Sensory deficit (Neuro) Physical Exam Vital Signs: Last Vital Signs Pulse 82 10/08/23 10:56 BP 122/84 10/08/23 10:56 Pulse Ox 96 10/08/23 10:56 Oxygen Delivery Method Room Air 10/08/23 10:56 BMI result Body Mass Index 35.6 Const General: cooperative and comfortable Nutritional Appearance: obese Orientation/consciousness: patient oriented x3 Limitations: ambulation with cane HEENT Head: Yes normocephalic and Yes atraumatic Mouth: moist mucous membranes Resp Other: Patient coughs with deep breaths Effort & Inspection: normal respiratory effort and able to speak in complete sentences Auscultation: diminished lung sounds bilateral in the lower lung toney Cardio Rhythm: abnormal rhythm irregularly irregular GI Inspection: No distended Palpation (GI): Soft to palpation and nontender Skin Other: Small erythematous rashes on lowest aspect of both feet Neuro General: patient oriented x3 Sensory Exam: Sensory deficit (Neuro) Extrem Other: bilateral upper and lower extremity proximal muscle strength 5/5 grossly bilaterally today. Proximal muscle strength 5/5 all 4 extremities Bilateral ankle and feet swelling, edema Bilateral ankle swelling, warmth and tenderness Likely a combination of synovitis and edema Results Reviewed Results Reviewed: Labs 02/09/2022? WBC 12.2? Hemoglobin 9.8? Platelet 504? Sed rate 116 Urinalysis all negative with no hematuria pyuria or proteinuria except for scanty calcium oxalate crystals CMPMR/MR humerus RT wo/w con IMPRESSION: 1. Inhomogeneous fat saturation in the axial sequences of bilateral shoulders limits evaluation. Evaluation is limited in the provided sequences. ? 2. In the right humerus, question increased T2 signal/edema in the anterior musculature of the humerus and the deltoid muscle and muscles of the shoulder girdle, as seen on the sagittal and coronal sequences. Correlation with the axial sequences is limited due to inhomogeneous fat saturation. These findings could represent myositis. ? 3. In the left humerus, question edema in the deltoid muscle and muscles of the shoulder girdle. Suboptimal axial imaging limits evaluation. This raises a possibility of myositis in this region. ? 4. Correlate with patient's blood work. Repeat/follow-up MRI for reassessment, with attention to technique and obtaining STIR sequences, as clinically warranted. Albumin 3.2 globulin normal Creatinine 1.02 AST/ALT normal? GFR 53 Labs on 09/2021? CRP 20.1 (0-0.5) Lipase to [address] CT head 12/2021 Impression no acute intracranial abnormality CT abdomen 01/2022? Findings the lungs bases are clear, without pleural effusion or consolidation.? The heart is normal in size without pericardial effusion.? Aorta normal in caliber.? Scattered atherosclerotic calcifications of the aorta.? Liver demonstrate diffuse fatty infiltration.? Spleen bilateral adrenal glands, pancreas and kidneys demonstrate normal contrast-enhanced CT appearance.? The opacified loops of bowel show no evidence of obstruction.? The appendix is not identified.? Sigmoid diverticulosis without acute diverticulitis.? No mesenteric inflammatory changes. Impression no acute abdominal pelvic inflammatory process Thyroid ultrasound 02/03/2022 Impression status post right hemithyroidectomy Left thyroid vascular heterogenous solid nodule getting TIRAD-3 larger than 2 point cm, FNA recommended IMPRESSION: 1. Slight lower lumbar levocurvature, minimally convex to the left at L3-L4. 2. Multilevel DDD and spondylosis, with multilevel disc bulging and disc herniations as described above superimposed on prominent dorsal fat pads with multilevel bilateral facet arthropathy and ligamentum flavum thickening. 3. Moderate multilevel central spinal canal stenosis at L4-L5, L3-L4 and L2-L3 with bilateral subarticular recess stenosis at L5-S1, L4-L5 and to a lesser degree at L3-L4 and L2-L3 as detailed above, moderate left and mild right-sided neural foraminal stenosis at L3-L4 with [id number] bilateral neural foraminal stenosis at L4-L5 and mild left-sided neural foraminal stenosis at L2-L3. 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 Patient has multiple manifestations that are consistent with small-vessel vasculitis including necrotizing skin lesions, deltoid muscle biopsy showing vasculitis, severe asymmetrical peripheral neuropathy (on EMG/NCS) of her lower extremities. CT chest showed findings suggestive of ILD/pneumonitis, however there is a chance this might be post COVID. Labs showed significantly elevated inflammatory markers and positive anti Ro in high titers. Comprehensive serology otherwise is unrevealing. 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 Patient was admitted at [facility] and received high-dose steroids for about 10 days, she had a PET scan 7 days into her admission on high dose steroids which was unrevealing, no signs of large vessel vasculitis. All her symptoms of generalized fatigue, shortness of breath, achiness, improved except for her neuropathy. 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 Patient was [place] [facility] and received pulse steroids 1 g X 3 days 04/07/2022 First dose of cyclophosphamide (0.75 g/m2) was 04/14/2022. Second dose was on 05/22/2022 and dose was increased to 1 g/m2 (due to normalization of kidney function and adequate WBC kaiden), 3rd dose was on 06/21/22 (0.75 g/m2) Cyclophosphamide was discontinued, patient completed 3 doses for induction and had developed hair loss. Her hair is growing back. Patient was switched to CellCept 07/13 Which was partially effective but patient could not tolerate 1500 mg Twice daily due to GI upset so she self discontinued it 10/13 IVIG was started 07/13 primarily for her neurological symptoms, patient received 3 monthly doses without improvement. After discussion with Dr. Forrest, the decision was made to switch her to rituximab infusions. She completed rituximab infusions 1g X2 doses in 12/2022 & 06/2022 On exam, patient is doing quite well overall. Laboratory markers normal, however over the last few weeks she has been having more achiness in her shoulders, today she has mild bilateral ankle synovitis and few rashes. She was evaluated by Dr. Jean Baptiste today and started on a prednisone taper for 15 days for asthma/sinusitis/allergic symptoms. This should take care of her mild inflammatory arthritis flare Patient had recent follow-up appointment with Dr. Forrest. 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 Jean Baptiste. She will be on it for 15 days. If patient requires long-term steroids, we will consider alendronate DEXA 2022 essentially showed a normal bone density Per patient she has developed cataracts and surgery was planned. It was supposed to be done in [place], it was postponed and patient had returned to the [place] She will reschedule it (3) On rituximab therapy: Code(s): Z79.620 - [facility] (current) use of immunosuppressive biologic Category: Medical Plan: For PCP prophylaxis. Patient had hyperkalemia with Bactrim, hemolytic anemia with dapsone and significant GI upset with atovaquone (4) Numbness and tingling of both upper extremities: Code(s): R20.0 - Anesthesia of skin; R20.2 - Paresthesia of skin Category: Medical Plan: carpal tunnel syndrome symptoms improved with wrist splint. On gabapentin for her peripheral neuropathy. Alpha lipoic acid was prescribed by neurologist but it was not available at the pharmacy. I represcribed it today Plan I spent 47 minutes reviewing patient's chart, evaluating patient, ordering diagnostic workup, counseling patient and documenting in the chart Orders: Orders Comprehensive Met. 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
== END 2023-10-08 11:36 | disposition home or self-care (01) ==
PROVIDERS: PCP Nurse Practitioner Family; Visit Provider Student in an Organized Health Care Education/Training Program
DX: I77.6 Arteritis, unspecified (principal); Z79.52 Long term (current) use of systemic steroids; Z79.620 Long term (current) use of immunosuppressive biologic; R20.0 Anesthesia of skin; R20.2 Paresthesia of skin
CPT/HCPCS: 99215; G2211

== ENCOUNTER 2023-10-09 09:13 | Outpatient (AMB) | payer MEDICARE, OTHER, SELFPAY ==
[2023-10-09 10:20] VITALS: BP 120/80; PULSE 72
--- NOTE | 2023-10-09 10:20 | A.OFFVIS_ITS ---
Vital Signs 10/09/23 10:20 Height 5 ft 4 in Weight 8 lb 6.041 oz BMI 1.4 BP 120/80 Blood Pressure Location Lt brachial Position Sitting Pulse 72 Intake Visit Reasons: 1 yr f/up Juice Standardizer Required: No Accompanied by: Self / Same As Patient Allergies No Known Allergies Allergy (Verified 10/08/23 11:00) Medication List - Last Reconciled 10/09/23 by Santos Arreola MD alpha lipoic acid 600 mg PO DAILY amlodipine (Norvasc) 5 mg PO DAILY apixaban (Eliquis) 5 mg PO BID 30 days atorvastatin 40 mg PO DAILY azelastine-fluticasone 137-50 mcg/spray 1 spray intranasal BID azithromycin 250 mg PO 3XW 28 days blood pressure monitor (Blood Pressure Kit) Check and record BP at least 2 times weekly blood sugar diagnostic (FreeStyle Lite Strips) As directed TID blood-glucose meter (FreeStyle Lite Meter kit) As directed budesonide-formoterol 160-4.5 mcg/actuation (Symbicort) inhalation Q12H cholecalciferol (vitamin D3) (Maximum D3) 325 mcg PO QWEEK codeine-guaifenesin 10-100 mg/5 mL 10 mL PO Q6H PRN 10 days desloratadine 5 mg PO DAILY ergocalciferol (vitamin D2) 1,250 mcg PO CERDA fluticasone propionate 110 mcg/actuation (Flovent HFA) 2 puffs inhalation BID 30 days gabapentin 1 cap qam 2 caps qhs gabapentin mg PO lancets (OneTouch UltraSoft 2 Lancet) As directed TID lansoprazole 30 mg PO DAILY levalbuterol HCl 1.25 mg (3 mL) inhalation Q6H 30 days levalbuterol tartrate 45 mcg/actuation (Xopenex HFA) 2 puffs PO Q6H PRN 30 days metoprolol succinate ER 50 mg PO .AM metoprolol succinate ER 25 mg PO .PM miscellaneous medical supply 1 large BP cuff/monitor montelukast 10 mg PO DAILY nebulizers As directed pantoprazole 40 mg PO BID prednisone PO daily; 3 tabs x 5 days, then 2 tabs daily x 5 days, then 1 tab x 5 days to complete. 15 days rituximab-pvvr 1,000 mg (100 mL) IV Q14D sertraline 25 mg PO DAILY [Wrist splint Wear nightly and as much as possible throughout the day] HPI Comments Details: Lisette returns for follow-up regarding atrial fibrillation. Maintained on rate control only. No specific symptoms from atrial fibrillation itself. She does not feel much palpitations. Remains on beta-blockers, Eliquis. She also has some autoimmune disease for which she is on immunosuppressants and steroids. Overall, no new cardiac issues since last seen. [facility] Medical History (Updated 10/09/23 @ 10:25 by Macey Ascencio CMA) Allergies Cataract Snoring Hx of migraines Prediabetes Muscle weakness Sjogren's disease Blood D-dimer assay positive Chest pain GERD (gastroesophageal reflux disease) Bronchitis Asthma AMY (obstructive sleep apnea) Surgical History Hx of colonoscopy Hx of cholecystectomy Hx of appendectomy S/P ankle joint replacement Family History Mother Alzheimer disease Other Family history of connective tissue disease Lupus Multiple sclerosis Rheumatoid arthritis Social History Household Members: Spouse Housing: House Alcohol intake: current Alcohol intake frequency: does not drink Patient Tobacco Use Status: Never used Tobacco e-Cigarette/Vaping Use: Never Used service: No Current occupational status: retired 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 Cognitive needs: No Hearing needs: No Vision needs: Yes Review of Systems Const Denies chills, Denies fatigue, Denies fever(s), Denies frequent falls, Denies weakness, Denies weight gain and Denies weight loss ENT Denies dizziness Card Denies chest pain, Denies leg edema, Denies lightheadedness, Denies palpitations, Denies dyspnea and Denies dyspnea on exertion Resp Denies cough, Denies dyspnea and Denies dyspnea on exertion GI Denies hematochezia Musc Denies abnormal gait, Denies muscle weakness, Denies numbness, Denies radiating pain into limb and Denies tingling Neuro Denies abnormal gait, Denies dizziness, Denies frequent falls, Denies numbness, Denies tingling and Denies weakness Endo Denies fatigue and Denies palpitations Physical Exam Vital Signs: Last Vital Signs Pulse 72 10/09/23 10:20 BP 120/80 10/09/23 10:20 BMI result Body Mass Index 1.4 Const General: comfortable and no acute distress Orientation/consciousness: patient oriented x3 HEENT Other: Unremarkable Head: Yes normal to inspection Neck Neck: Yes normal visual inspection Chest Chest palpation & inspection: normal inspection of the chest Resp Auscultation: clear to auscultation bilaterally Cardio Palpation: normal PMI Heart sounds: S1 normal heart sound present, S2 normal heart sound present, no gallops, no murmurs and no rubs GI Palpation (GI): Soft to palpation Back/Spine/Pelvis Other: unremarkable Skin General skin exam: no rashes or lesions noted Neuro General: patient oriented x3 Extrem General: Yes normal to inspection Psych Mental Status: mental status grossly normal Office Procedures EKG Details: EKG with atrial fibrillation at 72/Min. [id number], Complete Assessment & Plan Assessment & Plan (1) Persistent atrial fibrillation: Code(s): I48.19 - Other persistent atrial fibrillation Category: Medical Plan Echocardiogram 2021 shows LVEF of 62%. Possible rheumatic mitral appearance, but no valvular dysfunction. Holter 2022 shows underlying atrial fibrillation average rate of 78/Min. Rate control thought to be adequate. Overall, she has numerous comorbidities, mainly vasculitis, ILD for which she is on immunosuppression. In the absence of any clear-cut symptoms and with preserved cardiac function, may continue rate control with beta-blockers. In the past, she was on digoxin but not anymore. Continue anticoagulation. Follow-up 1 year. Coding Level of Care Code Est Pt Level 3 (35926) Diagnoses Persistent atrial fibrillation I48.19 CPT Codes EKG - CPT: 37572-[id number], Complete ([id number])
== END 2023-10-09 10:45 | disposition home or self-care (01) ==
PROVIDERS: PCP Nurse Practitioner Family; Visit Provider Internal Medicine
DX: I48.19 Other persistent atrial fibrillation (principal)
CPT/HCPCS: 93010; 99213

== ENCOUNTER → 2023-10-09 09:13 | Outpatient (BNVA) | payer MEDICARE, OTHER, SELFPAY | PROVIDERS: PCP Nurse Practitioner Family; Visit Provider Internal Medicine | DX: I48.19 Other persistent atrial fibrillation (principal); Z79.01 Long term (current) use of anticoagulants | CPT/HCPCS: 93005; 99212 ==

== ENCOUNTER 2024-02-04 09:21 | Outpatient (REF) | payer MEDICARE, OTHER, SELFPAY ==
[2024-02-04 09:35] LABS: MANUAL DIFF FLAG NO
[2024-02-04 10:13] LABS: Basophils Percent Auto 0.3 % (0-2); Eosinophils Percent Auto 0.1 % (0-4); Hematocrit 38.3 % (37.0-47.0); Hemoglobin 12.7 g/dl (12.0-16.0); Imm Gran Abs Auto 0.06 X10*3/uL (0.00-0.03); Imm Gran Pct Auto 0.5 % (0.0-0.4); Lymphocytes Absolute Auto 0.8 X10*3/uL (1.2-4.9); Lymphocytes Percent Auto 6.6 % (20-40); Mean Corpuscular HGB Conc 33.2 g/dl (31.0-35.0); Mean Corpuscular Hemoglobin 30.9 pg (27.0-33.0); Mean Corpuscular Volume 93.2 fL (80.0-98.0); Mean Platelet Volume 9.1 fL (9.4-12.3); Monocytes Absolute Auto 0.5 X10*3/uL (0.1-1.2); Monocytes Percent Auto 4.1 % (2-11); Neutrophils Absolute Auto 10.2 x10*3/uL (2.0-8.3); Neutrophils Percent Auto 88.4 % (45-73); Platelet Count 348 X10*3/uL (160-400); Red Blood Count 4.11 X10*6/uL (4.20-5.50); Red Cell Distribution Width 13.9 % (11.0-16.0); White Blood Count 11.6 X10*3/uL (4.8-10.8)
[2024-02-04 10:42] LABS: Alanine Aminotransferase 25 U/L (0-31); Albumin Level 4.2 g/dL (3.5-5.0); Alkaline Phosphatase 110 U/L (39-117); Anion Gap 12 (12-20); Aspartate Amino Transferase 15 U/L (5-31); Bilirubin Total 0.6 mg/dL (0.0-1.0); Blood Urea Nitrogen 17 mg/dL (9-16); C Reactive Protein 0.25 mg/dL (< or = 0.50); Calcium 9.5 mg/dL (8.4-10.2); Carbon Dioxide 24 mmol/L (22-29); Chloride 108 mmol/L (96-108); Estimated Glomerular Filt Rate > 60; Glucose Random 186 mg/dL (60-115); Potassium 4.4 mmol/L (3.3-5.1); Sodium 140 mmol/L (135-145); Total Protein 7.1 g/dL (6.5-8.0)
[2024-02-04 11:31] LABS: Erythrocyte Sedimentation Rate 9 MM/HR (0-20)
[2024-02-05 22:03] LABS: Immunoglobulin E 150 kU/L (<OR=114)
== END 2024-02-04 09:22 | disposition home or self-care (01) ==
LOC: HO.LAB 09:21
PROVIDERS: Absent Provider Hospitalist; PCP Nurse Practitioner Family; Visit Provider Student in an Organized Health Care Education/Training Program
DX: T78.40XA Allergy, unspecified, initial encounter (principal); I77.6 Arteritis, unspecified; X58.XXXA Exposure to other specified factors, initial encounter; Y93.9 Activity, unspecified; Y92.9 Unspecified place or not applicable; Y99.9 Unspecified external cause status
CPT/HCPCS: 36415; 80053; 82785; 85025; 85652; 86140

== ENCOUNTER 2024-02-05 14:22 | Outpatient (AMB) | payer MEDICARE, OTHER, SELFPAY ==
--- NOTE | 2024-02-05 14:27 | A.OFFVIS_ITS ---
Vital Signs 02/05/24 14:32 Height 5 ft 4 in Weight 206 lb 5.643 oz BMI 35.4 BP 115/72 Blood Pressure Location Lt brachial Position Sitting Pulse 72 Pulse Source Pulse Oximeter Pulse Oximetry (%) 98 Oxygen Delivery Method Room Air Intake Visit Reasons: Vasculitis Intake Note: Patient presents for Vasculitis. Allergies No Known Allergies Allergy (Verified 02/05/24 14:31) Medication List - Last Reconciled 02/05/24 by zEio Carroll MD alpha lipoic acid 600 mg PO DAILY amlodipine (Norvasc) 5 mg PO DAILY apixaban (Eliquis) 5 mg PO BID 30 days atorvastatin 40 mg PO DAILY azelastine-fluticasone 137-50 mcg/spray 1 spray intranasal BID azithromycin 250 mg PO 3XW 28 days blood pressure monitor (Blood Pressure Kit) Check and record BP at least 2 times weekly blood sugar diagnostic (FreeStyle Lite Strips) As directed TID blood-glucose meter (FreeStyle Lite Meter kit) As directed budesonide-formoterol 160-4.5 mcg/actuation (Symbicort) inhalation Q12H cholecalciferol (vitamin D3) (Maximum D3) 325 mcg PO QWEEK codeine-guaifenesin 10-100 mg/5 mL 10 mL PO Q6H PRN 10 days desloratadine 5 mg PO DAILY ergocalciferol (vitamin D2) 1,250 mcg PO CERDA fluticasone propionate 110 mcg/actuation (Flovent HFA) 2 puffs inhalation BID 30 days gabapentin 1 cap qam 2 caps qhs gabapentin mg PO lancets (OneTouch UltraSoft 2 Lancet) As directed TID lansoprazole 30 mg PO DAILY levalbuterol HCl 1.25 mg (3 mL) inhalation Q6H 30 days levalbuterol tartrate 45 mcg/actuation (Xopenex HFA) 2 puffs PO Q6H PRN 30 days metoprolol succinate ER 50 mg PO .AM metoprolol succinate ER 25 mg PO .PM miscellaneous medical supply 1 large BP cuff/monitor montelukast 10 mg PO DAILY nebulizers As directed pantoprazole 40 mg PO BID prednisone PO daily; 3 tabs x 5 days, then 2 tabs daily x 5 days, then 1 tab x 5 days to complete. 15 days rituximab-pvvr 1,000 mg (100 mL) IV Q14D sertraline 25 mg PO DAILY [Wrist splint Wear nightly and as much as possible throughout the day] HPI Comments Details: 68-year-old female returns for management vasculitis. She states that she has been doing reasonably well overall. She has been having asthma symptoms recently but they have improved using the inhalers prescribed by Dr. Jean Baptiste. She has had a few mild upper respiratory tract infections. Has not had any significant joint pains, skin rashes. Initial history:This is a 66-year-old female with a past medical history asthma, dyslipidemia, hypertension presents for evaluation of multiple complaints. Patient stated that more than 30 years ago she was diagnosed with an undefined autoimmune rheumatic disease and was given hydroxychloroquine for about 1-2 years which helped her symptoms of diffuse joint pain. Since then she has not been seen by a manufacturing production manager. Patient stated she got COVID in October of this year and was sick at home with fever and body aches for about 10 days and did not need to go to the hospital. On December 02 she had bronchitis and Dr. Jean Baptiste prescribed her a prednisone course with some improvement. On December 21 she had diffuse body pain affecting all her body including neck shoulders and all her joints. December 22 she went to the emergency room in [place] with fevers, body aches, vomiting. she was prescribed Antivert and Pepcid and discharged home. However at home she continued to have vomiting and diffuse body pains, intermittent fevers. She was readmitted. Her lipase was elevated but her CT abdomen did not show pancreatic abnormalities. While hospitalized she also developed severe painful necrotizing skin lesions on her hands. Lesions were initially red then they became larger with pus, then they ruptured and be formed a black necrotic scabs. she was told this was vasculitis and she was treated with high doses of IV Solu-Medrol and antibiotics. It was suspected that she had Monkey Pox however she was tested after discharge for Monkey pox and testing was negative. She was readmitted two more times with the same symptoms of generalized weakness, body aches, fevers and migraines. [facility] Medical History (Updated 02/05/24 @ 15:00 by Ezio Carroll MD) Allergies Cataract Snoring Hx of migraines Prediabetes Muscle weakness Sjogren's disease Blood D-dimer assay positive Chest pain GERD (gastroesophageal reflux disease) Bronchitis Asthma AMY (obstructive sleep apnea) Surgical History History of cataract surgery Hx of colonoscopy Hx of cholecystectomy Hx of appendectomy S/P ankle joint replacement Family History Mother Alzheimer disease Other Family history of connective tissue disease Lupus Multiple sclerosis Rheumatoid arthritis Social History Household Members: Spouse Housing: House Alcohol intake: current Alcohol intake frequency: does not drink Patient Tobacco Use Status: Never used Tobacco e-Cigarette/Vaping Use: Never Used service: No Current occupational status: retired 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 Cognitive needs: No Hearing needs: No Vision needs: Yes Review of Systems Resp Reports cough Musc Reports back pain, Denies joint swelling and Denies stiffness Neuro Reports Sensory deficit (Neuro) Physical Exam Vital Signs: Last Vital Signs Pulse 72 02/05/24 14:32 BP 115/72 02/05/24 14:32 Pulse Ox 98 02/05/24 14:32 Oxygen Delivery Method Room Air 02/05/24 14:32 BMI result Body Mass Index 35.4 Const General: cooperative and comfortable Nutritional Appearance: obese Orientation/consciousness: patient oriented x3 Limitations: ambulation with cane HEENT Head: Yes normocephalic and Yes atraumatic Mouth: moist mucous membranes Resp Other: Patient coughs with deep breaths Effort & Inspection: normal respiratory effort and able to speak in complete sentences Auscultation: diminished lung sounds bilateral in the lower lung toney Cardio Rhythm: abnormal rhythm irregularly irregular GI Inspection: No distended Palpation (GI): Soft to palpation and nontender Skin General skin exam: no rashes or lesions noted Neuro General: patient oriented x3 Sensory Exam: Sensory deficit (Neuro) Extrem Other: No active synovitis today Results Reviewed Results Reviewed: Labs 02/09/2022? WBC 12.2? Hemoglobin 9.8? Platelet 504? Sed rate 116 Urinalysis all negative with no hematuria pyuria or proteinuria except for scanty calcium oxalate crystals CMPMR/MR humerus RT wo/w con IMPRESSION: 1. Inhomogeneous fat saturation in the axial sequences of bilateral shoulders limits evaluation. Evaluation is limited in the provided sequences. ? 2. In the right humerus, question increased T2 signal/edema in the anterior musculature of the humerus and the deltoid muscle and muscles of the shoulder girdle, as seen on the sagittal and coronal sequences. Correlation with the axial sequences is limited due to inhomogeneous fat saturation. These findings could represent myositis. ? 3. In the left humerus, question edema in the deltoid muscle and muscles of the shoulder girdle. Suboptimal axial imaging limits evaluation. This raises a possibility of myositis in this region. ? 4. Correlate with patient's blood work. Repeat/follow-up MRI for reassessment, with attention to technique and obtaining STIR sequences, as clinically warranted. Albumin 3.2 globulin normal Creatinine 1.02 AST/ALT normal? GFR 53 Labs on 09/2021? CRP 20.1 (0-0.5) Lipase to [address] CT head 12/2021 Impression no acute intracranial abnormality CT abdomen 01/2022? Findings the lungs bases are clear, without pleural effusion or consolidation.? The heart is normal in size without pericardial effusion.? Aorta normal in caliber.? Scattered atherosclerotic calcifications of the aorta.? Liver demonstrate diffuse fatty infiltration.? Spleen bilateral adrenal glands, pancreas and kidneys demonstrate normal contrast-enhanced CT appearance.? The opacified loops of bowel show no evidence of obstruction.? The appendix is not identified.? Sigmoid diverticulosis without acute diverticulitis.? No mesenteric inflammatory changes. Impression no acute abdominal pelvic inflammatory process Thyroid ultrasound 02/03/2022 Impression status post right hemithyroidectomy Left thyroid vascular heterogenous solid nodule getting TIRAD-3 larger than 2 point cm, FNA recommended IMPRESSION: 1. Slight lower lumbar levocurvature, minimally convex to the left at L3-L4. 2. Multilevel DDD and spondylosis, with multilevel disc bulging and disc herniations as described above superimposed on prominent dorsal fat pads with multilevel bilateral facet arthropathy and ligamentum flavum thickening. 3. Moderate multilevel central spinal canal stenosis at L4-L5, L3-L4 and L2-L3 with bilateral subarticular recess stenosis at L5-S1, L4-L5 and to a lesser degree at L3-L4 and L2-L3 as detailed above, moderate left and mild right-sided neural foraminal stenosis at L3-L4 with [id number] bilateral neural foraminal stenosis at L4-L5 and mild left-sided neural foraminal stenosis at L2-L3. 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 Patient has multiple manifestations that are consistent with small-vessel vasculitis including necrotizing skin lesions, deltoid muscle biopsy showing vasculitis, severe asymmetrical peripheral neuropathy (on EMG/NCS) of her lower extremities. CT chest showed findings suggestive of ILD/pneumonitis, however there is a chance this might be post COVID. Labs showed significantly elevated inflammatory markers and positive anti Ro in high titers. Comprehensive serology otherwise is unrevealing. 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 Patient was admitted at [facility] and received high-dose steroids for about 10 days, she had a PET scan 7 days into her admission on high dose steroids which was unrevealing, no signs of large vessel vasculitis. All her symptoms of generalized fatigue, shortness of breath, achiness, improved except for her neuropathy. 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 Patient was [place] [facility] and received pulse steroids 1 g X 3 days 04/07/2022 First dose of cyclophosphamide (0.75 g/m2) was 04/14/2022. Second dose was on 05/22/2022 and dose was increased to 1 g/m2 (due to normalization of kidney function and adequate WBC kaiden), 3rd dose was on 06/21/22 (0.75 g/m2) Cyclophosphamide was discontinued, patient completed 3 doses for induction and had developed hair loss. Her hair is growing back. Patient was switched to CellCept 07/13 Which was partially effective but patient could not tolerate 1500 mg Twice daily due to GI upset so she self discontinued it 10/13 IVIG was started 07/13 primarily for her neurological symptoms, patient received 3 monthly doses without improvement. After discussion with Dr. Forrest, the decision was made to switch her to rituximab infusions. She completed rituximab infusions 1g X2 doses in 12/2022 & 06/2023 On exam, patient is doing quite well overall. There is no active synovitis or skin rashes. Inflammatory markers are normal. Patient is due for her rituximab infusion. I think we should lower her dose. Lowered to 1 g IV infusion every 4 months. Advised patient to get the flu vaccine and RSV vaccine as soon as she can and do the rituximab infusion at least 14 days after. Does not want to get COVID booster Follow-up with Dr. Guzman only Labs before next visit in 4 months (2) On rituximab therapy: Code(s): Z79.620 - penitentiary (current) use of immunosuppressive biologic Category: Medical Plan: For PCP prophylaxis. Patient had hyperkalemia with Bactrim, hemolytic anemia with dapsone and significant GI upset with atovaquone (3) Immunization counseling: Code(s): Z71.85 - Encounter for immunization safety counseling Category: Medical Plan: As mentioned above Plan I spent 27 minutes reviewing patient's chart, evaluating patient, ordering diagnostic workup, counseling patient and documenting in the chart Coding Level of Care Code Est Pt Level 4 (31578) Complex EM visit Add On G2211 Diagnoses Vasculitis I77.6 On rituximab therapy Z79.620 Immunization counseling Z71.85
[2024-02-05 14:32] VITALS: BP 115/72; PULSE 72; O2SAT 98; BMI 35.4
== END 2024-02-05 14:56 | disposition home or self-care (01) ==
PROVIDERS: PCP Nurse Practitioner Family; Visit Provider Student in an Organized Health Care Education/Training Program
DX: I77.6 Arteritis, unspecified (principal); Z79.620 Long term (current) use of immunosuppressive biologic; Z71.85 Encounter for immunization safety counseling
CPT/HCPCS: 99214; G2211

== ENCOUNTER → 2024-02-05 14:22 | Outpatient (BNVA) | payer MEDICARE, OTHER, SELFPAY | PROVIDERS: PCP Nurse Practitioner Family; Visit Provider Student in an Organized Health Care Education/Training Program | DX: I77.6 Arteritis, unspecified (principal); Z79.620 Long term (current) use of immunosuppressive biologic; Z71.85 Encounter for immunization safety counseling | CPT/HCPCS: 99212 ==

== ENCOUNTER 2024-02-06 08:35 | Outpatient (AMB) | payer MEDICARE, OTHER, SELFPAY ==
[2024-02-06 09:01] VITALS: BP 118/60; PULSE 86; O2SAT 99; BMI 35.8
--- NOTE | 2024-02-06 09:01 | MHC.OFFVIS ---
Vital Signs 02/06/24 09:01 Height 5 ft 4 in Weight 208 lb 5.389 oz BMI 35.8 BP 118/60 Blood Pressure Location Lt brachial Position Sitting Pulse 86 Pulse Source Pulse Oximeter Pulse Oximetry (%) 99 Oxygen Delivery Method Room Air Intake Visit Reasons: Cough Motor Boss Required: No Allergies No Known Allergies Allergy (Verified 02/06/24 09:04) HPI Comments Details: The patient is a 68-year-old woman with a known history of asthma and AMY. The patient has been complaining worsening shortness of breath and cough for the last several weeks. However, more recently he started developing a productive cough with yellow phlegm. She feels like the phlegm is difficult to expectorate. She had been in [place] for some time with her mother and while she was there her respiratory status was worse and ended up in the prednisone. Also, she ran out of her Trelegy inhaler and she was not able to refill it and she has been off it now for 2 months. Therefore she has been using her nebulizer therapy with albuterol and also her ProAir more regularly. The patient also struggling with her CPAP. She cannot tolerate the elevated pressures. She is also developing epistaxis with her nasal pillow mask. Patient is no longer getting supplies from her [employer] company. therefore, she is now consider inactive in not getting any supplies for many [employer] company. The patient needs to be set up again with a [employer] company in the only way to do that is to repeat her sleep study in order to demonstrating again that she has sleep apnea and therefore get active again. In the meantime she has not been tolerating the fractures. For that reason she has been having significant headaches in the morning and also complaining of daytime drowsiness with an elevated Bronston score 14/24. Therefore, repeating the sleep study will be crucial in order for her to start her CPAP therapy again. The patient follow-up after her sleep study. In addition to that I will give her some antibiotics for the bronchitis that she is experiencing. 02/16/2022 the patient is here for a pulmonary follow-up visit. She was in [place] and was very sick. Initially developed a rash suggesting of vasculitis. although, initially was thought to be monkey pox. The patient during the hospitalization also was diagnosed with pancreatitis. She was given IV antibiotics and also given IV steroids. the patient also has been complaining of worsening cough productive in nature. The cough has continued. Today she was evaluated by Rheumatology. The patient has significant complaints on a constitutional review of systems. It is likely that she has a flare up of her connective tissue disease that is affecting multiple organ systems. She is currently on a small dose of methylprednisolone that is helping maintain the vasculitis flare up at [place]. Although she continues to very symptomatic. She is very short of breath. We did taken for 6 minute walk test. The patient did not desaturate but she was very weak. She took multiple rest even after 50 ft. She was using a walker. Her pulse ox was 98% throughout the ambulation. She also complains of pleuritic chest pain. We had her undergoing blood work. She just traveled from [place]. Her D-dimer is positive significantly elevated. Therefore in view of her risk for thromboembolic disease I will go ahead and order a CTA at this time. The patient has a full blood work panel order from Rheumatology. Will be awaiting the results of that in addition to awaiting the results of her CT scan. 03/02/2022 the patient is here for pulmonary follow-up visit. She continues to have multiple complaints. Does have some shortness of breath and cough. Her D-dimer had been elevated and she did undergo a CTA. I did review the CTA images with the patient. No evidence of any pulmonary emboli. However, she did have some areas of ground-glass and interstitial changes primarily at the bases. This consistent with pneumonitis. She may also have a component of atelectasis. She does have significant dry crackles specially on the right base consistent with her interstitial lung disease from her underlying connective tissue disease. She has been on Medrol but not been enough to maintain her symptoms under control or decreasing inflammatory changes of her lungs. We did review her other labs demonstrating a significantly elevated sedimentation rate an ESR. Her ANCA levels were negative. She does have underlying vasculitis appreciated on her skin. However, no biopsy was done at the time. She will be following up closely with Rheumatology. An extensive blood work panel has been requested. In the meantime will go ahead and start her on mycophenolate in order to treat her underlying interstitial lung disease appreciated on her CT scan. I am hopeful that she also gets relief from this inflammatory process. 05/26/2022 the patient is here for a pulmonary follow-up visit. The patient continues to have multiple complaints. She had been admitted to [facility] which she was evaluated by Rheumatology. Again, it is very clear that she has a diagnosis of vasculitis. Although clear connective tissue disease has not been identified. 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 She was started on cyclophosphamide and she is off the CellCept. She continues to have significant weakness and neuropathy like symptoms. Breathing appears to be okay at this time. Denies any significant shortness of breath or chest discomfort. The patient denies any productive mucus or wheezing. From a cardiac standpoint the patient did have an episodes of atrial fibrillation prior to receiving her cyclophosphamide infusion therefore she had been admitted to the hospital. She was placed on Eliquis and rate controlling agents. Now she is waiting for cardiology follow-up. 11/27/2022 the patient is here for a pulmonary follow-up visit. The patient had been doing well after the treatment with cyclophosphamide for the vasculitis but now appears to have been returning. She was switched over to will high doses of IVIG. Although she may have had an adverse reaction. She ultimately developed significant anemia requiring 2 units of blood. She is still monitoring closely her hemoglobin. She did follow-up with Hematology. The patient was placed on additional steroids based on the fact that her sedimentation rate is above 100. She continues to have shortness of breath. She denies any hemoptysis. Although her major complaint is that she is having significant visual loss. Therefore, will request the ophthalmology examination urgently to assess for any acute changes. Patient will receive Solu-Medrol today to help decrease any inflammatory changes. She is awaiting the approval for rituximab in order to start that. In the meantime she continues with her CPAP therapy and she continues with respiratory medicines. She did have a chest x-ray which I personally reviewed. No evidence of any ground-glass opacities or any acute changes. Her exam is reassuring without any significant crackles. 03/08/2023 the patient is here for a pulmonary follow-up visit. The patient is feeling much better since starting the rituximab. She has tolerated the therapy in this been very effective decreasing him from a shunt. Still having significant issues with her balance and strongly weakness likely due to the high-dose steroids and also having issues with cataracts all related to the steroids. The patient now was restarted on a small dose of prednisone since she still becomes symptomatic when she is completely off it. Therefore, now she is taking 4 mg and she is tolerating that well. She is using her respiratory therapy as prescribed which is reassuring. Denies any significant wheezing at this time. We did provide her a form for odilia based on the fact that she is having respiratory issues and now having physical limitations requiring a cane. She did have an issue with a bloody nose. We did talk about stopping the fluticasone. She does have an ulceration in the right turbinate. She will try Bactroban for few days. She can also try saline gel. She will increase that he needed a on her CPAP to make sure that that does not bother. In the CPAP therapy continues to be affecting beneficial. As long she is not having any bleeding from the nose she did use it. If her nose starts bleeding again specially on the Eliquis she may need to be seen by ENT or urgent care for cautery of that lesion on the right turbinate. 10/08/2023 the patient is here for a pulmonary follow-up visit. From a backs colitis standpoint the patient has been doing well. She did follow-up with Rheumatology in [place] and also Rheumatology here. She has been under rituximab. Although it is extremely expensive because she is only getting 80% covered and she has the other 20% which are thousands of dollars. She is trying to deal with that issue. In the meantime the patient has been having a cough. The cough tends to be persistent primarily in the morning and at nighttime. Typically nonproductive although she can not bring up some phlegm at times. Moderate severity. She has been using her respiratory therapy. The patient has a nebulizer here that is not working effectively. She needs a replacement. Also will request a CPT valve flutter valve to help her with her mucus clearance. The patient does have significant wheezing on examination. We did talk about taking a course of prednisone to help her with her asthma flare-up. She has already on the Trelegy inhaler. The patient also needs to get a function nebulizer. The patient does have immunodeficiency. She does have what appears to be chronic bronchitis. In view of her chronic bronchitis will be reasonable to start her on azithromycin 3 times a week to see if we can decrease her mucus burden decrease the inflammation of the airways. She was start the azithromycin get an EKG to make sure that her QTC is within normal range. 02/06/2024 the patient is here for a pulmonary follow-up visit. She has been under the weather now for couple weeks. She started with a cough after having her cataracts done. The surgery went well but then she started developing worsening chest tightness. She does not have any nebulizer solution. She does have significant wheezing on examination today. She does have an asthma exacerbation. She did receive an Xopenex treatment in the office and I did send the Xopenex to the pharmacy. In addition to that she is going to have to start prednisone and also start her on a course of antibiotics. Unfortunately she needs to get vaccinated as well before getting her Rituxan injection. Explained to her that while on the prednisone be hard for her to get vaccinated because she probably will have any effect. Therefore once she prednisone is down to 20 mg or less she can go and get her vaccines. I did encourage her to get her flu shot in the RSV. Although sometimes I do not recommend did get given together because the RSV tends to cause increased symptoms. Is also a new vaccine for her. She is scheduled to receive her Rituxan in 3 weeks. Hopefully she can get these vaccines done after her prednisone dose is decreased to minimize the body immunosuppression. If the patient is no better she is going to come in for a chest x-ray. Otherwise follow-up in May when she comes back to the area. [facility] Medical History (Updated 02/06/24 @ 18:15 by Christophe Jean Baptiste MD) Allergies Cataract Snoring Hx of migraines Prediabetes Muscle weakness Sjogren's disease Blood D-dimer assay positive Chest pain GERD (gastroesophageal reflux disease) Bronchitis Asthma AMY (obstructive sleep apnea) Surgical History History of cataract surgery Hx of colonoscopy Hx of cholecystectomy Hx of appendectomy S/P ankle joint replacement Family History Mother Alzheimer disease Other Family history of connective tissue disease Lupus Multiple sclerosis Rheumatoid arthritis Social History Household Members: Spouse Housing: House Alcohol intake: current Alcohol intake frequency: does not drink Patient Tobacco Use Status: Never used Tobacco e-Cigarette/Vaping Use: Never Used service: No Current occupational status: retired 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 Cognitive needs: No Hearing needs: No Vision needs: Yes Review of Systems Const Reports fatigue and Denies fever(s) Eyes Reports blurry vision ENT Denies epistaxis, Reports nasal congestion, Reports nasal discharge and Reports post nasal drip Card Reports dyspnea on exertion Resp Reports chest congestion, Reports cough, Reports dyspnea on exertion and Reports wheezing GI Reports no additional complaints Musc Reports arthralgias, Reports joint swelling, Reports numbness and Reports stiffness Skin/Breast Denies rash Neuro Reports numbness, Reports Sensory deficit (Neuro) and Reports paresthesias Endo Reports fatigue Aller/Immun Reports wheezing Physical Exam Vital Signs: Last Vital Signs Pulse 86 02/06/24 09:01 BP 118/60 02/06/24 09:01 Pulse Ox 99 02/06/24 09:01 Oxygen Delivery Method Room Air 02/06/24 09:01 BMI result Body Mass Index 35.8 Const General: comfortable and alert HEENT Head: Yes atraumatic and Yes other (alopecia) Neck Neck: Yes normal visual inspection, Yes full ROM and Yes no lymphadenopathy Chest Chest palpation & inspection: normal inspection of the chest Resp Effort & Inspection: Actively coughing Quality: actively coughing and prolonged expiratory phase Auscultation: no rales, wheezes and diminished lung sounds Cardio Rate: regular rate Rhythm: regular rhythm Heart sounds: S1 normal heart sound present and S2 normal heart sound present GI Palpation (GI): Soft to palpation and nontender Auscultation: normal bowel sounds Skin General skin exam: rashes and/or lesions noted Neuro Sensory Exam: Sensory deficit (Neuro) Office Procedures Nebulizer Treatment Nebulizer Treatment [id number]/[id number] RX initial, or Nebulizer Subsequent Treatment Office Meds levalbuterol HCl 1.25 mg/3 mL solution for nebulization Performing Provider: Christophe Jean Baptiste MD Performing Location: [facility] Administered by: Magaly Travis LPN on 02/06/24 09:29 Dose Route Admin Location Dispensed Lot Number Expiration Date [facility] Rn Internship 1.25 mg inhalation 3 mL [id number] 06/20/25 50383-155-19 [employer] Comments: Assessment & Plan Assessment & Plan (1) Asthma: Code(s): J45.909 - Unspecified asthma, uncomplicated Category: Medical Qualifiers: Asthma complication type: with acute exacerbation Asthma persistence: persistent Asthma severity: moderate Qualified Code(s): J45.41 - Moderate persistent asthma with (acute) exacerbation (2) ILD (interstitial lung disease): Code(s): J84.9 - Interstitial pulmonary disease, unspecified Category: Medical (3) AUDRA positive: Code(s): R76.8 - Other specified abnormal immunological findings in serum Category: Medical (4) GERD (gastroesophageal reflux disease): Code(s): K21.9 - Gastro-esophageal reflux disease without esophagitis Category: Medical Qualifiers: Esophagitis bleeding: without hemorrhage Esophagitis presence: with esophagitis Qualified Code(s): K21.00 - Gastro-esophageal reflux disease with esophagitis, without bleeding (5) AMY (obstructive sleep apnea): Code(s): G47.33 - Obstructive sleep apnea (adult) (pediatric) Category: Medical (6) Chronic allergic rhinitis: Code(s): J30.9 - Allergic rhinitis, unspecified Category: Medical (7) Vasculitis: Code(s): I77.6 - Arteritis, unspecified Category: Medical (8) Abnormal chest x-ray: Code(s): R93.89 - Abnormal findings on diagnostic imaging of other specified body structures Category: Medical (9) Allergies: Code(s): T78.40XA - Allergy, unspecified, initial encounter Category: Medical Qualifiers: Encounter type: initial encounter Qualified Code(s): T78.40XA - Allergy, unspecified, initial encounter Plan start prednisone taper start Azithromycin x 5 days nebulizer for Xopenex continue APAP 6-11 once cough is better Flovent (stopped the LABA due to the Afib) Xopenex as needed continue Astelin nasal spray saline gel as needed No rugs/hypoallergenic covers follow-up in 3-4 months Orders: Orders AMB Nebulizer Treatment Today J45.40 - Moderate persistent asthma, uncomplicated XR chest 2V Today R93.89 - Abnormal findings on diagnostic imaging of other specified body structures Medications: New prednisone PO daily; Take 2 tabs daily x 5 days, then 1 tablet daily x 5 days 15 tabs 0RF 10 days azithromycin 500 mg PO DAILY 5 tabs 0RF 5 days Refilled levalbuterol HCl 1.25 mg (3 mL) inhalation Q6H 180 mL 8RF 30 days J44.9 - Chronic obstructive pulmonary disease, unspecified codeine-guaifenesin 10-100 mg/5 mL 10 mL PO Q6H PRN 300 mL 0RF cough 10 days Coding Level of Care Code Est Pt Level 4 (38111) Complex EM visit Add On G2211 Diagnoses Moderate persistent asthma with acute exacerbation J45.41 Asthma complication type: with acute exacerbation Asthma persistence: persistent Asthma severity: moderate ILD (interstitial lung disease) J84.9 AUDRA positive R76.8 Gastroesophageal reflux disease with esophagitis without hemorrhage K21.00 Esophagitis bleeding: without hemorrhage Esophagitis presence: with esophagitis AMY (obstructive sleep apnea) G47.33 Chronic allergic rhinitis J30.9 Vasculitis I77.6 Abnormal chest x-ray R93.89 Allergy, initial encounter T78.40XA Encounter type: initial encounter CPT Codes Nebulizer Treatment - Nebulizer Treatment, initial or subsequent: [id number]/MDI RX initial, or Nebulizer Subsequent Treatment ([id number]) Time Spent (min) 18
== END 2024-02-06 09:37 | disposition home or self-care (01) ==
PROVIDERS: PCP Nurse Practitioner Family; Visit Provider Hospitalist
DX: J45.41 Moderate persistent asthma with (acute) exacerbation (principal); J84.9 Interstitial pulmonary disease, unspecified; R76.8 Other specified abnormal immunological findings in serum; K21.00 Gastro-esophageal reflux disease with esophagitis, without bleeding; G47.33 Obstructive sleep apnea (adult) (pediatric); J30.9 Allergic rhinitis, unspecified; I77.6 Arteritis, unspecified; R93.89 Abnormal findings on diagnostic imaging of other specified body structures; T78.40XA Allergy, unspecified, initial encounter; J45.40 Moderate persistent asthma, uncomplicated
CPT/HCPCS: 99214; G2211

== ENCOUNTER → 2024-02-06 08:35 | Outpatient (BNVA) | payer MEDICARE, OTHER, SELFPAY | PROVIDERS: PCP Nurse Practitioner Family; Visit Provider Hospitalist | DX: J45.41 Moderate persistent asthma with (acute) exacerbation (principal); G47.33 Obstructive sleep apnea (adult) (pediatric); J84.9 Interstitial pulmonary disease, unspecified; J30.9 Allergic rhinitis, unspecified; R93.89 Abnormal findings on diagnostic imaging of other specified body structures; T78.40XA Allergy, unspecified, initial encounter; R76.8 Other specified abnormal immunological findings in serum; K21.00 Gastro-esophageal reflux disease with esophagitis, without bleeding; I77.6 Arteritis, unspecified | CPT/HCPCS: 94640; 99212 ==

== ENCOUNTER 2024-02-18 12:04 | Outpatient (REF) | payer MEDICARE, OTHER, SELFPAY ==
--- NOTE | ~2024-02-18 | XR_ITS ---
EXAMINATION: XR CHEST 2 VIEWS CLINICAL INFORMATION: Abnormal findings on diagnostic imaging of other specified body structures R93.89. COMPARISON: XR Chest 10/08/2023 TECHNIQUE: 2 views of the chest were obtained. FINDINGS: No significant abnormality is noted involving the heart, lungs, mediastinum, bony thorax or soft tissues. XR/XR chest 2V IMPRESSION: Unremarkable examination. Electronically signed by: Parish Marinelli MD 04/02/2024 04:14 PM DB
== END 2024-02-18 12:05 | disposition home or self-care (01) ==
LOC: HO.XRAY 12:04
PROVIDERS: PCP Nurse Practitioner Family; Visit Provider Hospitalist
DX: R93.89 Abnormal findings on diagnostic imaging of other specified body structures (principal)
CPT/HCPCS: 71046

== ENCOUNTER 2024-06-04 08:36 | Outpatient (REF) | payer MEDICARE, OTHER, SELFPAY ==
[2024-06-04 09:07] LABS: MANUAL DIFF FLAG NO
[2024-06-04 09:10] LABS: Basophils Absolute Auto 0.1 X10*3/uL (0.0-0.2); Basophils Percent Auto 0.7 % (0-2); Eosinophils Absolute Auto 0.4 X10*3/uL (0.0-0.4); Eosinophils Percent Auto 4.5 % (0-4); Hematocrit 38.7 % (37.0-47.0); Hemoglobin 12.8 g/dl (12.0-16.0); Imm Gran Abs Auto 0.02 X10*3/uL (0.00-0.03); Imm Gran Pct Auto 0.2 % (0.0-0.4); Lymphocytes Absolute Auto 1.2 X10*3/uL (1.2-4.9); Lymphocytes Percent Auto 14.2 % (20-40); Mean Corpuscular HGB Conc 33.1 g/dl (31.0-35.0); Mean Corpuscular Hemoglobin 30.8 pg (27.0-33.0); Mean Platelet Volume 9.1 fL (9.4-12.3); Monocytes Absolute Auto 0.9 X10*3/uL (0.1-1.2); Monocytes Percent Auto 10.9 % (2-11); Neutrophils Absolute Auto 5.9 x10*3/uL (2.0-8.3); Neutrophils Percent Auto 69.5 % (45-73); Platelet Count 318 X10*3/uL (160-400); Red Blood Count 4.16 X10*6/uL (4.20-5.50); White Blood Count 8.5 X10*3/uL (4.8-10.8)
[2024-06-04 09:25] LABS: Alanine Aminotransferase 19 U/L (0-31); Albumin Level 3.8 g/dL (3.5-5.0); Alkaline Phosphatase 110 U/L (39-117); Anion Gap 12 (12-20); Aspartate Amino Transferase 25 U/L (5-31); Bilirubin Total 0.5 mg/dL (0.0-1.0); Blood Urea Nitrogen 17 mg/dL (9-16); Calcium 9.4 mg/dL (8.4-10.2); Carbon Dioxide 19 mmol/L (22-29); Chloride 113 mmol/L (96-108); Estimated Glomerular Filt Rate 58; Glucose Random 95 mg/dL (60-115); Potassium 4.2 mmol/L (3.3-5.1); Sodium 140 mmol/L (135-145); Total Protein 7.3 g/dL (6.5-8.0)
--- OUTSIDE RECORDS SUMMARY | 2024-06-04 09:34 | XMS_ITS ---
Author Name [facility] Organization Unknown History of Medication Use Medication Directions Dispensed Refills Start Date End Date Stat us No known medications No known medications active Problems Problem Status Onset Date Problem Type Date of Resoluti on Source Pain in right ankle and joints of right foot active EncounterDiagnosisAct CCT
--- OUTSIDE RECORDS SUMMARY | 2024-06-04 09:34 | XMS_ITS | Clinical Summary ---
Author Organization [facility] Address [address] [place] [address] Care Team Providers Care Dry House Worker Name Role Phone System, Provider Not In Primary Care Provider Un available Allergies No known active allergies Medications No known medications Active Problems No known active problems Social History Tobacco Use Types Packs/Day Years Used Date Smoking Tobacco: Never Assessed Sex and Gender Information Value Date Recorded Sex Assigned at Not on file Gender Identity Not on file Sexual Orientation Not on file Plan of Treatment Health Maintenance Due Date Last Done Comments Hepatitis C Virus Screening 1955 DTaP/Tdap/Td Vaccines (1 - Tdap) 1972 Mammogram 1993 Colonoscopy 1998 Pneumococcal Vaccines 50+ (1 of 1 - PCV) 09/28/2003 Zoster (Shingles) Vaccine (1 of 2) 09/28/2003 DXA Bone Density (Females,Ag es 65 and older) 2018 Influenza Vaccine 11/22/2023 03/30/2022 COVID-19 Vaccine ( - 2023-2 5 season) 2023 RSV Vaccine 60 years and old er and Patients (1 - 1-dose 75+ series) 2028 Hepatitis B Vaccines Aged Out No long er eligible based on patient's age to complete this topic Care Teams Dry House Worker Relationship Specialty Start Date End Date System, Provider Not In PCP - General 11/28/22
--- OUTSIDE RECORDS SUMMARY | 2024-06-04 09:35 | XMS_ITS | Encounter Summary ---
Author Organization [facility] Address [address] [place] [address] Care Team Providers Care Emergency Veterinary Technician Name Role Phone Patient, Has No Pcp Or Ref Primary Care Provider Unavailable Encounter Details Date Type Department Care Team (Late st Contact Info) Description 04/04/2022 Telephone [facility] [address] [place] [id number] Telephone Intake, Staff Social History Tobacco Use Types Packs/Day Years Used Date Smoking Tobacco: Never Smokeless Tobacco: Never Alcohol Use Standard Drinks/Week Comments Not Currently 0 (1 standard drink = 0.6 oz pur e alcohol) Comments No Sex and Gender Information Value Date Recorded Sex Assigned at Not on file Legal Sex Female 9:24 AM EST Gender Identity Not on file Sexual Orientation Not on file documented as of this encounter Miscellaneous Notes * Telephone Encounter - Ely Valencia - 04/04/2022 9:37 AM EST PT was recently seen while in the ER AND ADMITTED IN THE HOSPITAL by to RHEUMATOLOGY MD's not sure who saw pt, but pt is calling to schedule a follow up appt MINESH. Not sure who she saw. But if someone can please reach out to pt to schedule an appt pt states that she needs medication IMNESH. PT can bereached @ [phone] PAC TEAM documented in this encounter Plan of Treatment Not on file documented as of this encounter Visit Diagnoses Not on filedocumented in this encounter Care Teams Emergency Veterinary Technician Relationship Specialty Start Date End Date Patient, Has No Pcp Or Ref DO NOT EDIT THIS RECORD VIA PROVIDER ON THE FLY PCP - General Fruit Press Operator 03/23/22 documented as of this encounter
--- OUTSIDE RECORDS SUMMARY | 2024-06-04 09:35 | XMS_ITS | Clinical Summary ---
Author Organization [facility] Address [address] [place] [address] Care Team Providers Care Car Mover Name Role Phone Patient, Has No Pcp Or Ref Primary Care Provider Unavailable Allergies No known active allergies Medications azelastine (ASTELIN) 137 mcg (0.1 %) nasal spray Administer 2 sprays into each nostril 2 times a day. Active budesonide-form oteroL (SYMBICORT) 160-4.5 mcg inhaler Inhale 2 puffs by mouth 2 times a day. Rinse mouth with water after use. Do not swallow. Active codeine-guaiFEN esin (CHERATUSSIN AC) 20-200 mg/10 mL liquid Take by mouth. Active cyanocobalamin (VITAMIN B12) 500 mcg tablet Take 500 mcg by mouth once a day. Active ergocalciferol (VITAMIN D2) 1,250 mcg (50,000 unit) capsule Take 1,250 Units by mouth once a week. Active ferrous sulfate 325 mg (65 mg iron) tablet Take 325 mg by mouth daily with breakfast. Active fluticasone propionate (FLONASE) 50 mcg/actuation nasal spray Administer 1 spray into each nostril once a day. Active metFORMIN ER (GLUCOPHAGE XR) 500 mg tablet Take 500 mg by mouth daily with breakfast. Active amlodipine-olme sartan (VALENTINO) 5-40 mg per tablet Take 40 mg by mouth. Active Trelegy Ellipta 200-62.5-25 mcg blister with device Take 1 puff by mouth once a day. 2 Active levalbuterol (XOPENEX) 1.25 mg/3 mL nebulizer solution SMARTSI Milliliter(s) By Mouth Every 6 Hours PRN 2 Active montelukast (SINGULAIR) 10 mg tablet Take 10 mg by mouth once a day. 2 Active Neurin-SL 600-600 mcg tablet, sublingual Place 1 tablet under the tongue once a day. 2 Active desloratadine (CLARINEX) 5 mg tablet Take 5 mg by mouth once a day. 2 Active metoprolol succinate XL (TOPROL XL) 50 mg tablet Take 1 tablet (50 mg total) by mouth once a day. 90 tablet 2 Active gabapentin (NEURONTIN) 300 mg capsule Take 1 capsule (300 mg total) by mouth every 8 hours. 90 capsule 2 2 Active apixaban (ELIQUIS) 5 mg tablet Take 1 tablet (5 mg total) by mouth every 12 hours. 60 tablet [address] (PROTONIX) 40 mg tablet Take 1 tablet (40 mg total) by mouth 2 (two) times a day. 60 tablet 2 2 Active rosuvastatin (CRESTOR) 20 mg tablet Take 1 tablet (20 mg total) by mouth every night. 2 Active Active Problems Problem Noted Date Diagnosed Date Impaired mobility 03/29/2022 Atrial fibrillation 03/23/2022 Assessment & Plan (04/01/2022 1:49 PM EST): Patient asymptomatic with new onset Afib with RVR to 120s-140s on admission. No evidence of ischemia on EKG. Troponin 0.05 trended (0.05->0.06->0.06) w/ peak. 0.06. Recieved fluid, IV Mg, and diltiazem 15 mg + 20 mg in the ED that brought down HR to low 100s.03/24 TTE w/ normal findings of EF 55-60%, normal RV +LV and no valvular disease. Patient noted minimal episodes of palpitations and tachycardia during first few days of admission and was monitored on tele until 03/28 when rate stabilized. Patient denied any associated chest pain during hospitalization. Patient was initially on lopressor and transition to toprol XL 75mg 03/28. Risks/benefits of anticoagulation discussed and patient started on eliquis 5mg q12h on 03/28. - Decreased Toprol XL to 50mg daily, plan to decrease Toprol XL to 25mg daily on 04/02 - On eliquis 5mg q12h - DOAC prior auth/copay $75 Hypertension 03/23/2022 Assessment & Plan (04/01/2022 1:50 PM EST): BP labile on admission, SBP between 160s and 102. During admission, ocasional episodes of hypotensive range BP (90s systolic) that stabilized to normal range. -Continue home amlodipine-olmesartan 5-40 mg daily Hyperlipidemia 03/23/2022 Assessment & Plan (03/31/2022 3:31 PM EST): Patient has a history of HLD treated w/ rosuvastatin 20mg nightly and atorvastatin 40mg daily. On admission, presented w/ muscle weakness and fatigue (see arthralgia section). Symptoms improved during admission, 03/24 myositis specific antibody panel negative. 03/28 lipid panel w/ TG 195, LDL 113, cholesterol 194, HDL 42. -Resumed home rosuvastatin 20mg nightly -Holding home atorvastatin 40mg daily (not needed on d/c) Asthma 03/23/2022 Assessment & Plan (03/29/2022 1:35 PM EST): Home medications: Symbicort 160-4.5 mcg/actuation every 12h, levalbuterol 1.25 mg 6 hours as needed, Trelegy Ellipta 200-62.5-25 mcg daily, montelukast 10 mg daily Patient presented with mild cough and minimal shortness of breath, but no wheezing on exam. Patient stated that she uses Symbicort and Trelegy inhalers daily and albuterol infrequently (~1/month). Patient had episode of O2 desaturation during the night on 03/23 to 88%, placed on 2L NC with O2 sat rising to 97% and was weaned off O2. Patient noted that she has sleep apnea and uses CPAP at home during the night. Will continue home asthma and CPAP regimen on admission. -Albuterol every 4 hours as needed -Brovana 15 mcg nebulizer every 12 hours scheduled -Pulmicort 0.5 mg inhaler every 12 hours scheduled -Continue home Singulair 10 mg daily -CPAP at night for sleep apnea, she plans to bring in home machine DM (diabetes mellitus) 03/23/2022 Assessment & Plan (03/29/2022 1:49 PM EST): Hx of DM. Last A1c 6.8%. On metformin 500 mg daily at home. Sugars in low to mid 100s on admission. -Hold home metformin -LDISS Arthralgia 03/23/2022 Assessment & Plan (04/01/2022 1:51 PM EST): Patient w/ history significant for prior possible autoimmune disorder diagnosed in [place] presenting with 1.5 month history of progressively worsening polyarthralgia, fatigue, generalized weakness, intermittent fevers/chills, and recent onset bilateral foot numbness (R>L). She reportedly has a history of autoimmune disorder diagnosed at 33 for which she was on hydroxychloroquine for 2 years and improved. Patient noted that symptoms began after COVID infection in October 2021 after which she developed diffuse body pain worse in shoulders and joints, fatigue and weakness, intermittent fevers/chills. She had one presentation to the ER in [place] after infection where she was found to have pancreatitis and developed necrotizing skin lesions on her hands that were suggestive of vascuilits. She follows with a puppet maker (Dr. Carroll at [facility]). [facility] hospital workup included prior EMG with findings suggestive of chronic neuropathy, positive speckled pattern AUDRA and positive SS- A suggestive of possible Sjogren's disease. Other OS lab work have been negative. Differential of presenting problem includes autoimmune etiology vs indolent infection. Patient presented with symptoms of intermittent fevers/chills and leukocytosis (WBCs 17.7 - most like iso steroids). She was treated with IV steroids during hospitalization for possible vasculitis in December 2021. On presentation CRP elevated to 175, ESR 79. She was on medrol 4mg daily and cellcept 500mg 2x/day at home, so she is immunosuppressed making indolent infection a possible etiology. Workup with negative blood cultures, normal chest xray and lactic acid. Patient has an extensive history suggestive of autoimmune disease. Given presentation and history, autoimmune etiology more likely. There is concern of possible myositis vs dermatomyositis (given skin finding) vs vasculitis. Rheumatology consulted w/ recs for extensive workup. OSH muscle biopsy on 03/[address] 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 Rheum workup mostly negative except for mildly positive AUDRA titer 1:160 w/ nuclear speckled pattern; myositis specific antibody panel negative. Immunoglobulins IgG elevated at 1647 (subclass 1 elevated at 1083, 2 normal at 274, 3 decreased at 14, 4 normal at 71.9), IgM decreased at 39, IgA elevated 325. 03/29 PET w/ o abnormal FDG-avid findings in the imaged portions of the body; diffuse mild FDG uptake in the axial and appendicular skeleton musculature is nonspecific and most likely within physiological range; no abnormal glandular or marv uptake, no uptake in the lumbar or sacral nerve roots to explain patient's symptoms. 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 Per rheum/path, given negative workup to date, possible etiology likely vasculitis (small rather than large as no large vessels in deltoid where biopsy was taken) and a second process related to possible nerve damage leading to musculature changes, however vasculitis and muscular changes are likely two different processes. - Rheumatology consulted, recs appreciated - Follow up rheum workup (myositis AssessR plus pending) - Holding home cellcept - continue medrol 48mg daily - Final rheum recs pending per follow up w/ pathology on IgG4 stain on 03/21 muscle biopsy completed at OSH - 03/24 Skin biopsy w/ derm resulted as urticarial tissue reaction - 03/29 full body PET scan w/ no notable findings - Can consider high res CT chest, with renal improvement - Neurology consulted for numbness; recs for outpatient follow up (pt prefers [place]) - Pain: tylenol 650mg Q4hrs, oxycodone 2.5mg q6h PRN, gabapentin 300mg q8h GERD (gastroesophageal reflux disease) 2 Assessment & Plan (03/28/2022 4:40 PM EST): Hx of GERD. On pantoprazole 40mg daily, dexlansoprazole 60 mg daily at home. -Hold home meds -Protonix 40mg increased to BID in the setting of therapeutic AC and high dose steroids Skin rash 03/23/2022 Assessment & Plan (03/29/2022 1:23 PM EST): Patient presented with numerous palpable and pruritic papules on upper back. Multiple macules on bilateral hands that were mildly erythematous, nontender, nonpruritic and single red lesion noted on thumb that was nontender/nonpruitic. Patient has a history of necrotizing skin lesions that developed 2/2 possibly vasculitis in December 2021. Skin findings most likely of autoimmune etiology (refer to arthralgia problem). -Management as per arthralgia section -hydrocortisone 1% cream PRN -triamcinolone acetonide 0.1% cream PRN Anemia 03/23/2022 Assessment & Plan (03/27/2022 4:11 PM EST): Patient with hx of anemia, on Ferrous sulfate 325 mg daily. Hgb 9.5 on admission (baseline unclear, 9.8 on 03/07/22). Patient presented with generalized weakness, fatigue, arthralgias, and elevated WBCs (iso steroid use), fevers, and chills most likely iso autoimmune process vs potential indolent infection (see arthralgia problem). H&H stable during admission. -Hold home iron supplement Sjogren's syndrome 03/23/2022 Assessment & Plan (03/27/2022 4:12 PM EST): Patient with history of Sjogren's syndrome. Recent evaluation by rheumatology with positive AUDRA 1-320 and positive anti-SSA (high titer). Stated that she has dry eyes bilaterally for which she takes artificial tear eyedrops daily. Reports previous history of eye ulceration requiring surgery. -Continue artificial tears 1 drop both eyes 3 times daily -See arthralgia section for further autoimmune work-up Resolved Problems Problem Noted Date Diagnosed Date Resolved Date Hyponatremia 03/26/2022 04/01/2022 Assessment & Plan (03/29/2022 1:50 PM EST): Sodium 137 on 03/24. Decreased to 134 on 03/25 and 132 on 03/26. Possibly result of steroids started on eveining of 12/2. Patient not on lasix, glucose stable between 110-180. Urine studies sent to rule out other causes iso OSCAR. 03/26 FENA 1.6, urine osmol 246, and urine sodium 35, serum osmolality 300. Na+ 136 12.7. - Monitor w/ daily BMP OSCAR (acute kidney injury) 03/23/2022 Assessment & Plan (04/01/2022 1:52 PM EST): Cr. 1.45 on admission (baseline 1.02). Most likely prerenal etiology as patient noted decreased PO intake and dehydration. Received 1L fluid in ED. Diet advanced and encouraged PO fluid intake. Cr returned to baseline (0.99 on 03/24). Cr began to trend up again 03/26 to 1.25. 03/26 Na/Cr 167, Ur osm 246, Ur Na 35, serum osm 300, FENA 1.6. 03/27 Pr:Cr 314 down from 338 on 03/24. 03/27 UA positive for 1+ blood (negative on 03/24). Concern for possible rheumatologic process driving increasing Cr. Cr continued to downtrend during admission, 1.03 03/31. -Daily BMP -Encourage PO intake -Cr has improved Immunizations Name Administration Dates Next Due Influenza, Injectable, Quadrivalent, Preservativ e Free 03/30/2022 Social History Tobacco Use Types Packs/Day Years Used Date Smoking Tobacco: Never Smokeless Tobacco: Never Tobacco Cessation:Counseling Given: Not Answered Alcohol Use Standard Drinks/Week Comments Not Currently 0 (1 standard drink = 0.6 oz pur e alcohol) Comments No Sex and Gender Information Value Date Recorded Sex Assigned at Not on file Legal Sex Female 9:24 AM EST Gender Identity Not on file Sexual Orientation Not on file Last Filed Vital Signs Vital Sign Reading Time Taken Comments Blood Pressure 148/79 04/01/2022 8:00 AM EST Pulse 56 04/01/2022 8:00 AM EST Temperature 36.8 ??C (98.2 ??F) 04/01/2022 8:00 AM ES T Respiratory Rate 18 04/01/2022 8:00 AM EST Oxygen Saturation 98% 04/01/2022 8:00 AM EST Inhaled Oxygen Concentration - - Weight 88.5 kg (195 lb) 03/24/2022 9:16 AM EST Height 162.6 cm (5' 4 ) 03/24/2022 9:16 AM EST Body Mass Index 33.47 03/24/2022 9:16 AM EST Plan of Treatment Health Maintenance Due Date Last Done Comments Cologuard 1953 Colon Cancer Screening 1955 Colonoscopy 1953 FOBT / Fit Test 1953 Hemoglobin A1C 1953 Sigmoidoscopy 1953 Pneumococcal Vaccine: 65+ Years (1 of 2 - PCV) 09/28/1959 Ophthalmology Exam 09/28/1963 Urine Microalbumin 09/28/1963 DTaP,Tdap,and Td Vaccines (1 - Tdap) 09/28/1975 Mammogram 1993 Osteoporosis Screening 09/28/2003 Zoster Vaccines (1 of 2) 09/28/2003 RSV Vaccine (60+ years old and patients) (1 - Risk 60-74 years 1-dose series) 2013 Basic Metabolic Panel 03/31/2023 03/31/2022 , 03/30/2022, 03/29/2022, Additional history exists COVID-19 Vaccine ( - season) 2023 Influenza Vaccine (#1) 2023 , 03/25/2018, 06/01/2017 Alcohol/Substance Use Screening 04/23/2024 Depression Screening and Follow-Up 04/23/2024 Health Care Proxy Review 04/23/2024 Social Drivers of Health Annual Screening 04/23/2024 Hepatitis C Screening Completed 03/24/2022, 022 Hepatitis B Vaccines Aged Out No long er eligible based on patient's age to complete this topic Procedures * Due to [place] [employer] law, this organization might not be sharing negative HIV tests. Procedure Name Priority Date/Time Associated Diagnosis Comments RENAL FUNCTION PANEL Routine 03/31/2022 5:51 AM EST HEPATITIS PANEL, ACUTE STAT 03/24/2022 10:15 AM EST from Last 3 Months or Most Recently Relevant to Health Maintenance Results * Due to [place] [employer] law, this organization might not be sharing negative HIV tests. * (ABNORMAL) Renal Function Panel (03/31/2022 5:51 AM EST) NA 135 135 - 145 mmol/L 03/31/2022 6:41 AM [facility] K 4.4 3.5 - 5.3 mmol/L 03/31/2022 6:41 AM [facility] Cl 105 97 - 110 mmol/L 03/31/2022 6:41 AM [facility] CO2 25 24 - 32 mmol/L 03/31/2022 6:41 AM [facility] Anion Gap 5 5 - 15 03/31/2022 6:41 AM [facility] Glucose 89 70 - 99 mg/dL 03/31/2022 6:41 AM [facility] BUN 39(H) 7 - 23 mg/dL 03/31/2022 6:41 AM [facility] Creatinine 1.03 0.50 - 1.20 mg/dL 03/31/2022 6:41 AM [facility] Calcium 9.0 8.7 - 10.7 mg/dL 03/31/2022 6:41 AM [facility] Phosphorus 3.0 2.5 - 4.5 mg/dL 03/31/2022 6:41 AM [facility] Albumin 3.0(L) 3.5 - 4.8 g/dL 03/31/2022 6:41 AM [facility] eGFR 59(L) >=90 mL/min/1. 73m2 03/31/2022 6:41 AM [facility] Comment: Estimated Glomerular Filtration Rate (GFR) calculated using the CKD-EPI refit equation. The different stages of CKD form a continuum. The stages of CKD are classified as follows : Stage 1: Normal or increased GFR (>90 mL/min/1.73 m2) Stage 2: Mild reduction in GFR (60-89 mL/min/1.73 m2) Stage 3a: Moderate reduction in GFR (45-59 mL/min/1.73 m2) Stage 3b: Moderate reduction in GFR (30-44 mL/min/1.73 m2) Stage 4: Severe reduction in GFR (15-29 mL/min/1.73 m2) Stage 5: Kidney failure (GFR < 15 mL/min/1.73 m2 or dialysis) Blood Structure of peripheral vein / Unknown Venipuncture / Unknown 03/31/2022 5:51 AM EST 03/31/2022 6:12 AM EST us Tika Jarrell MD LAB BLOOD ORDERABLES Final Re sult [facility] [address] [place] [address], * Hepatitis Panel, Acute (03/24/2022 10:15 AM EST) Hepatitis A IgM NON-REACT HEATHER NON-REACT HEATHER 03/24/2022 11:36 PM EST [email or web address] Hepatitis B Surface Antigen NON-REACT HEATHER NON-REACT HEATHER 03/24/2022 11:36 PM EST [email or web address] Hepatitis B Core Antibody NON-REACT HEATHER NON-REACT HEATHER 03/24/2022 11:36 PM EST [email or web address] Hepatitis C Antibody NON-REACT HEATHER NON-REACT HEATHER 03/24/2022 11:36 PM EST [email or web address] Signal To Cut-Off 0.20 <1.00 03/24/2022 11:36 PM EST [email or web address] Comment: HCV antibody was non-reactive. There is no laboratory evidence of HCV infection. In most cases, no further action is required. However, if recent HCV exposure is suspected, a test for HCV RNA (test code 59662) is suggested. For additional information please refer to http://[employer]faq/NYU80u8 (This link is being provided for informational/ educational purposes only.) For additional information, please refer to http://[employer]/faq/LXH525 (This link is being provided for informational/ educational purposes only.) Blood Structure of peripheral vein / Unknown Venipuncture / Unknown 03/24/2022 10:15 AM EST 03/24/2022 12:00 PM EST Narrative [facility] - 03/24/2022 11:36 PM EST [facility] Received Date: Tika Jarrell MD LAB BLOOD ORDERABLES Final Re sult [facility] [address], [place] [address], [place] [phone] [facility] [address], [place] [address], [place] [phone] from Last 3 Months or Most Recently Relevant to Health Maintenance Insurance MEDICARE [facility] [place] [address] Advance Directives * Full Code (Latest Code Status on File) Date Activated Date Inactivated Comments 03/23/2022 3:58 PM 04/01/2022 7:20 PM Care Teams Car Mover Relationship Specialty Start Date End Date Patient, Has No Pcp Or Ref DO NOT EDIT THIS RECORD VIA PROVIDER ON THE FLY PCP - General Senior Wealth Advisor 03/23/22
--- OUTSIDE RECORDS SUMMARY | 2024-06-04 09:35 | XMS_ITS | Referral Summary ---
Author Organization [facility] Address [address] [place] [address] Care Team Providers Care Mechanical Maintenance Engineer Name Role Phone Patient, Has No Pcp [...] for prior possible autoimmune disorder diagnosed in [place] presenting with 1.5 month history of progressively [...] had one presentation to the ER in [place] after infection where she was found to have pancreatitis and developed necrotizing skin lesions on her hands that were suggestive of vascuilits. She follows with a clay digger (Dr. Carroll at [facility]). [facility] hospital workup included prior EMG with findings [...] recs for outpatient follow up (pt prefers [place]) - Pain: tylenol 650mg Q4hrs, oxycodone 2.5mg [...] 03/24/2022 9:16 AM EST Plan of Treatment Not on file Procedures * Due to [place] [employer] law, this organization might not be sharing negative HIV tests. Procedure Name Priority Date/Time Associated Diagnosis Comments RENAL FUNCTION PANEL Routine 03/31/2022 5:51 AM EST HEPATITIS PANEL, ACUTE STAT 03/24/2022 10:15 AM EST from Last 3 Months or Most Recently Relevant to Health Maintenance Results * Due to [place] [employer] law, this organization might not be sharing negative HIV tests. * (ABNORMAL) Renal Function Panel (03/31/2022 5:51 AM EST) NA 135 135 - 145 mmol/L 03/31/2022 6:41 AM EST [facility] K 4.4 3.5 - 5.3 mmol/L 03/31/2022 6:41 AM EST [facility] Cl 105 97 - 110 mmol/L 03/31/2022 6:41 AM EST [facility] CO2 25 24 - 32 mmol/L 03/31/2022 6:41 AM EST [facility] Anion Gap 5 5 - 15 03/31/2022 6:41 AM EST [facility] Glucose 89 70 - 99 mg/dL 03/31/2022 6:41 AM EST [facility] BUN 39(H) 7 - 23 mg/dL 03/31/2022 6:41 AM EST [facility] Creatinine 1.03 0.50 - 1.20 mg/dL 03/31/2022 6:41 AM EST [facility] Calcium 9.0 8.7 - 10.7 mg/dL 03/31/2022 6:41 AM EST [facility] Phosphorus 3.0 2.5 - 4.5 mg/dL 03/31/2022 6:41 AM EST [facility] Albumin 3.0(L) 3.5 - 4.8 g/dL 03/31/2022 6:41 AM EST [facility] eGFR 59(L) >=90 mL/min/1. 73m2 03/31/2022 6:41 AM EST [facility] Comment: Estimated Glomerular Filtration Rate [...] MD LAB BLOOD ORDERABLES Final Re sult [facility] [address] [place] [address], * Hepatitis Panel, Acute (03/24/2022 10:15 AM EST) Hepatitis A IgM NON-REACT HEATHER NON-REACT HEATHER 03/24/2022 11:36 PM EST [facility] Hepatitis B Surface Antigen NON-REACT HEATHER NON-REACT HEATHER 03/24/2022 11:36 PM EST [facility] [employer] [facility] Hepatitis B Core Antibody NON-REACT HEATHER NON-REACT HEATHER 03/24/2022 11:36 PM EST [facility] Hepatitis C Antibody NON-REACT HEATHER NON-REACT HEATHER 03/24/2022 11:36 PM EST [email or web address] Signal To Cut-Off 0.20 <1.00 03/24/2022 11:36 PM EST [email or web address] Comment: HCV antibody was non-reactive. There is no laboratory evidence of HCV infection. In most cases, no further action is required. However, if recent HCV exposure is suspected, a test for HCV RNA (test code 42002) is suggested. For additional information please refer to http://[employer] [employer]/faq/ZOE36h2 (This link is being provided for informational/ educational purposes only.) For additional information, please refer to http://[employer] [employer]/faq/XMD636 (This link is being provided for informational/ educational purposes only.) Blood Structure of peripheral vein / Unknown Venipuncture / Unknown 03/24/2022 10:15 AM EST 03/24/2022 12:00 PM EST [facility] 03/24/2022 11:36 PM EST [facility] Received Date: us Tika Jarrell MD LAB BLOOD ORDERABLES Final Re sult [facility] [address], [place] [address], [place] [phone] [email or web address] [address], [place] [address], [place] [phone] from Last 3 Months or Most Recently Relevant to Health Maintenance Insurance MEDICARE GENERIC Advance Directives * Full Code (Latest Code Status on File) Date Activated Date Inactivated Comments 03/23/2022 3:58 PM 04/01/2022 7:20 PM Care Teams Mechanical Maintenance Engineer Relationship Specialty Start Date End Date Patient, Has No Pcp Or Ref DO NOT EDIT THIS RECORD VIA PROVIDER ON THE FLY PCP - General Wet Machine Cutter 03/23/22
--- OUTSIDE RECORDS SUMMARY | 2024-06-04 09:35 | XMS_ITS | Encounter Summary ---
Author Organization [facility] Address [address] [place] [address] Care Team Providers Care Clinic Nurse Name Role Phone Patient, Has No Pcp Or Ref Primary Care Provider Unavailable Encounter Details Date Type Department Care Team (Late st Contact Info) Description 09/22/2022 myChart Message [facility] Financial Counseling Department [address] [place] [phone] Mychart, Generic Provider [facility] [place] [address] financial assistance Social History Tobacco Use Types Packs/Day Years [...] on file documented as of this encounter Plan of Treatment Not on file documented as of this encounter Visit Diagnoses Not on filedocumented in this encounter Care Teams Clinic Nurse Relationship Specialty Start Date End Date Patient, Has No Pcp Or Ref DO NOT EDIT THIS RECORD VIA PROVIDER ON THE FLY PCP - General Contract Coordinator 03/23/22 documented as of this encounter
[2024-06-04 10:37] LABS: Folate 11.5 ng/mL (> or = 4.0); Vitamin B12 387 pg/mL (200-900)
== END 2024-06-04 08:37 | disposition home or self-care (01) ==
LOC: HO.LAB 08:36
PROVIDERS: Psychiatry & Neurology Neurology; PCP Nurse Practitioner Family; Referring Provider Student in an Organized Health Care Education/Training Program; Visit Provider Student in an Organized Health Care Education/Training Program
DX: I77.6 Arteritis, unspecified (principal); G58.7 Mononeuritis multiplex
CPT/HCPCS: 36415; 80053; 82607; 82746; 85025

== ENCOUNTER 2024-06-06 08:35 | Outpatient (AMB) | payer MEDICARE, SELFPAY ==
--- OUTSIDE RECORDS SUMMARY | 2024-06-06 08:55 | XMS_ITS | Encounter Summary ---
Author Organization [facility] Address [address] [place] [address] Care Team Providers Care Revenue Cycle Specialist Name Role Phone Patient, Has No Pcp Or Ref Primary Care Provider Unavailable Encounter Details Date Type Department Care Team (Late st Contact Info) Description 04/04/2022 Telephone [facility] Patient Access [facility] [address] [place] [phone] Telephone Intake, Staff Social History Tobacco Use [...] appt pt states that she needs medication MINESH. PT can bereached @ [phone] PAC TEAM documented in this encounter Plan of Treatment Not on file documented as of this encounter Visit Diagnoses Not on filedocumented in this encounter Care Teams Revenue Cycle Specialist Relationship Specialty Start Date End Date Patient, Has No Pcp Or Ref DO NOT EDIT THIS RECORD VIA PROVIDER ON THE FLY PCP - General Poultry Trimmer 03/23/22 documented as of this encounter
--- OUTSIDE RECORDS SUMMARY | 2024-06-06 08:55 | XMS_ITS | Clinical Summary ---
Author Organization [facility] Address [address] [place] [address] Care Team Providers Care Fish Hatchery Specialist Name Role Phone Patient, Has No [...] for prior possible autoimmune disorder diagnosed in [place] presenting with 1.5 month history of progressively [...] had one presentation to the [place] in [place] after infection where she was found to have pancreatitis and developed necrotizing skin lesions on her hands that were suggestive of vascuilits. She follows with a chain puller (Dr. Carroll at [facility]). [facility] hospital workup included prior EMG with [...] recs for outpatient follow up (pt prefers [facility]) - Pain: tylenol 650mg Q4hrs, oxycodone 2.5mg [...] -Encourage PO intake -Cr has improved Immunizations Immunization Administration Dates Next Due Influenza, Injectable, Quadrivalent, [...] Hemoglobin A1C 1955 Sigmoidoscopy 1955 Pneumococcal Vaccine: 50+ Years (1 of 2 - PCV) 09/28/1961 [...] complete this topic Procedures * Due to [place] [employer] law, this organization might not be sharing negative HIV tests. Procedure Name Priority Date/Time Associated Diagnosis Comments RENAL FUNCTION PANEL Routine 03/31/2022 5:51 AM EST HEPATITIS PANEL, ACUTE STAT 03/24/2022 10:15 AM EST from Last 3 Months or Most Recently Relevant to Health Maintenance Results * Due to [place] [employer] law, this organization might not be sharing negative HIV tests. * (ABNORMAL) Renal Function Panel (03/31/2022 5:51 AM EST) NA 135 135 - 145 mmol/L 03/31/2022 6:41 AM [facility] K 4.4 3.5 - 5.3 mmol/L 03/31/2022 6:41 AM [facility] Cl 105 97 - 110 mmol/L 03/31/2022 6:41 AM [facility] CO2 25 24 - 32 mmol/L 03/31/2022 6:41 AM [facility] Anion Gap 5 5 - 15 03/31/2022 6:41 AM [facility] Glucose 89 70 - 99 mg/dL 03/31/2022 6:41 AM [facility] BUN 39(H) 7 - 23 mg/dL 03/31/2022 6:41 AM [facility] Creatinine 1.03 0.50 - 1.20 mg/dL 03/31/2022 6:41 AM [facility] Calcium 9.0 8.7 - 10.7 mg/dL 03/31/2022 6:41 AM [facility] Phosphorus 3.0 2.5 - 4.5 mg/dL 03/31/2022 6:41 AM [facility] Albumin 3.0(L) 3.5 - 4.8 g/dL 03/31/2022 6:41 AM [facility] eGFR 59(L) >=90 mL/min/1. 73m2 03/31/2022 6:41 AM [facility] Comment: Estimated Glomerular Filtration Rate [...] MD LAB BLOOD ORDERABLES Final Re sult [facility] [address] [place] [address], * Hepatitis Panel, Acute (03/24/2022 10:15 AM EST) Hepatitis A IgM NON-REACT HEATHER NON-REACT HEATHER 03/24/2022 11:36 PM EST [email or web address] Hepatitis B Surface Antigen NON-REACT HEATHER NON-REACT HEATHER 03/24/2022 11:36 PM EST [email or web address] [facility] Hepatitis B Core Antibody NON-REACT HEATHER NON-REACT HEATHER 03/24/2022 11:36 PM EST [email or web address] [facility] Hepatitis C Antibody NON-REACT HEATHER NON-REACT HEATHER 03/24/2022 11:36 PM EST [email or web address] [facility] Signal To Cut-Off 0.20 <1.00 03/24/2022 11:36 PM EST [email or web address] [facility] Comment: HCV antibody was non-reactive. There is no laboratory evidence of HCV infection. In most cases, no further action is required. However, if recent HCV exposure is suspected, a test for HCV RNA (test code 82501) is suggested. For additional information please refer to http://Kunlun.[employer]/faq/RTT85x4 (This link is being provided for informational/ educational purposes only.) For additional information, please refer to [email or web address]/faq/WUC052 (This link is being provided for informational/ educational purposes only.) Blood Structure of peripheral vein / Unknown Venipuncture / Unknown 03/24/2022 10:15 AM EST 03/24/2022 12:00 PM EST Narrative [facility] - 03/24/2022 11:36 PM EST [facility] Received Date: Tika Jarrell MD LAB BLOOD ORDERABLES Final Re [facility] [address] [facility] [address], [place] [address], [place] [phone] [facility] [address] [place] [address], [place] [address], [place] [phone] from Last 3 Months or Most Recently Relevant to Health Maintenance Insurance MEDICARE [facility] Advance Directives * Full Code (Latest Code Status on File) Date Activated Date Inactivated Comments 03/23/2022 3:58 PM 04/01/2022 7:20 PM Care Teams Fish Hatchery Specialist Relationship Specialty Start Date End Date Patient, Has No Pcp Or Ref DO NOT EDIT THIS RECORD VIA PROVIDER ON THE FLY PCP - General Vp Organizational Development 03/23/22
--- OUTSIDE RECORDS SUMMARY | 2024-06-06 08:55 | XMS_ITS | Encounter Summary ---
Author Organization [facility] Address [address] [place] [address] Care Team Providers Care Abalone Diver Name Role Phone Patient, Has No Pcp Or Ref Primary Care Provider Unavailable Encounter Details Date Type Department Care Team (Late st Contact Info) Description 09/22/2022 myChart Message [facility] Financial Counseling Department [address] [place] [phone] Mychart, Generic Provider [facility] [place] [address] financial assistance Social History Tobacco [...] on filedocumented in this encounter Care Teams Abalone Diver Relationship Specialty Start Date End Date Patient, Has No Pcp Or Ref DO NOT EDIT THIS RECORD VIA PROVIDER ON THE FLY PCP - General Truck Mechanic 03/23/22 documented as of this encounter
--- OUTSIDE RECORDS SUMMARY | 2024-06-06 08:55 | XMS_ITS | Clinical Summary ---
Author Organization [facility] Address [address] [place] [address] Care Team Providers Care Regional Sales Trainer Name Role Phone System, Provider Not In [...] age to complete this topic Care Teams Regional Sales Trainer Relationship Specialty Start Date End Date System, Provider Not In PCP - General 11/28/22
--- OUTSIDE RECORDS SUMMARY | 2024-06-06 08:55 | XMS_ITS | Referral Summary ---
Author Organization [facility] Address [address] [place] [address] Care Team Providers Care Social Media Director Name Role Phone Patient, Has No Pcp [...] for prior possible autoimmune disorder diagnosed in [place] presenting with 1.5 month history of progressively [...] had one [place] the [place] in [place] after infection where she was found to have pancreatitis and developed necrotizing skin lesions on her hands that were suggestive of vascuilits. She follows with a security flex utility officer (Dr. Carroll at [facility]). [facility] hospital workup included prior EMG with [...] recs for outpatient follow up (pt prefers [place]) - Pain: tylenol 650mg Q4hrs, oxycodone 2.5mg [...] Not on file Procedures * Due to [place] [employer] law, this organization might not be sharing negative HIV tests. Procedure Name Priority Date/Time Associated Diagnosis Comments RENAL FUNCTION PANEL Routine 03/31/2022 5:51 AM EST HEPATITIS PANEL, ACUTE STAT 03/24/2022 10:15 AM EST from Last 3 Months or Most Recently Relevant to Health Maintenance Results * Due to [place] [employer] law, this organization might not be sharing negative HIV tests. * (ABNORMAL) Renal Function Panel (03/31/2022 5:51 AM EST) NA 135 135 - 145 mmol/L 03/31/2022 6:41 AM EST [facility] K 4.4 3.5 - 5.3 mmol/L 03/31/2022 6:41 AM EST [facility] Cl 105 97 - 110 mmol/L 03/31/2022 6:41 AM EST [facility] CO2 25 24 - 32 mmol/L 03/31/2022 6:41 AM EST [facility] Anion Gap 5 5 - 15 03/31/2022 6:41 AM EST [facility] Glucose 89 70 - 99 mg/dL 03/31/2022 6:41 AM EST [facility] BUN 39(H) 7 - 23 mg/dL 03/31/2022 6:41 AM EST [facility] Creatinine 1.03 0.50 - 1.20 mg/dL 03/31/2022 6:41 AM EST [facility] Calcium 9.0 8.7 - 10.7 mg/dL 03/31/2022 6:41 AM EST [facility] Phosphorus 3.0 2.5 - 4.5 mg/dL 03/31/2022 6:41 AM EST [facility] Albumin 3.0(L) 3.5 - 4.8 g/dL 03/31/2022 6:41 AM EST [facility] eGFR 59(L) >=90 mL/min/1. 73m2 03/31/2022 6:41 AM EST [facility] Comment: Estimated Glomerular Filtration [...] MD LAB BLOOD ORDERABLES Final Re sult [facility] [address] [place] [address], * Hepatitis Panel, Acute (03/24/2022 10:15 AM EST) Hepatitis A IgM NON-REACT HEATHER NON-REACT HEATHER 03/24/2022 11:36 PM EST [facility] Hepatitis B Surface Antigen NON-REACT HEATHER NON-REACT HEATHER 03/24/2022 11:36 PM EST [facility] Hepatitis B Core Antibody NON-REACT HEATHER NON-REACT HEATHER 03/24/2022 11:36 PM EST [facility] Hepatitis C Antibody NON-REACT HEATHER NON-REACT HEATHER 03/24/2022 11:[address] [facility] Signal To Cut-Off 0.20 <1.00 03/24/2022 11:[address] [facility] Comment: HCV antibody was non-reactive. There is no laboratory evidence of HCV infection. In most cases, no further action is required. However, if recent HCV exposure is suspected, a test for HCV RNA (test code 28575) is suggested. For additional information please refer to http://Refurrl.Urban [employer]leman/faq/SIZ68w6 (This link is being provided for informational/ educational purposes only.) For additional information, please refer to http://Refurrl.[employer]/faq/LOS879 (This link is being provided for informational/ educational purposes only.) Blood Structure of peripheral vein / Unknown Venipuncture / Unknown 03/24/2022 10:15 AM EST 03/24/2022 12:00 PM EST [facility] 03/24/2022 11:36 PM EST [facility] Received Date: us Tika Jarrell MD LAB BLOOD ORDERABLES Final Re sult [facility] [address] [facility] [address], [place] [address], [place] [phone] [facility] [address] [facility] [address], [place] [address], [place] [phone] from Last 3 Months or Most Recently Relevant to Health Maintenance Insurance MEDICARE GENERIC Advance Directives * Full Code (Latest Code Status on File) Date Activated Date Inactivated Comments 03/23/2022 3:58 PM 04/01/2022 7:20 PM Care Teams Social Media Director Relationship Specialty Start Date End Date Patient, Has No Pcp Or Ref DO NOT EDIT THIS RECORD VIA PROVIDER ON THE FLY PCP - General Rib Bender 03/23/22
--- NOTE | 2024-06-06 08:56 | A.OFFVIS_ITS ---
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 At that time she was in remission. Still with residual neurologic issues but managed okay with gabapentin Decision made to decrease Rituximab to 1000mg every 6 months from 2000mg in divided doses every 6 months Received the last Rituxumab infusion 02/2024 Today, No new complaints Continues to travel [place] and forth to [place] to take care of her elderly mother Rheumatologic History: Medium and small vessel vasculitis in the setting of Sjogren's syndrome +++SSB necrotizing skin lesions, deltoid muscle biopsy showing vasculitis, severe asymmetrical peripheral neuropathy (on EMG/NCS) of her lower extremities. 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), inflammatory arthritis Received 3 doses of monthly Cytoxan 04/13-07/13 with some improvement Received 3 doses of IVIG (2g/kg) 07/13-10/13 without improvement in neurological symptoms MMF 07/13 partially effective, patient couldn't tolerate 1500 mg bid due to GI upset DC 10/13 RTX 1 g X 2 doses 12/2022 - 08/2023 RTX 1g 02/2024 - She reports having COVID-19 in 10/2021 and soon after having bronchitis requiring a prednisolone course with improvement Around 12/2021 she started having fever, generalized myalgias and arthralgias, vertigo, vomiting, paresthesias (feet and left hand), skin rash including an erythematous papular rash involving the face and back, and erythematous papular lesions involving the hands that led to blistering and necrosis. She was 1st evaluated in [place] and told to have CT and blood work with evidence of pancreatitis. She was then evaluated by [facility] Rheumatology which revealed increased inflammatory markers, positive anti Ro, evidence of peripheral neuropathy and at deltoid muscle biopsy showing vasculitis with giant cells involving the muscular artery. After this she received treatment with 3 pulses of Cytoxan followed by CellCept and 3 pulses of mycophenolate 1 g followed by an oral prednisone taper with significant clinical improvement. She also received a few months of IVIG. Started rituximab 12/2022 and got a 2nd cycle 06/2023 Weaned off prednisolone around 07/2023 Current Rheumatology Medication(s): Rituxumab 1g every 6 months IV Gabapentin 300mg tid daily Alpha lipoic acid 600mg PO daily [facility] Medical History (Updated 06/06/24 @ 11:55 by Criss Dahl MD) Encounter for monitoring rituximab therapy COVID-19 Hyperkalemia Autoimmune pancreatitis Sjogren syndrome with vasculitis Allergies Cataract Snoring Hx of migraines Prediabetes Muscle weakness Sjogren's disease Blood D-dimer assay positive Chest pain GERD (gastroesophageal reflux disease) Bronchitis Asthma AMY (obstructive sleep apnea) Surgical History History of cataract surgery Hx of colonoscopy Hx of cholecystectomy Hx of appendectomy S/P ankle joint replacement Family History Mother Alzheimer disease Other Family history of connective tissue disease Lupus Multiple sclerosis Rheumatoid arthritis Social History Household Members: Spouse Housing: House Alcohol intake: current Alcohol intake frequency: does not drink Patient Tobacco Use Status: Never used Tobacco e-Cigarette/Vaping Use: Never Used service: No Current occupational status: retired 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 Cognitive needs: No Hearing needs: No Vision needs: Yes Review of Systems Const Details: Review of Systems Constitutional: Denies fever, chills, weight loss ENT: Denies vision changes, eye pain or eye redness, dental caries, dry mouth GI: Denies nausea, vomiting, diarrhea, abdominal pain, change in BM Pulm: Denies SOB, FIERRO, hemoptysis, wheezing Cards: Denies chest pain, palpitations Skin: Denies Raynaud's, rash, nail changes, photosensitivity, TERMITE INSPECTOR: Denies headaches, weakness, paresthesias, recurrent falls MSK: as per HPI All other systems reviewed and are unremarkable except noted above Physical Exam Vital Signs: Last Vital Signs Pulse 81 06/06/24 08:57 BP 124/78 06/06/24 08:57 Pulse Ox 97 06/06/24 08:57 Oxygen Delivery Method Room Air 06/06/24 08:57 BMI result Body Mass Index 35.6 Vital signs reviewed Physical Examination CONSTITUITIONAL Patient alert and cooperative. Well appearing and in no apparent painful distress Walks using a cane HEENT Conjunctiva and sclera clear. ?Pupils equal round and reactive to light. ?No lymphadenopathy. ? CHEST/RESPIRATORY SYSTEM Normal respiratory effort and able to speak in complete sentences. ?Clear to auscultation bilaterally. ?No crackles, rales, rhonchi, wheezes heard. CARDIAC SYSTEM Regular rate and rhythm. ?S1 and S2 heard no murmurs. ?Radial pulses intact bilaterally MSK Hands: ?Good micro computer specialist strength bilaterally. No deformities noted. ?No synovitis noted to the MCPs, PIPs or DIPs. ?No tenderness to palpation of these joints. Wrists: ?Full range of motion at the wrists without pain. ?No tenderness to palpation or synovitis noted to the wrists. Elbows: Full range of motion without pain. No tenderness, weakness, swelling, increased warmth or erythema. Shoulders: Full range of motion without pain. No tenderness, weakness, swelling, increased warmth or erythema. Hips: Full range of motion without pain. Hip bursa: No tenderness to palpation Knees: ?Full range of motion. ?No tenderness, swelling, increased warmth or erythema.?No effusion or crepitations Ankles: Full range of motion. ?No tenderness, swelling, increased warmth or erythema.? Feet: ?Negative squeeze test. ?No tenderness to palpation or swelling of the MTPs. Tender points:?No tenderness to palpation of the bilateral trapezius, supraspinatus, greater trochanters, anterior costochondral junctions, bilateral gluteal areas, bilateral suboccipital muscle insertions SKIN Skin intact without rashes. Results Reviewed Results Reviewed: Laboratory Tests 02/04/24 02/22/24 06/04/24 09:35 08:19 09:06 WBC 8.5 RBC 4.16 L Hgb 12.8 Hct 38.7 Plt Count 318 ESR 52 H Sodium 140 Potassium 4.2 Chloride 113 H Carbon Dioxide 19 L BUN 17 H Creatinine 0.95 AST 25 ALT 19 Alkaline Phosphatase 110 IgE 150 H Assessment & Plan Assessment & Plan (1) Sjogren syndrome with vasculitis: Comment: Medium and small vessel vasculitis in the setting of Sjogren's syndrome +++SSB necrotizing skin lesions, deltoid muscle biopsy showing vasculitis, severe asymmetrical peripheral neuropathy (on EMG/NCS) of her lower extremities. 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), inflammatory arthritis Received 3 doses of monthly Cytoxan 04/13-07/13 with some improvement Received 3 doses of IVIG (2g/kg) 07/13-10/13 without improvement in neurological symptoms MMF 07/13 partially effective, patient couldn't tolerate 1500 mg bid due to GI upset DC 10/13 RTX 1 g X 2 doses 12/2022 - 08/2023 RTX 1g 02/2024 - Code(s): M35.0B - Sjogren syndrome with vasculitis Category: Medical Plan: #Sjogren's syndrome c/b medium and small vessel vasculitis Patient is a 68-year-old female with a history of mononeuritis multiplex, necrotic skin lesions and sicca symptoms diagnosed with medium and small vessel vasculitis in the setting of Sjogrens syndrome Completed induction with CYC, steroids and Rituxumab. Now in remission Will decrease the dose of Ritux to 1000mg every 6 months for maintenance for atleast the next 2 years Last dose was 02/2024 so her next dose is due 08/2024. Plan - Rituxumab 1000mg every 6 months IV infusion - Labs today: CBC, CMP, ESR, CRP, hepatitis panel, T spot, immunoglobulins, UA, UPC - RTC Prior to next infusion August 20 2024 - Labs prior to visit: CBC, CMP, ESR, CRP, hepatitis panel, T spot, immunoglobulins, UA, UPC (2) Encounter for monitoring rituximab therapy: Code(s): Z51.81 - Encounter for therapeutic drug level monitoring; Z79.620 - correction (current) use of immunosuppressive biologic Category: Medical Plan: #Long-term Use of Rituxumab Discussed with this patient the risks and benefits of rituximab use to the management of the rheumatic condition Benefits include improved disease control and maintenance of remission Risks include hypogammaglobulinemia and increased risk of opportunistic infections, reactivation of hepatitis-B, infusion reactions Monitoring: ?Immunoglobulins, hepatitis-B serologies, CBC Plan I spent 30 minutes reviewing the record and labs, taking a history, examining the patient, discussing the treatment plan and documenting in the medical record Orders: Orders 2 Erythrocyte Sedimentation Rate Today I77.6 - Arteritis, unspecified C Reactive Protein Today I77.6 - Arteritis, unspecified UA w Microscopic Today I77.6 - Arteritis, unspecified Immunoglobulins,IgG IgA IgM Today I77.6 - Arteritis, unspecified T Spot TB Today I77.6 - Arteritis, unspecified Hepatitis A,B,C Profile Today I77.6 - Arteritis, unspecified Protein Creatinine Ratio, Ur Today I77.6 - Arteritis, unspecified Coding Level of Care Code Est Pt Level 4 (67778) Complex EM visit Add On G2211 Diagnoses Sjogren syndrome with vasculitis M35.0B Encounter for monitoring rituximab therapy Z51.81; Z79.620
[2024-06-06 08:57] VITALS: BP 124/78; PULSE 81; O2SAT 97; BMI 35.6
== END 2024-06-06 09:42 | disposition home or self-care (01) ==
PROVIDERS: PCP Nurse Practitioner Family; Visit Provider Student in an Organized Health Care Education/Training Program
DX: M35.0B Sjogren syndrome with vasculitis (principal); Z51.81 Encounter for therapeutic drug level monitoring; Z79.620 Long term (current) use of immunosuppressive biologic
CPT/HCPCS: 99214; G2211

== ENCOUNTER 2024-06-06 08:35 | Outpatient (REF) | payer MEDICARE, SELFPAY ==
[2024-06-06 10:51] LABS: MANUAL DIFF FLAG NO
[2024-06-06 10:54] LABS: Basophils Absolute Auto 0.1 X10*3/uL (0.0-0.2); Basophils Percent Auto 0.6 % (0-2); Eosinophils Absolute Auto 0.4 X10*3/uL (0.0-0.4); Eosinophils Percent Auto 3.6 % (0-4); Hematocrit 41.7 % (37.0-47.0); Hemoglobin 13.4 g/dl (12.0-16.0); Imm Gran Abs Auto 0.04 X10*3/uL (0.00-0.03); Imm Gran Pct Auto 0.4 % (0.0-0.4); Lymphocytes Absolute Auto 1.5 X10*3/uL (1.2-4.9); Lymphocytes Percent Auto 14.4 % (20-40); Mean Corpuscular HGB Conc 32.1 g/dl (31.0-35.0); Mean Corpuscular Hemoglobin 30.1 pg (27.0-33.0); Mean Corpuscular Volume 93.7 fL (80.0-98.0); Mean Platelet Volume 9.2 fL (9.4-12.3); Monocytes Absolute Auto 1.1 X10*3/uL (0.1-1.2); Monocytes Percent Auto 10.2 % (2-11); Neutrophils Absolute Auto 7.3 x10*3/uL (2.0-8.3); Neutrophils Percent Auto 70.8 % (45-73); Platelet Count 329 X10*3/uL (160-400); Red Blood Count 4.45 X10*6/uL (4.20-5.50); Red Cell Distribution Width 13.2 % (11.0-16.0); White Blood Count 10.3 X10*3/uL (4.8-10.8)
--- OUTSIDE RECORDS SUMMARY | 2024-06-06 11:02 | XMS_ITS | Encounter Summary ---
Author Organization [facility] Address [address] [place] [address] Care Team Providers Care Surface Plate Finisher Name Role Phone Patient, Has No Pcp Or Ref Primary Care Provider Unavailable Encounter Details Date Type Department Care Team (Late st Contact Info) Description 09/22/2022 myChart Message [facility] Financial Counseling Department [address] [place] [phone] Mychart, Generic Provider [facility] [place] [address] financial assistance Social History Tobacco [...] on filedocumented in this encounter Care Teams Surface Plate Finisher Relationship Specialty Start Date End Date Patient, Has No Pcp Or Ref DO NOT EDIT THIS RECORD VIA PROVIDER ON THE FLY PCP - General Road Hogger Operator 03/23/22 documented as of this encounter
--- OUTSIDE RECORDS SUMMARY | 2024-06-06 11:02 | XMS_ITS | Clinical Summary ---
Author Organization [facility] Address [address] [place] [address] Care Team Providers Care Machine Veneer Repairer Name Role Phone System, Provider Not In [...] age to complete this topic Care Teams Machine Veneer Repairer Relationship Specialty Start Date End Date System, Provider Not In PCP - General 11/28/22
--- OUTSIDE RECORDS SUMMARY | 2024-06-06 11:02 | XMS_ITS | Clinical Summary ---
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 She follows with a envelope sealing machine operator (Dr. Carroll at [facility]). [facility] hospital workup included prior EMG with findings [...] recs for outpatient follow up (pt prefers [facility]) - Pain: tylenol 650mg Q4hrs, oxycodone 2.5mg [...] complete this topic Procedures * Due to [place] [employer] law, this organization might not be sharing negative HIV tests. Procedure Name Priority Date/Time Associated Diagnosis Comments RENAL FUNCTION PANEL Routine 03/31/2022 5:51 AM EST HEPATITIS PANEL, ACUTE STAT 03/24/2022 10:15 AM EST from Last 3 Months or Most Recently Relevant to Health Maintenance Results * Due to [place] [employer] law, this organization might not be sharing negative HIV tests. * (ABNORMAL) Renal Function Panel (03/31/2022 5:51 AM EST) NA 135 135 - 145 mmol/L 03/31/2022 6:41 AM [facility] K 4.4 3.5 - 5.3 mmol/L 03/31/2022 6:41 AM [facility] Cl 105 97 - 110 mmol/L 03/31/2022 6:41 AM [facility] CO2 25 24 - 32 mmol/L 03/31/2022 6:41 AM [facility] Anion Gap 5 5 - 15 03/31/2022 6:41 AM [facility] Glucose 89 70 - 99 mg/dL 03/31/2022 6:41 AM [facility] BUN 39(H) 7 - 23 mg/dL 03/31/2022 6:41 AM [facility] Creatinine 1.03 0.50 - 1.20 mg/dL 03/31/2022 6:41 AM [facility] Calcium 9.0 8.7 - 10.7 mg/dL 03/31/2022 6:41 AM [facility] Phosphorus 3.0 2.5 - 4.5 mg/dL 03/31/2022 6:41 AM [facility] Albumin 3.0(L) 3.5 - 4.8 g/dL 03/31/2022 6:41 AM [facility] eGFR 59(L) >=90 mL/min/1. 73m2 03/31/2022 6:41 AM [facility] Comment: Estimated Glomerular Filtration [...] MD LAB BLOOD ORDERABLES Final Re sult [facility] [address] [place] [address], * Hepatitis Panel, Acute (03/24/2022 10:15 AM EST) Hepatitis A IgM NON-REACT HEATHER NON-REACT HEATHER 03/24/2022 11:36 PM EST [employer] [employer] [facility] Hepatitis B Surface Antigen NON-REACT HEATHER NON-REACT HEATHER 03/24/2022 11:36 PM EST [employer] [facility] Hepatitis B Core Antibody NON-REACT HEATHER NON-REACT HEATHER 03/24/2022 11:36 PM EST [employer] [facility] Hepatitis C Antibody NON-REACT HEATHER NON-REACT HEATHER 03/24/2022 11:36 PM EST [employer] [facility] Signal To Cut-Off 0.20 <1.00 03/24/2022 11:36 PM EST [employer] [facility] Comment: HCV antibody was non-reactive. There is no laboratory evidence of HCV infection. In most cases, no further action is required. However, if recent HCV exposure is suspected, a test for HCV RNA (test code 08553) is suggested. For additional information please refer to http://TechDevils.Appscio/faq/CTH01w1 (This link is being provided for informational/ educational purposes only.) For additional information, please refer to http://[employer]/faq/KJR110 (This link is being provided for informational/ educational purposes only.) Blood Structure of peripheral vein / Unknown Venipuncture / Unknown 03/24/2022 10:15 AM EST 03/24/2022 12:00 PM EST [facility]ative [facility] - 03/24/2022 11:36 PM EST [facility] Received Date: Tika Jarrell MD LAB BLOOD ORDERABLES Final Re sult [facility] [address], [place] [address], [place] [phone] [facility] [address], [place] [address], [place] [phone] from Last 3 Months or Most Recently Relevant to Health Maintenance Insurance MEDICARE [facility] Advance Directives * Full Code (Latest Code Status on File) Date Activated Date Inactivated Comments 03/23/2022 3:58 PM 04/01/2022 7:20 PM Care Teams Supervisor Personnel Clerks Relationship Specialty Start Date End Date Patient, Has No Pcp Or Ref DO NOT EDIT THIS RECORD VIA PROVIDER ON THE FLY PCP - General Button Bradder 03/23/22
--- OUTSIDE RECORDS SUMMARY | 2024-06-06 11:02 | XMS_ITS | Encounter Summary ---
Author Organization [facility] Address [address] [place] [address] Care Team Providers Care Pelt Dropper Name Role Phone Patient, Has No Pcp Or Ref Primary Care Provider Unavailable Encounter Details Date Type Department Care Team (Late st Contact Info) Description 04/04/2022 Telephone [facility] Patient [facility] [address] [place] [id number] Telephone Intake, Staff Social History Tobacco Use [...] needs medication MINESH. PT can bereached @ [phone] PAC TEAM documented in this encounter Plan of Treatment Not on file documented as of this encounter Visit Diagnoses Not on filedocumented in this encounter Care Teams Pelt Dropper Relationship Specialty Start Date End Date Patient, Has No Pcp Or Ref DO NOT EDIT THIS RECORD VIA PROVIDER ON THE FLY PCP - General English Drawer 03/23/22 documented as of this encounter
--- OUTSIDE RECORDS SUMMARY | 2024-06-06 11:02 | XMS_ITS | Referral Summary ---
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 She follows with a cast iron dipper (Dr. Carroll at [facility]). [facility] hospital workup included prior EMG with findings [...] recs for outpatient follow up (pt prefers [facility]) - Pain: tylenol 650mg Q4hrs, oxycodone 2.5mg [...] Not on file Procedures * Due to [place] [employer] law, this organization might not be sharing negative HIV tests. Procedure Name Priority Date/Time Associated Diagnosis Comments RENAL FUNCTION PANEL Routine 03/31/2022 5:51 AM EST HEPATITIS PANEL, ACUTE STAT 03/24/2022 10:15 AM EST from Last 3 Months or Most Recently Relevant to Health Maintenance Results * Due to [place] [employer] law, this organization might not be sharing negative HIV tests. * (ABNORMAL) Renal Function Panel (03/31/2022 5:51 AM EST) NA 135 135 - 145 mmol/L 03/31/2022 6:41 AM EST [facility] K 4.4 3.5 - 5.3 mmol/L 03/31/2022 6:41 AM EST [facility] Cl 105 97 - 110 mmol/L 03/31/2022 6:41 AM EST [facility] CO2 25 24 - 32 mmol/L 03/31/2022 6:41 AM EST [facility] Anion Gap 5 5 - 15 03/31/2022 6:41 AM EST [facility] Glucose 89 70 - 99 mg/dL 03/31/2022 6:41 AM EST [facility] BUN 39(H) 7 - 23 mg/dL 03/31/2022 6:41 AM EST [facility] Creatinine 1.03 0.50 - 1.20 mg/dL 03/31/2022 6:41 AM EST [facility] Calcium 9.0 8.7 - 10.7 mg/dL 03/31/2022 6:41 AM EST [facility] Phosphorus 3.0 2.5 - 4.5 mg/dL 03/31/2022 6:41 AM EST [facility] Albumin 3.0(L) 3.5 - 4.8 g/dL 03/31/2022 6:41 AM EST [facility] eGFR 59(L) >=90 mL/min/1. 73m2 03/31/2022 6:41 AM EST [facility] Comment: Estimated Glomerular [...] MD LAB BLOOD ORDERABLES Final Re sult [facility] [address] [place] [address], * Hepatitis Panel, Acute (03/24/2022 10:15 AM EST) Hepatitis A IgM NON-REACT HEATHER NON-REACT HEATHER 03/24/2022 11:36 PM EST [facility] Hepatitis B Surface Antigen NON-REACT HEATHER NON-REACT HEATHER 03/24/2022 11:36 PM EST [facility] Hepatitis B Core Antibody NON-REACT HEATHER NON-REACT HEATHER 03/24/2022 11:36 PM EST [facility] Hepatitis C Antibody NON-REACT HEATHER NON-REACT HEATHER 03/24/2022 11:36 PM EST [employer] [facility] Signal To Cut-Off 0.20 <1.00 03/24/2022 11:36 PM EST [employer] [facility] Comment: HCV antibody was non-reactive. There is no laboratory evidence of HCV infection. In most cases, no further action is required. However, if recent HCV exposure is suspected, a test for HCV RNA (test code 96075) is suggested. For additional information please refer to http://[employer].com.PureSense/faq/KHG90c2 (This link is being provided for informational/ educational purposes only.) For additional information, please refer to http://[employer]CaliforniaC[employer].com.PureSense/faq/YEF425 (This link is being provided for informational/ educational purposes only.) Blood Structure of peripheral vein / Unknown Venipuncture / Unknown 03/24/2022 10:15 AM EST 03/24/2022 12:00 PM EST [facility] 03/24/2022 11:36 PM EST [facility] Received Date: us Tika Jarrell MD LAB BLOOD ORDERABLES Final Re sult [facility] [address], [place] [address], [place] [phone] [employer] [facility] [address], [place] [address], [place] [phone] from Last 3 Months or Most Recently Relevant to Health Maintenance Insurance MEDICARE GENERIC Advance Directives * Full Code (Latest Code Status on File) Date Activated Date Inactivated Comments 03/23/2022 3:58 PM 04/01/2022 7:20 PM Care Teams Refrigeration Technician Relationship Specialty Start Date End Date Patient, Has No Pcp Or Ref DO NOT EDIT THIS RECORD VIA PROVIDER ON THE FLY PCP - General Audio Visual Engineer 03/23/22
[2024-06-06 11:12] LABS: Alanine Aminotransferase 21 U/L (0-31); Albumin Level 4.1 g/dL (3.5-5.0); Alkaline Phosphatase 123 U/L (39-117); Anion Gap 13 (12-20); Aspartate Amino Transferase 23 U/L (5-31); Bilirubin Total 0.5 mg/dL (0.0-1.0); Blood Urea Nitrogen 25 mg/dL (9-16); C Reactive Protein 0.61 mg/dL (< or = 0.50); Calcium 9.8 mg/dL (8.4-10.2); Carbon Dioxide 23 mmol/L (22-29); Chloride 108 mmol/L (96-108); Estimated Glomerular Filt Rate > 60; Glucose Random 91 mg/dL (60-115); Potassium 4.4 mmol/L (3.3-5.1); Sodium 140 mmol/L (135-145); Total Protein 7.8 g/dL (6.5-8.0)
[2024-06-06 11:28] LABS: Appearance Urine Clear; Color Urine Yellow; Glucose Urine UA Negative (Negative); Leukocyte Esterase Urine Negative (Negative); Nitrite Urine Negative (Negative); PH 5.5 (5.0-9.0); UMIC TRIGGER UA YES; Urine Blood Trace (Negative); Urine Ketones Negative (Negative); Urine Protein Negative (Neg-Trace)
[2024-06-06 11:33] LABS: Bacteria Urine None Seen (None Seen); Hyaline Casts Urine 0-2 /LPF (0-2); Squamous Epithelial Cell Urine 0-2 /HPF (0-2); WBC Urine 0-5 /HPF (0-5)
[2024-06-06 11:35] LABS: HBS Num1 1.16 mIU/mL (0-7.99); HBc Num1 0.23 S/CO (0.00-0.79); HBsAGNum1 0.28 S/CO (0.00-0.99); Hepatitis A Antibody IgM 0.27 Index (0-0.79); Hepatitis B Core Antibody Nonreactive (Nonreactive); Hepatitis B Surface Antigen Negative (Negative); ~HepC Num1 0.03 S/CO (0.00-0.79); ~Hepatitis A Antibody IgM Nonreactive (Nonreactive); ~Hepatitis B Surface Antibody NONREACTIVE (Nonreactive); ~Hepatitis C Antibody Nonreactive (Nonreactive)
[2024-06-06 11:49] LABS: Erythrocyte Sedimentation Rate 34 MM/HR (0-20)
[2024-06-06 12:34] LABS: Creatinine Urine 123.51 mg/dL; Protein/Creatinine Ratio, Ur 0.07 (<0.2); Total Protein Urine Random 9 mg/dL (<12)
[2024-06-08 23:35] LABS: TS Negative Control Passed; TS Panel A 0; TS Panel B 0; TS Positive Control Passed; TSpotTB Negative (Negative)
[2024-06-09 10:43] LABS: IgA 247 mg/dL (70-320); IgG 1094 mg/dL (600-1540); IgM 13 mg/dL (50-300)
== END 2024-06-06 08:36 | disposition home or self-care (01) ==
LOC: HO.LAB 08:35
PROVIDERS: Student in an Organized Health Care Education/Training Program; PCP Nurse Practitioner Family; Visit Provider Student in an Organized Health Care Education/Training Program
DX: J45.40 Moderate persistent asthma, uncomplicated (principal); I77.6 Arteritis, unspecified; J84.9 Interstitial pulmonary disease, unspecified; K21.00 Gastro-esophageal reflux disease with esophagitis, without bleeding; G47.33 Obstructive sleep apnea (adult) (pediatric); J30.9 Allergic rhinitis, unspecified; R93.89 Abnormal findings on diagnostic imaging of other specified body structures; T78.40XA Allergy, unspecified, initial encounter; M35.0B Sjogren syndrome with vasculitis; Z51.81 Encounter for therapeutic drug level monitoring; Z79.620 Long term (current) use of immunosuppressive biologic; Z11.59 Encounter for screening for other viral diseases; Z72.89 Other problems related to lifestyle
CPT/HCPCS: 36415; 80053; 81001; 82570; 82784; 84156; 85025; 85652; 86140; 86481; 86704; 86706; 86709; 86803; 87340; 99212

== ENCOUNTER 2024-06-06 11:37 | Outpatient (AMB) | payer MEDICARE, OTHER, SELFPAY ==
[2024-06-06 11:55] VITALS: BP 128/74; PULSE 91; O2SAT 97; BMI 36.1
--- NOTE | 2024-06-06 11:55 | A.OFFVIS_ITS ---
Vital Signs 06/06/24 11:55 Height 5 ft 4 in Weight 210 lb 8.663 oz BMI 36.1 BP 128/74 Blood Pressure Location Rt brachial Position Sitting Pulse 91 Pulse Source Pulse Oximeter Pulse Oximetry (%) 97 Oxygen Delivery Method Room Air Intake Visit Reasons: Cough Allergies No Known Allergies Allergy (Verified 06/06/24 11:58) HPI Comments Details: The patient is a 68-year-old woman with a known history of asthma and AMY. The patient has been complaining worsening shortness of breath and cough for the last several weeks. However, more recently he started developing a productive cough with yellow phlegm. She feels like the phlegm is difficult to expectorate. She had been in [place] for some time with her mother and while she was there her respiratory status was worse and ended up in the prednisone. Also, she ran out of her Trelegy inhaler and she was not able to refill it and she has been off it now for 2 months. Therefore she has been using her nebulizer therapy with albuterol and also her ProAir more regularly. The patient also struggling with her CPAP. She cannot tolerate the elevated pressures. She is also developing epistaxis with her nasal pillow mask. Patient is no longer getting supplies from her [employer] company. therefore, she is now consider inactive in not getting any supplies for many [employer] company. The patient needs to be set up again with a [employer] company in the only way to do that is to repeat her sleep study in order to demonstrating again that she has sleep apnea and therefore get active again. In the meantime she has not been tolerating the fractures. For that reason she has been having significant headaches in the morning and also complaining of daytime drowsiness with an elevated [place] score 14/24. Therefore, repeating the sleep study will be crucial in order for her to start her CPAP therapy again. The patient follow-up after her sleep study. In addition to that I will give her some antibiotics for the bronchitis that she is experiencing. 02/16/2022 the patient is here for a pulmonary follow-up visit. She was in [place] and was very sick. Initially developed a rash suggesting of vasculitis. although, initially was thought to be monkey pox. The patient during the hospitalization also was diagnosed with pancreatitis. She was given IV antibiotics and also given IV steroids. the patient also has been complaining of worsening cough productive in nature. The cough has continued. Today she was evaluated by Rheumatology. The patient has significant complaints on a constitutional review of systems. It is likely that she has a flare up of her connective tissue disease that is affecting multiple organ systems. She is currently on a small dose of methylprednisolone that is helping maintain the vasculitis flare up at [place]. Although she continues to very symptomatic. She is very short of breath. We did taken for 6 minute walk test. The patient did not desaturate but she was very weak. She took multiple rest even after 50 ft. She was using a walker. Her pulse ox was 98% throughout the ambulation. She also complains of pleuritic chest pain. We had her undergoing blood work. She just traveled from [place]. Her D-dimer is positive significantly elevated. Therefore in view of her risk for thromboembolic disease I will go ahead and order a CTA at this time. The patient has a full blood work panel order from Rheumatology. Will be awaiting the results of that in addition to awaiting the results of her CT scan. 03/02/2022 the patient is here for pulmonary follow-up visit. She continues to have multiple complaints. Does have some shortness of breath and cough. Her D- dimer had been elevated and she did undergo a CTA. I did review the CTA images with the patient. No evidence of any pulmonary emboli. However, she did have some areas of ground-glass and interstitial changes primarily at the bases. T his consistent with pneumonitis. She may also have a component of atelectasis. She does have significant dry crackles specially on the right base consistent with her interstitial lung disease from her underlying connective tissue disease. She has been on Medrol but not been enough to maintain her symptoms under control or decreasing inflammatory changes of her lungs. We did review her other labs demonstrating a significantly elevated sedimentation rate an ESR. Her ANCA levels were negative. She does have underlying vasculitis appreciated on her skin. However, no biopsy was done at the time. She will be following up closely with Rheumatology. An extensive blood work panel has been requested. In the meantime will go ahead and start her on mycophenolate in order to treat her underlying interstitial lung disease appreciated on her CT scan. I am hopeful that she also gets relief from this inflammatory process. 05/26/2022 the patient is here for a pulmonary follow-up visit. The patient continues to have multiple complaints. She had been admitted to [facility] which she was evaluated by Rheumatology. Again, it is very clear that she has a diagnosis of vasculitis. Although clear connective tissue disease has not been identified. The patient therefore was referred back to her nail sticker. She was started on cyclophosphamide and she is off the CellCept. She continues to have significant weakness and neuropathy like symptoms. Breathing appears to be okay at this time. Denies any significant shortness of breath or chest discomfort. The patient denies any productive mucus or wheezing. From a cardiac standpoint the patient did have an episodes of atrial fibrillation prior to receiving her cyclophosphamide infusion therefore she had been admitted to the hospital. She was placed on Eliquis and rate controlling agents. Now she is waiting for cardiology follow-up. 11/27/2022 the patient is here for a pulmonary follow-up visit. The patient had been doing well after the treatment with cyclophosphamide for the vasculitis but now appears to have been returning. She was switched over to will high doses of IVIG. Although she may have had an adverse reaction. She ultimately developed significant anemia requiring 2 units of blood. She is still monitoring closely her hemoglobin. She did follow-up with Hematology. The patient was placed on additional steroids based on the fact that her sedimentation rate is above 100. She continues to have shortness of breath. She denies any hemoptysis. Although her major complaint is that she is having significant visual loss. Therefore, will request the ophthalmology examination urgently to assess for any acute changes. Patient will receive Solu-Medrol today to help decrease any inflammatory changes. She is awaiting the approval for rituximab in order to start that. In the meantime she continues with her CPAP therapy and she continues with respiratory medicines. She did have a chest x-ray which I personally reviewed. No evidence of any ground-glass opacities or any acute changes. Her exam is reassuring without any significant crackles. 03/08/2023 the patient is here for a pulmonary follow-up visit. The patient is feeling much better since starting the rituximab. She has tolerated the therapy in this been very effective decreasing him from a shunt. Still having significant issues with her balance and strongly weakness likely due to the high-dose steroids and also having issues with cataracts all related to the steroids. The patient now was restarted on a small dose of prednisone since she still becomes symptomatic when she is completely off it. Therefore, now she is taking 4 mg and she is tolerating that well. She is using her respiratory therapy as prescribed which is reassuring. Denies any significant wheezing at this time. We did provide her a form for odilia based on the fact that she is having respiratory issues and now having physical limitations requiring a cane. She did have an issue with a bloody nose. We did talk about stopping the fluticasone. She does have an ulceration in the right turbinate. She will try Bactroban for few days. She can also try saline gel. She will increase that he needed a on her CPAP to make sure that that does not bother. In the CPAP therapy continues to be affecting beneficial. As long she is not having any bleeding from the nose she did use it. If her nose starts bleeding again specially on the Eliquis she may need to be seen by ENT or urgent care for cautery of that lesion on the right turbinate. 10/08/2023 the patient is here for a pulmonary follow-up visit. From a backs colitis standpoint the patient has been doing well. She did follow-up with Rheumatology in [place] and also Rheumatology here. She has been under rituximab. Although it is extremely expensive because she is only getting 80% covered and she has the other 20% which are thousands of dollars. She is trying to deal with that issue. In the meantime the patient has been having a cough. The cough tends to be persistent primarily in the morning and at nighttime. Typically nonproductive although she can not bring up some phlegm at times. Moderate severity. She has been using her respiratory therapy. The patient has a nebulizer here that is not working effectively. She needs a replacement. Also will request a CPT valve flutter valve to help her with her mucus clearance. The patient does have significant wheezing on examination. We did talk about taking a course of prednisone to help her with her asthma flare-up. She has already on the Trelegy inhaler. The patient also needs to get a function nebulizer. The patient does have immunodeficiency. She does have what appears to be chronic bronchitis. In view of her chronic bronchitis will be reasonable to start her on azithromycin 3 times a week to see if we can decrease her mucus burden decrease the inflammation of the airways. She was start the azithromycin get an EKG to make sure that her QTC is within normal range. 02/06/2024 the patient is here for a pulmonary follow-up visit. She has been under the weather now for couple weeks. She started with a cough after having her cataracts done. The surgery went well but then she started developing worsening chest tightness. She does not have any nebulizer solution. She does have significant wheezing on examination today. She does have an asthma exacerbation. She did receive an Xopenex treatment in the office and I did send the Xopenex to the pharmacy. In addition to that she is going to have to start prednisone and also start her on a course of antibiotics. Unfortunately she needs to get vaccinated as well before getting her Rituxan injection. Explained to her that while on the prednisone be hard for her to get vaccinated because she probably will have any effect. Therefore once she prednisone is down to 20 mg or less she can go and get her vaccines. I did encourage her to get her flu shot in the RSV. Although sometimes I do not recommend did get given together because the RSV tends to cause increased symptoms. Is also a new vaccine for her. She is scheduled to receive her Rituxan in 3 weeks. Hopefully she can get these vaccines done after her prednisone dose is decreased to minimize the body immunosuppression. If the patient is no better she is going to come in for a chest x-ray. Otherwise follow-up in May when she comes back to the area. 06/06/2024 the patient is here for pulmonary follow-up visit. Overall she is doing okay. She has had worsening cough. She has been using her inhaler little bit more often. Her x-ray back in 02/10/2024 was reassuring just with some minimal bronchitis. No evidence of any interstitial lung disease that I can khang reciate. She has had pneumonitis and interstitial lung disease initially back in 2021 or so when she was initially being evaluated and treated for the vasculitis in the connective tissue diseases. But her last imaging study of the CT scan of the abdomen demonstrating the lung cuts with no evidence of any significant pneumonitis just some minimal interstitial changes. So far the most part with the stability of her connective tissue disease and vasculitis her pulmonary manifestations have improved. She is however having some increased coughing and some decreased breath sounds. She would benefit from a maintenance inhaler. Will go ahead and started her on Advair HFA. She can also continue her Xopenex. She does not tolerate the regular albuterol well because it causes tremulousness and palpitations. She will continue with the allergy medicine as well. Will plan to follow-up sometime in August at that point we can decide if we need additional imaging studies depending on her symptoms. [facility] Medical History (Updated 06/09/24 @ 13:08 by Christophe Jean Baptiste MD) Encounter for monitoring rituximab therapy Sjogren syndrome with vasculitis Allergies Cataract Snoring Hx of migraines Hyperkalemia Prediabetes Muscle weakness Autoimmune pancreatitis Sjogren's disease COVID-19 Blood D-dimer assay positive Chest pain GERD (gastroesophageal reflux disease) Bronchitis Asthma AMY (obstructive sleep apnea) Surgical History History of cataract surgery Hx of colonoscopy Hx of cholecystectomy Hx of appendectomy S/P ankle joint replacement Family History Mother Alzheimer disease Other Family history of connective tissue disease Lupus Multiple sclerosis Rheumatoid arthritis Social History Household Members: Spouse Housing: House Alcohol intake: current Alcohol intake frequency: does not drink Patient Tobacco Use Status: Never used Tobacco e-Cigarette/Vaping Use: Never Used service: No Current occupational status: retired 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 Cognitive needs: No Hearing needs: No Vision needs: Yes Review of Systems Const Denies fever(s) Eyes Reports blurry vision ENT Denies epistaxis, Reports nasal congestion, Reports nasal discharge and Reports post nasal drip Card Reports dyspnea on exertion Resp Reports cough, Reports dyspnea on exertion and Reports wheezing GI Reports no additional complaints Musc Reports arthralgias, Reports joint swelling, Reports numbness and Reports stiffness Skin/Breast Denies rash Neuro Reports numbness, Reports Sensory deficit (Neuro) and Reports paresthesias Aller/Immun Reports wheezing Physical Exam Vital Signs: Last Vital Signs Pulse 91 06/06/24 11:55 BP 128/74 06/06/24 11:55 Pulse Ox 97 06/06/24 11:55 Oxygen Delivery Method Room Air 06/06/24 11:55 BMI result Body Mass Index 36.1 Const General: comfortable and alert HEENT Head: Yes atraumatic and Yes other (alopecia) Neck Neck: Yes normal visual inspection, Yes full ROM and Yes no lymphadenopathy Chest Chest palpation & inspection: normal inspection of the chest Resp Auscultation: no rales and diminished lung sounds Cardio Rate: regular rate Rhythm: regular rhythm Heart sounds: S1 normal heart sound present and S2 normal heart sound present GI Palpation (GI): Soft to palpation and nontender Auscultation: normal bowel sounds Skin General skin exam: rashes and/or lesions noted Neuro Sensory Exam: Sensory deficit (Neuro) Assessment & Plan Assessment & Plan (1) Asthma: Code(s): J45.909 - Unspecified asthma, uncomplicated Category: Medical Qualifiers: Asthma complication type: uncomplicated Asthma persistence: persistent Asthma severity: moderate Qualified Code(s): J45.40 - Moderate persistent asthma, uncomplicated (2) ILD (interstitial lung disease): Code(s): J84.9 - Interstitial pulmonary disease, unspecified Category: Medical (3) AUDRA positive: Code(s): R76.8 - Other specified abnormal immunological findings in serum Category: Medical (4) GERD (gastroesophageal reflux disease): Code(s): K21.9 - Gastro-esophageal reflux disease without esophagitis Category: Medical Qualifiers: Esophagitis bleeding: without hemorrhage Esophagitis presence: with esophagitis Qualified Code(s): K21.00 - Gastro-esophageal reflux disease with esophagitis, without bleeding (5) AMY (obstructive sleep apnea): Code(s): G47.33 - Obstructive sleep apnea (adult) (pediatric) Category: Medical (6) Chronic allergic rhinitis: Code(s): J30.9 - Allergic rhinitis, unspecified Category: Medical (7) Vasculitis: Code(s): I77.6 - Arteritis, unspecified Category: Medical (8) Abnormal chest x-ray: Code(s): R93.89 - Abnormal findings on diagnostic imaging of other specified body structures Category: Medical (9) Allergies: Code(s): T78.40XA - Allergy, unspecified, initial encounter Category: Medical Qualifiers: Encounter type: initial encounter Qualified Code(s): T78.40XA - Allergy, unspecified, initial encounter Plan nebulizer for Xopenex continue APAP 6-11 once cough is better Flovent (stopped the LABA due to the Afib) Xopenex as needed continue Astelin nasal spray saline gel as needed No rugs/hypoallergenic covers CXR with the next visit follow-up in 3-4 months Medications: New fluticasone propion-salmeterol 115-21 mcg/actuation (Advair HFA) 2 puffs inhalation Q12H 3 ea 3RF 90 days Changed From levalbuterol tartrate 45 mcg/actuation (Xopenex HFA) 2 puffs PO Q6H 30 days PRN 15 grams 11RF shortness of breath or wheezing J45.909 - Unspecified asthma, uncomplicated To levalbuterol tartrate 45 mcg/actuation (Xopenex HFA) 2 puffs PO Q6H PRN 3 ea 3RF shortness of breath or wheezing 90 days J45.909 - Unspecified asthma, uncomplicated From montelukast 10 mg PO DAILY To montelukast 10 mg PO DAILY 90 tabs 3RF 90 days Coding Level of Care Code Est Pt Level 4 (62584) Complex EM visit Add On G2211 Diagnoses Moderate persistent asthma without complication J45.40 Asthma complication type: uncomplicated Asthma persistence: persistent Asthma severity: moderate ILD (interstitial lung disease) J84.9 AUDRA positive R76.8 Gastroesophageal reflux disease with esophagitis without hemorrhage K21.00 Esophagitis bleeding: without hemorrhage Esophagitis presence: with esophagitis AMY (obstructive sleep apnea) G47.33 Chronic allergic rhinitis J30.9 Vasculitis I77.6 Abnormal chest x-ray R93.89 Allergy, initial encounter T78.40XA Encounter type: initial encounter Time Spent (min) 17
--- OUTSIDE RECORDS SUMMARY | 2024-06-06 12:22 | XMS_ITS | Encounter Summary ---
Author Organization [facility] Address [address] [place] [address] Care Team Providers Care Claims Analyst Name Role Phone Patient, Has No Pcp Or Ref Primary Care Provider Unavailable Encounter Details Date Type Department Care Team (Late st Contact Info) Description 04/04/2022 Telephone [facility] [address] [place] [id number] Telephone Intake, Staff Social History Tobacco Use [...] needs medication MINESH. PT can bereached @ [phone] PAC TEAM documented in this encounter Plan of Treatment Not on file documented as of this encounter Visit Diagnoses Not on filedocumented in this encounter Care Teams Claims Analyst Relationship Specialty Start Date End Date Patient, Has No Pcp Or Ref DO NOT EDIT THIS RECORD VIA PROVIDER ON THE FLY PCP - General Compliance Review Specialist 03/23/22 documented as of this encounter
--- OUTSIDE RECORDS SUMMARY | 2024-06-06 12:22 | XMS_ITS | Clinical Summary ---
Author Organization [facility] Address [address] [place] [address] Care Team Providers Care Portable Feed Mill Operator Name Role Phone Patient, Has No Pcp [...] for prior possible autoimmune disorder [place] presenting with 1.5 month history of progressively [...] had one presentation to the [place] in [place] after infection where she was found to have pancreatitis and developed necrotizing skin lesions on her hands that were suggestive of vascuilits. She follows with a gastroenterology professor (Dr. Carroll at [facility]). [facility] hospital workup included prior EMG with findings [...] recs for outpatient follow up (pt prefers [place]) - Pain: tylenol 650mg Q4hrs, oxycodone 2.5mg [...] complete this topic Procedures * Due to [place] statusboom law, this organization might not be sharing negative HIV tests. Procedure Name Priority Date/Time Associated Diagnosis Comments RENAL FUNCTION PANEL Routine 03/31/2022 5:51 AM EST HEPATITIS PANEL, ACUTE STAT 03/24/2022 10:15 AM EST from Last 3 Months or Most Recently Relevant to Health Maintenance Results * Due to [place] statusboom law, this organization might not be sharing negative HIV tests. * (ABNORMAL) Renal Function Panel (03/31/2022 5:51 AM EST) NA 135 135 - 145 mmol/L 03/31/2022 6:41 AM [facility] K 4.4 3.5 - 5.3 mmol/L 03/31/2022 6:41 AM [facility] Cl 105 97 - 110 mmol/L 03/31/2022 6:41 AM [facility] CO2 25 24 - 32 mmol/L 03/31/2022 6:41 AM [facility] Anion Gap 5 5 - 15 03/31/2022 6:41 AM [facility] Glucose 89 70 - 99 mg/dL 03/31/2022 6:41 AM [facility] BUN 39(H) 7 - 23 mg/dL 03/31/2022 6:41 AM [facility] Creatinine 1.03 0.50 - 1.20 mg/dL 03/31/2022 6:41 AM [facility] Calcium 9.0 8.7 - 10.7 mg/dL 03/31/2022 6:41 AM [facility] Phosphorus 3.0 2.5 - 4.5 mg/dL 03/31/2022 6:41 AM [facility] Albumin 3.0(L) 3.5 - 4.8 g/dL 03/31/2022 6:41 AM [facility] eGFR 59(L) >=90 mL/min/1. 73m2 03/31/2022 6:41 AM [facility] Comment: Estimated Glomerular Filtration [...] MD LAB BLOOD ORDERABLES Final Re sult [facility] [address] [place] [address], * Hepatitis Panel, Acute (03/24/2022 10:15 AM EST) Hepatitis A IgM NON-REACT HEATHER NON-REACT HEATHER 03/24/2022 11:36 PM EST [facility] - [facility]in [employer] [facility] Hepatitis B Surface Antigen NON-REACT HEATHER NON-REACT HEATHER 03/24/2022 11:36 PM EST [employer] - [employer]in [employer] Hepatitis B Core Antibody NON-REACT HEATHER NON-REACT HEATHER 03/24/2022 11:36 PM EST [employer] - [employer]in [employer] Hepatitis C Antibody NON-REACT HEATHER NON-REACT HEATHER 03/24/2022 11:36 PM EST [employer] - [employer]in [employer] Signal To Cut-Off 0.20 <1.00 03/24/2022 11:36 PM EST [employer] - [employer]in [employer] [facility] Comment: HCV antibody was non-reactive. There is no laboratory evidence of HCV infection. In most cases, no further action is required. However, if recent HCV exposure is suspected, a test for HCV RNA (test code 25168) is suggested. For additional information please refer to http://2CRisk.Insight Plus/faq/KWB75o3 (This link is being provided for informational/ educational purposes only.) For additional information, please refer to http://2CRisk.Wuzzuf.Chronogolf/faq/NPD602 (This link is being provided for informational/ educational purposes only.) Blood Structure of peripheral vein / Unknown Venipuncture / Unknown 03/24/2022 10:15 AM EST 03/24/2022 12:00 PM EST Narrative [facility] - 03/24/2022 11:36 PM EST [facility] Received Date: Tika Jarrell MD LAB BLOOD ORDERABLES Final Re sult [facility] [address], [place] [address], [place] [phone] [facility] [address], [place] [address], [place] [phone] from Last 3 Months or Most Recently Relevant to Health Maintenance Insurance MEDICARE [facility] Advance Directives * Full Code (Latest Code Status on File) Date Activated Date Inactivated Comments 03/23/2022 3:58 PM 04/01/2022 7:20 PM Care Teams Portable Feed Mill Operator Relationship Specialty Start Date End Date Patient, Has No Pcp Or Ref DO NOT EDIT THIS RECORD VIA PROVIDER ON THE FLY PCP - General Global Project Manager 03/23/22
--- OUTSIDE RECORDS SUMMARY | 2024-06-06 12:22 | XMS_ITS | Encounter Summary ---
Author Organization [facility] Address [address] [place] [address] Care Team Providers Care Painter And Decorator Apprentice Name Role Phone Patient, Has No Pcp Or Ref Primary Care Provider Unavailable Encounter Details Date Type Department Care Team (Late st Contact Info) Description 09/22/2022 myChart Message [facility] Financial Counseling Department [address] [place] [phone] Mychart, Generic Provider [facility] [place] [address] financial assistance Social History Tobacco [...] on filedocumented in this encounter Care Teams Painter And Decorator Apprentice Relationship Specialty Start Date End Date Patient, Has No Pcp Or Ref DO NOT EDIT THIS RECORD VIA PROVIDER ON THE FLY PCP - General Sap Solution Manager Consultant 03/23/22 documented as of this encounter
--- OUTSIDE RECORDS SUMMARY | 2024-06-06 12:22 | XMS_ITS | Referral Summary ---
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 She follows with a back hand (Dr. Carroll at [facility]). [facility] hospital [...] recs for outpatient follow up (pt prefers [facility]) - Pain: tylenol 650mg Q4hrs, oxycodone 2.5mg [...] Not on file Procedures * Due to [place] SSEV law, this organization might not be sharing negative HIV tests. Procedure Name Priority Date/Time Associated Diagnosis Comments RENAL FUNCTION PANEL Routine 03/31/2022 5:51 AM EST HEPATITIS PANEL, ACUTE STAT 03/24/2022 10:15 AM EST from Last 3 Months or Most Recently Relevant to Health Maintenance Results * Due to [place] SSEV law, this organization might not be sharing negative HIV tests. * (ABNORMAL) Renal Function Panel (03/31/2022 5:51 AM EST) NA 135 135 - 145 mmol/L 03/31/2022 6:41 AM EST [facility] K 4.4 3.5 - 5.3 mmol/L 03/31/2022 6:41 AM EST [facility] Cl 105 97 - 110 mmol/L 03/31/2022 6:41 AM EST [facility] CO2 25 24 - 32 mmol/L 03/31/2022 6:41 AM EST [facility] Anion Gap 5 5 - 15 03/31/2022 6:41 AM EST [facility] Glucose 89 70 - 99 mg/dL 03/31/2022 6:41 AM EST [facility] BUN 39(H) 7 - 23 mg/dL 03/31/2022 6:41 AM EST [facility] Creatinine 1.03 0.50 - 1.20 mg/dL 03/31/2022 6:41 AM EST [facility] Calcium 9.0 8.7 - 10.7 mg/dL 03/31/2022 6:41 AM EST [facility] Phosphorus 3.0 2.5 - 4.5 mg/dL 03/31/2022 6:41 AM EST [facility] Albumin 3.0(L) 3.5 - 4.8 g/dL 03/31/2022 6:41 AM EST [facility] eGFR 59(L) >=90 mL/min/1. 73m2 03/31/2022 6:41 AM EST [facility] Comment: Estimated Glomerular Filtration [...] MD LAB BLOOD ORDERABLES Final Re sult [facility] [address] [place] [address], * Hepatitis Panel, Acute (03/24/2022 10:15 AM EST) Hepatitis A IgM NON-REACT HEATHER NON-REACT HEATHER 03/24/2022 11:36 PM EST [facility] Hepatitis B Surface Antigen NON-REACT HEATHER NON-REACT HEATHER 03/24/2022 11:36 PM EST [facility] Hepatitis B Core Antibody NON-REACT HEATHER NON-REACT HEATHER 03/24/2022 11:36 PM EST [facility] Hepatitis C Antibody NON-REACT HEATHER NON-REACT HEATHER 03/24/2022 11:36 PM EST [facility] Signal To Cut-Off 0.20 <1.00 03/24/2022 11:36 PM EST [facility] Comment: HCV antibody was non-reactive. There is no laboratory evidence of HCV infection. In most cases, no further action is required. However, if recent HCV exposure is suspected, a test for HCV RNA (test code 36215) is suggested. For additional information please refer to http://[employer].Weddingful/faq/OZF79v9 (This link is being provided for informational/ educational purposes only.) For additional information, please refer to http://[employer].Weddingful/faq/YCR360 (This link is being provided for informational/ educational purposes only.) Blood Structure of peripheral vein / Unknown Venipuncture / Unknown 03/24/2022 10:15 AM EST 03/24/2022 12:00 PM EST [facility] 03/24/2022 11:36 PM EST [facility] Received Date: us Tika Jarrell MD LAB BLOOD ORDERABLES Final Re sult [facility] [address], [place] [address], [place] [phone] [facility] [address], [place] [address], [place] [phone] from Last 3 Months or Most Recently Relevant to Health Maintenance Insurance MEDICARE GENERIC Advance Directives * Full Code (Latest Code Status on File) Date Activated Date Inactivated Comments 03/23/2022 3:58 PM 04/01/2022 7:20 PM Care Teams Bar Machine Operator Production Relationship Specialty Start Date End Date Patient, Has No Pcp Or Ref DO NOT EDIT THIS RECORD VIA PROVIDER ON THE FLY PCP - General Accounting Associate 03/23/22
--- OUTSIDE RECORDS SUMMARY | 2024-06-06 12:22 | XMS_ITS | Clinical Summary ---
Author Organization [facility] Address [address] [place] [address] Care Team Providers Care Health And Wellness Advisor Name Role Phone System, Provider Not In [...] age to complete this topic Care Teams Health And Wellness Advisor Relationship Specialty Start Date End Date System, Provider Not In PCP - General 11/28/22
== END 2024-06-06 12:27 | disposition home or self-care (01) ==
PROVIDERS: PCP Nurse Practitioner Family; Visit Provider Hospitalist
DX: J45.40 Moderate persistent asthma, uncomplicated (principal); J84.9 Interstitial pulmonary disease, unspecified; R76.8 Other specified abnormal immunological findings in serum; K21.00 Gastro-esophageal reflux disease with esophagitis, without bleeding; G47.33 Obstructive sleep apnea (adult) (pediatric); J30.9 Allergic rhinitis, unspecified; I77.6 Arteritis, unspecified; R93.89 Abnormal findings on diagnostic imaging of other specified body structures; T78.40XA Allergy, unspecified, initial encounter
CPT/HCPCS: 99214; G2211

== ENCOUNTER 2024-08-20 07:13 | Outpatient (AMB) | payer MEDICARE, OTHER, SELFPAY ==
--- NOTE | 2024-08-20 07:15 | A.OFFVIS_ITS ---
Vital Signs 08/20/24 07:27 Height 5 ft 4 in Weight 209 lb 7.026 oz BMI 35.9 BP 130/70 Blood Pressure Location Lt brachial Position Sitting Pulse 90 Pulse Source Pulse Oximeter Pulse Oximetry (%) 98 Oxygen Delivery Method Room Air Intake Visit Reasons: 2 months Intake Note: Patient presents for 2 months follow up. 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 Patient lives in [place] taking care of her elderly an ailing mother. She still had some residual neurologic issues but this has been managed with gabapentin. Today, No new complaints Here today with her . Sadly her mother got a stroke and she is currently on hospice No new rashes, persistent joint pain Currently on short course of steroids for bronchitis Rheumatologic History: Medium and small vessel vasculitis in the setting of Sjogren's syndrome +++SSB necrotizing skin lesions, deltoid muscle biopsy showing vasculitis, severe asymmetrical peripheral neuropathy (on EMG/NCS) of her lower extremities. 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), inflammatory arthritis Received 3 doses of monthly Cytoxan 04/13-07/13 with some improvement Received 3 doses of IVIG (2g/kg) 07/13-10/13 without improvement in neurological symptoms MMF 07/13 partially effective, patient couldn't tolerate 1500 mg bid due to GI upset DC 10/13 RTX 1 g X 2 doses 12/2022 - 08/2023 RTX 1g 02/2024 - She reports having COVID-19 in 10/2021 and soon after having bronchitis requiring a prednisone course with improvement Around 12/2021 she started having fever, generalized myalgias and arthralgias, vertigo, vomiting, paresthesias (feet and left hand), skin rash including an erythematous papular rash involving the face and back, and erythematous papular lesions involving the hands that led to blistering and necrosis. She was 1st evaluated in [place] and told to have CT and blood work with evidence of pancreatitis. She was then evaluated by [facility] Rheumatology which revealed increased inflammatory markers, positive anti Ro, evidence of peripheral neuropathy and at deltoid muscle biopsy showing vasculitis with giant cells involving the muscular artery. After this she received treatment with 3 pulses of Cytoxan followed by CellCept and 3 pulses of mycophenolate 1 g followed by an oral prednisone taper with significant clinical improvement. She also received a few months of IVIG. Started rituximab 12/2022 and got a 2nd cycle 06/2023 Weaned off prednisolone around 07/2023 Current Rheumatology Medication(s): Rituxumab 1g every 6 months IV Gabapentin 300mg tid daily Alpha lipoic acid 600mg PO daily [facility] Medical History (Updated 06/09/24 @ 13:08 by Christophe Jean Baptiste MD) Encounter for monitoring rituximab therapy Sjogren syndrome with vasculitis Allergies Cataract Snoring Hx of migraines Hyperkalemia Prediabetes Muscle weakness Autoimmune pancreatitis Sjogren's disease COVID-19 Blood D-dimer assay positive Chest pain GERD (gastroesophageal reflux disease) Bronchitis Asthma AMY (obstructive sleep apnea) Surgical History History of cataract surgery Hx of colonoscopy Hx of cholecystectomy Hx of appendectomy S/P ankle joint replacement Family History (Updated 08/20/24 @ 07:26 by FELIX Davies) Mother Alzheimer disease Stroke Other Family history of connective tissue disease Lupus Multiple sclerosis Rheumatoid arthritis Social History Household Members: Spouse Housing: House Alcohol intake: current Alcohol intake frequency: does not drink Patient Tobacco Use Status: Never used Tobacco e-Cigarette/Vaping Use: Never Used service: No Current occupational status: retired 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 Cognitive needs: No Hearing needs: No Vision needs: Yes Review of Systems Const Details: Review of Systems Constitutional: Denies fever, chills, weight loss ENT: Denies vision changes, eye pain or eye redness, dental caries, dry mouth GI: Denies nausea, vomiting, diarrhea, abdominal pain, change in BM Pulm: Denies SOB, FIERRO, hemoptysis, wheezing Cards: Denies chest pain, palpitations Skin: Denies Raynaud's, rash, nail changes, photosensitivity, GEODESIST: Denies headaches, weakness, paresthesias, recurrent falls MSK: as per HPI All other systems reviewed and are unremarkable except noted above Physical Exam Vital Signs: Last Vital Signs Pulse 90 08/20/24 07:27 BP 130/70 08/20/24 07:27 Pulse Ox 98 08/20/24 07:27 Oxygen Delivery Method Room Air 08/20/24 07:27 BMI result Body Mass Index 35.9 Vital signs reviewed Physical Examination CONSTITUITIONAL Patient alert and cooperative. Well appearing and in no apparent painful distress HEENT Conjunctiva and sclera clear. ?Pupils equal round and reactive to light. ?No lymphadenopathy. ? CHEST/RESPIRATORY SYSTEM Normal respiratory effort and able to speak in complete sentences. ?Clear to auscultation bilaterally. ?No crackles, rales, rhonchi, wheezes heard. CARDIAC SYSTEM Regular rate and rhythm. ?S1 and S2 heard no murmurs. ?Radial pulses intact bilaterally MSK Hands: ?Able to make a fist. No synovitis noted to the MCPs, PIPs or DIPs. ?No tenderness to palpation of these joints. Herbeden's nodes? Wrists: ?Full range of motion at the wrists without pain. ?No tenderness to palpation or synovitis noted to the wrists. Elbows: Full range of motion without pain. No tenderness, weakness, swelling, increased warmth or erythema. Shoulders: Full range of active range of motion without pain. No tenderness, weakness, swelling, increased warmth or erythema. Knees: ?Full range of motion. ?No tenderness, swelling, increased warmth or erythema.?No effusion or crepitations Ankles: Full range of motion. ?No tenderness, swelling, increased warmth or erythema.? Feet: ?Negative squeeze test. ?No tenderness to palpation or swelling of the MTPs. Tender points:?No tenderness to palpation of the bilateral trapezius, supraspinatus, greater trochanters, anterior costochondral junctions, bilateral gluteal areas, bilateral suboccipital muscle insertions SKIN Skin intact without rashes. Results Reviewed Results Reviewed: Laboratory Tests 02/22/24 06/06/24 08:19 10:48 WBC 10.3 RBC 4.45 Hgb 13.4 Hct 41.7 Plt Count 329 ESR 34 H Sodium 140 Potassium 4.4 Chloride 108 Carbon Dioxide 23 BUN 25 H Creatinine 0.90 AST 23 ALT 21 Alkaline Phosphatase 123 H C-Reactive Protein 1.56 H 0.61 H IgG Total 1094 IgA Total 247 IgM 13 L Assessment & Plan Assessment & Plan (1) Sjogren syndrome with vasculitis: Comment: Medium and small vessel vasculitis in the setting of Sjogren's syndrome +++SSB necrotizing skin lesions, deltoid muscle biopsy showing vasculitis, severe asymmetrical peripheral neuropathy (on EMG/NCS) of her lower extremities. 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), inflammatory arthritis Received 3 doses of monthly Cytoxan 04/13-07/13 with some improvement Received 3 doses of IVIG (2g/kg) 07/13-10/13 without improvement in neurological symptoms MMF 07/13 partially effective, patient couldn't tolerate 1500 mg bid due to GI upset DC 10/13 RTX 1 g X 2 doses 12/2022 - 08/2023 RTX 1g 02/2024 - Code(s): M35.0B - Sjogren syndrome with vasculitis Category: Medical Plan: #Sjogren's syndrome c/b medium and small vessel vasculitis Patient is a 68-year-old female with a history of mononeuritis multiplex, necrotic skin lesions and sicca symptoms diagnosed with medium and small vessel vasculitis in the setting of Sjogrens syndrome Completed induction with CYC, steroids and Rituxumab. Now in remission Ritux to 1000mg every 6 months for maintenance for atleast the next 2 years. Reeval for taper after 02/2026 dose Last dose was 02/2024 so her next dose is due 08/2024. 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 of immunosuppressive biologic Category: Medical Plan: #Long-term Use of Rituxumab Discussed with this patient the risks and benefits of rituximab use to the management of the rheumatic condition Benefits include improved disease control and maintenance of remission Risks include hypogammaglobulinemia and increased risk of opportunistic infections, reactivation of hepatitis-B, infusion reactions Monitoring: ?Immunoglobulins, hepatitis-B serologies, CBC Plan I spent 30 minutes reviewing the record and labs, taking a history, examining the patient, discussing the treatment plan and documenting in the medical record Coding Level of Care Code Est Pt Level 4 (34911) Complex EM visit Add On G2211 Diagnoses Sjogren syndrome with vasculitis M35.0B Encounter for monitoring rituximab therapy Z51.81; Z79.620
[2024-08-20 07:27] VITALS: BP 130/70; PULSE 90; O2SAT 98; BMI 35.9
== END 2024-08-20 07:57 | disposition home or self-care (01) ==
PROVIDERS: PCP Nurse Practitioner Family; Visit Provider Student in an Organized Health Care Education/Training Program
DX: M35.0B Sjogren syndrome with vasculitis (principal); Z51.81 Encounter for therapeutic drug level monitoring; Z79.620 Long term (current) use of immunosuppressive biologic
CPT/HCPCS: 99214; G2211

== ENCOUNTER → 2024-08-20 07:13 | Outpatient (BNVA) | payer MEDICARE, OTHER, SELFPAY | PROVIDERS: PCP Nurse Practitioner Family; Visit Provider Student in an Organized Health Care Education/Training Program | DX: M35.0B Sjogren syndrome with vasculitis (principal); Z51.81 Encounter for therapeutic drug level monitoring; Z79.620 Long term (current) use of immunosuppressive biologic | CPT/HCPCS: 99212 ==

== ENCOUNTER 2024-08-28 14:29 | Outpatient (AMB) | payer OTHER, MEDICARE, SELFPAY ==
--- NOTE | 2024-08-28 14:45 | A.OFFVIS_ITS ---
Vital Signs 08/28/24 14:47 Height 5 ft 4 in Weight 208 lb 5.389 oz BMI 35.8 BP 122/75 Blood Pressure Location Lt brachial Position Sitting Pulse 85 Pulse Source Doppler Pulse Oximetry (%) 99 Oxygen Delivery Method Room Air Intake Visit Reasons: AUDRA Positive+ Allergies No Known Allergies Allergy (Verified 08/28/24 14:49) HPI Comments Details: The patient is a 68-year-old woman with a known history of asthma and AMY. The patient has been complaining worsening shortness of breath and cough for the last several weeks. However, more recently he started developing a productive cough with yellow phlegm. She feels like the phlegm is difficult to expectorate. She had been in [place] for some time with her mother and while she was there her respiratory status was worse and ended up in the prednisone. Also, she ran out of her Trelegy inhaler and she was not able to refill it and she has been off it now for 2 months. Therefore she has been using her nebulizer therapy with albuterol and also her ProAir more regularly. The patient also struggling with her CPAP. She cannot tolerate the elevated pressures. She is also developing epistaxis with her nasal pillow mask. Patient is no longer getting supplies from her [employer] company. therefore, she is now consider inactive in not getting any supplies for many [employer] company. The patient needs to be set up again with a [employer] company in the only way to do that is to repeat her sleep study in order to demonstrating again that she has sleep apnea and therefore get active again. In the meantime she has not been tolerating the fractures. For that reason she has been having significant headaches in the morning and also complaining of daytime drowsiness with an elevated Homer score 14/24. Therefore, repeating the sleep study will be crucial in order for her to start her CPAP therapy again. The patient follow-up after her sleep study. In addition to that I will give her some antibiotics for the bronchitis that she is experiencing. 02/16/2022 the patient is here for a pulmonary follow-up visit. She was in [place] and was very sick. Initially developed a rash suggesting of vasculitis. although, initially was thought to be monkey pox. The patient during the hospitalization also was diagnosed with pancreatitis. She was given IV antibiotics and also given IV steroids. the patient also has been complaining of worsening cough productive in nature. The cough has continued. Today she was evaluated by Rheumatology. The patient has significant complaints on a constitutional review of systems. It is likely that she has a flare up of her connective tissue disease that is affecting multiple organ systems. She is currently on a small dose of methylprednisolone that is helping maintain the vasculitis flare up at [place]. Although she continues to very symptomatic. She is very short of breath. We did taken for 6 minute walk test. The patient did not desaturate but she was very weak. She took multiple rest even after 50 ft. She was using a walker. Her pulse ox was 98% throughout the ambulation. She also complains of pleuritic chest pain. We had her undergoing blood work. She just traveled from [place]. Her D-dimer is positive significantly elevated. Therefore in view of her risk for thromboembolic disease I will go ahead and order a CTA at this time. The patient has a full blood work panel order from Rheumatology. Will be awaiting the results of that in addition to awaiting the results of her CT scan. 03/02/2022 the patient is here for pulmonary follow-up visit. She continues to have multiple complaints. Does have some shortness of breath and cough. Her D- dimer had been elevated and she did undergo a CTA. I did review the CTA images with the patient. No evidence of any pulmonary emboli. However, she did have some areas of ground-glass and interstitial changes primarily at the bases. This consistent with pneumonitis. She may also have a component of atelectasis. She does have significant dry crackles specially on the right base consistent with her interstitial lung disease from her underlying connective tissue disease. She has been on Medrol but not been enough to maintain her symptoms under control or decreasing inflammatory changes of her lungs. We did review her other labs demonstrating a significantly elevated sedimentation rate an ESR. Her ANCA levels were negative. She does have underlying vasculitis appreciated on her skin. However, no biopsy was done at the time. She will be following up closely with Rheumatology. An extensive blood work panel has been requested. In the meantime will go ahead and start her on mycophenolate in order to treat her underlying interstitial lung disease appreciated on her CT scan. I am hopeful that she also gets relief from this inflammatory process. 05/26/2022 the patient is here for a pulmonary follow-up visit. The patient continues to have multiple complaints. She had been admitted to [facility] which she was evaluated by Rheumatology. Again, it is very clear that she has a diagnosis of vasculitis. Although clear connective tissue disease has not been identified. The patient therefore was referred back to her hyperion analyst. She was started on cyclophosphamide and she is off the CellCept. She continues to have significant weakness and neuropathy like symptoms. Breathing appears to be okay at this time. Denies any significant shortness of breath or chest discomfort. The patient denies any productive mucus or wheezing. From a cardiac standpoint the patient did have an episodes of atrial fibrillation prior to receiving her cyclophosphamide infusion therefore she had been admitted to the hospital. She was placed on Eliquis and rate controlling agents. Now she is waiting for cardiology follow-up. 11/27/2022 the patient is here for a pulmonary follow-up visit. The patient had been doing well after the treatment with cyclophosphamide for the vasculitis but now appears to have been returning. She was switched over to will high doses of IVIG. Although she may have had an adverse reaction. She ultimately developed significant anemia requiring 2 units of blood. She is still monitoring closely her hemoglobin. She did follow-up with Hematology. The patient was placed on additional steroids based on the fact that her sedimentation rate is above 100. She continues to have shortness of breath. She denies any hemoptysis. Although her major complaint is that she is having significant visual loss. Therefore, will request the ophthalmology examination urgently to assess for any acute changes. Patient will receive Solu-Medrol today to help decrease any inflammatory changes. She is awaiting the approval for rituximab in order to start that. In the meantime she continues with her CPAP therapy and she continues with respiratory medicines. She did have a chest x-ray which I personally reviewed. No evidence of any ground-glass opacities or any acute changes. Her exam is reassuring without any significant crackles. 03/08/2023 the patient is here for a pulmonary follow-up visit. The patient is feeling much better since starting the rituximab. She has tolerated the therapy in this been very effective decreasing him from a shunt. Still having significant issues with her balance and strongly weakness likely due to the high-dose steroids and also having issues with cataracts all related to the steroids. The patient now was restarted on a small dose of prednisone since she still becomes symptomatic when she is completely off it. Therefore, now she is taking 4 mg and she is tolerating that well. She is using her respiratory therapy as prescribed which is reassuring. Denies any significant wheezing at this time. We did provide her a form for odilia based on the fact that she is having respiratory issues and now having physical limitations requiring a cane. She did have an issue with a bloody nose. We did talk about stopping the fluticasone. She does have an ulceration in the right turbinate. She will try Bactroban for few days. She can also try saline gel. She will increase that he needed a on her CPAP to make sure that that does not bother. In the CPAP therapy continues to be affecting beneficial. As long she is not having any bleeding from the nose she did use it. If her nose starts bleeding again specially on the Eliquis she may need to be seen by ENT or urgent care for cautery of that lesion on the right turbinate. 10/08/2023 the patient is here for a pulmonary follow-up visit. From a backs colitis standpoint the patient has been doing well. She did follow-up with Rheumatology in [place] and also Rheumatology here. She has been under rituximab. Although it is extremely expensive because she is only getting 80% covered and she has the other 20% which are thousands of dollars. She is trying to deal with that issue. In the meantime the patient has been having a cough. The cough tends to be persistent primarily in the morning and at nighttime. Typically nonproductive although she can not bring up some phlegm at times. Moderate severity. She has been using her respiratory therapy. The patient has a nebulizer here that is not working effectively. She needs a replacement. Also will request a CPT valve flutter valve to help her with her mucus clearance. The patient does have significant wheezing on examination. We did talk about taking a course of prednisone to help her with her asthma flare-up. She has already on the Trelegy inhaler. The patient also needs to get a function nebulizer. The patient does have immunodeficiency. She does have what appears to be chronic bronchitis. In view of her chronic bronchitis will be reasonable to start her on azithromycin 3 times a week to see if we can decrease her mucus burden decrease the inflammation of the airways. She was start the azithromycin get an EKG to make sure that her QTC is within normal range. 02/06/2024 the patient is here for a pulmonary follow-up visit. She has been under the weather now for couple weeks. She started with a cough after having her cataracts done. The surgery went well but then she started developing worsening chest tightness. She does not have any nebulizer solution. She does have significant wheezing on examination today. She does have an asthma exacerbation. She did receive an Xopenex treatment in the office and I did send the Xopenex to the pharmacy. In addition to that she is going to have to start prednisone and also start her on a course of antibiotics. Unfortunately she needs to get vaccinated as well before getting her Rituxan injection. Explained to her that while on the prednisone be hard for her to get vaccinated because she probably will have any effect. Therefore once she prednisone is down to 20 mg or less she can go and get her vaccines. I did encourage her to get her flu shot in the RSV. Although sometimes I do not recommend did get given together because the RSV tends to cause increased symptoms. Is also a new vaccine for her. She is scheduled to receive her Rituxan in 3 weeks. Hopefully she can get these vaccines done after her prednisone dose is decreased to minimize the body immunosuppression. If the patient is no better she is going to come in for a chest x-ray. Otherwise follow-up in May when she comes back to the area. 06/06/2024 the patient is here for pulmonary follow-up visit. Overall she is doing okay. She has had worsening cough. She has been using her inhaler little bit more often. Her x-ray back in 02/10/2024 was reassuring just with some minimal bronchitis. No evidence of any interstitial lung disease that I can ap preciate. She has had pneumonitis and interstitial lung disease initially back in 2021 or so when she was initially being evaluated and treated for the vasculitis in the connective tissue diseases. But her last imaging study of the CT scan of the abdomen demonstrating the lung cuts with no evidence of any significant pneumonitis just some minimal interstitial changes. So far the most part with the stability of her connective tissue disease and vasculitis her pulmonary manifestations have improved. She is however having some increased coughing and some decreased breath sounds. She would benefit from a maintenance inhaler. Will go ahead and started her on Advair HFA. She can also continue her Xopenex. She does not tolerate the regular albuterol well because it causes tremulousness and palpitations. She will continue with the allergy medicine as well. Will plan to follow-up sometime in August at that point we can decide if we need additional imaging studies depending on her symptoms. 08/28/2024 the patient is here for pulmonary follow-up visit. Overall the patient has been doing fair. She did get her Rituxan. Unfortunately she has been sick since she got back from [place] after being with her mom was sick in the hospital. She started develop worsening cough chest tightness wheezing. She has a Medrol and some antibiotics left over which she took. [place] she [place] she did start a course of doxycycline and also started prednisone. She has does feel significantly better. She is using her nebulizer 3 times a day. Although she continues to have significant wheezing and rhonchi exam. Therefore will go ahead and give her additional prednisone she can extend her taper and also will add another antibiotic to her regimen specially with her immunocomprom ised state. If the patient is no better she will come in and have an x-ray. In the meantime she does have a CPAP in the CPAP therapy has been very affecting beneficial for her. She does use it for more than 4 hours a night. Although now that she has been sick she has not been able to use it. And also she states that the pressures feel too high. I am going to have her see if we can get access to her machine to be able to adjusted. [facility] Medical History (Updated 08/28/24 @ 23:20 by Christophe Jean Baptiste MD) Encounter for monitoring rituximab therapy Sjogren syndrome with vasculitis Allergies Cataract Snoring Hx of migraines Hyperkalemia Prediabetes Muscle weakness Autoimmune pancreatitis Sjogren's disease COVID-19 Blood D-dimer assay positive Chest pain GERD (gastroesophageal reflux disease) Bronchitis Asthma AMY (obstructive sleep apnea) Surgical History History of cataract surgery Hx of colonoscopy Hx of cholecystectomy Hx of appendectomy S/P ankle joint replacement Family History (Updated 08/20/24 @ 07:26 by FELIX Davies) Mother Alzheimer disease Stroke Other Family history of connective tissue disease Lupus Multiple sclerosis Rheumatoid arthritis Social History Household Members: Spouse Housing: House Alcohol intake: current Alcohol intake frequency: does not drink Patient Tobacco Use Status: Never used Tobacco e-Cigarette/Vaping Use: Never Used service: No Current occupational status: retired 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 Cognitive needs: No Hearing needs: No Vision needs: Yes Review of Systems Const Denies fever(s) Eyes Reports blurry vision ENT Denies epistaxis, Reports nasal congestion, Reports nasal discharge and Reports post nasal drip Card Reports dyspnea on exertion Resp Reports chest congestion, Reports cough, Reports dyspnea on exertion and Reports wheezing GI Reports no additional complaints Musc Reports arthralgias, Reports joint swelling, Reports numbness and Reports stiffness Skin/Breast Denies rash Neuro Reports numbness, Reports Sensory deficit (Neuro) and Reports paresthesias Aller/Immun Reports wheezing Physical Exam Vital Signs: Last Vital Signs Pulse 85 08/28/24 14:47 BP 122/75 08/28/24 14:47 Pulse Ox 99 08/28/24 14:47 Oxygen Delivery Method Room Air 08/28/24 14:47 BMI result Body Mass Index 35.8 Const General: comfortable and alert HEENT Head: Yes atraumatic and Yes other (alopecia) Neck Neck: Yes normal visual inspection, Yes full ROM and Yes no lymphadenopathy Chest Chest palpation & inspection: normal inspection of the chest Resp Effort & Inspection: normal respiratory effort Auscultation: no rales, rhonchi, wheezes and diminished lung sounds Cardio Rate: regular rate Rhythm: regular rhythm Heart sounds: S1 normal heart sound present and S2 normal heart sound present GI Palpation (GI): Soft to palpation and nontender Auscultation: normal bowel sounds Skin General skin exam: rashes and/or lesions noted Neuro Sensory Exam: Sensory deficit (Neuro) Assessment & Plan Assessment & Plan (1) Bronchitis: Code(s): J40 - Bronchitis, not specified as acute or chronic Category: Medical (2) Vasculitis: Code(s): I77.6 - Arteritis, unspecified Category: Medical (3) Asthma: Code(s): J45.909 - Unspecified asthma, uncomplicated Category: Medical Qualifiers: Asthma severity: moderate Asthma persistence: persistent Asthma complication type: with acute exacerbation Qualified Code(s): J45.41 - Moderate persistent asthma with (acute) exacerbation (4) ILD (interstitial lung disease): Code(s): J84.9 - Interstitial pulmonary disease, unspecified Category: Medical (5) AUDRA positive: Code(s): R76.8 - Other specified abnormal immunological findings in serum Category: Medical (6) GERD (gastroesophageal reflux disease): Code(s): K21.9 - Gastro-esophageal reflux disease without esophagitis Category: Medical Qualifiers: Esophagitis presence: with esophagitis Esophagitis bleeding: without hemorrhage Qualified Code(s): K21.00 - Gastro-esophageal reflux disease with esophagitis, without bleeding (7) AMY (obstructive sleep apnea): Code(s): G47.33 - Obstructive sleep apnea (adult) (pediatric) Category: Medical (8) Chronic allergic rhinitis: Code(s): J30.9 - Allergic rhinitis, unspecified Category: Medical (9) Abnormal chest x-ray: Code(s): R93.89 - Abnormal findings on diagnostic imaging of other specified body structures Category: Medical (10) Allergies: Code(s): T78.40XA - Allergy, unspecified, initial encounter Category: Medical Qualifiers: Encounter type: initial encounter Qualified Code(s): T78.40XA - Allergy, unspecified, initial encounter Plan nebulizer for Xopenex continue APAP 6-11 once cough is better, need access to her APAP to adjust, possibly decrease pressures Flovent (stopped the LABA due to the Afib) Xopenex as needed continue Astelin nasal spray saline gel as needed No rugs/hypoallergenic covers CXR continue prednisone taper continue Doxycycline Add Vantin 200mg BID 8-10 days follow-up in 3-4 months Orders: Orders XR chest 2V Today J40 - Bronchitis, not specified as acute or chronic XR chest 2V Today I77.6 - Arteritis, unspecified Medications: New prednisone 20 mg (2 x 10 mg) PO DAILY 60 tabs 0RF 30 days levalbuterol HCl 1.25 mg (3 mL) inhalation BID 180 mL 11RF 30 days J44.9 - Chronic obstructive pulmonary disease, unspecified cefpodoxime must administer with a meal/food 200 mg PO BID 20 tabs 0RF 10 days Coding Level of Care Code Est Pt Level 4 (53812) Complex EM visit Add On G2211 Diagnoses Bronchitis J40 Vasculitis I77.6 Moderate persistent asthma with acute exacerbation J45.41 Asthma severity: moderate Asthma persistence: persistent Asthma complication type: with acute exacerbation ILD (interstitial lung disease) J84.9 AUDRA positive R76.8 Gastroesophageal reflux disease with esophagitis without hemorrhage K21.00 Esophagitis presence: with esophagitis Esophagitis bleeding: without hemorrhage AMY (obstructive sleep apnea) G47.33 Chronic allergic rhinitis J30.9 Abnormal chest x-ray R93.89 Allergy, initial encounter T78.40XA Encounter type: initial encounter Time Spent (min) 17
[2024-08-28 14:47] VITALS: BP 122/75; PULSE 85; O2SAT 99; BMI 35.8
--- OUTSIDE RECORDS SUMMARY | 2024-08-28 15:16 | XMS_ITS | Encounter Summary ---
Author Organization [facility] Address [address] [place] [address] Care Team Providers Care Line Maintenance Supervisor Name Role Phone Patient, Has No Pcp Or Ref Primary Care Provider Unavailable Encounter Details Date Type Department Care Team (Late st Contact Info) Description 09/22/2022 myChart Message [facility] Financial Counseling Department [address] [place] [phone] Mychart, Generic Provider [facility] [place] [address] financial assistance Social History Tobacco [...] on filedocumented in this encounter Care Teams Line Maintenance Supervisor Relationship Specialty Start Date End Date Patient, Has No Pcp Or Ref DO NOT EDIT THIS RECORD VIA PROVIDER ON THE FLY PCP - General Lump Inspector 03/23/22 documented as of this encounter
--- OUTSIDE RECORDS SUMMARY | 2024-08-28 15:16 | XMS_ITS | Clinical Summary ---
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 She follows with a photographic enlarger operator (Dr. Carroll at [facility]). [facility] hospital workup included prior EMG with [...] recs for outpatient follow up (pt prefers [place]) - Pain: tylenol 650mg Q4hrs, oxycodone 2.5mg [...] Test 1953 Hemoglobin A1C 1953 Sigmoidoscopy 1953 Medicare AWV 1954 Ophthalmology Exam 09/28/1963 Urine Microalbumin 09/28/1963 Pneumococcal Vaccine: 50+ Years (1 of 2 - PCV) 1972 DTaP,Tdap,and Td Vaccines (1 - Tdap) 09/28/1975 Mammogram 1993 Osteoporosis Screening 09/28/2003 Zoster Vaccines (1 of 2) 09/28/2003 RSV Vaccine (60+ years old and patients) (1 - Risk 60-74 years 1-dose series) 2013 Basic Metabolic Panel 03/31/2023 03/31/2022 , 03/30/2022, 03/29/2022, Additional history exists COVID-19 Vaccine ( season) 2023 Alcohol/Substance Use Screening 04/23/2024 Depression Screening and Follow-Up 04/23/2024 Health Care Proxy Review 04/23/2024 Social Drivers of Health Annual Screening 04/23/2024 Influenza Vaccine (Season Ended) 2024 03/30/2022, 03/25/2018, 06/01/2017 Hepatitis C Screening Completed 03/24/2022, 022 Hepatitis B Vaccines Aged Out No long er eligible based on patient's age to complete this topic Procedures * Due to [place] [employer] law, this organization might not be sharing negative HIV tests. Procedure Name Priority Date/Time Associated Diagnosis Comments RENAL FUNCTION PANEL Routine 03/31/2022 5:51 AM EST HEPATITIS PANEL, ACUTE STAT 03/24/2022 10:15 AM EST from Last 3 Months or Most Recently Relevant to Health Maintenance Results * Due to [place] [employer] law, this organization might not be sharing negative HIV tests. * (ABNORMAL) Renal Function Panel (03/31/2022 5:51 AM EST) NA 135 135 - 145 mmol/L 03/31/2022 6:41 AM [facility] K 4.4 3.5 - 5.3 mmol/L 03/31/2022 6:41 AM [facility] Cl 105 97 - 110 mmol/L 03/31/2022 6:41 AM [facility] CO2 25 24 - 32 mmol/L 03/31/2022 6:41 AM [facility] Anion Gap 5 5 - 15 03/31/2022 6:41 AM [facility] Glucose 89 70 - 99 mg/dL 03/31/2022 6:41 AM [facility] BUN 39(H) 7 - 23 mg/dL 03/31/2022 6:41 AM [facility] Creatinine 1.03 0.50 - 1.20 mg/dL 03/31/2022 6:41 AM [facility] Calcium 9.0 8.7 - 10.7 mg/dL 03/31/2022 6:41 AM [facility] Phosphorus 3.0 2.5 - 4.5 mg/dL 03/31/2022 6:41 AM [facility] Albumin 3.0(L) 3.5 - 4.8 g/dL 03/31/2022 6:41 AM [facility] eGFR 59(L) >=90 mL/min/1. 73m2 03/31/2022 6:41 AM [facility] Comment: Estimated Glomerular Filtration [...] MD LAB BLOOD ORDERABLES Final Re sult [facility] [address] [place] [address], * Hepatitis Panel, Acute (03/24/2022 10:15 AM EST) Hepatitis A IgM NON-REACT HEATHER NON-REACT HEATHER 03/24/2022 11:36 PM EST [facility] Hepatitis B Surface Antigen NON-REACT HEATHER NON-REACT HEATHER 03/24/2022 11:36 PM EST [employer] [facility] Hepatitis B Core Antibody NON-REACT HEATHER NON-REACT HEATHER 03/24/2022 11:36 PM EST [employer] [facility] Hepatitis C Antibody NON-REACT HEATHER NON-REACT HEATHER 03/24/2022 11:36 PM EST [employer] [facility] Signal To Cut-Off 0.20 <1.00 03/24/2022 11:36 PM EST [employer] [facility] Comment: HCV antibody was non-reactive. There is no laboratory evidence of HCV infection. In most cases, no further action is required. However, if recent HCV exposure is suspected, a test for HCV RNA (test code 16238) is suggested. For additional information please refer to http://Soloingles.com Internacional.Carnegie Speech/faq/WAO98o1 (This link is being provided for informational/ educational purposes only.) For additional information, please refer to http://Soloingles.com Internacional.MobileWebsites.PhilSmile/faq/VZA947 (This link is being provided for informational/ educational purposes only.) Blood Structure of peripheral vein / Unknown Venipuncture / Unknown 03/24/2022 10:15 AM EST 03/24/2022 12:00 PM EST Narrative VINNIE HASSAN - 03/24/2022 11:36 PM EST [facility] Received Date: us Tika Jarrell MD LAB BLOOD ORDERABLES Final Re sult [facility] [address] [facility] [address], [place] [address], [place] [phone] [employer] [facility] [address] [facility] [address], [place] [address], [place] [phone] from Last 3 Months or Most Recently Relevant to Health Maintenance Insurance MEDICARE GENERIC Advance Directives * Full Code (Latest Code Status on File) Date Activated Date Inactivated Comments 03/23/2022 3:58 PM 04/01/2022 7:20 PM Care Teams Grounds Cleaner Relationship Specialty Start Date End Date Patient, Has No Pcp Or Ref DO NOT EDIT THIS RECORD VIA [facility] THE [facility] PCP - General Meter And Service Line Inspector 03/23/22
--- OUTSIDE RECORDS SUMMARY | 2024-08-28 15:16 | XMS_ITS | Referral Summary ---
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 She follows with a qlikview developer (Dr. Carroll at [facility]). [facility] hospital workup included prior EMG with [...] recs for outpatient follow up (pt prefers [facility]) - Pain: tylenol 650mg Q4hrs, oxycodone 2.5mg [...] Not on file Procedures * Due to [place] [employer] law, this organization might not be sharing negative HIV tests. Procedure Name Priority Date/Time Associated Diagnosis Comments RENAL FUNCTION PANEL Routine 03/31/2022 5:51 AM EST HEPATITIS PANEL, ACUTE STAT 03/24/2022 10:15 AM EST from Last 3 Months or Most Recently Relevant to Health Maintenance Results * Due to [place] [employer] law, this organization might not be sharing negative HIV tests. * (ABNORMAL) Renal Function Panel (03/31/2022 5:51 AM EST) NA 135 135 - 145 mmol/L 03/31/2022 6:41 AM EST [facility] K 4.4 3.5 - 5.3 mmol/L 03/31/2022 6:41 AM EST [facility] Cl 105 97 - 110 mmol/L 03/31/2022 6:41 AM EST [facility] CO2 25 24 - 32 mmol/L 03/31/2022 6:41 AM EST [facility] Anion Gap 5 5 - 15 03/31/2022 6:41 AM EST [facility] Glucose 89 70 - 99 mg/dL 03/31/2022 6:41 AM EST [facility] BUN 39(H) 7 - 23 mg/dL 03/31/2022 6:41 AM EST [facility] Creatinine 1.03 0.50 - 1.20 mg/dL 03/31/2022 6:41 AM EST [facility] Calcium 9.0 8.7 - 10.7 mg/dL 03/31/2022 6:41 AM EST [facility] Phosphorus 3.0 2.5 - 4.5 mg/dL 03/31/2022 6:41 AM EST [facility] Albumin 3.0(L) 3.5 - 4.8 g/dL 03/31/2022 6:41 AM EST [facility] eGFR 59(L) >=90 mL/min/1. 73m2 03/31/2022 6:41 AM EST [facility] Comment: Estimated Glomerular [...] MD LAB BLOOD ORDERABLES Final Re sult [facility] [address] [place] [address], * Hepatitis Panel, Acute (03/24/2022 10:15 AM EST) Hepatitis A IgM NON-REACT HEATHRE NON-REACT HEATHER 03/24/2022 11:36 PM EST [employer] [facility] Hepatitis B Surface Antigen NON-REACT HEATHER NON-REACT HEATHER 03/24/2022 11:36 PM EST [facility] Hepatitis B Core Antibody NON-REACT HEATHER NON-REACT HEATHER 03/24/2022 11:36 PM EST [employer] [facility] Hepatitis C Antibody NON-REACT HEATHER NON-REACT HEATHER 03/24/2022 11:36 PM EST [facility] Signal To Cut-Off 0.20 <1.00 03/24/2022 11:36 PM EST [facility] Comment: HCV antibody was non-reactive. There is no laboratory evidence of HCV infection. In most cases, no further action is required. However, if recent HCV exposure is suspected, a test for HCV RNA (test code 89114) is suggested. For additional information please refer to http://PetLove.Sing Ting Delicious/faq/WID36b1 (This link is being provided for informational/ educational purposes only.) For additional information, please refer to http://PetLove.Sing Ting Delicious/faq/KWG028 (This link is being provided for informational/ educational purposes only.) Blood Structure of peripheral vein / Unknown Venipuncture / Unknown 03/24/2022 10:15 AM EST 03/24/2022 12:00 PM EST [facility] 03/24/2022 11:36 PM EST [facility] Received Date: us Tika Jarrell MD LAB BLOOD ORDERABLES Final Re sult [facility] [address] [facility] [address], [place] [address], [place] [phone] [facility] [address] [facility] [address], [place] [address], [place] [phone] from Last 3 Months or Most Recently Relevant to Health Maintenance Insurance MEDICARE GENERIC Advance Directives * Full Code (Latest Code Status on File) Date Activated Date Inactivated Comments 03/23/2022 3:58 PM 04/01/2022 7:20 PM Care Teams Metal Furniture Panel Coverer Relationship Specialty Start Date End Date Patient, Has No Pcp Or Ref DO NOT EDIT THIS RECORD VIA PROVIDER ON THE FLY PCP - General Budget Coordinator 03/23/22
--- OUTSIDE RECORDS SUMMARY | 2024-08-28 15:16 | XMS_ITS | Encounter Summary ---
Author Organization [facility] Address [address] [place] [address] Care Team Providers Care Heel Sander Name Role Phone Patient, Has No Pcp Or Ref Primary Care Provider Unavailable Encounter Details Date Type Department Care Team (Late st Contact Info) Description 04/04/2022 Telephone [facility] [address] [place] [phone] Telephone Intake, Staff Social History Tobacco Use [...] needs medication MINESH. PT can bereached @ [phone] PAC TEAM documented in this encounter Plan of Treatment Not on file documented as of this encounter Visit Diagnoses Not on filedocumented in this encounter Care Teams Heel Sander Relationship Specialty Start Date End Date Patient, Has No Pcp Or Ref DO NOT EDIT THIS RECORD VIA PROVID[facility] ON THE FLY PCP - General Tow Motor Driver 03/23/22 documented as of this encounter
--- OUTSIDE RECORDS SUMMARY | 2024-08-28 15:16 | XMS_ITS | Clinical Summary ---
Author Organization [facility] Address [address] [place] [address] Care Team Providers Care Telecommunications Professional Name Role Phone System, Provider Not In Primary Care Provider Un available Allergies No known active allergies Medications No known medications Active Problems No known active problems Social History Tobacco Use Types Packs/Day Years Used Date Smoking Tobacco: Never Assessed Comments Unknown Sex and Gender Information Value Date Recorded Sex Assigned at Not on file Legal Sex Female 10:14 AM EDT Gender Identity Not on file Sexual Orientation Not on file Plan of Treatment Health Maintenance Due Date Last Done Comments Hepatitis C Virus Screening 1955 DTaP/Tdap/Td Vaccines (1 - Tdap) 1972 Mammogram 1993 Colonoscopy 1998 Pneumococcal Vaccines 50+ (1 of 1 - PCV) 09/28/2003 Zoster (Shingles) Vaccine (1 of 2) 09/28/2003 DXA Bone Density (Females,Ag es 65 and older) 2018 COVID-19 Vaccine ( - 2023-2 5 season) 2023 Influenza Vaccine 11/21/2024 03/30/2022 RSV Vaccine 60 years and old er and Patients (1 - 1-dose 75+ series) 2028 Hepatitis B Vaccines Aged Out No long er eligible based on patient's age to complete this topic Insurance MEDICARE PART A & B Care Teams Telecommunications Professional Relationship Specialty Start Date End Date System, Provider Not In PCP - General 11/28/22
== END 2024-08-28 15:33 | disposition home or self-care (01) ==
LOC: HO.HPS 14:29
PROVIDERS: PCP Nurse Practitioner Family; Visit Provider Hospitalist
DX: J40 Bronchitis, not specified as acute or chronic (principal); I77.6 Arteritis, unspecified; J45.41 Moderate persistent asthma with (acute) exacerbation; J84.9 Interstitial pulmonary disease, unspecified; R76.8 Other specified abnormal immunological findings in serum; K21.00 Gastro-esophageal reflux disease with esophagitis, without bleeding; G47.33 Obstructive sleep apnea (adult) (pediatric); J30.9 Allergic rhinitis, unspecified; R93.89 Abnormal findings on diagnostic imaging of other specified body structures; T78.40XA Allergy, unspecified, initial encounter
CPT/HCPCS: 99214

== ENCOUNTER 2025-02-02 11:04 | Outpatient (REF) | payer OTHER, MEDICARE, SELFPAY ==
--- NOTE | ~2025-02-02 | XR_ITS ---
CLINICAL HISTORY: I77.6 - Arteritis, unspecified 2 view chest x-ray Comparison: CR/SR - XR CHEST 2 VIEWS - 02/18/24 12:30 EDT CR/SR - XR CHEST 2 VIEWS - 10/08/23 12:11 EDT DX/SR - XR CHEST 2 VIEWS - 11/20/22 11:41 EDT Findings: No consolidation or effusion. Heart size is normal. No acute fracture. IMPRESSION: 1. No acute findings. This document has been electronically signed by: Mendel Vail DO on 02/02/2025 12:21:53
--- OUTSIDE RECORDS SUMMARY | 2025-02-02 11:14 | XMS_ITS ---
Author Name [facility] Organization Unknown History of Medication Use Medication Directions Dispensed Refills Start Date End Date Stat us No known medications No known medications active Problems Problem Status Onset Date Problem Type Date of Resoluti on Source Pain in right ankle and joints of right foot active EncounterDiagnosisAct CCT Encounters Encounter Type Encounter Reason Primary Diagnosis Location Date Ambulatory [facility] 11/28/2022 Ambulatory Pain in right ankle and joints of right foot Pain in right ankle and joints of right foot [facility] 11/28/2022 Care Team Organization Name Specialty Phone Email Start Date End Da te [facility] PROVIDER SYSTEM Primary Care 11/28/20222022 [facility] System,Provider Primary Care 11/28/2022 [facility] 11/21/2022 11/21/2022
--- OUTSIDE RECORDS SUMMARY | 2025-02-02 11:14 | XMS_ITS | Clinical Summary ---
Author Organization [facility] Address [address] [place] [address] Care Team Providers Care Consultant Electronics Name Role Phone System, Provider Not In Primary Care Provider Un available Allergies No known active allergies Medications No known medications Active Problems No known active problems Social History Tobacco Use Types Packs/Day Years Used Date Smoking Tobacco: Never Assessed Comments Unknown Sex and Gender Information Value Date Recorded Sex Assigned at Female 02/01/2025 1:48 PM EDT Legal Sex Female 10:14 AM EDT Gender Identity Female 02/01/2025 1:48 PM EDT Sexual Orientation Heterosexual (straight) 02/01 1:48 PM EDT Plan of Treatment Upcoming Encounters Date Type Department Care Team ([facility] st Contact Info) Description 02/03/2025 11:00 AM EDT Office [place] [facility] [address] Nick Rae MD [address] [place] [address] Health Maintenance Due Date Last Done Comments Advance Care Planning 1955 Hepatitis C Virus Screening 1953 DTaP/Tdap/Td Vaccines (1 - Tdap) 1972 Mammogram 1993 Colonoscopy 1998 Pneumococcal Vaccines 50+ (1 of 1 - PCV) 09/28/2003 Zoster (Shingles) Vaccine (1 of 2) 09/28/2003 DXA Bone Density (Females,Ag es 65 and older) 2018 Influenza Vaccine 11/21/2024 03/30/2022 COVID-19 Vaccine ( - 2023-2 5 season) 2024 RSV Vaccine 60 years and old er and Patients (1 - 1-dose 75+ series) 2028 Hepatitis B Vaccines Aged Out No long er eligible based on patient's age to complete this topic Insurance MEDICARE PART A & B Care Teams Consultant Electronics Relationship Specialty Start Date End Date System, Provider Not In PCP - General 11/28/22
--- OUTSIDE RECORDS SUMMARY | 2025-02-02 11:15 | XMS_ITS | Patient Health Record ---
Author Organization [facility] Address [address] [place] [address] Care Team Providers Care Resort Host Name Role Phone Sánchez Jean Baptiste Unavailable Allergies No Known Allergies Reason For Referral No Information Medications Medication SIG (Take, Route, Frequency, Duration) Notes Start Date End Date Status Giorgio 5-40 MG 1 tablet Orally Once a day Active metFORMIN HCl 500 MG 1 tablet with a magdalena l Orally Once a day; Duration: 30 day(s) 12/17/2020 Active Dexilant 60 MG 1 capsule Orally Onc e a day; Duration: 30 day(s) Active Desloratadine 5 MG 1 tablet Orally Once a day Active Atorvastatin Calcium 20 MG 1 tablet Oral ly Once a day Active Albuterol Sulfate 108 (90 Base) MCG/ACT 1 puff as needed Inhalation every 4 hrs Active Emgality 120 MG/ML 1 ml Subcutaneous monthly; Duration: 30 day(s) 02/21/2021 Active Trelegy Ellipta 100-62.5-25 MCG/INH 1 puff Inhalation Once a day Active Singulair 10 MG 1 tablet Orally Once a day Active Social History Tobacco Use: Social History Observation Description Date Details (start date - stop date) Never Smoker NA - NA Tobacco Use/Smoking Question Answer Notes Are you a nonsmoker Problems Problem Type SNOMED Code ICD Code Onset Dates Problem Status W/U Status Risk Notes Problem Vitamin D deficiency (94795001) Vitamin D deficiency, unspecified (E55.9) Active confirmed Problem Migraine without aura, not refractory (disorder) (643639236) Migraine, unspecified, not intractable, without status migrainosus (G43.909) Active confirmed Problem Diabetes mellitus screening (172250887) Encounter for screening for diabetes mellitus (Z13.1) Active confirmed Problem Colon cancer screening (913998435) Colon cancer screening (Z12.11) Active confirmed Problem Fatigue (09881253) Fatigue, unspecified type (R53.83) Active confirmed Problem Thyroid nodule (784318050) Thyroid nodule (E04.1) Active confirmed Problem Essential hypertension (66955303) Accelerated hypertension (I10) Active confirmed Problem Obstructive sleep apnea syndrome (78782004) AMY (obstructive sleep apnea) (G47.33) Active confirmed Problem Asthma without status asthmaticus (53561581) Moderate asthma without complication, unspecified whether persistent (J45.909) Active confirmed Problem Mixed hyperlipidemia (765876838) Combined hyperlipidemia (E78.2) Active confirmed Problem History of partial thyroidectomy (441486266) H/O partial thyroidectomy (E89.0) Active confirmed Plan Of Treatment No Information Insurance Providers Payer Name Payer Address Payer Phone Subscriber Number Group Number Insured Name Patient Relationship to Insured Coverage Start Date Coverage End Date Medicare Part B J14 [address] [place] [address] [id number] Lisette Zepeda Self - patient is the insured [address] [facility] [address] [place] [address] [id number] vision plan Lisette Zepeda Self - patient is the insured Medical (General) History Medical History History ICD Code asthma - mild intermittent hypertension hyperlipidemia Surgical History Surgery Date(Month/Year) gallbladder appendectomy ankle surgery left ovarie
--- OUTSIDE RECORDS SUMMARY | 2025-02-02 11:15 | XMS_ITS | Clinical Summary ---
Author Organization [employer] [facility] Address [address] [facility] [address] [place] [address] Phone Care Team Providers Care Comfort Station Attendant Name Role Phone Ezio Kinney NP Primary Care Provider +1- [phone] Ezio Carroll MD Unavailable Unavailable Allergies No known active allergies Medications albuterol 90 mcg/actuation inhaler Inhale 2 puffs into the lungs. Active apixaban (ELIQUIS) 5 mg tablet Take 5 mg by mouth. 04/01/2022 Active atorvastatin (LIPITOR) 20 MG tablet Take 20 mg by mouth daily. Active azelastine (ASTELIN) 137 mcg (0.1 %) nasal spray 2 sprays by Nasal route. Active budesonide-form oterol (SYMBICORT) 160-4.5 mcg/actuation inhaler Inhale 2 puffs into the lungs. Active metoprolol succinate (TOPROL-XL) 50 MG 24 hr tablet Take 50 mg by mouth. 04/02/2022 Active pantoprazole (PROTONIX) 40 MG tablet Take 40 mg by mouth 2 (two) times a day. 04/01/2022 Active gabapentin (NEURONTIN) 300 MG capsule Take 2 capsules (600 mg total) by mouth 3 (three) times a day. 07/18/2022 Active Active Problems Problem Noted Date Diagnosed Date Sjogren syndrome with other organ involvement Long-term current use of rituximab 10/04/2023 Immunosuppressed status 10/04/2023 Vasculitis 07/18/2022 Asthma 03/23/2022 Overview (07/18/2022): Last Assessment & Plan: Home medications: Symbicort 160-4.5 mcg/actuation every 12h, [...] she plans to bring in home machine Atrial fibrillation 03/23/2022 Overview (07/18/2022): Last Assessment & Plan: Patient asymptomatic with new onset Afib with [...] 5mg q12h - DOAC prior auth/copay $75 DM (diabetes mellitus) 03/23/2022 Overview (07/18/2022): Last Assessment & Plan: Hx of DM. Last A1c 6.8%. On metformin 500 mg daily at home. Sugars in low to mid 100s on admission. -Hold home metformin -LDISS Anxiety 07/17/2017 Hiatal hernia 07/17/2017 Overview (07/18/2022): Last Assessment & Plan: Hx of GERD. On pantoprazole 40mg daily, dexlansoprazole 60 mg daily at home. -Hold home meds -Protonix 40mg increased to BID in the setting of therapeutic AC and high dose steroids Hyperlipidemia 07/17/2017 Overview (07/18/2022): Last Assessment & Plan: Patient has a history of HLD treated w/ rosuvastatin 20mg nightly and atorvastatin 40mg daily. On admission, presented w/ muscle weakness and fatigue (see arthralgia section). Symptoms improved during admission, 03/24 myositis specific antibody panel negative. 03/28 lipid panel w/ TG 195, LDL 113, cholesterol 194, HDL 42. -Resumed home rosuvastatin 20mg nightly -Holding home atorvastatin 40mg daily (not needed on d/c) Hypertension 07/17/2017 Overview (07/18/2022): Last Assessment & Plan: BP labile on admission, SBP between 160s and 102. During admission, ocasional episodes of hypotensive range BP (90s systolic) that stabilized to normal range. -Continue home amlodipine-olmesartan 5-40 mg daily Obstructive sleep apnea 07/10/2017 Overview (07/18/2022): [facility] Home Polysomnogram: Date 07/08/2017; AHI 7, Unclassified apneas 0; Obstructive apneas 25; Central apneas 1; Mixed apneas 0; hypopneas 30; average oxygen saturation 96% (lowest 85% without saturations <88% for 5% or more of study) - Obstructive Sleep Apnea - mild; mostly hypopneas and obstructive apneas; no sleep related hypoventilation by 2018 home polysomnogram. COPD (chronic obstructive pulmonary disease) Osteoarthritis 02/12/2012 Overview (06/13/2014): Osteoarthritis Immunizations Immunization Administration Dates Next Due INFLUENZA, SPLIT VIRUS, TRIVALENT W/ PRESERVATIV E IM 03/25/2018,06/01/2017 Influenza Quadrivalent MDCK Preservative Free IM 03/25/2018 Influenza Quadrivalent MDCK w/Preservative IM Influenza Quadrivalent Preservative Free IM 11/2021 Social History Tobacco Use Types Packs/Day Years Used Date Smoking Tobacco: Never Smokeless Tobacco: Never Tobacco Cessation:Counseling Given: Not Answered Education Answer Date Recorded Are you interested in more education? Not on elva e 08/26/2022 Are you concerned about learning? Not on file 08/26/2022 No 08/26/2022 No 08/26/2022 Digital Access Answer Date Recorded No 09/17/2022 No 09/17/2022 Reliable internet access at home? Not on file 09/17/2022 Device with a working camera? Not on file Comments Unknown Sex and Gender Information Value Date Recorded Sex Assigned at Female 07/14/2022 11:23 AM EDT Legal Sex Female 5:52 PM EST Gender Identity Female 07/14/2022 11:23 AM EDT Sexual Orientation Straight 07/14/2022 11 :23 AM EDT Last Filed Vital Signs Vital Sign Reading Time Taken Comments Blood Pressure 125/71 02/08/2024 11:02 AM EDT Pulse 85 02/08/2024 11:02 AM EDT Temperature 36.8 C (98.2 F) 02/08/2024 11:02 AM EDT Respiratory Rate - - Oxygen Saturation 98% 02/08/2024 11:02 AM EDT Inhaled Oxygen Concentration - - Weight 92.2 kg (203 lb 3.2 oz) 02/08/2024 11:02 AM EDT Height 162.6 cm (5' 4 ) 02/08/2024 11:02 AM EDT Body Mass Index 34.88 02/08/2024 11:02 AM EDT Plan of Treatment Upcoming Encounters Date Type Department Care Team (Late st Contact Info) Description 04/02/2025 1:00 PM EST Office Visit [facility] Rheumatology [address], [address] Floor, [address] [place] [address] Israel Forrest MD [address] [facility] [address] [place] [address] [email or web address] Health Maintenance Due Date Last Done Comments Adult Td,Tdap Booster 1955 CREATININE LEVEL 1953 HEMOGLOBIN A1C 1953 COVID-19 VACCINE (#1) 1958 DEPRESSION SCREENING 1965 PNEUMOCOCCAL VACCINES (50+ years) (1 of 2 - PCV) 1972 ZOSTER VACCINES (1 of 2) 1972 MAMMOGRAM 1993 COLOGUARD 1998 COLONOSCOPY 1998 COLORECTAL CANCER SCREENING 1998 FIT TEST 1998 FOBT 1998 SIGMOIDOSCOPY 1998 VIRTUAL COLONOSCOPY 1998 RSV VACCINE (1 - Risk 50-74 years 1-dose series) 09/28/2003 OSTEOPOROSIS SCREENING INITIAL (ONE-TIME) 2018 DIABETIC EYE EXAM 07/18/2022 URINE MICROALBUMIN/CREATININE RATIO 07/18/2022 BLOOD PRESSURE 08/08/2024 02/08/2024 INFLUENZA VACCINE (#1) 2024 2, 03/25/2018, 03/25/2018, Additional history exists HEPATITIS C SCREENING Completed 03/23/2022 SMOKING STATUS SCREENING (Once After 26 Yrs) Completed 10/04/2023 HEPATITIS A VACCINES Aged Out No long er eligible based on patient's age to complete this topic HIB VACCINES Aged Out No longer eligi ble based on patient's age to complete this topic MENINGOCOCCAL VACCINES (ACWY) Aged Out No longer eligible based on patient's age to complete this topic MENINGOCOCCAL VACCINES (B) Aged Out N o longer eligible based on patient's age to complete this topic Medical Devices Not on file Insurance MEDICARE PART A & B MEDICARE PART A & B MEDICARE PART A & B MEDICARE PART A & B MEDICARE PART A & [place] [id number] Care Teams Comfort Station Attendant Relationship Specialty Start Date End Date Ezio Kinney NP [address] [place] [address] PCP - General Nurse Practitioner 07/14/22 Ezio Carroll MD [address] [place] [address] [place] [address] Internal Medicine 07/18/22 Additional Source Comments The information contained in this document represents components of the legal health record. It is not the complete legal health record.[facility]
--- OUTSIDE RECORDS SUMMARY | 2025-02-02 11:15 | XMS_ITS | Clinical Summary ---
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 She follows with a test technician (Dr. Carroll at [facility]). [facility] hospital workup included prior EMG with findings [...] recs for outpatient follow up (pt prefers [place]) - Pain: tylenol 650mg Q4hrs, oxycodone 2.5mg [...] 56 04/01/2022 8:00 AM EST Temperature 36.8 C (98.2 F) 04/01/2022 8:00 AM EST Respiratory Rate 18 04/01/2022 8:00 AM EST [...] 03/31/2022 , 03/30/2022, 03/29/2022, Additional history exists Alcohol/Substance Use Screening 04/23/2024 Depression Screening and Follow-Up 04/23/2024 Health Care Proxy Review 04/23/2024 Social Drivers of Health Annual Screening 04/23/2024 COVID-19 Vaccine ( - season) 2024 Influenza Vaccine (#1) 2024 , 03/25/2018, 06/01/2017 Hepatitis C Screening Completed 03/24/2022, 022 Hepatitis B Vaccines Aged Out No long er eligible based on patient's age to complete this topic Procedures * Due to [place] SeeOn law, this organization might not be sharing negative HIV tests. Procedure Name Priority Date/Time Associated Diagnosis Comments RENAL FUNCTION PANEL Routine 03/31/2022 5:51 AM EST HEPATITIS PANEL, ACUTE STAT 03/24/2022 10:15 AM EST from Last 3 Months or Most Recently Relevant to Health Maintenance Results * Due to [place] SeeOn law, this organization might not be sharing negative HIV tests. * (ABNORMAL) Renal Function Panel (03/31/2022 5:51 AM EST) NA 135 135 - 145 mmol/L 03/31/2022 6:41 AM [facility] K 4.4 3.5 - 5.3 mmol/L 03/31/2022 6:41 AM [facility] Cl 105 97 - 110 mmol/L 03/31/2022 6:41 AM [facility] CO2 25 24 - 32 mmol/L 03/31/2022 6:41 AM [facility] Anion Gap 5 5 - 15 03/31/2022 6:41 AM [facility] Glucose 89 70 - 99 mg/dL 03/31/2022 6:41 AM [facility] BUN 39(H) 7 - 23 mg/dL 03/31/2022 6:41 AM [facility] Creatinine 1.03 0.50 - 1.20 mg/dL 03/31/2022 6:41 AM [facility] Calcium 9.0 8.7 - 10.7 mg/dL 03/31/2022 6:41 AM [facility] Phosphorus 3.0 2.5 - 4.5 mg/dL 03/31/2022 6:41 AM [facility] Albumin 3.0(L) 3.5 - 4.8 g/dL 03/31/2022 6:41 AM [facility] eGFR 59(L) >=90 mL/min/1. 73m2 03/31/2022 6:41 AM [facility] Comment: Estimated Glomerular Filtration [...] LAB BLOOD ORDERABLES Final Re sult [facility] [address] [place] [address], * Hepatitis Panel, Acute (03/24/2022 10:15 AM EST) Hepatitis A IgM NON-REACT HEATHER NON-REACT HEATHER 03/24/2022 11:36 PM EST [facility] Hepatitis B Surface Antigen NON-REACT HEATHER NON-REACT HEATHER 03/24/2022 11:36 PM EST [facility] Hepatitis B Core Antibody NON-REACT HEATHER NON-REACT HEATHER 03/24/2022 11:36 PM EST [facility] Hepatitis C Antibody NON-REACT HEATHER NON-REACT HEATHER 03/24/2022 11:36 PM EST [facility] Signal To Cut-Off 0.20 <1.00 03/24/2022 11:36 PM EST [facility] Comment: HCV antibody was non-reactive. There is no laboratory evidence of HCV infection. In most cases, no further action is required. However, if recent HCV exposure is suspected, a test for HCV RNA (test code 04537) is suggested. For additional information please refer to [email or web address]/[email or web address] (This link is being provided for informational/ educational purposes only.) For additional information, please refer to [email or web address] (This link is being provided for informational/ educational purposes only.) Blood Structure of peripheral vein / Unknown Venipuncture / Unknown 03/24/2022 10:15 AM EST 03/24/2022 12:00 PM EST Narrative [facility] - 03/24/2022 11:36 PM EST [facility] Received Date: us Tika Jarrell MD LAB BLOOD ORDERABLES Final Re sult [facility] [address], [place] [address], [place] [phone] [facility] [address], [place] [address], [place] [phone] from Last 3 Months or Most Recently Relevant to Health Maintenance Insurance MEDICARE [facility] Advance Directives * Full Code (Latest Code Status on File) Date Activated Date Inactivated Comments 03/23/2022 3:58 PM 04/01/2022 7:20 PM Care Teams Glove Maker Relationship Specialty Start Date End Date Ref, Has No Pcp Or DO NOT EDIT THIS RECORD VIA PROVIDER ON THE FLY PCP - General Geographic Information System Surveyor 03/23/22
--- OUTSIDE RECORDS SUMMARY | 2025-02-02 11:15 | XMS_ITS | Encounter Summary ---
Author Organization [facility] Address [address] [place] [address] Care Team Providers Care Medical Records Library Professor Name Role Phone Ref, Has No Pcp Or Primary Care Provider Unavail able Encounter Details Date Type Department Care Team (Late st Contact Info) Description 04/04/2022 Telephone [facility] [address] [place] [address] Telephone Intake, Staff Social History Tobacco Use [...] needs medication MINESH. PT can bereached @ [phone] PAC TEAM documented in this encounter Plan of Treatment Not on file documented as of this encounter Visit Diagnoses Not on filedocumented in this encounter Care Teams Medical Records Library Professor Relationship Specialty Start Date End Date Ref, Has No Pcp Or DO NOT EDIT THIS RECORD VIA PROVIDER ON THE FLY PCP - General Educational Consultant 03/23/22 documented as of this encounter
--- OUTSIDE RECORDS SUMMARY | 2025-02-02 11:15 | XMS_ITS | Encounter Summary ---
Author Organization [facility] Address [address] [place] [address] Care Team Providers Care Garage Laborer Name Role Phone Ref, Has No Pcp Or Primary Care Provider Unavail able Encounter Details Date Type Department Care Team (Late st Contact Info) Description 09/22/2022 myChart Message [facility] Financial Counseling Department [address] [place] [address] Mychart, Generic Provider [facility] [place] [address] financial assistance Social History [...] on filedocumented in this encounter Care Teams Garage Laborer Relationship Specialty Start Date End Date Ref, Has No Pcp Or DO NOT EDIT THIS RECORD VIA PROVIDER ON THE FLY PCP - General Salesperson [employer] 03/23/22 documented as of this encounter
== END 2025-02-02 11:05 | disposition home or self-care (01) ==
LOC: HO.XRAY 11:04
PROVIDERS: PCP Nurse Practitioner Family; Visit Provider Hospitalist
DX: J40 Bronchitis, not specified as acute or chronic (principal)
CPT/HCPCS: 71046

== ENCOUNTER → 2025-02-02 11:14 | Outpatient (BNV) | payer OTHER, MEDICARE, SELFPAY | PROVIDERS: PCP Nurse Practitioner Family; Visit Provider Family Medicine | DX: I77.6 Arteritis, unspecified (principal) | CPT/HCPCS: 71046 ==

== ENCOUNTER 2025-02-03 13:07 | Outpatient (REF) | payer MEDICARE, SELFPAY ==
--- OUTSIDE RECORDS SUMMARY | 2025-02-03 10:35 | XMS_ITS | Encounter Summary ---
Author Organization [facility] Address [address] [place] [address] Care Team Providers Care Acidizer Water Well Name Role Phone System, Provider Not In Primary Care Provider Un available Encounter Details Date Type Department Care Team (Late st Contact Info) Description 02/03/2025 10:35 AM EDT Ancillary Procedure Orthopedic [address] [address] Arrived Social History Tobacco Use Types Packs/Day Years Used Date Smoking Tobacco: Never Assessed Comments Unknown Sex and Gender Information Value Date Recorded Sex Assigned at Female 02/01/2025 1:48 PM EDT Legal Sex Female 10:14 AM EDT Gender Identity Female 02/01/2025 1:48 PM EDT Sexual Orientation Heterosexual (straight) 02/01 1:48 PM EDT documented as of this encounter Plan of Treatment Not on file documented as of this encounter Procedures Procedure Name Priority Date/Time Associated Diagnosis Comments XR ANKLE 3+ VIEWS-RIGHT Routine 02/03/2025 11:34 AM EDT Hx of total ankle replacement, right documented in this encounter Results * XR Ankle 3+ views-Right (02/03/2025 11:34 AM EDT) Narrative OA - 02/03/2025 11:34 AM EDT This exam was performed in office at [facility] and images reviewed by orthopedic provider. Any findings are documented within ambulatory encounter note on date of service. Nick Rae MD IMG DIAGNOSTIC IMAGING ORDERA BLES Final Result [facility] documented in this encounter Visit Diagnoses Not on filedocumented in this encounter Care Teams Acidizer Water Well Relationship Specialty Start Date End Date System, Provider Not In PCP - General 11/28/22 documented as of this encounter
--- OUTSIDE RECORDS SUMMARY | 2025-02-03 11:00 | XMS_ITS | Encounter Summary ---
Author Organization [facility] Address [address] [place] [address] Care Team Providers Care Smoke Control Supervisor Name Role Phone System, Provider Not In Primary Care Provider Un available Reason for Visit * Reason Comments Pain Encounter Details Date Type Department Care Team ([facility] st Contact Info) Description 02/03/2025 11:00 AM EDT [place] [address] Nick Rae MD [address] [place] [address] Hx of total ankle replacement, right (Primary [...] was performed in office at [facility] and images reviewed by orthopedic provider. Any findings are documented within ambulatory encounter note on date of service. us Nick Rae MD IMG DIAGNOSTIC IMAGING ORDERA BLES Final Result [facility] documented in this encounter Visit Diagnoses Diagnosis Hx of total ankle replacement, right- Primary documented in this encounter Care Teams Smoke Control Supervisor Relationship Specialty Start Date End Date System, Provider Not In PCP - General 11/28/22 documented as of this encounter
--- OUTSIDE RECORDS SUMMARY | 2025-02-03 15:53 | XMS_ITS | Clinical Summary ---
Author Organization [facility] Address [address] [facility] [address] [place] [address] Phone Care Team Providers Care Cushion Padder Name Role Phone Ezio Kinney NP Primary Care Provider +1- [phone] Ezio Carroll MD Unavailable Unavailable Allergies No [...] daily Obstructive sleep apnea 07/10/2017 Overview (07/18/2022): [facility] Home Polysomnogram: Date 07/08/2017; AHI 7, Unclassified [...] Description 04/02/2025 1:00 PM EST Office Visit [facility] Rheumatology [address], 4[address], [address] [place] [address] Israel Forrest MD [address] [facility] [address] [place] [address] [email or web address] Health Maintenance Due Date Last Done Comments [...] [place] [id number] Care Teams Cushion Padder Relationship Specialty Start Date End Date Ezio Kinney NP [address] [place] [address] PCP - General Nurse Practitioner 07/14/22 Ezio Carroll MD [address] [place] [address] [place] [address] Internal Medicine 07/18/22 Additional Source Comments The information contained in this document represents components of the legal health record. It is not the complete legal health record.[facility]
--- OUTSIDE RECORDS SUMMARY | 2025-02-03 15:53 | XMS_ITS | Patient Health Record ---
Author Organization [facility] Address [address] [place] [address] Care Team Providers Care Explosive Ordnance Manager Name Role Phone Sánchez Jean Baptiste Unavailable [...] Status Risk Notes Problem Vitamin D deficiency (17935566) Vitamin D deficiency, unspecified (E55.9) Active confirmed Problem Migraine without aura, not refractory (disorder) (672369419) Migraine, unspecified, not intractable, without status migrainosus (G43.909) Active confirmed Problem Diabetes mellitus screening (098877119) Encounter for screening for diabetes mellitus (Z13.1) Active confirmed Problem Colon cancer screening (203131859) Colon cancer screening (Z12.11) Active confirmed Problem Fatigue (47322111) Fatigue, unspecified type (R53.83) Active confirmed Problem Thyroid nodule (067202489) Thyroid nodule (E04.1) Active confirmed Problem Essential hypertension (51971642) Accelerated hypertension (I10) Active confirmed Problem Obstructive sleep apnea syndrome (32597699) AMY (obstructive sleep apnea) (G47.33) Active confirmed Problem Asthma without status asthmaticus (73500538) Moderate asthma without complication, unspecified whether persistent (J45.909) Active confirmed Problem Mixed hyperlipidemia (406667365) Combined hyperlipidemia (E78.2) Active confirmed Problem History of partial thyroidectomy (198277056) H/O partial thyroidectomy (E89.0) Active confirmed Plan Of Treatment No Information Insurance Providers Payer Name Payer Address Payer Phone Subscriber Number Group Number Insured Name Patient Relationship to Insured Coverage Start Date Coverage End Date Medicare Part B J14 [address] [place] [address] [id number] Lisette Zepeda Self - patient is the insured [address] [facility] [address] [place] [address] [id number] vision plan Lisette Zepeda Self - patient is the insured Medical (General) History Medical History History ICD Code asthma - mild intermittent hypertension hyperlipidemia Surgical History Surgery Date(Month/Year) gallbladder appendectomy ankle surgery left ovarie
--- OUTSIDE RECORDS SUMMARY | 2025-02-03 15:53 | XMS_ITS | Clinical Summary ---
Author Organization [facility] Address [address] [place] [id number] Care Team Providers Care Screwmaker Automatic Name Role Phone System, Provider Not In Primary Care Provider Un available Allergies No known active allergies Medications No known medications Active Problems No known active problems Encounters Date Type Department Care Team Description 02/03/2025 11:00 AM EDT [place] [address] Nick Rae MD Hx of total ankle replacement, right (Primary Dx) 02/03/2025 10:35 AM EDT Ancillary Procedure Orthopedic [address] [address] Arrived from Last 3 Months Social History Tobacco Use Types Packs/Day Years Used Date Smoking Tobacco: Never Assessed Comments Unknown Sex and Gender Information Value Date Recorded Sex Assigned at Female 02/01/2025 1:48 PM EDT Legal Sex Female 10:14 AM EDT Gender Identity Female 02/01/2025 1:48 PM EDT Sexual Orientation Heterosexual (straight) 02/01 1:48 PM EDT Plan of Treatment Health Maintenance Due Date Last Done Comments Advance Care Planning 1955 Hepatitis C Virus Screening 1955 DTaP/Tdap/Td Vaccines (1 - Tdap) 1972 Mammogram 1993 Colonoscopy 1998 Pneumococcal Vaccines 50+ (1 of 1 - PCV) 09/28/2003 Zoster (Shingles) Vaccine (1 of 2) 09/28/2003 DXA Bone Density (Females,Ages 65 and older) 2018 Influenza Vaccine 11/21/2024 03/30/2022, , 03/25/2018, Additional history exists COVID-19 Vaccine (2023-25 season) 2024 RSV Vaccine 60 years and older and Patients (1 - 1-dose 75+ series) 2028 Hepatitis B Vaccines Aged Out No long er eligible based on patient's age to complete this topic Procedures Procedure Name Priority Date/Time Associated Diagnosis Comments XR ANKLE 3+ VIEWS-RIGHT Routine 02/03/2025 11:34 AM EDT Hx of total ankle replacement, right from Last 3 Months Results * XR Ankle 3+ views-Right (02/03/2025 11:34 AM EDT) Narrative [facility] - 02/03/2025 11:34 AM EDT This exam was performed in office at [facility] and images reviewed by orthopedic provider. Any findings are documented within ambulatory encounter note on date of service. Nick Rae MD IMG DIAGNOSTIC IMAGING ORDERA BLES Final Result OA from Last 3 Months Insurance MEDICARE PART A & B Care Teams Screwmaker Automatic Relationship Specialty Start Date End Date System, Provider Not In PCP - General 11/28/22
--- OUTSIDE RECORDS SUMMARY | 2025-02-03 15:54 | XMS_ITS | Encounter Summary ---
Author Organization [facility] Address [address] [place] [address] Care Team Providers Care Warehouse Selector Name Role Phone Ref, Has No Pcp Or Primary Care Provider Unavail able Encounter Details Date Type Department Care Team (Late st Contact Info) Description 04/04/2022 Telephone [facility] [address] [place] [phone] Telephone Intake, Staff Social History Tobacco Use [...] needs medication MINESH. PT can bereached @ [phone] PAC TEAM documented in this encounter Plan of Treatment Not on file documented as of this encounter Visit Diagnoses Not on filedocumented in this encounter Care Teams Warehouse Selector Relationship Specialty Start Date End Date Ref, Has No Pcp Or DO NOT EDIT THIS RECORD VIA PROVIDER ON THE FLY PCP - General Scraper Hand 03/23/22 documented as of this encounter
--- OUTSIDE RECORDS SUMMARY | 2025-02-03 15:54 | XMS_ITS | Encounter Summary ---
Author Organization [facility] Address [address] [place] [address] Care Team Providers Care Auto Vinyl Top Installer Name Role Phone Ref, Has No Pcp Or Primary Care Provider Unavail able Encounter Details Date Type Department Care Team (Late st Contact Info) Description 09/22/2022 myChart Message [facility] Financial Counseling Department [address] [place] [phone] Mychart, Generic Provider [facility] [place] [address] financial assistance Social History Tobacco [...] on filedocumented in this encounter Care Teams Auto Vinyl Top Installer Relationship Specialty Start Date End Date Ref, Has No Pcp Or DO NOT EDIT THIS RECORD VIA PROVIDER ON THE FLY PCP - General Accounting Consultant 03/23/22 documented as of this encounter
--- OUTSIDE RECORDS SUMMARY | 2025-02-03 15:54 | XMS_ITS | Clinical Summary ---
Author Organization [facility] Address [address] [place] [address] Care Team Providers Care Manpower Development Advisor Name Role Phone Ref, Has No Pcp [...] suggestive of vascuilits. She follows with a casino assistant manager (Dr. Carroll at [facility]). [facility] hospital workup included prior EMG with findings [...] recs for outpatient follow up (pt prefers [facility]) - Pain: tylenol 650mg Q4hrs, oxycodone 2.5mg [...] complete this topic Procedures * Due to [place] law, this organization might not be sharing negative HIV tests. Procedure Name Priority Date/Time Associated Diagnosis Comments RENAL FUNCTION PANEL Routine 03/31/2022 5:51 AM EST HEPATITIS PANEL, ACUTE STAT 03/24/2022 10:15 AM EST from Last 3 Months or Most Recently Relevant to Health Maintenance Results * Due to [place] law, this organization might not be sharing negative HIV tests. * (ABNORMAL) Renal Function Panel (03/31/2022 5:51 AM EST) NA 135 135 - 145 mmol/L 03/31/2022 6:41 AM [facility] K 4.4 3.5 - 5.3 mmol/L 03/31/2022 6:41 AM [facility] Cl 105 97 - 110 mmol/L 03/31/2022 6:41 AM [facility] CO2 25 24 - 32 mmol/L 03/31/2022 6:41 AM [facility] Anion Gap 5 5 - 15 03/31/2022 6:41 AM [facility] Glucose 89 70 - 99 mg/dL 03/31/2022 6:41 AM [facility] BUN 39(H) 7 - 23 mg/dL 03/31/2022 6:41 AM [facility] Creatinine 1.03 0.50 - 1.20 mg/dL 03/31/2022 6:41 AM [facility] Calcium 9.0 8.7 - 10.7 mg/dL 03/31/2022 6:41 AM [facility] Phosphorus 3.0 2.5 - 4.5 mg/dL 03/31/2022 6:41 AM [facility] Albumin 3.0(L) 3.5 - 4.8 g/dL 03/31/2022 6:41 AM [facility] eGFR 59(L) >=90 mL/min/1. 73m2 03/31/2022 6:41 AM [facility] Comment: Estimated Glomerular Filtration Rate [...] MD LAB BLOOD ORDERABLES Final Re sult [facility] [address] [place] [address], * Hepatitis Panel, Acute (03/24/2022 10:15 AM EST) Hepatitis A IgM NON-REACT HEATHER NON-REACT HEATHER 03/24/2022 11:36 PM EST [facility] Hepatitis B Surface Antigen NON-REACT HEATHER NON-REACT HEATHER 03/24/2022 11:36 PM EST [facility] Hepatitis B Core Antibody NON-REACT HEATHER NON-REACT HEATHER 03/24/2022 11:36 PM EST [facility] Hepatitis C Antibody NON-REACT HEATHER NON-REACT HEATHER 03/24/2022 11:36 PM EST [facility] Signal To Cut-Off 0.20 <1.00 03/24/2022 11:36 PM EST [facility] Comment: HCV antibody was non-reactive. There is no laboratory evidence of HCV infection. In most cases, no further action is required. However, if recent HCV exposure is suspected, a test for HCV RNA (test code 55520) is suggested. For additional information please refer to http://[employer]/faq/KMR65e7 (This link is being provided for informational/ educational purposes only.) For additional information, please refer to http://[employer]/faq/NOV698 (This link is being provided for informational/ educational purposes only.) Blood Structure of peripheral vein / Unknown Venipuncture / Unknown 03/24/2022 10:15 AM EST 03/24/2022 12:00 PM EST Narrative [facility] 03/24/2022 11:36 PM EST [facility] Received Date: us Tika Jarrell MD LAB BLOOD ORDERABLES Final Re sult [facility] [address] [facility] [address], [place] [address], [place] [phone] [facility] [address], [place] [address], [place] [phone] from Last 3 Months or Most Recently Relevant to Health Maintenance Insurance MEDICARE [facility] Advance Directives * Full Code (Latest Code Status on File) Date Activated Date Inactivated Comments 03/23/2022 3:58 PM 04/01/2022 7:20 PM Care Teams Manpower Development Advisor Relationship Specialty Start Date End Date Ref, Has No Pcp Or DO NOT EDIT THIS RECORD VIA PROVIDER ON THE FLY PCP - General Security Escort 03/23/22
[2025-02-03 18:11] LABS: MANUAL DIFF FLAG NO
[2025-02-03 18:19] LABS: Hematocrit 40.1 % (37.0-47.0); Hemoglobin 12.8 g/dl (12.0-16.0); Imm Gran Abs Auto 0.03 X10*3/uL (0.00-0.03); Imm Gran Pct Auto 0.4 % (0.0-0.4); Lymphocytes Absolute Auto 1.4 X10*3/uL (1.2-4.9); Mean Corpuscular HGB Conc 31.9 g/dl (31.0-35.0); Mean Corpuscular Hemoglobin 30.0 pg (27.0-33.0); Mean Corpuscular Volume 94.1 fL (80.0-98.0); NRBC Abs Auto 0.000 X10*3/uL (0.0-0.012); NRBC Pct Auto 0.0 /100WBC (0.0-0.2); Platelet Count 349 X10*3/uL (160-400); Red Blood Count 4.26 X10*6/uL (4.20-5.50); White Blood Count 8.3 X10*3/uL (4.8-10.8)
[2025-02-03 18:28] LABS: Appearance Urine Clear; Glucose Urine UA Negative (Negative); PH 5.5 (5.0-9.0); Specific Gravity - Urine 1.025 (1.005-1.025); UMIC TRIGGER UACC YES
[2025-02-03 18:34] LABS: Alanine Aminotransferase 15 U/L (0-31); Albumin Level 4.0 g/dL (3.5-5.0); Alkaline Phosphatase 114 U/L (39-117); Anion Gap 12 (12-20); Aspartate Amino Transferase 23 U/L (5-31); Blood Urea Nitrogen 24 mg/dL (9-16); Calcium 9.2 mg/dL (8.4-10.2); Carbon Dioxide 22 mmol/L (22-29); Chloride 111 mmol/L (96-108); Estimated Glomerular Filt Rate > 60; Potassium 4.3 mmol/L (3.3-5.1); Sodium 141 mmol/L (135-145); Total Protein 6.9 g/dL (6.5-8.0)
[2025-02-03 18:52] LABS: Protein/Creatinine Ratio, Ur 0.06 (<0.2); Total Protein Urine Random 9 mg/dL (<12)
[2025-02-04 03:36] LABS: HBS Num1 1.29 mIU/mL (0-7.99); HBc Num1 0.06 S/CO (0.00-0.79); HBsAGNum1 0.34 S/CO (0.00-0.99); Hepatitis B Surface Antigen Negative (Negative); ~HepC Num1 0.05 S/CO (0.00-0.79); ~Hepatitis B Surface Antibody NONREACTIVE (Nonreactive); ~Hepatitis C Antibody Nonreactive (Nonreactive)
[2025-02-05 21:33] LABS: TS Negative Control Passed; TS Panel A 1; TS Panel B 1; TS Positive Control Passed; TSpotTB Negative (Negative)
== END 2025-02-03 13:08 | disposition home or self-care (01) ==
LOC: HO.HKASLDS 13:07
PROVIDERS: PCP Nurse Practitioner Family; Visit Provider Student in an Organized Health Care Education/Training Program
DX: M32.9 Systemic lupus erythematosus, unspecified (principal); Z79.899 Other long term (current) drug therapy; Z11.59 Encounter for screening for other viral diseases; Z01.84 Encounter for antibody response examination; Z72.89 Other problems related to lifestyle
CPT/HCPCS: 36415; 80053; 81001; 82570; 82784; 84156; 85025; 85652; 86140; 86481; 86704; 86706; 86803; 87340; 88184; 88185

== ENCOUNTER 2025-02-04 08:36 | Outpatient (AMB) | payer MEDICARE, SELFPAY ==
[2025-02-04 08:47] VITALS: BP 112/56; PULSE 88; O2SAT 96; BMI 34.6
--- NOTE | 2025-02-04 08:47 | MHC.OFFVIS ---
Vital Signs 02/04/25 08:47 Height 5 ft 4 in Weight 201 lb 11.567 oz BMI 34.6 BP 112/56 L Blood Pressure Location Rt brachial Position Sitting Pulse 88 Pulse Source Pulse Oximeter Pulse Oximetry (%) 96 Oxygen Delivery Method Room Air Intake Visit Reasons: AUDRA Positive+ Accompanied by: Spouse Allergies No Known Allergies Allergy (Verified 02/04/25 08:51) HPI Comments Details: The patient is a 69-year-old woman with a known history of asthma and AMY. The patient has been complaining worsening shortness of breath and cough for the last several weeks. However, more recently he started developing a productive cough with yellow phlegm. She feels like the phlegm is difficult to expectorate. She had been in [place] for some time with her mother and while she was there her respiratory status was worse and ended up in the prednisone. Also, she ran out of her Trelegy inhaler and she was not able to refill it and she has been off it now for 2 months. Therefore she has been using her nebulizer therapy with albuterol and also her ProAir more regularly. The patient also struggling with her CPAP. She cannot tolerate the elevated pressures. She is also developing epistaxis with her nasal pillow mask. Patient is no longer getting supplies from her [employer] company. therefore, she is now consider inactive in not getting any supplies for many [employer] company. The patient needs to be set up again with a [employer] company in the only way to do that is to repeat her sleep study in order to demonstrating again that she has sleep apnea and therefore get active again. In the meantime she has not been tolerating the fractures. For that reason she has been having significant headaches in the morning and also complaining of daytime drowsiness with an elevated [place] score 14/24. Therefore, repeating the sleep study will be crucial in order for her to start her CPAP therapy again. The patient follow-up after her sleep study. In addition to that I will give her some antibiotics for the bronchitis that she is experiencing. 02/16/2022 the patient is here for a pulmonary follow-up visit. She was in [place] and was very sick. Initially developed a rash suggesting of vasculitis. although, initially was thought to be monkey pox. The patient during the hospitalization also was diagnosed with pancreatitis. She was given IV antibiotics and also given IV steroids. the patient also has been complaining of worsening cough productive in nature. The cough has continued. Today she was evaluated by Rheumatology. The patient has significant complaints on a constitutional review of systems. It is likely that she has a flare up of her connective tissue disease that is affecting multiple organ systems. She is currently on a small dose of methylprednisolone that is helping maintain the vasculitis flare up at [place]. Although she continues to very symptomatic. She is very short of breath. We did taken for 6 minute walk test. The patient did not desaturate but she was very weak. She took multiple rest even after 50 ft. She was using a walker. Her pulse ox was 98% throughout the ambulation. She also complains of pleuritic chest pain. We had her undergoing blood work. She just traveled from [place]. Her D-dimer is positive significantly elevated. Therefore in view of her risk for thromboembolic disease I will go ahead and order a CTA at this time. The patient has a full blood work panel order from Rheumatology. Will be awaiting the results of that in addition to awaiting the results of her CT scan. 03/02/2022 the patient is here for pulmonary follow-up visit. She continues to have multiple complaints. Does have some shortness of breath and cough. Her D-dimer had been elevated and she did undergo a CTA. I did review the CTA images with the patient. No evidence of any pulmonary emboli. However, she did have some areas of ground-glass and interstitial changes primarily at the bases. This consistent with pneumonitis. She may also have a component of atelectasis. She does have significant dry crackles specially on the right base consistent with her interstitial lung disease from her underlying connective tissue disease. She has been on Medrol but not been enough to maintain her symptoms under control or decreasing inflammatory changes of her lungs. We did review her other labs demonstrating a significantly elevated sedimentation rate an ESR. Her ANCA levels were negative. She does have underlying vasculitis appreciated on her skin. However, no biopsy was done at the time. She will be following up closely with Rheumatology. An extensive blood work panel has been requested. In the meantime will go ahead and start her on mycophenolate in order to treat her underlying interstitial lung disease appreciated on her CT scan. I am hopeful that she also gets relief from this inflammatory process. 05/26/2022 the patient is here for a pulmonary follow-up visit. The patient continues to have multiple complaints. She had been admitted to [facility] which she was evaluated by Rheumatology. Again, it is very clear that she has a diagnosis of vasculitis. Although clear connective tissue disease has not been identified. The patient therefore was referred back to her [facility]. She was started on cyclophosphamide and she is off the CellCept. She continues to have significant weakness and neuropathy like symptoms. Breathing appears to be okay at this time. Denies any significant shortness of breath or chest discomfort. The patient denies any productive mucus or wheezing. From a cardiac standpoint the patient did have an episodes of atrial fibrillation prior to receiving her cyclophosphamide infusion therefore she had been admitted to the hospital. She was placed on Eliquis and rate controlling agents. Now she is waiting for cardiology follow-up. 11/27/2022 the patient is here for a pulmonary follow-up visit. The patient had been doing well after the treatment with cyclophosphamide for the vasculitis but now appears to have been returning. She was switched over to will high doses of IVIG. Although she may have had an adverse reaction. She ultimately developed significant anemia requiring 2 units of blood. She is still monitoring closely her hemoglobin. She did follow-up with Hematology. The patient was placed on additional steroids based on the fact that her sedimentation rate is above 100. She continues to have shortness of breath. She denies any hemoptysis. Although her major complaint is that she is having significant visual loss. Therefore, will request the ophthalmology examination urgently to assess for any acute changes. Patient will receive Solu-Medrol today to help decrease any inflammatory changes. She is awaiting the approval for rituximab in order to start that. In the meantime she continues with her CPAP therapy and she continues with respiratory medicines. She did have a chest x-ray which I personally reviewed. No evidence of any ground-glass opacities or any acute changes. Her exam is reassuring without any significant crackles. 03/08/2023 the patient is here for a pulmonary follow-up visit. The patient is feeling much better since starting the rituximab. She has tolerated the therapy in this been very effective decreasing him from a shunt. Still having significant issues with her balance and strongly weakness likely due to the high-dose steroids and also having issues with cataracts all related to the steroids. The patient now was restarted on a small dose of prednisone since she still becomes symptomatic when she is completely off it. Therefore, now she is taking 4 mg and she is tolerating that well. She is using her respiratory therapy as prescribed which is reassuring. Denies any significant wheezing at this time. We did provide her a form for odilia based on the fact that she is having respiratory issues and now having physical limitations requiring a cane. She did have an issue with a bloody nose. We did talk about stopping the fluticasone. She does have an ulceration in the right turbinate. She will try Bactroban for few days. She can also try saline gel. She will increase that he needed a on her CPAP to make sure that that does not bother. In the CPAP therapy continues to be affecting beneficial. As long she is not having any bleeding from the nose she did use it. If her nose starts bleeding again specially on the Eliquis she may need to be seen by ENT or urgent care for cautery of that lesion on the right turbinate. 10/08/2023 the patient is here for a pulmonary follow-up visit. From a backs colitis standpoint the patient has been doing well. She did follow-up with Rheumatology in [place] and also Rheumatology here. She has been under rituximab. Although it is extremely expensive because she is only getting 80% covered and she has the other 20% which are thousands of dollars. She is trying to deal with that issue. In the meantime the patient has been having a cough. The cough tends to be persistent primarily in the morning and at nighttime. Typically nonproductive although she can not bring up some phlegm at times. Moderate severity. She has been using her respiratory therapy. The patient has a nebulizer here that is not working effectively. She needs a replacement. Also will request a CPT valve flutter valve to help her with her mucus clearance. The patient does have significant wheezing on examination. We did talk about taking a course of prednisone to help her with her asthma flare-up. She has already on the Trelegy inhaler. The patient also needs to get a function nebulizer. The patient does have immunodeficiency. She does have what appears to be chronic bronchitis. In view of her chronic bronchitis will be reasonable to start her on azithromycin 3 times a week to see if we can decrease her mucus burden decrease the inflammation of the airways. She was start the azithromycin get an EKG to make sure that her QTC is within normal range. 02/06/2024 the patient is here for a pulmonary follow-up visit. She has been under the weather now for couple weeks. She started with a cough after having her cataracts done. The surgery went well but then she started developing worsening chest tightness. She does not have any nebulizer solution. She does have significant wheezing on examination today. She does have an asthma exacerbation. She did receive an Xopenex treatment in the office and I did send the Xopenex to the pharmacy. In addition to that she is going to have to start prednisone and also start her on a course of antibiotics. Unfortunately she needs to get vaccinated as well before getting her Rituxan injection. Explained to her that while on the prednisone be hard for her to get vaccinated because she probably will have any effect. Therefore once she prednisone is down to 20 mg or less she can go and get her vaccines. I did encourage her to get her flu shot in the RSV. Although sometimes I do not recommend did get given together because the RSV tends to cause increased symptoms. Is also a new vaccine for her. She is scheduled to receive her Rituxan in 3 weeks. Hopefully she can get these vaccines done after her prednisone dose is decreased to minimize the body immunosuppression. If the patient is no better she is going to come in for a chest x-ray. Otherwise follow-up in May when she comes back to the area. 06/06/2024 the patient is here for pulmonary follow-up visit. Overall she is doing okay. She has had worsening cough. She has been using her inhaler little bit more often. Her x-ray back in 02/10/2024 was reassuring just with some minimal bronchitis. No evidence of any interstitial lung disease that I can appreciate. She has had pneumonitis and interstitial lung disease initially back in 2021 or so when she was initially being evaluated and treated for the vasculitis in the connective tissue diseases. But her last imaging study of the CT scan of the abdomen demonstrating the lung cuts with no evidence of any significant pneumonitis just some minimal interstitial changes. So far the most part with the stability of her connective tissue disease and vasculitis her pulmonary manifestations have improved. She is however having some increased coughing and some decreased breath sounds. She would benefit from a maintenance inhaler. Will go ahead and started her on Advair HFA. She can also continue her Xopenex. She does not tolerate the regular albuterol well because it causes tremulousness and palpitations. She will continue with the allergy medicine as well. Will plan to follow-up sometime in August at that point we can decide if we need additional imaging studies depending on her symptoms. 08/28/2024 the patient is here for pulmonary follow-up visit. Overall the patient has been doing fair. She did get her Rituxan. Unfortunately she has been sick since she got back from [place] after being with her mom was sick in the hospital. She started develop worsening cough chest tightness wheezing. She has a Medrol and some antibiotics left over which she took. When she came to the [facility] she did start a course of doxycycline and also started prednisone. She has does feel significantly better. She is using her nebulizer 3 times a day. Although she continues to have significant wheezing and rhonchi exam. Therefore will go ahead and give her additional prednisone she can extend her taper and also will add another antibiotic to her regimen specially with her immunocompromised state. If the patient is no better she will come in and have an x-ray. In the meantime she does have a CPAP in the CPAP therapy has been very affecting beneficial for her. She does use it for more than 4 hours a night. Although now that she has been sick she has not been able to use it. And also she states that the pressures feel too high. I am going to have her see if we can get access to her machine to be able to adjusted. 02/04/2025 the patient is here for pulmonary follow-up visit. Overall she is doing very well from a respiratory status. She continues use her respiratory inhalers as prescribed. She has not required anymore antibiotics which is reassuring. She did have a chest x-ray which I personally reviewed demonstrating no acute disease. The patient has been having issues with the AFib. She understands that the CPAP is going to be helpful in controlling her cardiac arrhythmias. The CPAP therapy has been affecting beneficial she needs to make sure to use it more than 4 hours a night. [facility] Medical History Encounter for monitoring rituximab therapy Sjogren syndrome with vasculitis Allergies Cataract Snoring Hx of migraines Hyperkalemia Prediabetes Muscle weakness Autoimmune pancreatitis Sjogren's disease COVID-19 Blood D-dimer assay positive Chest pain GERD (gastroesophageal reflux disease) Bronchitis Asthma AMY (obstructive sleep apnea) Surgical History History of cataract surgery Hx of colonoscopy Hx of cholecystectomy Hx of appendectomy S/P ankle joint replacement Family History Mother Alzheimer disease Stroke Other Family history of connective tissue disease Lupus Multiple sclerosis Rheumatoid arthritis Social History Household Members: Spouse Housing: House Alcohol intake: current Alcohol intake frequency: does not drink Patient Tobacco Use Status: Never used Tobacco e-Cigarette/Vaping Use: Never Used service: No Current occupational status: retired 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 Cognitive needs: No Hearing needs: No Vision needs: Yes Review of Systems Const Denies fever(s) Eyes Reports blurry vision ENT Denies epistaxis, Reports nasal congestion, Reports nasal discharge and Reports post nasal drip Card Reports dyspnea on exertion Resp Reports chest congestion, Reports cough, Reports dyspnea on exertion and Reports wheezing GI Reports no additional complaints Musc Reports arthralgias, Reports joint swelling, Reports numbness and Reports stiffness Skin/Breast Denies rash Neuro Reports numbness, Reports Sensory deficit (Neuro) and Reports paresthesias Aller/Immun Reports wheezing Physical Exam Vital Signs: Last Vital Signs Pulse 88 02/04/25 08:47 BP 112/56 L 02/04/25 08:47 Pulse Ox 96 02/04/25 08:47 Oxygen Delivery Method Room Air 02/04/25 08:47 BMI result Body Mass Index 34.6 Const General: comfortable and alert HEENT Head: Yes atraumatic and Yes other (alopecia) Neck Neck: Yes normal visual inspection, Yes full ROM and Yes no lymphadenopathy Chest Chest palpation & inspection: normal inspection of the chest Resp Effort & Inspection: normal respiratory effort Auscultation: no rales, rhonchi, wheezes and diminished lung sounds Cardio Rate: regular rate Rhythm: regular rhythm Heart sounds: S1 normal heart sound present and S2 normal heart sound present GI Palpation (GI): Soft to palpation and nontender Auscultation: normal bowel sounds Skin General skin exam: no rashes or lesions noted Neuro Sensory Exam: Sensory deficit (Neuro) Extrem General: Yes no clubbing, cyanosis or edema Assessment & Plan Assessment & Plan (1) Vasculitis: Code(s): I77.6 - Arteritis, unspecified Category: Medical (2) Asthma: Code(s): J45.909 - Unspecified asthma, uncomplicated Category: Medical Qualifiers: Asthma complication type: with acute exacerbation Asthma persistence: persistent Asthma severity: moderate Qualified Code(s): J45.41 - Moderate persistent asthma with (acute) exacerbation (3) ILD (interstitial lung disease): Code(s): J84.9 - Interstitial pulmonary disease, unspecified Category: Medical (4) AUDRA positive: Code(s): R76.8 - Other specified abnormal immunological findings in serum Category: Medical (5) GERD (gastroesophageal reflux disease): Code(s): K21.9 - Gastro-esophageal reflux disease without esophagitis Category: Medical Qualifiers: Esophagitis bleeding: without hemorrhage Esophagitis presence: with esophagitis Qualified Code(s): K21.00 - Gastro-esophageal reflux disease with esophagitis, without bleeding (6) AMY (obstructive sleep apnea): Code(s): G47.33 - Obstructive sleep apnea (adult) (pediatric) Category: Medical (7) Chronic allergic rhinitis: Code(s): J30.9 - Allergic rhinitis, unspecified Category: Medical (8) Abnormal chest x-ray: Code(s): R93.89 - Abnormal findings on diagnostic imaging of other specified body structures Category: Medical (9) Allergies: Code(s): T78.40XA - Allergy, unspecified, initial encounter Category: Medical Qualifiers: Encounter type: initial encounter Qualified Code(s): T78.40XA - Allergy, unspecified, initial encounter Plan nebulizer for Xopenex continue APAP 6-11 once cough is better, need access to her APAP to adjust Flovent (stopped the LABA due to the Afib) Xopenex as needed continue Astelin nasal spray saline gel as needed follow-up in 4-6 months Coding Level of Care Code Est Pt Level 4 (01426) Complex EM visit Add On G2211 Diagnoses Vasculitis I77.6 Moderate persistent asthma with acute exacerbation J45.41 Asthma complication type: with acute exacerbation Asthma persistence: persistent Asthma severity: moderate ILD (interstitial lung disease) J84.9 AUDRA positive R76.8 Gastroesophageal reflux disease with esophagitis without hemorrhage K21.00 Esophagitis bleeding: without hemorrhage Esophagitis presence: with esophagitis AMY (obstructive sleep apnea) G47.33 Chronic allergic rhinitis J30.9 Abnormal chest x-ray R93.89 Allergy, initial encounter T78.40XA Encounter type: initial encounter Time Spent (min) 16
== END 2025-02-04 09:10 | disposition home or self-care (01) ==
LOC: HO.HPS 08:37
PROVIDERS: PCP Nurse Practitioner Family; Visit Provider Hospitalist
DX: I77.6 Arteritis, unspecified (principal); J45.41 Moderate persistent asthma with (acute) exacerbation; J84.9 Interstitial pulmonary disease, unspecified; R76.89 Other specified abnormal immunological findings in serum; K21.00 Gastro-esophageal reflux disease with esophagitis, without bleeding; G47.33 Obstructive sleep apnea (adult) (pediatric); J30.9 Allergic rhinitis, unspecified; R93.89 Abnormal findings on diagnostic imaging of other specified body structures; T78.40XA Allergy, unspecified, initial encounter
CPT/HCPCS: 99214; G2211

== ENCOUNTER → 2025-02-04 08:36 | Outpatient (BNVA) | payer MEDICARE, SELFPAY | PROVIDERS: PCP Nurse Practitioner Family; Visit Provider Hospitalist | DX: J42 Unspecified chronic bronchitis (principal); J45.41 Moderate persistent asthma with (acute) exacerbation; I77.6 Arteritis, unspecified; J84.9 Interstitial pulmonary disease, unspecified; R76.89 Other specified abnormal immunological findings in serum; K21.00 Gastro-esophageal reflux disease with esophagitis, without bleeding; G47.33 Obstructive sleep apnea (adult) (pediatric); J30.9 Allergic rhinitis, unspecified; T78.40XA Allergy, unspecified, initial encounter; R93.89 Abnormal findings on diagnostic imaging of other specified body structures; Z99.89 Dependence on other enabling machines and devices; Z79.899 Other long term (current) drug therapy | CPT/HCPCS: 99212 ==

== ENCOUNTER 2025-02-04 10:11 | Outpatient (AMB) | payer OTHER, MEDICARE, SELFPAY ==
--- OUTSIDE RECORDS SUMMARY | 2025-02-03 10:35 | XMS_ITS | Encounter Summary ---
Author Organization [facility] Address [address] [place] [address] Care Team Providers Care Apartment Community Manager Name Role Phone System, Provider Not In Primary Care Provider Un available Encounter Details Date Type Department Care Team (Late st Contact Info) Description 02/03/2025 10:35 AM EDT Ancillary Procedure Orthopedic [address] [address] Arrived Social History Tobacco Use Types Packs/Day [...] was performed in office at [facility] and images reviewed by orthopedic provider. Any findings are documented within ambulatory encounter note on date of service. Nick Rae MD IMG DIAGNOSTIC IMAGING ORDERA BLES Final Result [facility] documented in this encounter Visit Diagnoses Not on filedocumented in this encounter Care Teams Apartment Community Manager Relationship Specialty Start Date End Date System, Provider Not In PCP - General 11/28/22 documented as of this encounter
--- OUTSIDE RECORDS SUMMARY | 2025-02-03 11:00 | XMS_ITS | Encounter Summary ---
Author Organization [facility] Address [address] [place] [address] Care Team Providers Care Front Office Developer Name Role Phone System, Provider Not In Primary Care Provider Un available Reason for Visit * Reason Comments Pain Encounter Details Date Type Department Care Team ([facility] st Contact Info) Description 02/03/2025 11:00 AM [place] [address] Nick Rae MD [address] [place] [address] Hx of total ankle replacement, right (Primary Dx) Social History Tobacco Use Types Packs/Day Years [...] 3+ views-Right (02/03/2025 11:34 AM EDT) Narrative [facility] - 02/03/2025 11:34 AM EDT This exam was performed in office at [facility] and images reviewed by orthopedic provider. Any findings are documented within ambulatory encounter note on date of service. us Nick Rae MD IMG DIAGNOSTIC IMAGING ORDERA BLES Final Result [facility] documented in this encounter Visit Diagnoses Diagnosis Hx of total ankle replacement, right- Primary documented in this encounter Care Teams Front Office Developer Relationship Specialty Start Date End Date System, Provider Not In PCP - General 11/28/22 documented as of this encounter
--- NOTE | 2025-02-04 10:12 | A.OFFVIS_ITS ---
Vital Signs 02/04/25 10:13 Height 5 ft 4 in Weight 202 lb 2.622 oz BMI 34.7 BP 130/70 Blood Pressure Location Lt brachial Position Sitting Pulse 60 Pulse Source Pulse Oximeter Pulse Oximetry (%) 93 Oxygen Delivery Method Room Air Intake Visit Reasons: follow up Intake Note: Patient presents for follow up on SS with vasculitis. 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 daily - No new complaints - Here today with her . Sadly her mother got a stroke and she is currently on hospice - No new rashes, persistent joint pain - Currently on short course of steroids for bronchitis - No changes to immunosuppression Today - On Rituximab 1g every 6 months IV, alpha lipoic acid 600 mg daily and gabapentin 300 mg t.i.d. daily - Has not been consistently taking the alpha lipoic acid - Takes 600mg gabapentin nightly - Still complains of neuropathic pain especially at night Rheumatologic History: Medium and small vessel vasculitis in the setting of Sjogren's syndrome +++SSB necrotizing skin lesions, deltoid muscle biopsy showing vasculitis, severe asymmetrical peripheral neuropathy (on EMG/NCS) of her lower extremities. 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), inflammatory arthritis Received 3 doses of monthly Cytoxan 04/13-07/13 with some improvement Received 3 doses of IVIG (2g/kg) 07/13-10/13 without improvement in neurological symptoms MMF 07/13 partially effective, patient couldn't tolerate 1500 mg bid due to GI upset DC 10/13 RTX 1 g X 2 doses 12/2022 - 08/2023 RTX 1g 02/2024 - She reports having COVID-19 in 10/2021 and soon after having bronchitis requiring a prednisone course with improvement Around 12/2021 she started having fever, generalized myalgias and arthralgias, vertigo, vomiting, paresthesias (feet and left hand), skin rash including an erythematous papular rash involving the face and back, and erythematous papular lesions involving the hands that led to blistering and necrosis. She was 1st evaluated in [place] and told to have CT and blood work with evidence of pancreatitis. She was then evaluated by [facility] Rheumatology which revealed increased inflammatory markers, positive anti Ro, evidence of peripheral neuropathy and at deltoid muscle biopsy showing vasculitis with giant cells involving the muscular artery. After this she received treatment with 3 pulses of Cytoxan followed by CellCept and 3 pulses of mycophenolate 1 g followed by an oral prednisone taper with significant clinical improvement. She also received a few months of IVIG. Started rituximab 12/2022 and got a 2nd cycle 06/2023 Weaned off prednisolone around 07/2023 Current Rheumatology Medication(s): Rituxumab 1g every 6 months IV Gabapentin 300mg tid daily Alpha lipoic acid 600mg PO daily PFSH Medical History Encounter for monitoring rituximab therapy Sjogren syndrome with vasculitis Allergies Cataract Snoring Hx of migraines Hyperkalemia Prediabetes Muscle weakness Autoimmune pancreatitis Sjogren's disease COVID-19 Blood D-dimer assay positive Chest pain GERD (gastroesophageal reflux disease) Bronchitis Asthma AMY (obstructive sleep apnea) Surgical History History of cataract surgery Hx of colonoscopy Hx of cholecystectomy Hx of appendectomy S/P ankle joint replacement Family History Mother Alzheimer disease Stroke Other Family history of connective tissue disease Lupus Multiple sclerosis Rheumatoid arthritis Social History Household Members: Spouse Housing: House Alcohol intake: current Alcohol intake frequency: does not drink Patient Tobacco Use Status: Never used Tobacco e-Cigarette/Vaping Use: Never Used service: No Current occupational status: retired 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 Cognitive needs: No Hearing needs: No Vision needs: Yes Review of Systems Const Details: Review of Systems Constitutional: Denies fever, chills, weight loss ENT: Denies vision changes, eye pain or eye redness, dental caries, dry mouth GI: Denies nausea, vomiting, diarrhea, abdominal pain, change in BM Pulm: Denies SOB, FIERRO, hemoptysis, wheezing Cards: Denies chest pain, palpitations Skin: Denies Raynaud's, rash, nail changes, photosensitivity, PUBLIC HEALTH DIRECTOR: Denies headaches, weakness, paresthesias, recurrent falls MSK: as per HPI All other systems reviewed and are unremarkable except noted above Physical Exam Exam Exam: Vital signs reviewed Physical Examination CONSTITUITIONAL Patient alert and cooperative. Well appearing and in no apparent painful distress MSK Hands * Right Hand: Able to make a fist. No swelling or tenderness to palpation of the MCPs, PIPs or DIPs. * Left Hand: Able to make a fist. No swelling or tenderness to palpation of the MCPs, PIPs or DIPs. Wrists * Right Wrist: Full ROM to flexion and extension. No swelling or TTP * Left Wrist: Full ROM to flexion and extension. No swelling or TTP Elbows * Right Elbow: Full ROM. No swelling or TTP. No TTP of the medial epicondyle. No TTP of the lateral epicondyle * Left Elbow: Full ROM. No swelling or TTP. No TTP of the medial epicondyle. No TTP of the lateral epicondyle Shoulders * Right shoulder: Full ROM. No swelling noted. TTP of the AC joint. No TTP of the subacromial bursa. No TTP of the posterior shoulder * Left shoulder: Full ROM. No swelling noted. No TTP of the AC joint. No TTP of the subacromial bursa. No TTP of the posterior shoulder Knees * Right knee: Full ROM. No swelling noted. No TTP of the knee joint line. No TTP of pes anserine bursa * Left knee: Full ROM. No swelling noted. No TTP of the knee joint line. No TTP of pes anserine bursa. * Crepitations felt bilaterally Ankles * Right ankle: Good ankle dorsiflexion and plantar flexion. No swelling. No TTP of the ankle joint * Left ankle: Good ankle dorsiflexion and plantar flexion. No swelling. No TTP of the ankle joint Feet * Right foot: Negative squeeze test * Left foot: Negative squeeze test Tender points? * No tenderness to palpation of the bilateral trapezius, supraspinatus, anterior costochondral junctions, bilateral suboccipital muscle insertions SKIN No rashes Vital Signs: Last Vital Signs Pulse 60 02/04/25 10:13 BP 130/70 02/04/25 10:13 Pulse Ox 93 02/04/25 10:13 Oxygen Delivery Method Room Air 02/04/25 10:13 BMI result Body Mass Index 34.7 Results Reviewed Results Reviewed: Laboratory Tests 06/06/24 02/03/25 10:48 13:17 WBC 8.3 RBC 4.26 Hgb 12.8 Hct 40.1 Plt Count 349 ESR 17 Sodium 141 Potassium 4.3 Chloride 111 H Carbon Dioxide 22 BUN 24 H Creatinine 0.87 AST 23 ALT 15 C-Reactive Protein 0.61 H 0.46 Laboratory Tests 02/03/25 13:17 IgG Total 974 IgA Total 247 IgM 12 L Assessment & Plan Assessment & Plan (1) Sjogren syndrome with vasculitis: Comment: Medium and small vessel vasculitis in the setting of Sjogren's syndrome +++SSB necrotizing skin lesions, deltoid muscle biopsy showing vasculitis, severe asymmetrical peripheral neuropathy (on EMG/NCS) of her lower extremities. 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), inflammatory arthritis Received 3 doses of monthly Cytoxan 04/13-07/13 with some improvement Received 3 doses of IVIG (2g/kg) 07/13-10/13 without improvement in neurological symptoms MMF 07/13 partially effective, patient couldn't tolerate 1500 mg bid due to GI upset DC 10/13 RTX 1 g X 2 doses 12/2022 - 08/2023 RTX 1g 02/2024 - Code(s): M35.0B - Sjogren syndrome with vasculitis Category: Medical Plan: #Sjogren's syndrome c/b medium and small vessel vasculitis Patient is a 69-year-old female with a history of mononeuritis multiplex, necrotic skin lesions and sicca symptoms diagnosed with medium and small vessel vasculitis in the setting of Sjogrens syndrome Completed induction with CYC, steroids and Rituxumab. Now in remission 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 - halfway (current) use of immunosuppressive biologic Category: Medical Plan: #Long-term Use of Rituxumab Discussed with this patient the risks and benefits of rituximab use to the management of the rheumatic condition Benefits include improved disease control and maintenance of remission Risks include hypogammaglobulinemia and increased risk of opportunistic infections, reactivation of hepatitis-B, infusion reactions Monitoring: ?Immunoglobulins, hepatitis-B serologies, CBC Plan I spent 40 minutes reviewing the record and labs, taking a history, examining the patient, discussing the treatment plan, answering questions and documenting in the medical record Coding Level of Care Code Est Pt Level 5 (37799) Complex EM visit Add On G2211 Diagnoses Sjogren syndrome with vasculitis M35.0B Encounter for monitoring rituximab therapy Z51.81; Z79.620
[2025-02-04 10:13] VITALS: BP 130/70; PULSE 60; O2SAT 93; BMI 34.7
--- OUTSIDE RECORDS SUMMARY | 2025-02-04 12:02 | XMS_ITS | Encounter Summary ---
Author Organization [facility] Address [address] [place] [address] Care Team Providers Care Mud Cleaner Operator Name Role Phone Saige Howard Primary Care Provider Unavailab Sánchez Rubi SUPPORT WORKER Primary Care Provider Un available Jo Ann Meredith MD Primary Care Prov ider Encounter Details Date Type Department Care Team Description 07/10/2017 Orders Only Medical Records [address] [place] [id number] Christophe Jean Baptiste MD Social History Tobacco Use Types Packs/Day Years Used Date Smoking Tobacco: Never Smokeless Tobacco: Never Sex Assigned at Date Recorded Not on file documented as of this encounter Plan of Treatment Not on file documented as of this encounter Procedures Procedure Name Priority Date/Time Associated Diagnosis Comments OUTSIDE SLEEP STUDY Routine 07/08/2017 documented in this encounter Results * OUTSIDE SLEEP STUDY (07/08/2017) Christophe Jean Baptiste MD PULMONOLOGY documented in this encounter Visit Diagnoses Not on filedocumented in this encounter Care Teams Mud Cleaner Operator Relationship Specialty Start Date End Date Saige Howard PCP - General Geriatrics 05/16/17 12/12/20 Sánchez Jean Baptiste NP PCP - General Internal Medicine 12/13/2002/12 Jo Ann Meredith MD [address] [place] [address] [id number] PCP - General Internal Medicine 02/13/22 documented as of this encounter
--- OUTSIDE RECORDS SUMMARY | 2025-02-04 12:02 | XMS_ITS | Clinical Summary ---
Author Organization [facility] Address [address] [facility] [address] [place] [phone] Phone Care Team Providers Care Mortar Carrier Name Role Phone Ezio Kinney NP Primary Care Provider [phone]- [phone] Ezio Carroll MD Unavailable Unavailable Allergies No [...] daily Obstructive sleep apnea 07/10/2017 Overview (07/18/2022): [facility] Home Polysomnogram: Date 07/08/2017; AHI 7, Unclassified [...] Description 04/02/2025 1:00 PM EST Office Visit [facility] Rheumatology [address], [address] Floor, [address] [place] [address] Israel Forrest MD [address] [facility] [address] [place] [address] [email or web address] Health Maintenance Due Date Last Done Comments [...] [place] [id number] Care Teams Mortar Carrier Relationship Specialty Start Date End Date Ezio Kinney NP [address] [place] [id number] PCP - General Nurse Practitioner 07/14/22 Ezio Carroll MD [address] [place] [address] [place] [address] Internal Medicine 07/18/22 Additional Source Comments The information contained in this document represents components of the legal health record. It is not the complete legal health record.[facility]
--- OUTSIDE RECORDS SUMMARY | 2025-02-04 12:02 | XMS_ITS | Encounter Summary ---
Author Organization [facility] Address [address] [place] [address] Care Team Providers Care Transportation Maintenance Operator Name Role Phone Ref, Has No Pcp Or Primary Care Provider Unavail able Encounter Details Date Type Department Care Team (Late st Contact Info) Description 09/22/2022 myChart Message [facility] Financial Counseling Department [address] [place] [phone] Mychart, Generic Provider [facility] [place] [address] financial assistance Social History Tobacco [...] on filedocumented in this encounter Care Teams Transportation Maintenance Operator Relationship Specialty Start Date End Date Ref, Has No Pcp Or DO NOT EDIT THIS RECORD VIA PROVIDER ON THE FLY PCP - General Sql Application Developer 03/23/22 documented as of this encounter
--- OUTSIDE RECORDS SUMMARY | 2025-02-04 12:02 | XMS_ITS | Encounter Summary ---
Author Organization [facility] Address [address] [place] [address] Care Team Providers Care Photoengraving Etcher Apprentice Name Role Phone Sánchez Jean Baptiste JUTE BAG SEWER Primary Care Provider Un available Jo Ann Meredith MD Primary Care Prov ider Reason for Visit * Reason Onset Date Comments Medication 02/03/2021 Encounter Details Date Type Department Care Team Description 02/03/2021 Refill Gastroenterology [address] [place] [address] Leena Amezquita MD Medication Social History Tobacco Use Types Packs/Day Years Used Date Smoking Tobacco: Never Smokeless Tobacco: Never Sex Assigned at Date Recorded Not on file documented as of this encounter Plan of Treatment Not on file documented as of this encounter Visit Diagnoses Not on filedocumented in this encounter Care Teams Photoengraving Etcher Apprentice Relationship Specialty Start Date End Date Sánchez Jean Baptiste NP PCP - General Internal Medicine 12/13/2002/12 Jo Ann Meredith MD [address] [place] [id number] PCP - General Internal Medicine 02/13/22 documented as of this encounter
--- OUTSIDE RECORDS SUMMARY | 2025-02-04 12:02 | XMS_ITS | Encounter Summary ---
Author Organization [facility] Address [address] [place] [address] Care Team Providers Care Civil Engineering Drafter Name Role Phone Saige Howard Primary Care Provider Unavailab Sánchez Rubi FIELD UNDERWRITER Primary Care Provider Un available Jo Ann Meredith MD Primary Care Prov ider Encounter Details Date Type Department Care Team Description 07/07/2019 Release of Information Medical Records [address] [place] [id number] Abstract, Provider Social History Tobacco Use Types Packs/Day Years Used Date Smoking Tobacco: Never Smokeless Tobacco: Never Sex Assigned at Date Recorded Not on file documented as of this encounter Plan of Treatment Not on file documented as of this encounter Visit Diagnoses Not on filedocumented in this encounter Care Teams Civil Engineering Drafter Relationship Specialty Start Date End Date Saige Howard PCP - General Geriatrics 05/16/17 12/12/20 Sánchez Jean Baptiste NP PCP - General Internal Medicine 12/13/2002/12 Jo Ann Meredith MD [address] [place] [address] [phone] PCP - General Internal Medicine 02/13/22 documented as of this encounter
--- OUTSIDE RECORDS SUMMARY | 2025-02-04 12:02 | XMS_ITS | Clinical Summary ---
Author Organization [facility] Address [address] [place] [address] Care Team Providers Care Manager Business Continuity Name Role Phone Jo Ann Meredith MD Primary Care Prov ider Allergies No known active allergies Medications Medication Sig Dispensed Refills Start Date End Date Status atorvastatin (LIPITOR) 20 MG tablet Take 20 mg by mouth daily. 0 Active Sennosides (SENNA) 8.6 MG Tab Take by mouth. 0 Active Probiotic Product (RESTORA) Cap Take by mouth. 0 Active ALBUTEROL SULFATE 108 (90 BASE) MCG/ACT Aero SolnIndications:Sev ere asthma without complication, unspecified whether persistent Inhale 2 Puffs into the lungs every 4 hours as needed. 0 Active Dexlansoprazole 60 MG CAPSULE DELAYED RELEASE Take by mouth. 0 Active Amlodipine-Olmesart an 5-40 MG Tab Take by mouth. 0 Active pantoprazole (PROTONIX) 40 MG tablet Take 40 mg by mouth daily. 0 Active predniSONE (DELTASONE) 10 MG tablet 6 tabs by mouth daily x 3 days, then decrease by 1 tab every 3 days until completed 63 Tab 0 03/25/2018 Active montelukast (SINGULAIR) 10 MG tabletIndications:M oderate persistent asthma without complication,Obstru ctive sleep apnea,Hiatal hernia,Rash Take 1 Tab by mouth at bedtime for 30 days. 30 Tab 11 03/25/2018 Active fluticasone-salmete rol (ADVAIR HFA) 230-21 MCG/ACT inhalerIndications: Severe asthma without complication, unspecified whether persistent Inhale 2 Puffs into the lungs 2 times daily for 30 days. This medication has inhaler steroid: Rinse mouth with water and expectorate after each dose to prevent oral/esophageal candidiasis or fungal infection. 1 Inhaler 11 03/25/2018 Active desloratadine (CLARINEX) 5 MG tablet Take 1 Tab by mouth daily for 30 days. 30 Tab 11 03/25/2018 Active Trelegy Ellipta 100-62.5-25 MCG/INH AEROSOL POWDER,BREATH ACTIVATED 0 11/03/2020 Active amLODIPine-Olmesart an 5-40 MG Tab Take 40 mg by mouth daily. 0 Active Dexlansoprazole 60 MG CAPSULE DELAYED RELEASE Take 60 mg by mouth daily. 0 Active polyethylene glycol (GoLYTELY,NuLYTELY) 236 g suspension Take 4 L by mouth once for 1 dose. (May substitute any PEG) Mix prep accorinding to directions. Drink one 8oz glass every 15 minutes as instructed by office. 4000 mL 0 02/03/2021 Active Active Problems Problem Noted Date Hypertension 07/17/2017 GERD (gastroesophageal reflux disease) 0 07/17/2017 Hiatal hernia 07/17/2017 Multiple thyroid nodules 07/17/2017 Insomnia 07/17/2017 Anxiety 07/17/2017 Hyperlipidemia 07/17/2017 Obstructive sleep apnea mild AHI 7 07/10 Overview: [facility] Home Polysomnogram: Date 07/08/2017; AHI 7, Unclassified apneas 0; Obstructive apneas 25; Central apneas 1; Mixed apneas 0; hypopneas 30; average oxygen saturation 96% (lowest 85% without saturations <88% for 5% or more of study) - Obstructive Sleep Apnea - mild; mostly hypopneas and obstructive apneas; no sleep related hypoventilation by 2018 home polysomnogram. COPD (chronic obstructive pulmonary dise ase) 06/05/2017 Goiter 06/05/2017 Asthma Immunizations Name Administration Dates Next Due Influenza Vaccine-preservati ve Free-quadrivalent 4 Years 03/25/2018 Influenza Vaccine-quadrivalent 4 Years Plus 12/2017 Family History Medical History Relation Name Comments Stroke Brother CAD Diabetes Father skin CA, kidney disease, liver disease Asthma Mother Relation Name Status Comments Brother Father Mother Social History Tobacco Use Types Packs/Day Years Used Date Smoking Tobacco: Never Smokeless Tobacco: Never Sex Assigned at Date Recorded Not on file Last Filed Vital Signs Vital Sign Reading Time Taken Comments Blood Pressure 128/70 03/25/2018 11:08 AM EST Pulse 78 03/25/2018 11:08 AM EST Temperature - - Respiratory Rate - - Oxygen Saturation 98% 03/25/2018 11:08 AM EST r/a Inhaled Oxygen Concentration - - Weight 103 kg (227 lb) 03/25/2018 11:08 AM EST Height 162.6 cm (5' 4 ) 03/25/2018 11:08 AM EST Body Mass Index 38.96 03/25/2018 11:08 AM EST Plan of Treatment Health Maintenance Due Date Last Done Comments Covid-19 Vaccine (#1) 03/29/1956 DEPRESSION SCREEN 1965 HEPATITIS C SCREENING 09/28/1971 DTAP/TDAP/TD (1 - Tdap) 1972 CHOLESTEROL SCREENING 1973 MAMMOGRAM 1993 SHINGLES VACCINE (1 of 2) 09/28/2003 BONE DENSITY SCREENING 2018 FALL RISK ASSESSMENT 2018 PNEUMOCOCCAL VACCINE (1 - PCV) 2018 BMI CHECK/ADVISE 04/23/2024 03/25/2018, 07/2017, 07/24/2017, Additional history exists INFLUENZA (#1) 2024 03/25/2018, 06/01/2017 COLON CANCER SCREENING 02/17/2026 02/17/2021, 2020 (Completed) Care Teams Manager Business Continuity Relationship Specialty Start Date End Date Jo Ann Meredith MD [address] [place] [phone] PCP - General Internal Medicine 02/13/22
--- OUTSIDE RECORDS SUMMARY | 2025-02-04 12:02 | XMS_ITS | Encounter Summary ---
Author Organization [facility] Address [address] [place] [address] Care Team Providers Care Correctional Officer Chief Name Role Phone Sánchez Jean Baptiste DIRECTOR SOCIAL WELFARE Primary Care Provider Un available Jo Ann Meredith MD Primary Care Prov ider Encounter Details Date Type Department Care Team Description 02/16/2021 Orders Only Medical Records [address] [place] [address] Leena Amezquita MD Social History Tobacco Use Types Packs/Day Years Used Date Smoking Tobacco: Never Smokeless Tobacco: Never Sex Assigned at Date Recorded Not on file documented as of this encounter Plan of Treatment Not on file documented as of this encounter Procedures Procedure Name Priority Date/Time Associated Diagnosis Comments OUTSIDE LAB Routine 02/15/2021 documented in this encounter Results * OUTSIDE LAB (02/15/2021) Leena Amezquita MD LAB documented in this encounter Visit Diagnoses Not on filedocumented in this encounter Care Teams Correctional Officer Chief Relationship Specialty Start Date End Date Sánchez Jean Baptiste NP PCP - General Internal Medicine 12/13/2002/12 Jo Ann Meredith MD [address] [place] [address] PCP - General Internal Medicine 02/13/22 documented as of this encounter
--- OUTSIDE RECORDS SUMMARY | 2025-02-04 12:02 | XMS_ITS | Clinical Summary ---
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 She follows with a instructor looping (Dr. Carroll at [facility]). [facility] hospital workup included prior EMG with [...] recs for outpatient follow up (pt prefers [place]) - Pain: tylenol 650mg Q4hrs, oxycodone 2.5mg [...] complete this topic Procedures * Due to [place] [employer] law, this organization might not be sharing negative HIV tests. Procedure Name Priority Date/Time Associated Diagnosis Comments RENAL FUNCTION PANEL Routine 03/31/2022 5:51 AM EST HEPATITIS PANEL, ACUTE STAT 03/24/2022 10:15 AM EST from Last 3 Months or Most Recently Relevant to Health Maintenance Results * Due to [place] [employer] law, this organization might not be sharing negative HIV tests. * (ABNORMAL) Renal Function Panel (03/31/2022 5:51 AM EST) NA 135 135 - 145 mmol/L 03/31/2022 6:41 AM [facility] K 4.4 3.5 - 5.3 mmol/L 03/31/2022 6:41 AM [facility] Cl 105 97 - 110 mmol/L 03/31/2022 6:41 AM [facility] CO2 25 24 - 32 mmol/L 03/31/2022 6:41 AM [facility] Anion Gap 5 5 - 15 03/31/2022 6:41 AM [facility] Glucose 89 70 - 99 mg/dL 03/31/2022 6:41 AM [facility] BUN 39(H) 7 - 23 mg/dL 03/31/2022 6:41 AM [facility] Creatinine 1.03 0.50 - 1.20 mg/dL 03/31/2022 6:41 AM [facility] Calcium 9.0 8.7 - 10.7 mg/dL 03/31/2022 6:41 AM [facility] Phosphorus 3.0 2.5 - 4.5 mg/dL 03/31/2022 6:41 AM [facility] Albumin 3.0(L) 3.5 - 4.8 g/dL 03/31/2022 6:41 AM [facility] eGFR 59(L) >=90 mL/min/1. 73m2 03/31/2022 6:41 AM [facility] Comment: Estimated Glomerular Filtration [...] MD LAB BLOOD ORDERABLES Final Re sult [facility] [address] [place] [address], * Hepatitis Panel, Acute (03/24/2022 10:15 AM EST) Hepatitis A IgM NON-REACT HEATHER NON-REACT HEATHER 03/24/2022 11:36 PM EST [facility] Hepatitis B Surface Antigen NON-REACT HEATHER NON-REACT HEATHER 03/24/2022 11:36 PM EST [facility] Hepatitis B Core Antibody NON-REACT HEATHER NON-REACT HEATHER 03/24/2022 11:36 PM EST [facility] Hepatitis C Antibody NON-REACT HEATHER NON-REACT HEATHER 03/24/2022 11:36 PM EST [facility] Signal To Cut-Off 0.20 <1.00 03/24/2022 11:36 PM EST [facility] Comment: HCV antibody was non-reactive. There is no laboratory evidence of HCV infection. In most cases, no further action is required. However, if recent HCV exposure is suspected, a test for HCV RNA (test code 36085) is suggested. For additional information please refer to http://NewsHunt.VOYAA/faq/WJI98w2 (This link is being provided for informational/ educational purposes only.) For additional information, please refer to http://[email or web address] Size/faq/[email or web address] (This link is being provided for informational/ educational purposes only.) Blood Structure of peripheral vein / Unknown Venipuncture / Unknown 03/24/2022 10:15 AM EST 03/24/2022 12:00 PM EST Narrative [facility] - 03/24/2022 11:36 PM EST [facility] Received Date: us Tika Jarrell MD LAB BLOOD ORDERABLES Final Re sult [facility] [address] [facility] [address], [place] [address], [place] [phone] [facility] [address] [facility] [address], [place] [address], [place] [phone] from Last 3 Months or Most Recently Relevant to Health Maintenance Insurance MEDICARE [facility] Advance Directives * Full Code (Latest Code Status on File) Date Activated Date Inactivated Comments 03/23/2022 3:58 PM 04/01/2022 7:20 PM Care Teams Tent Worker Relationship Specialty Start Date End Date Ref, Has No Pcp Or DO NOT EDIT THIS RECORD VIA PROVIDER ON THE FLY PCP - General X Ray Technician 03/23/22
--- OUTSIDE RECORDS SUMMARY | 2025-02-04 12:02 | XMS_ITS | Encounter Summary ---
Author Organization [facility] Address [address] [place] [address] Care Team Providers Care Fish Inspector Name Role Phone Ref, Has No Pcp Or Primary Care Provider Unavail able Encounter Details Date Type Department Care Team (Late st Contact Info) Description 04/04/2022 Telephone [facility] [address] [place] [address] Telephone Intake, Staff Social History Tobacco Use [...] needs medication MINESH. PT can bereached @ [phone] PAC TEAM documented in this encounter Plan of Treatment Not on file documented as of this encounter Visit Diagnoses Not on filedocumented in this encounter Care Teams Fish Inspector Relationship Specialty Start Date End Date Ref, Has No Pcp Or DO NOT EDIT THIS RECORD VIA PROVIDER ON THE FLY PCP - General Drier Tender Naphthalene 03/23/22 documented as of this encounter
--- OUTSIDE RECORDS SUMMARY | 2025-02-04 12:02 | XMS_ITS | Encounter Summary ---
Author Organization [facility] Address [address] [place] [address] Care Team Providers Care Mat Weaver Name Role Phone Sánchez Jean Baptiste HAND STONER Primary Care Provider Un available Jo Ann Meredith MD Primary Care Prov ider Encounter Details Date Type Department Care Team Description 12/13/2020 Hydramatic Specialist Report Medical Records [address] [place] [address] Sánchez Jean Baptiste NP Social History Tobacco Use Types Packs/Day Years Used Date Smoking Tobacco: Never Smokeless Tobacco: Never Sex Assigned at Date Recorded Not on file documented as of this encounter Plan of Treatment Not on file documented as of this encounter Visit Diagnoses Not on filedocumented in this encounter Care Teams Mat Weaver Relationship Specialty Start Date End Date Sánchez Jean Baptiste NP PCP - General Internal Medicine 12/13/2002/12 Jo Ann Meredith MD [address] [place] [address] PCP - General Internal Medicine 02/13/22 documented as of this encounter
--- OUTSIDE RECORDS SUMMARY | 2025-02-04 12:02 | XMS_ITS | Encounter Summary ---
Author Organization [facility] Address [address] [place] [address] Care Team Providers Care Paper Reclaiming Machine Operator Name Role Phone Sánchez Jean Baptiste SKILLED NURSING CASE MANAGER Primary Care Provider Un available Jo Ann Meredith MD Primary Care Prov ider Encounter Details Date Type Department Care Team Description 12/23/2020 Abstract Gastroenterology - [place] [address] [facility] [address] [place] [id number] Jeremie Parra MD [address] [place] [address] Social History Tobacco Use Types Packs/Day Years Used Date Smoking Tobacco: Never Smokeless Tobacco: Never Sex Assigned at Date Recorded Not on file documented as of this encounter Plan of Treatment Not on file documented as of this encounter Visit Diagnoses Not on filedocumented in this encounter Care Teams Paper Reclaiming Machine Operator Relationship Specialty Start Date End Date Sánchez Jean Baptiste NP PCP - General Internal Medicine 12/13/2002/12 Jo Ann Meredith MD [address] [place] [address] PCP - General Internal Medicine 02/13/22 documented as of this encounter
--- OUTSIDE RECORDS SUMMARY | 2025-02-04 12:02 | XMS_ITS | Encounter Summary ---
Author Organization [facility] Address [address] [place] [address] Care Team Providers Care Loan Analyst Name Role Phone Sánchez Jean Baptiste BUSINESS DEVELOPMENT MANAGER Primary Care Provider Un available Jo Ann Meredith MD Primary Care Prov ider Encounter Details Date Type Department Care Team Description 12/23/2020 Telephone Gastroenterology - [address] [place] [address] Sánchez Jean Baptiste NP Social History Tobacco Use Types Packs/Day Years Used Date Smoking Tobacco: Never Smokeless Tobacco: Never Sex Assigned at Date Recorded Not on file documented as of this encounter Miscellaneous Notes * Telephone Encounter - Erinn Rand M.A. - 12/23/2020 1:40 PM EDT Medication and allergies updated will give GI Schedulers paperwork documented in this encounter Plan of Treatment Not on file documented as of this encounter Visit Diagnoses Not on filedocumented in this encounter Care Teams Loan Analyst Relationship Specialty Start Date End Date Sánchez Jean Baptiste NP PCP - General Internal Medicine 12/13/2002/12 Jo Ann Meredith MD [address] [place] [address] PCP - General Internal Medicine 02/13/22 documented as of this encounter
--- OUTSIDE RECORDS SUMMARY | 2025-02-04 12:02 | XMS_ITS | Patient Health Record ---
Author Organization [facility] Address [address] [place] [address] Care Team Providers Care Lettuce Cutter Name Role Phone Sánchez Jean Baptiste Unavailable [...] Status Risk Notes Problem Vitamin D deficiency (74609581) Vitamin D deficiency, unspecified (E55.9) Active confirmed Problem Migraine without aura, not refractory (disorder) (595564857) Migraine, unspecified, not intractable, without status migrainosus (G43.909) Active confirmed Problem Diabetes mellitus screening (185494439) Encounter for screening for diabetes mellitus (Z13.1) Active confirmed Problem Colon cancer screening (017110378) Colon cancer screening (Z12.11) Active confirmed Problem Fatigue (58993504) Fatigue, unspecified type (R53.83) Active confirmed Problem Thyroid nodule (882451304) Thyroid nodule (E04.1) Active confirmed Problem Essential hypertension (82053252) Accelerated hypertension (I10) Active confirmed Problem Obstructive sleep apnea syndrome (70824610) AMY (obstructive sleep apnea) (G47.33) Active confirmed Problem Asthma without status asthmaticus (94235141) Moderate asthma without complication, unspecified whether persistent (J45.909) Active confirmed Problem Mixed hyperlipidemia (742497937) Combined hyperlipidemia (E78.2) Active confirmed Problem History of partial thyroidectomy (678222458) H/O partial thyroidectomy (E89.0) Active confirmed Plan Of Treatment No Information Insurance Providers Payer Name Payer Address Payer Phone Subscriber Number Group Number Insured Name Patient Relationship to Insured Coverage Start Date Coverage End Date Medicare Part B [id number] [address] [place] [address] [id number] Lisette Zepeda Self - patient is the insured [address] [facility] [address] [place] [address] [id number] vision plan Lisette Zepeda Self - patient is the insured Medical (General) History Medical History History ICD Code asthma - mild intermittent hypertension hyperlipidemia Surgical History Surgery Date(Month/Year) gallbladder appendectomy ankle surgery left ovarie
--- OUTSIDE RECORDS SUMMARY | 2025-02-04 12:02 | XMS_ITS | Clinical Summary ---
Author Organization [facility] Address [address] [place] [address] Care Team Providers Care Fbi Profiler Name Role Phone System, Provider Not In Primary Care Provider Un available Allergies No known active allergies Medications No known medications Active Problems No known active problems Encounters Date Type Department Care Team Description 02/03/2025 11:00 AM EDT [place] [address] Nick Rae MD Hx of total ankle replacement, right (Primary Dx) 02/03/2025 10:35 AM EDT Ancillary Procedure Orthopedic [address] [address] Arrived from Last 3 Months Social History [...] COVID-19 Vaccine (2023-25 season) 2024 RSV Vaccine 50 years and older and Patients (1 - [...] was performed in office at [facility] and images reviewed by orthopedic provider. Any findings are documented within ambulatory encounter note on date of service. Nick Rae MD IMG DIAGNOSTIC IMAGING ORDERA BLES Final Result OA from Last 3 Months Insurance MEDICARE PART A & B Care Teams Fbi Profiler Relationship Specialty Start Date End Date System, Provider Not In PCP - General 11/28/22
== END 2025-02-04 11:16 | disposition home or self-care (01) ==
LOC: HO.RHES 10:12
PROVIDERS: PCP Nurse Practitioner Family; Visit Provider Student in an Organized Health Care Education/Training Program
DX: M35.0B Sjogren syndrome with vasculitis (principal); Z51.81 Encounter for therapeutic drug level monitoring; Z79.620 Long term (current) use of immunosuppressive biologic
CPT/HCPCS: 99215